=== PATIENT | male | born 1950 | race Caucasian/White ===

== ENCOUNTER 2016-10-26 20:40 | Emergency (ER) | payer MEDICARE, BC ==
[2016-10-26 20:46] VITALS: RESP 22; TEMP 97.5
[2016-10-26] MEDS ORDERED: IPRATROPIUM 0.5 MG/2.5 ML NEBU INHALATION STA (21:17)
[2016-10-26] MEDS ORDERED: ALBUTEROL NEBULIZED 2.5 MG/3 ML INHALATION STA (21:17)
[2016-10-26] MEDS ORDERED: DEXAMETHASONE SOD PHOSPHATE 10 MG/ML 1 ML VIAL IV STA (21:18)
[2016-10-26] MEDS ORDERED: DEXAMETHASONE SOD PHOSPHATE 10 MG/ML 1 ML VIAL IM STA (21:24)
--- NOTE | 2016-10-26 21:33 | XR ---
EXAMINATION TYPE: XR chest 2V DATE OF EXAM: 10/26/2016 COMPARISON: 01/23/2012 HISTORY: Short of breath TECHNIQUE: Frontal and lateral views of the chest are obtained. FINDINGS: Heart and mediastinum are normal. Lungs are clear. Diaphragm is normal. Bony thorax is int act. There are chest leads. IMPRESSION: No active cardiopulmonary disease. Normal heart. No change.
--- NOTE | 2016-10-26 22:43 | ED ---
General Adult HPI - General Chief complaint: Shortness of Breath Stated complaint: Diff breathing Time Seen by Provider: 10/26/16 21:17 Source: patient, family, RN notes reviewed Mode of arrival: ambulatory Limitations: no limitations - History of Present Illness Initial comments: 65-year-old male with history of COPD presents with worsening cough and dyspnea over the past one week. Patient states his cough is productive of white-yellow sputum. He is currently smoking and has a significant tobacco history. Patient states he normally uses albuterol and when he has a flare his doctor will give him a steroid shot, however he was unable to make an appointment with his primary care physician. Denies fever. Denies chest pain. Denies abdominal pain, or nausea vomiting. - Related Data Previous Rx's Medication Instructions Recorded Albuterol Inhaler [Ventolin Hfa 1 - 2 puff INHALATION Q4HR PRN #1 10/26/16 Inhaler] inhaler Albuterol Nebulized [Ventolin 2.5 mg INHALATION Q4H PRN #60 nebu 10/26/16 Nebulized] Azithromycin [Zithromax Z-pack] 0 mg PO DIRECTED #6 tab 10/26/16 predniSONE 50 mg PO DAILY #5 tablet 10/26/16 Allergies Allergy/AdvReac Type Severity Reaction Status Date / Time No Known Allergies Allergy Verified 10/26/16 20:45 Review of Systems ROS Statement: Those systems with pertinent positive or pertinent negative responses have been documented in the HPI. ROS Other: All systems not noted in ROS Statement are negative. Respiratory: Reports: cough, dyspnea Cardiovascular: Denies: chest pain Past Medical History Past Medical History: COPD Additional Past Medical History / Comment(s): tachycardia History of Any Multi-Drug Resistant Organisms: None Reported Past Surgical History: Appendectomy, Hernia Repair Past Psychological History: No Psychological Hx Reported Smoking Status: Current some day smoker Past Alcohol Use History: None Reported Past Drug Use History: None Reported General Exam Limitations: no limitations General appearance: alert, in no apparent distress Head exam: Present: atraumatic, normocephalic Eye exam: Present: normal appearance, PERRL ENT exam: Present: normal exam, normal oropharynx, mucous membranes moist Neck exam: Present: normal inspection, full ROM. Absent: tenderness, meningismus Respiratory exam: Present: wheezes, prolonged expiratory Cardiovascular Exam: Present: regular rate, normal rhythm GI/Abdominal exam: Present: soft. Absent: distended, tenderness Extremities exam: Present: normal inspection. Absent: pedal edema, calf tenderness Back exam: Present: normal inspection, full ROM Neurological exam: Present: alert, oriented X3. Absent: motor sensory deficit Psychiatric exam: Present: normal affect, normal mood Skin exam: Present: warm, dry. Absent: cyanosis Course Vital Signs 10/26/16 10/26/16 10/26/16 20:41 21:32 21:45 Temperature 97.5 F L Pulse Rate 94 103 H 97 Respiratory 22 Rate Blood Pressure 152/88 O2 Sat by Pulse 97 Oximetry 10/26/16 22:15 Temperature Pulse Rate 115 H Respiratory Rate Blood Pressure O2 Sat by Pulse Oximetry - Reevaluation(s) Reevaluation #1: 10/26/16 22:42 On reevaluation, the patient feels much better, wheezing has improved, there is still scattered and expiratory wheezes throughout both lung rodriguez. No respiratory distress. No tachypnea. No hypoxia EKG Findings - EKG Comments: EKG Findings:: EKG shows normal sinus rhythm, right atrial enlargement, ventricular rate 99, CO interval 146, QRS duration 76, QTC [address] segment elevation or depression Medical Decision Making - Medical Decision Making 65-year-old male with history of COPD, currently smoking presents with a 1 week of worsening dyspnea. Patient denies chest pain. Cough is productive of sputum. On examination there is no respiratory distress, there is bilateral wheezing in all lung rodriguez. No accessory muscle use. Patient is not hypoxic on room air. He is given albuterol, Atrovent, and Decadron in the emergency department on reevaluation his lung sounds have improved, there is still scattered wheezing throughout. Patient refuses blood work at this time. He states his appointment with his primary care physician in the next week. He is given 5 day course of prednisone, azithromycin, and refill of his albuterol. EKG is nonischemic. Chest x-ray shows no focal infiltrate or acute process. Diagnosis: COPD exacerbation Disposition Clinical Impression: COPD exacerbation Disposition: HOME SELF-CARE Instructions: Chronic Bronchitis (ED), COPD (Chronic Obstructive Pulmonary Disease) (ED) Prescriptions: Albuterol Inhaler [Ventolin Hfa Inhaler] 1 - 2 puff INHALATION Q4HR PRN #1 inhaler PRN Reason: Shortness Of Breath Albuterol Nebulized [Ventolin Nebulized] 2.5 mg INHALATION Q4H PRN #60 nebu PRN Reason: Shortness Of Breath Azithromycin [Zithromax Z-pack] 0 mg PO DIRECTED #6 tab predniSONE 50 mg PO DAILY #5 tablet Referrals: Rudy Santoyo DO [Primary Care Provider] - 1-2 days
[2016-10-26 22:48] VITALS: BP 163/73; PULSE 112
== END 2016-10-26 22:46 | disposition home or self-care (01) ==
LOC: EC 20:40
DX: J44.1 Chronic obstructive pulmonary disease with (acute) exacerbation (principal); F17.200 Nicotine dependence, unspecified, uncomplicated
CPT/HCPCS: 99284; 96372; 94640; 93005; 71020; J1100

== ENCOUNTER 2018-04-30 12:21 | Inpatient (IN) | payer MEDICARE, OTHER ==
[2018-04-30] MEDS ORDERED: IPRATROPIUM-ALBUTEROL 3 ML NEB INHALATION STA (12:31)
--- NOTE | 2018-04-30 13:41 | XR ---
EXAMINATION TYPE: XR chest 1V portable DATE OF EXAM: 04/30/2018 Comparison: 10/26/2016 Clinical History: 67-year-old male with pain Findings: Heart normal size. Diffuse interstitial densities. No megan consolidation or pleural effusion. Impression: Diffuse interstitial prominence. Correlate for possible mild pulmonary vascular congestion.
[2018-04-30 14:47] LABS: Anisocytosis Moderate; Lymphocytes # (A) 1.5 k/uL (1.0-4.8); Macrocytosis Moderate
--- NOTE | 2018-04-30 14:48 | ED ---
Recheck HPI - General Chief Complaint: Recheck/Abnormal Lab/Rx Stated Complaint: weakness Time Seen by Provider: 04/30/18 12:21 Source: patient, RN/MD, EMS, RN notes reviewed, old records reviewed Mode of arrival: EMS Limitations: no limitations - History of Present Illness Initial Comments: This is a 57-year-old male who was transferred here from [facility] for evaluation of several complaints including chest pain which she initially presented for this morning at that hospital. Pain is started around 4 AM 5/10 severity no radiation of the mid a better or worse he had some mild dyspnea weakness by time he has a year no pain he is found her on evaluation have a hemoglobin 4.8 he also did have an elevated d-dimer of 1.21 and elevated troponin 0.093 he however did have evidence of renal insufficiency with a BUN 86 creatinine 3.8. He was given one unit of blood that was finishing as he arrived by EMS. He states he does have a history of COPD he was having some slight dyspnea upon arrival. Rectal exam was performed by the emergency physician at the other hospital was negative for blood MD Complaint: abnormal lab, other - Related Data Home Medications Medication Instructions Recorded Confirmed Albuterol Nebulized (Conc) 2.5 mg PO RT-Q6H 04/30/18 04/30/18 [Ventolin Nebulized (Conc)] Metoprolol Tartrate [Lopressor] 50 mg PO BID 04/30/18 04/30/18 Allergies Allergy/AdvReac Type Severity Reaction Status Date / Time No Known Allergies Allergy Verified 04/30/18 12:42 Review of Systems ROS Statement: Those systems with pertinent positive or pertinent negative responses have been documented in the HPI. ROS Other: All systems not noted in ROS Statement are negative. Past Medical History Past Medical History: COPD Additional Past Medical History / Comment(s): tachycardia History of Any Multi-Drug Resistant Organisms: None Reported Past Surgical History: Appendectomy, Hernia Repair Additional Past Surgical History / Comment(s): cataract Past Psychological History: No Psychological Hx Reported Smoking Status: Current every day smoker Past Alcohol Use History: None Reported Past Drug Use History: None Reported General Exam - General Exam Comments Initial Comments: This is a well-developed well-nourished awake alert oriented 3 male he does appear pale Limitations: no limitations General appearance: alert, in no apparent distress Head exam: Present: atraumatic, normocephalic, normal inspection Eye exam: Present: normal appearance, PERRL, EOMI. Absent: scleral icterus, conjunctival injection, periorbital swelling ENT exam: Present: mucous membranes dry Neck exam: Present: normal inspection. Absent: tenderness, meningismus, lymphadenopathy Respiratory exam: Present: wheezes, decreased breath sounds. Absent: respiratory distress, rales, rhonchi, stridor Cardiovascular Exam: Present: regular rate, normal rhythm, normal heart sounds. Absent: systolic murmur, diastolic murmur, rubs, gallop, clicks GI/Abdominal exam: Present: soft, normal bowel sounds. Absent: distended, tenderness, guarding, rebound, rigid Rectal exam: Present: deferred Extremities exam: Present: normal inspection, full ROM, normal capillary refill. Absent: tenderness, pedal edema, joint swelling, calf tenderness Back exam: Present: normal inspection Neurological exam: Present: alert, oriented X3, CN II-XII intact Psychiatric exam: Present: normal affect, normal mood Skin exam: Present: warm, dry, intact, pallor. Absent: rash Course Vital Signs 04/30/18 04/30/18 04/30/18 12:34 13:42 13:50 Temperature 98.2 F Pulse Rate 84 88 84 Respiratory 18 22 Rate Blood Pressure 176/102 O2 Sat by Pulse 96 Oximetry 04/30/18 14:58 Temperature Pulse Rate 92 Respiratory 18 Rate Blood Pressure 177/102 O2 Sat by Pulse 99 Oximetry Medical Decision Making - Medical Decision Making Repeat hemoglobin on the patient was 6.7. He is feeling improved no more chest pain is been reported. Patient will be admitted the additional unit of blood will be given he'll be admitted for evaluation by cardiology. Also GI consult was ordered. The early elevations of troponin and d-dimer are likely secondary to renal failure issues.. Nephrology will also be ordered. - Lab Data Result diagrams: 04/30/18 14:29 Lab Results 04/30/18 Range/Units 14:29 WBC 7.6 (3.8-10.6) k/uL RBC 2.12 L (4.30-5.90) m/uL Hgb 6.7 L* (13.0-17.5) gm/dL Hct 21.3 L (39.0-53.0) % MCV 100.7 H (80.0-100.0) fL MCH 31.7 (25.0-35.0) pg MCHC 31.5 (31.0-37.0) g/dL RDW 20.8 H (11.5-15.5) % Plt Count 488 H (150-450) k/uL Neutrophils % 65 % Lymphocytes % 19 % Monocytes % 10 % Eosinophils % 2 % Basophils % 1 % Neutrophils # 4.9 (1.3-7.7) k/uL Lymphocytes # 1.5 (1.0-4.8) k/uL Monocytes # 0.8 (0-1.0) k/uL Eosinophils # 0.2 (0-0.7) k/uL Basophils # 0.1 (0-0.2) k/uL Anisocytosis Moderate Macrocytosis Moderate - Radiology Data Radiology results: report reviewed ([place] increase interstitial markings.), image reviewed Disposition Clinical Impression: Chest pain, Anemia, Renal insufficiency Disposition: ADMITTED IP TO THIS [facility] Condition: Serious Referrals: Rudy Santoyo DO [Primary Care Provider] - 1-2 days
[2018-04-30 14:54] LABS: Basophils # (A) 0.1 k/uL (0-0.2); Basophils % (A) 1 %; Eosinophils # (A) 0.2 k/uL (0-0.7); Eosinophils % (A) 2 %; HCT 21.3 % (39.0-53.0); Lymphocytes % (A) 19 %; MCH 31.7 pg (25.0-35.0); MCHC 31.5 g/dL (31.0-37.0); MCV 100.7 fL (80.0-100.0); Mean Platelet Volume 6.3; Monocytes # (A) 0.8 k/uL (0-1.0); Monocytes % (A) 10 %; Neutrophils # (A) 4.9 k/uL (1.3-7.7); Neutrophils % (A) 65 %; Platelet Count 488 k/uL (150-450); RBC 2.12 m/uL (4.30-5.90); RDW 20.8 % (11.5-15.5); WBC 7.6 k/uL (3.8-10.6)
[2018-04-30 15:02] LABS: HGB 6.7 gm/dL (13.0-17.5)
[2018-04-30] MEDS ORDERED: NALOXONE 0.4 MG/ML 1 ML VIAL IV PRN (15:18)
[2018-04-30 15:49] LABS: Albumin 3.2 g/dL (3.5-5.0); Calcium 8.4 mg/dL (8.4-10.2); Total Bilirubin 0.2 mg/dL (0.2-1.3); Total Protein 5.8 g/dL (6.3-8.2)
[2018-04-30 15:59] LABS: Creatine Kinase MB 1.5 ng/mL (0.0-2.4)
[2018-04-30 16:01] LABS: Troponin I 0.211 ng/mL (0.000-0.034)
[2018-04-30] MEDS ORDERED: IPRATROPIUM-ALBUTEROL 3 ML NEB INHALATION PRN (16:20)
--- NOTE | 2018-04-30 16:33 | P.HPIM ---
History of Present Illness Patient is a very pleasant 57-year-old gentleman was transferred from [facility] after he is found to be anemic. Patient presented to the hospital with precordial chest pain 5/10 severity along with mild dyspnea generalized weakness has been going on for about a month. Patient is found to have hemoglobin of 4.8 patient has significant renal insufficiency with BUN/ creatinine of 2.8 BUN of 86 patient's baseline creatinine around 0.84 years ago and from 2013. Patient is a thin built gentleman at baseline patient is appropriately intake doesn't eat much does appear to have macrocytosis, reactive thrombocytosis. 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 Patient denied any obvious JVD denied any blood in the stools or dark stools rectal exam did not reveal any blood he in the year.. Patient had only 1 stool yesterday patient denied any increased frequency stools lately . Denied any hematemesis denied any abdominal pain. His chest pain improved with lowering to blood transfusion. Review of Systems REVIEW OF SYSTEMS: CONSTITUTIONAL: No fever, no malaise, no fatigue. HEENT: No recent visual problems or hearing problems. Denied any sore throat. CARDIOVASCULAR: No orthopnea, PND, no palpitations, no syncope. PULMONARY: no cough, no hemoptysis. GASTROINTESTINAL: No diarrhea, no nausea, no vomiting, no abdominal pain. NEUROLOGICAL: No headaches, no weakness, no numbness. HEMATOLOGICAL: Denies any bleeding or petechiae. GENITOURINARY: Denies any burning micturition, frequency, or urgency. MUSCULOSKELETAL/RHEUMATOLOGICAL: Denies any joint pain, swelling, or any muscle pain. ENDOCRINE: Denies any polyuria or polydipsia. The rest of the 14-point review of systems is negative. Past Medical History Past Medical History: COPD Additional Past Medical History / Comment(s): tachycardia, in past was on thyroid med none now,"headaches", wants flu vaccine while here. History of Any Multi-Drug Resistant Organisms: None Reported Past Surgical History: Appendectomy, Hernia Repair Additional Past Surgical History / Comment(s): cataracts -latest one on left side done 04-24-18, naveed ing hernia repair Past Anesthesia/Blood Transfusion Reactions: No Reported Reaction Smoking Status: Current every day smoker - Past Family History Mother Family Medical History: Unable to Obtain Father Family Medical History: Myocardial Infarction ([place]) Medications and Allergies Home Medications Medication Instructions Recorded Confirmed Type Albuterol Nebulized (Conc) 2.5 mg PO RT-Q6H 04/30/18 04/30/18 History [Ventolin Nebulized (Conc)] Metoprolol Tartrate [Lopressor] 50 mg PO BID 04/30/18 04/30/18 History Allergies Allergy/AdvReac Type Severity Reaction Status Date / Time No Known Allergies Allergy Verified 04/30/18 12:42 Physical Exam Vitals: Vital Signs Temp Pulse Resp BP Pulse Ox 04/30/18 16:08 85 18 184/99 95 04/30/18 14:58 92 18 177/102 99 04/30/18 13:50 84 04/30/18 13:42 88 22 04/30/18 12:34 98.2 F 84 18 176/102 96 Intake and Output 04/30/18 04/30/18 04/30/18 06:59 14:59 22:59 Other: Weight 46.72 kg PHYSICAL EXAMINATION: GENERAL: The patient is alert and oriented x3, thin built HEENT: Pupils are round and equally reacting to light. EOMI. No scleral icterus. No conjunctival pallor. Normocephalic, atraumatic. No pharyngeal erythema. No thyromegaly. CARDIOVASCULAR: S1 and S2 present. No murmurs, rubs, or gallops. PULMONARY: Minimal expiratory wheezing, fairly good air entry into bilateral lung rodriguez. ABDOMEN: Soft, nontender, nondistended, normoactive bowel sounds. No palpable organomegaly. MUSCULOSKELETAL: No joint swelling or deformity. EXTREMITIES: No cyanosis, clubbing, or pedal edema. NEUROLOGICAL: Gross neurological examination did not reveal any focal deficits. SKIN: No rashes. Results CBC & Chem 7: 04/30/18 14:29 04/30/18 14:29 Labs: Abnormal Lab Results - Last 24 Hours (Table) 04/30/18 04/30/18 04/30/18 Range/Units 14:29 14:29 14:29 RBC 2.12 L (4.30-5.90) m/uL Hgb 6.7 L* (13.0-17.5) gm/dL Hct 21.3 L (39.0-53.0) % MCV 100.7 H (80.0-100.0) fL RDW 20.8 H (11.5-15.5) % Plt Count 488 H (150-450) k/uL Chloride 110 H (98-107) mmol/L Carbon Dioxide 15 L (22-30) mmol/L BUN 83 H (9-20) mg/dL Creatinine 3.42 H (0.66-1.25) mg/dL AST 15 L (17-59) U/L Total Creatine Kinase 47 L (55-170) U/L Troponin I 0.211 H* (0.000-0.034) ng/mL Total Protein 5.8 L (6.3-8.2) g/dL Albumin 3.2 L (3.5-5.0) g/dL Assessment and Plan Plan: -Chest pain, possibility of type II non-ST elevation myocardial infarction from anemia patient will not require any heparin patient is a 1 unit of blood transfusion patient will require 2 more units of blood transfusion patient's hemoglobin is 6.7 at this time. She does not have any evidence of GI bleed. We 'll order an EKG -Severe anemia symptomatic without any evidence of acute bleed or acute blood loss: Probably nutritionally anemia patient has macrocytosis louder B-12 folate levels along with the ferritin level. If the B12 and folate levels are within normal limits patient will need bone marrow biopsy senior assistant manager for myelodysplastic syndromes. -COPD with minimal acceleration will not require any systemic steroids patient will be started on inhaled steroids and inhalational treatments. continues to smoke -Acute renal failure, possibility of chronic kidney disease cannot be ruled out acute renal failure is probably due to prerenal azotemia and severe anemia patient will receive blood transfusion we'll obtain basic metabolic profile tomorrow -Anion gap and noniron gap metabolic acidosis secondary to renal failure and hyperkalemia. -Thrombocytosis: Reactive secondary to anemia -Pulmonary edema on chest x-ray. obtain echocardiogram. Cardiology will evaluate the patient -CODE STATUS: Full code
[2018-04-30] MEDS ORDERED: IPRATROPIUM-ALBUTEROL 3 ML NEB INHALATION SCH (18:00)
[2018-04-30] MEDS ORDERED: FUROSEMIDE 10 MG/ML 2 ML VIAL IV ONE (18:01)
[2018-04-30] MEDS: SODIUM CHLORIDE 0.9% 1,000 ML IV SCH (19:21)
[2018-04-30] MEDS: FAMOTIDINE 20 MG TAB PO SCH (19:28)
[2018-04-30] MEDS: METOPROLOL TARTRATE 50 MG TAB PO SCH (19:28)
[2018-04-30] MEDS: BUDESONIDE 0.5 MG/2 ML NEBU INHALATION SCH (19:42)
[2018-04-30] MEDS: IPRATROPIUM-ALBUTEROL 3 ML NEB INHALATION SCH (19:42)
[2018-04-30] MEDS ORDERED: PANTOPRAZOLE 40 MG/10 ML VIAL IV SCH (21:00)
[2018-04-30] MEDS ORDERED: hydrALAZINE HCL 50 MG TAB PO SCH (22:15)
[2018-04-30 22:57] LABS: Anisocytosis Moderate; Basophils # (A) 0.1 k/uL (0-0.2); Basophils % (A) 1 %; Hypochromasia Slight; Macrocytosis Moderate; Monocytes # (A) 0.6 k/uL (0-1.0); Poikilocytosis Slight
[2018-04-30 23:00] LABS: Eosinophils # (A) 0.3 k/uL (0-0.7); Eosinophils % (A) 3 %; HCT 25.2 % (39.0-53.0); Lymphocytes % (A) 11 %; MCH 32.2 pg (25.0-35.0); MCHC 32.9 g/dL (31.0-37.0); MCV 97.8 fL (80.0-100.0); Mean Platelet Volume 6.1; Monocytes % (A) 7 %; Neutrophils % (A) 76 %; Platelet Count 486 k/uL (150-450); RBC 2.58 m/uL (4.30-5.90); RDW 21.2 % (11.5-15.5); WBC 9.1 k/uL (3.8-10.6)
[2018-04-30 23:01] LABS: HGB 8.3 gm/dL (13.0-17.5)
[2018-05-01] MEDS: GENTAMICIN BOTH EYES SCH ×3 (01:16→21:39)
[2018-05-01] MEDS: KETOROLAC 0.5% OPHTH DROPS 5 ML BTL BOTH EYES SCH ×3 (01:16→21:39)
[2018-05-01] MEDS: PREDNISOLONE BOTH EYES SCH ×3 (01:16→21:39)
[2018-05-01 06:35] LABS: Anisocytosis Moderate; Basophils # (A) 0.1 k/uL (0-0.2); Basophils % (A) 1 %; Eosinophils # (A) 0.2 k/uL (0-0.7); Eosinophils % (A) 2 %; HCT 25.9 % (39.0-53.0); HGB 8.4 gm/dL (13.0-17.5); Lymphocytes # (A) 1.2 k/uL (1.0-4.8); Lymphocytes % (A) 12 %; MCH 31.1 pg (25.0-35.0); MCHC 32.2 g/dL (31.0-37.0); MCV 96.3 fL (80.0-100.0); Macrocytosis Moderate; Mean Platelet Volume 6.9; Monocytes # (A) 0.8 k/uL (0-1.0); Monocytes % (A) 7 %; Neutrophils # (A) 8.3 k/uL (1.3-7.7); Neutrophils % (A) 77 %; Platelet Count 495 k/uL (150-450); Poikilocytosis Slight; RBC 2.69 m/uL (4.30-5.90); RDW 21.5 % (11.5-15.5); WBC 10.8 k/uL (3.8-10.6)
[2018-05-01 06:44] LABS: Calcium 8.9 mg/dL (8.4-10.2); Potassium 4.4 mmol/L (3.5-5.1)
--- NOTE | 2018-05-01 08:07 | P.CRDCN ---
History of Present Illness Consult date: 05/01/18 Chief complaint: Chest discomfort/shortness of breath History of present illness: This is a pleasant 67-year-old gentleman with a past medical history significant for chronic obstructive pulmonary disease as well as history of hypertension who was transferred from [facility] to [facility] for further evaluation of severe anemia. The patient presented to the hospital complaining of chest discomfort as well as shortness of breath. Overall he is a poor historian and also he is a slightly confused. He states for the last several days, he has been experiencing chest discomfort, in the mid of the chest, as a pressure on the chest, without any radiation to the arm or neck or shoulders. Also he has been experiencing extreme dyspnea even with minimal exertion. Beside that he was feeling tired and weak and also he was fatigued. The hemoglobin at [facility] was checked and came in to before. The patient did receive 2 units of packed RBC with improvement in his hemoglobin and also improvement in his symptoms. The patient does not recall having any symptoms of blood in the stool or coughing blood. No abdominal discomfort, no nausea or vomiting, no fever or chills. No history of coronary artery disease or congestive heart failure or any cardiac arrhythmia and he never seen any consignee in the past. The EKG showed sinus rhythm and initially sinus tachycardia. The troponin was checked and came in to be slightly abnormal but old below 1. I did review the chart from [place] as well. The blood pressure continues to be out of control. The patient currently is on metoprolol as well as hydrocephalus and by mouth. He is nothing by mouth for possible endoscopy later on today. Past Medical History Past Medical History: COPD Additional Past Medical History / Comment(s): tachycardia, in past was on thyroid med none now,"headaches", wants flu vaccine while here. History of Any Multi-Drug Resistant Organisms: None Reported Past Surgical History: Appendectomy, Hernia Repair Additional Past Surgical History / Comment(s): cataracts -latest one on left side done 04-24-18, naveed ing hernia repair Past Anesthesia/Blood Transfusion Reactions: No Reported Reaction Smoking Status: Current every day smoker - Past Family History Mother Family Medical History: Unable to Obtain Father Family Medical History: Myocardial Infarction ([place]) Medications and Allergies Home Medications Medication Instructions Recorded Confirmed Type Albuterol Nebulized (Conc) 2.5 mg PO RT-Q6H 04/30/18 04/30/18 History [Ventolin Nebulized (Conc)] Gentamicin/Prednisol AC [Pred-G 1% 1 drop BOTH EYES BID 04/30/18 04/30/18 History Eye Drops] Ketorolac 0.5% Ophth Soln [Acular 1 drop BOTH EYES BID 04/30/18 04/30/18 History 0.5%] Metoprolol Tartrate [Lopressor] 50 mg PO BID 04/30/18 04/30/18 History Omeprazole Magnesium [PriLOSEC OTC] 1 tab PO DAILY PRN 04/30/18 04/30/18 History Allergies Allergy/AdvReac Type Severity Reaction Status Date / Time No Known Allergies Allergy Verified 04/30/18 12:42 Physical Exam Vitals: Vital Signs Temp Pulse Pulse Resp BP BP BP 05/01/18 04:00 97.4 F L 103 H 16 171/85 05/01/18 00:00 97.1 F L 88 16 180/100 04/30/18 20:00 98.7 F 78 15 187/98 198/108 04/30/18 19:52 89 04/30/18 19:42 87 04/30/18 19:32 98.7 F 78 15 198/108 04/30/18 19:16 98.7 F 92 16 200/107 04/30/18 18:27 89 18 187/98 04/30/18 18:06 97.7 F 85 14 164/102 04/30/18 17:53 97.8 F 84 04/30/18 17:36 97.8 F 84 16 184/104 04/30/18 17:26 98.2 F 83 16 188/104 04/30/18 16:08 85 18 184/99 04/30/18 14:58 92 18 177/102 04/30/18 13:50 84 04/30/18 13:42 88 22 04/30/18 12:34 98.2 F 84 18 176/102 Pulse Ox 05/01/18 04:00 98 05/01/18 00:00 93 L 04/30/18 20:00 92 L 04/30/18 19:52 04/30/18 19:42 04/30/18 19:32 92 L 04/30/18 19:16 94 L 04/30/18 18:27 96 04/30/18 18:06 04/30/18 17:53 04/30/18 17:36 04/30/18 17:26 98 04/30/18 16:08 95 04/30/18 14:58 99 04/30/18 13:50 04/30/18 13:42 04/30/18 12:34 96 Intake and Output 04/30/18 05/01/18 05/01/18 22:59 06:59 14:59 Intake Total 490 500 Output Total 600 Balance 490 -100 Intake: IV 10 20 Invasive Line 1 10 20 Amount of Fluid Infused ( 150 ml) Intake, IV Titration 0 Amount Sodium Chloride 0.9% 1, 0 000 ml @ 20 mls/hr IV . Q24H [facility] Rx#:[id number] Oral 480 Blood Product 310 Rc Pheresis As-3 Unit 310 [id number] Other 20 Rc Pheresis As-3 Unit 20 [id number] Output: Urine 600 Other: Voiding Method Toilet Toilet # Voids 5 Weight 52.1 kg 50.4 kg - Constitutional General appearance: no acute distress - Respiratory Respiratory: bilateral: CTA - Cardiovascular Rhythm: regular Heart sounds: normal: S1, S2 Results 05/01/18 06:15 05/01/18 06:15 Cardiac Enzymes 04/30/18 04/30/18 04/30/18 Range/Units 14:29 14:29 22:31 AST 15 L (17-59) U/L CK-MB (CK-2) 1.5 (0.0-2.4) ng/mL Troponin I 0.211 H* 0.190 H* (0.000-0.034) ng/mL CBC 04/30/18 04/30/18 05/01/18 Range/Units 14:29 22:31 06:15 WBC 7.6 9.1 10.8 H (3.8-10.6) k/uL RBC 2.12 L 2.58 L 2.69 L (4.30-5.90) m/uL Hgb 6.7 L* 8.3 L D 8.4 L (13.0-17.5) gm/dL Hct 21.3 L 25.2 L 25.9 L (39.0-53.0) % Plt Count 488 H 486 H 495 H (150-450) k/uL Comprehensive Metabolic Panel 04/30/18 05/01/18 Range/Units 14:29 06:15 Sodium 137 139 (137-145) mmol/L Potassium 5.0 4.4 (3.5-5.1) mmol/L Chloride 110 H 109 H (98-107) mmol/L Carbon Dioxide 15 L 18 L (22-30) mmol/L BUN 83 H 72 H (9-20) mg/dL Creatinine 3.42 H 3.37 H (0.66-1.25) mg/dL Glucose 90 96 (74-99) mg/dL Calcium 8.4 8.9 (8.4-10.2) mg/dL AST 15 L (17-59) U/L ALT 21 (21-72) U/L Alkaline Phosphatase 46 (38-126) U/L Total Protein 5.8 L (6.3-8.2) g/dL Albumin 3.2 L (3.5-5.0) g/dL Current Medications Generic Name Dose Route Start Last Admin Trade Name Freq PRN Reason Stop Dose Admin Albuterol/Ipratropium 3 ml 04/30/18 20:00 04/30/18 19:42 Duoneb 0.5 Mg-3 Mg/3 Ml Soln INHALATION 3 ml RT-QID JAMA Administration Albuterol/Ipratropium 3 ml 04/30/18 18:00 Duoneb 0.5 Mg-3 Mg/3 Ml Soln INHALATION RT-Q2H PRN Shortness Of Breath Or Wheezing Budesonide 0.5 mg 04/30/18 20:00 04/30/18 19:42 Pulmicort INHALATION 0.5 mg RT-BID JAMA Administration Famotidine 20 mg 04/30/18 21:00 04/30/18 19:28 Pepcid PO 20 mg HS JAMA Administration Hydralazine HCl 50 mg 04/30/18 22:15 04/30/18 23:44 Apresoline PO 50 mg TID JAMA Administration Sodium Chloride 1,000 mls @ 20 mls/hr 04/30/18 15:30 04/30/18 19:21 Saline 0.9% IV Not Given .Q24H JAMA Ketorolac Tromethamine 1 drops 04/30/18 23:45 05/01/18 01:16 Acular BOTH EYES Not Given BID JAMA Metoprolol Tartrate 50 mg 04/30/18 21:00 04/30/18 19:28 Lopressor PO 50 mg BID JAMA Administration Naloxone HCl 0.2 mg 04/30/18 15:18 Narcan IV Q2M PRN Opioid Reversal Non-Formulary Medication 1 drop 04/30/18 23:45 05/01/18 01:16 Gentamicin/Prednisol Ac [Pred-G 1% Eye Drops] BOTH EYES Not Given BID JAMA Intake and Output 04/30/18 05/01/18 05/01/18 22:59 06:59 14:59 Intake Total 490 500 Output Total 600 Balance 490 -100 Intake: IV 10 20 Invasive Line 1 10 20 Amount of Fluid Infused ( 150 ml) Intake, IV Titration 0 Amount Sodium Chloride 0.9% 1, 0 000 ml @ 20 mls/hr IV . Q24H [facility] Rx#:[id number] Oral 480 Blood Product 310 Rc Pheresis As-3 Unit 310 [id number] Other 20 Rc Pheresis As-3 Unit 20 [id number] Output: Urine 600 Other: Voiding Method Toilet Toilet # Voids 5 Weight 52.1 kg 50.4 kg 05/01/18 06:15 05/01/18 06:15 Assessment and Plan Assessment: Assessment #1 severe anemia of unknown etiology at this point. #2 chest discomfort secondary to the above #3 mildly abnormal cardiac enzymes secondary to the anemia, hypertension, and tachycardia #4 uncontrolled hypertension Plan #1 the patient received blood and the hemoglobin has improved #2 he is in process to be seen by the GI service #3 continue the current dose of metoprolol and possibly increase the dose down the line #4 increase the dose of hydralazine for better blood pressure control #5 obtain an echocardiogram was Doppler to evaluate the left ventricular systolic function #6 consider conservative medical approach for the acute non-STEMI Thank you for allowing us participate in his care and we'll continue following up with him
[2018-05-01] MEDS: IPRATROPIUM-ALBUTEROL 3 ML NEB INHALATION SCH ×4 (08:25→19:47)
[2018-05-01] MEDS: BUDESONIDE 0.5 MG/2 ML NEBU INHALATION SCH (08:25)
[2018-05-01] MEDS: METOPROLOL TARTRATE 50 MG TAB PO SCH ×2 (08:52→21:39)
[2018-05-01] MEDS: hydrALAZINE HCL 50 MG TAB PO SCH ×3 (08:52→21:39)
--- NOTE | 2018-05-01 09:11 | P.CONS ---
History of Present Illness - Reason for Consult Consult date: 05/01/18 Anemia and GI bleed Requesting physician: Guanaco Cleary - Chief Complaint Chest pain - History of Present Illness 67-year-old male transferred from [facility] with reports of chest pain, vomiting, elevated troponin shortness of breath with hemoglobin of 4.8. Patient is confused this morning history obtained from RN. Past medical history of COPD possible underlying renal insufficiency BUN 86. Creatinine 2.8. Denies overt bleeding such as hematemesis hematochezia melena. Received blood transfusion present hemoglobin is 8.4. Platelets 495. MCV 96. White count 10.8. BUN 72. Creatinine 3.3. Troponin 0.1-0.2. Unable to say if he's had EGD colonoscopy in past. Nursing reports no active bleeding since admission. Patient denies abdominal pain. Review of Systems Confused obtained from MR and RN Constitutional: Denies fever, chills, sweats, weight gain, or loss. HEENT: Negative for migraines, blurred vision or loss, earaches, drainage, tinnitus, oral mucosal lesions, dysphagia, or odynophagia. Cardiac: Admitted with chest pain denies, arrhythmias, or palpitation. Respiratory: Positive for shortness of breath, denies hemoptysis, cough, or sputum production. Gastrointestinal: See HPI for pertinent findings. Genitourinary: Negative for hematuria, urgency, frequency, polyuria, dysuria, or penile discharge. Musculoskeletal: Negative for muscle aches, swelling, arthritis, and arthralgias. Neurologic: Negative for stroke or TIA. Endocrine: Negative for thyroid problems. Skin: Negative for rash or itching. Psychiatric: Negative history for depression and anxiety ROS unobtainable: due to mental status Past Medical History Past Medical History: COPD Additional Past Medical History / Comment(s): tachycardia, in past was on thyroid med none now,"headaches", wants flu vaccine while here. History of Any Multi-Drug Resistant Organisms: None Reported Past Surgical History: Appendectomy, Hernia Repair Additional Past Surgical History / Comment(s): cataracts -latest one on left side done 04-24-18, naveed ing hernia repair Past Anesthesia/Blood Transfusion Reactions: No Reported Reaction Smoking Status: Current every day smoker - Past Family History Mother Family Medical History: Unable to Obtain Father Family Medical History: Myocardial Infarction ([place]) Medications and Allergies Home Medications Medication Instructions Recorded Confirmed Type Albuterol Nebulized (Conc) 2.5 mg PO RT-Q6H 04/30/18 04/30/18 History [Ventolin Nebulized (Conc)] Gentamicin/Prednisol AC [Pred-G 1% 1 drop BOTH EYES BID 04/30/18 04/30/18 History Eye Drops] Ketorolac 0.5% Ophth Soln [Acular 1 drop BOTH EYES BID 04/30/18 04/30/18 History 0.5%] Metoprolol Tartrate [Lopressor] 50 mg PO BID 04/30/18 04/30/18 History Omeprazole Magnesium [PriLOSEC OTC] 1 tab PO DAILY PRN 04/30/18 04/30/18 History Allergies Allergy/AdvReac Type Severity Reaction Status Date / Time No Known Allergies Allergy Verified 04/30/18 12:42 Physical Exam Vitals: Vital Signs Temp Pulse Pulse Resp BP BP BP 05/01/18 04:00 97.4 F L 103 H 16 171/85 05/01/18 00:00 97.1 F L 88 16 180/100 04/30/18 20:00 98.7 F 78 15 187/98 198/108 04/30/18 19:52 89 04/30/18 19:42 87 04/30/18 19:32 98.7 F 78 15 198/108 04/30/18 19:16 98.7 F 92 16 200/107 04/30/18 18:27 89 18 187/98 04/30/18 18:06 97.7 F 85 14 164/102 04/30/18 17:53 97.8 F 84 04/30/18 17:36 97.8 F 84 16 184/104 04/30/18 17:26 98.2 F 83 16 188/104 04/30/18 16:08 85 18 184/99 04/30/18 14:58 92 18 177/102 04/30/18 13:50 84 04/30/18 13:42 88 22 04/30/18 12:34 98.2 F 84 18 176/102 Pulse Ox 05/01/18 04:00 98 05/01/18 00:00 93 L 04/30/18 20:00 92 L 04/30/18 19:52 01/30/19 19:42 04/30/18 19:32 92 L 04/30/18 19:16 94 L 04/30/18 18:27 96 04/30/18 18:06 04/30/18 17:53 04/30/18 17:36 04/30/18 17:26 98 04/30/18 16:08 95 04/30/18 14:58 99 04/30/18 13:50 04/30/18 13:42 04/30/18 12:34 96 Intake and Output 04/30/18 05/01/18 05/01/18 22:59 06:59 14:59 Intake Total 490 500 Output Total 600 Balance 490 -100 Intake: IV 10 20 Invasive Line 1 10 20 Amount of Fluid Infused ( 150 ml) Intake, IV Titration 0 Amount Sodium Chloride 0.9% 1, 0 000 ml @ 20 mls/hr IV . Q24H [facility] Rx#:[id number] Oral 480 Blood Product 310 Rc Pheresis As-3 Unit 310 [id number] Other 20 Rc Pheresis As-3 Unit 20 [id number] Output: Urine 600 Other: Voiding Method Toilet Toilet # Voids 5 Weight 52.1 kg 50.4 kg General appearance: The patient is alert, to self in no acute distress. HET: Head is normocephalic and atraumatic. Pupils are equal and reactive. Oropharynx is clear without lesions. Neck: Supple without lymphadenopathy. Trachea midline. Heart: S1 S2. Regular rate and rhythm. Lungs: No crackles or wheezes are heard. Abdomen: Soft, nontender, nondistended with bowel sounds. No peritoneal signs. No palpable organomegaly or masses. Extremities: Normal skin color and turgor. No cyanosis, rash, ulceration, clubbing, or edema. Radial and pedal pulses are 2/4 bilaterally. Neurological: No focal deficits. Strength and sensation are grossly intact. Results CBC & Chem 7: 05/02/18 06:19 05/02/18 06:19 Labs: Abnormal Lab Results - Last 24 Hours (Table) 04/30/18 04/30/18 04/30/18 Range/Units 14:29 14:29 14:29 WBC (3.8-10.6) k/uL RBC 2.12 L (4.30-5.90) m/uL Hgb 6.7 L* (13.0-17.5) gm/dL Hct 21.3 L (39.0-53.0) % MCV 100.7 H (80.0-100.0) fL RDW 20.8 H (11.5-15.5) % Plt Count 488 H (150-450) k/uL Neutrophils # (1.3-7.7) k/uL Chloride (98-107) mmol/L Carbon Dioxide (22-30) mmol/L BUN (9-20) mg/dL Creatinine (0.66-1.25) mg/dL AST (17-59) U/L Total Creatine Kinase 47 L (55-170) U/L Troponin I 0.211 H* (0.000-0.034) ng/mL Total Protein (6.3-8.2) g/dL Albumin (3.5-5.0) g/dL Crossmatch See Detail 04/30/18 04/30/18 04/30/18 Range/Units 14:29 22:31 22:31 WBC (3.8-10.6) k/uL RBC 2.58 L (4.30-5.90) m/uL Hgb 8.3 L D (13.0-17.5) gm/dL Hct 25.2 L (39.0-53.0) % MCV (80.0-100.0) fL RDW 21.2 H (11.5-15.5) % Plt Count 486 H (150-450) k/uL Neutrophils # (1.3-7.7) k/uL Chloride 110 H (98-107) mmol/L Carbon Dioxide 15 L (22-30) mmol/L BUN 83 H (9-20) mg/dL Creatinine 3.42 H (0.66-1.25) mg/dL AST 15 L (17-59) U/L Total Creatine Kinase (55-170) U/L Troponin I 0.190 H* (0.000-0.034) ng/mL Total Protein 5.8 L (6.3-8.2) g/dL Albumin 3.2 L (3.5-5.0) g/dL Crossmatch 05/01/18 05/01/18 Range/Units 06:15 06:15 WBC 10.8 H (3.8-10.6) k/uL RBC 2.69 L (4.30-5.90) m/uL Hgb 8.4 L (13.0-17.5) gm/dL Hct 25.9 L (39.0-53.0) % MCV (80.0-100.0) fL RDW 21.5 H (11.5-15.5) % Plt Count 495 H (150-450) k/uL Neutrophils # 8.3 H (1.3-7.7) k/uL Chloride 109 H (98-107) mmol/L Carbon Dioxide 18 L (22-30) mmol/L BUN 72 H (9-20) mg/dL Creatinine 3.37 H (0.66-1.25) mg/dL AST (17-59) U/L Total Creatine Kinase (55-170) U/L Troponin I (0.000-0.034) ng/mL Total Protein (6.3-8.2) g/dL Albumin (3.5-5.0) g/dL Crossmatch Assessment and Plan (1) Symptomatic anemia Current Visit: Yes Status: Acute Code(s): D64.9 - ANEMIA, UNSPECIFIED SNOMED Code(s): 266696629 (2) Chest pain Current Visit: Yes Status: Acute Code(s): R07.9 - CHEST PAIN, UNSPECIFIED SNOMED Code(s): 85077015 (3) Elevated troponin Current Visit: Yes Status: Acute Code(s): R74.8 - ABNORMAL LEVELS OF OTHER SERUM ENZYMES SNOMED Code(s): 233032304 (4) Change in mental status Current Visit: Yes Status: Acute Code(s): R41.82 - ALTERED MENTAL STATUS, UNSPECIFIED SNOMED Code(s): 687195908 (5) Severe chronic obstructive pulmonary disease Current Visit: Yes Status: Chronic Code(s): J44.9 - CHRONIC OBSTRUCTIVE PULMONARY DISEASE, UNSPECIFIED SNOMED Code(s): 454004541 Plan: 1. Cardiology nephrology consult. Daily CBC. Light diet as tolerated. Inpatient EGD colonoscopy discussed patient is confused will discuss with attending consult staff and family. We'll follow closely with you. Thank you for this kind referral and the opportunity to participate in the care of your patient. This consultation was discussed with Dr. Naranjo. The impression and plan of care have been directed as dictated.
[2018-05-01] MEDS ORDERED: HALOPERIDOL LACTATE 5 MG/ML 1 ML VIAL IVP PRN ×2 (10:33→11:12)
--- NOTE | 2018-05-01 10:33 | P.NPCON ---
History of Present Illness - Reason for Consult acute renal failure - History of Present Illness Reason for consultation: Acute kidney injury History of present illness: Patient is a 67-year-old male seen in renal consultation for acute kidney injury. Creatinine in December 2013 was 0.83. No records available since then. This admission his creatinine was 3.4-1 is 3.37 today. He admits to good urine output. No hematuria or dysuria. Patient presented to [facility] with generalized weakness. His hemoglobin was noted to be 4.8. He was also having chest discomfort and was subsequently transferred over here. He has received 3 units of blood so far. Hemoglobin is up 8.4. No melena or hematochezia. He does admit to taking ibuprofen on a daily basis. No evidence of hypotension. In fact his blood pressures are elevated. Dose of hydralazine was increased this morning. No history of diabetes. No active chest pain or shortness of breath. Family is present at bedside. Patient's aunt had renal failure and is currently . Vital signs are stable. General: The patient appeared well nourished and normally developed. HEENT: Head exam is unremarkable. Neck is without jugular venous distension. LUNGS: Lungs are clear to auscultation and percussion. Breath sounds decreased. HEART: Rate and Rhythm are regular. First and second heart sounds normal. No murmurs, rubs or gallops. ABDOMEN: Abdominal exam reveals normal bowel sounds. Non-tender and non- distended. No evidence of peritonitis. EXTREMITITES: No clubbing, cyanosis, or edema. Past Medical History Past Medical History: COPD Additional Past Medical History / Comment(s): tachycardia, in past was on thyroid med none now,"headaches", wants flu vaccine while here. History of Any Multi-Drug Resistant Organisms: None Reported Past Surgical History: Appendectomy, Hernia Repair Additional Past Surgical History / Comment(s): cataracts -latest one on left side done 04-24-18, naveed ing hernia repair Past Anesthesia/Blood Transfusion Reactions: No Reported Reaction Smoking Status: Current every day smoker - Past Family History Mother Family Medical History: Unable to Obtain Father Family Medical History: Myocardial Infarction ([place]) Medications and Allergies Home Medications Medication Instructions Recorded Confirmed Type Albuterol Nebulized (Conc) 2.5 mg PO RT-Q6H 04/30/18 04/30/18 History [Ventolin Nebulized (Conc)] Gentamicin/Prednisol AC [Pred-G 1% 1 drop BOTH EYES BID 04/30/18 04/30/18 History Eye Drops] Ketorolac 0.5% Ophth Soln [Acular 1 drop BOTH EYES BID 04/30/18 04/30/18 History 0.5%] Metoprolol Tartrate [Lopressor] 50 mg PO BID 04/30/18 04/30/18 History Omeprazole Magnesium [PriLOSEC OTC] 1 tab PO DAILY PRN 04/30/18 04/30/18 History Allergies Allergy/AdvReac Type Severity Reaction Status Date / Time No Known Allergies Allergy Verified 04/30/18 12:42 Physical Exam Vitals: Vital Signs Temp Pulse Pulse Resp BP BP BP 05/01/18 08:38 96 05/01/18 08:26 104 H 05/01/18 08:00 99 F 102 H 18 193/93 05/01/18 04:00 97.4 F L 103 H 16 171/85 05/01/18 00:00 97.1 F L 88 16 180/100 04/30/18 20:00 98.7 F 78 15 187/98 198/108 04/30/18 19:52 89 04/30/18 19:42 87 04/30/18 19:32 98.7 F 78 15 198/108 04/30/18 19:16 98.7 F 92 16 200/107 04/30/18 18:27 89 18 187/98 04/30/18 18:06 97.7 F 85 14 164/102 04/30/18 17:53 97.8 F 84 04/30/18 17:36 97.8 F 84 16 184/104 04/30/18 17:26 98.2 F 83 16 188/104 04/30/18 16:08 85 18 184/99 04/30/18 14:58 92 18 177/102 04/30/18 13:50 84 04/30/18 13:42 88 22 04/30/18 12:34 98.2 F 84 18 176/102 Pulse Ox 05/01/18 08:38 05/01/18 08:26 05/01/18 08:00 97 05/01/18 04:00 98 05/01/18 00:00 93 L 04/30/18 20:00 92 L 04/30/18 19:52 04/30/18 19:42 04/30/18 19:32 92 L 04/30/18 19:16 94 L 04/30/18 18:27 96 04/30/18 18:06 04/30/18 17:53 04/30/18 17:36 04/30/18 17:26 98 04/30/18 16:08 95 04/30/18 14:58 99 04/30/18 13:50 04/30/18 13:42 04/30/18 12:34 96 Intake and Output 04/30/18 05/01/18 05/01/18 22:59 06:59 14:59 Intake Total 490 500 10 Output Total 600 Balance 490 -100 10 Intake: IV 10 20 10 Invasive Line 1 10 20 10 Amount of Fluid Infused ( 150 ml) Intake, IV Titration 0 Amount Sodium Chloride 0.9% 1, 0 000 ml @ 20 mls/hr IV . Q24H [facility] Rx#:[id number] Oral 480 Blood Product 310 Rc Pheresis As-3 Unit 310 [id number] Other 20 Rc Pheresis As-3 Unit 20 [id number] Output: Urine 600 Other: Voiding Method Toilet Toilet Toilet # Voids 5 Weight 52.1 kg 50.4 kg Results - Lab Results Most recent lab results Calcium 8.9 mg/dL (8.4-10.2) 05/01/18 06:15 05/01/18 06:15 05/01/18 06:15 Assessment and Plan Plan: Assessment: 1. Acute kidney injury secondary to ATN secondary to nonsteroidals and anemia. Creatinine 2.4 on admission is 3.37 today. Unknown baseline renal function. Creatinine December 2013 was 0.83. 2. Rule out chronic kidney disease. Need to establish baseline renal function. 3. Metabolic acidosis secondary to acute kidney injury. 4. Acute blood loss anemia status post 3 units of blood transition. 5. Benign hypertension. Plan: Add oral sodium bicarbonate. 1 dose of IV DDAVP today. Check iron studies. Maintain current antihypertensives. Check urinalysis. Check renal ultrasound. Check postvoid residual to make sure no underlying urinary retention. Avoid nephrotoxins. Follow-up echocardiogram. Repeat electrolytes in the morning. Thank you for the consultation. I will continue to follow the patient with you during his hospital stay.
[2018-05-01] MEDS ORDERED: DESMOPRESSIN ACETATE 16 MCG in SODIUM CHLORIDE 0.9% 50 ML IVPB ONE (11:00)
[2018-05-01] MEDS ORDERED: QUEtiapine 25 MG TAB PO PRN (11:10)
--- NOTE | 2018-05-01 11:49 | US ---
EXAMINATION TYPE: US kidneys/renal and bladder DATE OF EXAM: 05/01/2018 COMPARISON: NONE CLINICAL HISTORY: filiberto. FILIBERTO EXAM MEASUREMENTS: Right Kidney: 10.5 x 4.3 x 4.6 cm Left Kidney: 10.4 x 5.1 x 5.0 cm Right Kidney: Appeared wnl Left Kidney: Moderate hydro Bladder: Multiple, possible diverticula posterior wall/ Pt states his bladder does not feel full, samuel eared overly distended with a volume of= 710 ml Bilateral Jets seen: No IMPRESSION: 1. Moderate left hydronephrosis. 2. Some wall irregularity within the urinary bladder.
[2018-05-01] MEDS: SODIUM BICARBONATE TAB 650 MG TAB PO SCH ×3 (12:17→21:40)
[2018-05-01] MEDS: ACETAMINOPHEN TAB 325 MG TAB PO PRN (12:20)
[2018-05-01 12:26] LABS: Folate, Serum 5.5 ng/mL
[2018-05-01 12:52] LABS: Anisocytosis Moderate; Basophils # (A) 0.1 k/uL (0-0.2); Basophils % (A) 1 %; Eosinophils # (A) 0.1 k/uL (0-0.7); Eosinophils % (A) 1 %; HCT 24.8 % (39.0-53.0); HGB 8.1 gm/dL (13.0-17.5); Lymphocytes % (A) 11 %; MCH 31.2 pg (25.0-35.0); MCHC 32.6 g/dL (31.0-37.0); MCV 95.7 fL (80.0-100.0); Macrocytosis Slight; Mean Platelet Volume 6.2; Monocytes # (A) 0.9 k/uL (0-1.0); Monocytes % (A) 9 %; Neutrophils # (A) 6.9 k/uL (1.3-7.7); Neutrophils % (A) 75 %; Platelet Count 461 k/uL (150-450); Poikilocytosis Slight; RBC 2.59 m/uL (4.30-5.90); RDW 21.3 % (11.5-15.5); WBC 9.2 k/uL (3.8-10.6)
[2018-05-01 13:43] LABS: Amorphous Sediment,Urine Rare /hpf; Appearance,Urine Clear (Clear); Bacteria,Urine Rare /hpf; Bilirubin,Urine Negative (Negative); Blood,Urine Small (Negative); Color,Urine Light Yellow; Glucose,Urine (UA) Trace (Negative); Hyaline Casts,Urine 1 /lpf (0-2); Ketones,Urine Negative (Negative); Leukocyte Esterase,Urine Negative (Negative); Nitrite,Urine Negative (Negative); Protein,Urine 3+ (Negative); RBC,Urine 11 /hpf (0-5); Specific Gravity,Urine 1.009 (1.001-1.035); Squamous Epithelial Cell,Urine <1 /hpf (0-4); Urobilinogen,Urine <2.0 mg/dL (<2.0); WBC,Urine 5 /hpf (0-5)
--- NOTE | 2018-05-01 14:23 | P.PN ---
Subjective Patient is admitted secondary to anemia symptomatic along with chest pain, patient is a blood transfusion patient is feeling much better today patient apparently was confused earlier today morning and last night and was bit agitated. Patient appears to have moderate dementia either vascular dementia dementia of Alzheimer's type. Does have memory difficulties at home as well but patient the was not confused when I evaluated the patient patient was started on as needed Haldol and Seroquel at nighttime for agitation. Cardiology evaluated the patient. Gastroenterology evaluated the patient. No obvious GI bleed at this time. Patient's creatinine is high and stable at around 3 believed to be secondary to acute tubular necrosis or interstitial her right is from my nonsteroidal anti-inflammatories nephrology evaluated the patient. Follow basic metabolic profile tomorrow. Constitutional: Denied any fatigue denied any fever. Cardio vascular: denied any chest pain, palpitations Gastrointestinal denied any nausea vomiting Pulmonary: Denied any shortness of breath cough Neurologic denied any new focal deficits All inpatient medications were reviewed and appropriate changes in these medications as dictated in the interval history and assessment and plan. Objective - Vital Signs Vital signs: Vital Signs Temp 99.4 F 05/01/18 12:00 Pulse 99 05/01/18 12:00 Resp 18 05/01/18 12:00 BP 167/79 05/01/18 12:00 Pulse Ox 98 05/01/18 12:00 Intake & Output 04/30/18 05/01/18 05/01/18 18:59 06:59 18:59 Intake Total 150 840 260 Output Total 600 Balance 150 240 260 Weight 46.72 kg 50.4 kg Intake: IV 30 20 Invasive Line 1 30 20 Amount of Fluid Infused ( 150 ml) Intake, IV Titration 0 Amount Sodium Chloride 0.9% 1, 0 000 ml @ 20 mls/hr IV . Q24H [facility] Rx#:[id number] Oral 480 240 Blood Product 0 310 Rc Pheresis As-3 Unit 0 310 [id number] Other 20 Rc Pheresis As-3 Unit 20 [id number] Output: Urine 600 Other: Voiding Method Toilet Toilet # Voids 5 - Exam PHYSICAL EXAMINATION: GENERAL: The patient is alert and oriented x3, thin built HEENT: Pupils are round and equally reacting to light. EOMI. No scleral icterus. No conjunctival pallor. Normocephalic, atraumatic. No pharyngeal erythema. No thyromegaly. CARDIOVASCULAR: S1 and S2 present. No murmurs, rubs, or gallops. PULMONARY: He does have expiratory wheezing fairly good air entry into bilateral lung rodriguez. ABDOMEN: Soft, nontender, nondistended, normoactive bowel sounds. No palpable organomegaly. MUSCULOSKELETAL: No joint swelling or deformity. EXTREMITIES: No cyanosis, clubbing, or pedal edema. NEUROLOGICAL: Gross neurological examination did not reveal any focal deficits. SKIN: No rashes. - Labs CBC & Chem 7: 05/01/18 12:17 05/01/18 06:15 Labs: Abnormal Lab Results - Last 24 Hours (Table) 04/30/18 04/30/18 04/30/18 Range/Units 14:29 14:29 14:29 WBC (3.8-10.6) k/uL RBC 2.12 L (4.30-5.90) m/uL Hgb 6.7 L* (13.0-17.5) gm/dL Hct 21.3 L (39.0-53.0) % MCV 100.7 H (80.0-100.0) fL RDW 20.8 H (11.5-15.5) % Plt Count 488 H (150-450) k/uL Neutrophils # (1.3-7.7) k/uL Chloride (98-107) mmol/L Carbon Dioxide (22-30) mmol/L BUN (9-20) mg/dL Creatinine (0.66-1.25) mg/dL AST (17-59) U/L Total Creatine Kinase 47 L (55-170) U/L Troponin I 0.211 H* (0.000-0.034) ng/mL Total Protein (6.3-8.2) g/dL Albumin (3.5-5.0) g/dL Urine Protein (Negative) Urine Glucose (UA) (Negative) Urine Blood (Negative) Urine RBC (0-5) /hpf Amorphous Sediment (None) /hpf Urine Bacteria (None) /hpf Crossmatch See Detail 04/30/18 04/30/18 04/30/18 Range/Units 14:29 22:31 22:31 WBC (3.8-10.6) k/uL RBC 2.58 L (4.30-5.90) m/uL Hgb 8.3 L D (13.0-17.5) gm/dL Hct 25.2 L (39.0-53.0) % MCV (80.0-100.0) fL RDW 21.2 H (11.5-15.5) % Plt Count 486 H (150-450) k/uL Neutrophils # (1.3-7.7) k/uL Chloride 110 H (98-107) mmol/L Carbon Dioxide 15 L (22-30) mmol/L BUN 83 H (9-20) mg/dL Creatinine 3.42 H (0.66-1.25) mg/dL AST 15 L (17-59) U/L Total Creatine Kinase (55-170) U/L Troponin I 0.190 H* (0.000-0.034) ng/mL Total Protein 5.8 L (6.3-8.2) g/dL Albumin 3.2 L (3.5-5.0) g/dL Urine Protein (Negative) Urine Glucose (UA) (Negative) Urine Blood (Negative) Urine RBC (0-5) /hpf Amorphous Sediment (None) /hpf Urine Bacteria (None) /hpf Crossmatch 05/01/18 05/01/18 05/01/18 Range/Units 06:15 06:15 12:17 WBC 10.8 H (3.8-10.6) k/uL RBC 2.69 L 2.59 L (4.30-5.90) m/uL Hgb 8.4 L 8.1 L (13.0-17.5) gm/dL Hct 25.9 L 24.8 L (39.0-53.0) % MCV (80.0-100.0) fL RDW 21.5 H 21.3 H (11.5-15.5) % Plt Count 495 H 461 H (150-450) k/uL Neutrophils # 8.3 H (1.3-7.7) k/uL Chloride 109 H (98-107) mmol/L Carbon Dioxide 18 L (22-30) mmol/L BUN 72 H (9-20) mg/dL Creatinine 3.37 H (0.66-1.25) mg/dL AST (17-59) U/L Total Creatine Kinase (55-170) U/L Troponin I (0.000-0.034) ng/mL Total Protein (6.3-8.2) g/dL Albumin (3.5-5.0) g/dL Urine Protein (Negative) Urine Glucose (UA) (Negative) Urine Blood (Negative) Urine RBC (0-5) /hpf Amorphous Sediment (None) /hpf Urine Bacteria (None) /hpf Crossmatch 05/01/18 Range/Units 13:25 WBC (3.8-10.6) k/uL RBC (4.30-5.90) m/uL Hgb (13.0-17.5) gm/dL Hct (39.0-53.0) % MCV (80.0-100.0) fL RDW (11.5-15.5) % Plt Count (150-450) k/uL Neutrophils # (1.3-7.7) k/uL Chloride (98-107) mmol/L Carbon Dioxide (22-30) mmol/L BUN (9-20) mg/dL Creatinine (0.66-1.25) mg/dL AST (17-59) U/L Total Creatine Kinase (55-170) U/L Troponin I (0.000-0.034) ng/mL Total Protein (6.3-8.2) g/dL Albumin (3.5-5.0) g/dL Urine Protein 3+ H (Negative) Urine Glucose (UA) Trace H (Negative) Urine Blood Small H (Negative) Urine RBC 11 H (0-5) /hpf Amorphous Sediment Rare H (None) /hpf Urine Bacteria Rare H (None) /hpf Crossmatch Assessment and Plan Plan: -Chest pain, possibility of type II non-ST elevation myocardial infarction from anemia patient will not require any heparin patient do total of 3 units of blood transfusion presently 8 hemoglobin. There is no evidence of acute GI bleed. -Severe anemia symptomatic without any evidence of acute bleed or acute blood loss: Probably nutritionally anemia patient has macrocytosis louder B-12 folate levels along with the ferritin level. 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 -COPD with minimal exacerbation will not require any systemic steroids patient will be started on inhaled steroids and inhalational treatments. Patient continues to smoke -Acute renal failure, possibility of chronic kidney disease cannot be ruled out acute renal failure is probably due to tubular necrosis secondary to urologist of the Dilantin to 2 medications or prerenal azotemia and severe anemia patient will receive blood transfusion we'll obtain basic metabolic profile tomorrow -Anion gap and noniron gap metabolic acidosis secondary to renal failure and hyperkalemia. -Thrombocytosis: Reactive secondary to anemia -Pulmonary edema on chest x-ray. obtain echocardiogram. Cardiology will evaluate the patient -CODE STATUS: Full code
[2018-05-01] MEDS: SODIUM CHLORIDE 0.9% 1,000 ML IV SCH (15:46)
[2018-05-01 16:58] LABS: Iron Saturation 4.84 (15.00-50.00)
--- NOTE | 2018-05-01 19:34 | CONS ---
CONSULTATION PULMONARY/CRITICAL CARE CONSULTATION: DATE OF SERVICE: 05/01/2018 REASON FOR CONSULTATION: Anemia, shortness of breath, chest pain, weakness. This is a 67-year-old male who claims me as his primary doctor. The patient was transferred down from [facility] in [place]. He arrived here complaining of a number of things, including chest pain. He presented to the hospital early that morning with chest discomfort. It apparently was 5/10. There was no radiation. He also had some mild shortness of breath and weakness. He was also found to have a hemoglobin of 4.8. At that time he received at least one unit of blood. In addition, he had an elevated D-dimer. Also, his troponin was elevated at 0.093. The patient also had evidence of renal insufficiency with a BUN of 86 and creatinine of 3.8, and hence a CT angiogram could not be done. I was asked to see the patient from the COPD standpoint. I do not believe I am his primary, but he claims me as a primary. I am not sure who else he sees. He is not particularly compliant with medications or his office visits, and the patient continues to smoke cigarettes. The patient has received a couple of units since he has been here. His hemoglobin is up a bit. He has been seen by a number of services, including Cardiology, Nephrology and now me, Pulmonary. In addition, his significant other or family members say that he was vomiting up blood. HOME MEDICATIONS: Home medications include albuterol updrafts. He also takes Lopressor. ALLERGIES: DENIED. MEDICAL HISTORY: Medical history includes COPD and tachycardia. SURGICAL HISTORY: Surgical history includes appendectomy and hernia repair. He has also had cataract surgery. SOCIAL HISTORY: He is a current everyday smoker. Denies any alcohol or illicit drug use. FAMILY HISTORY: Noncontributory. Again, the patient is not particularly compliant with medications. He typically refuses any more medication for COPD. He does not like doing pulmonary function tests, so I am not sure how bad his COPD is. He also had an apparent episode of tachycardia and was placed on metoprolol by some doctor. REVIEW OF SYSTEMS: CONSTITUTIONAL: Weakness. NEUROLOGIC: Negative. HEENT: Negative. CARDIOVASCULAR: Chest pain. PULMONARY: Shortness of breath. GI: Vomiting up blood. : Negative. RHEUMATOLOGIC/IMMUNOLOGIC: Negative. ENDOCRINOLOGIC: Negative. DERMATOLOGIC: Negative. PHYSICAL EXAMINATION: Current vital signs are reviewed. Temperature is 99, heart rate 88, respiratory rate 18, blood pressure 193/93 with mean 126 and room-air saturation 97%. There is no acute distress. HEENT examination is grossly unremarkable. Mucous membranes are moist. NECK: Supple. Full range of motion. No adenopathy or thyromegaly. Neck veins are flat. Cardiovascular examination reveals regular rhythm and rate. S1, S2 normal. No S3, S4 or murmur. He has had mild tachycardia. Heart rate about 104. Lungs reveal diminished breath sounds. A few scattered rhonchi. No wheezes or crackles. Breath sounds equal bilaterally but diminished throughout. ABDOMEN: Soft. Bowel sounds are heard. Extremities are intact. No cyanosis, clubbing or edema. Skin without rash. Neurologic examination is brief but nonfocal. LAB DATA/IMAGING: Reviewed. White count 9.2, hemoglobin 8.1, hematocrit 24.8, platelet count 461,000. Sodium 139, potassium 4.4, chloride 109, CO2 18. Anion gap is 12. BUN and creatinine were 72 and 3.37. Troponins were 0.211 and 0.190. N-terminal proBNP was 10,700. His TSH was normal. Urine had 3+ protein, trace glucose, small blood, 11 RBCs, 5 WBCs and rare bacteria. A chest x-ray was done. It showed diffuse interstitial disease consistent with fluid overload. Bladder/abdomen ultrasound showed moderate left hydronephrosis. Medications are reviewed. I will review those and make adjustments where needed. His COPD is not particularly active. ASSESSMENT: 1. Chest pain with elevated troponins; rule out non- [id number]-[id number] myocardial infarction. 2. Significant anemia of unclear etiology. The patient denies hematemesis, hematochezia, melena, hematuria, although family member mentions he was vomiting up some blood. 3. History of severe chronic obstructive pulmonary disease with ongoing tobacco use. 4. Tachycardia. 5. Renal failure/chronic kidney disease. 6. Poor oral intake with weight loss. Rule out occult malignancy. 7. Status post appendectomy and hernia repair. PLAN: The patient has been seen by and will be seen by a number of different specialists, including Cardiology, GI and Nephrology. Additional recommendations and suggestions are forthcoming. His pattern appears to be one of possible [id number]-elevation myocardial infarction with complicating heart failure. In addition, the patient has significant anemia with initial hemoglobin less than 5. He has received some blood. The etiology of his anemia is not known. That will have to be investigated. In addition, the patient has chronic kidney disease. His COPD is severe but not particularly active. Will place him on DuoNeb and Symbicort. Additional recommendations and suggestions are forthcoming. Prognosis is poor. MMODL / IJN: [id number] /
[2018-05-01] MEDS: SYMBICORT 160-4.5 MCG INHALER INHALATION SCH (19:51)
[2018-05-01 20:15] LABS: Anisocytosis Moderate; Basophils # (A) 0.1 k/uL (0-0.2); Basophils % (A) 1 %; Eosinophils # (A) 0.1 k/uL (0-0.7); Eosinophils % (A) 1 %; HCT 22.7 % (39.0-53.0); HGB 7.3 gm/dL (13.0-17.5); Lymphocytes # (A) 0.8 k/uL (1.0-4.8); Lymphocytes % (A) 8 %; MCH 30.7 pg (25.0-35.0); MCV 96.1 fL (80.0-100.0); Macrocytosis Slight; Monocytes # (A) 0.9 k/uL (0-1.0); Monocytes % (A) 9 %; Neutrophils # (A) 8.1 k/uL (1.3-7.7); Neutrophils % (A) 79 %; Platelet Count 408 k/uL (150-450); Poikilocytosis Slight; RBC 2.36 m/uL (4.30-5.90); RDW 21.2 % (11.5-15.5); WBC 10.3 k/uL (3.8-10.6)
[2018-05-01] MEDS ORDERED: HALOPERIDOL LACTATE 5 MG/ML 1 ML VIAL IVP ONE (21:06)
[2018-05-01] MEDS: FAMOTIDINE 20 MG TAB PO SCH (21:39)
[2018-05-02] MEDS: SYMBICORT 160-4.5 MCG INHALER INHALATION SCH (07:25)
[2018-05-02] MEDS: IPRATROPIUM-ALBUTEROL 3 ML NEB INHALATION SCH ×4 (07:25→19:07)
[2018-05-02 07:33] LABS: Anisocytosis Moderate; HGB 7.2 gm/dL (13.0-17.5); MCH 33.1 pg (25.0-35.0); MCHC 34.2 g/dL (31.0-37.0); MCV 96.8 fL (80.0-100.0); Macrocytosis Slight; Mean Platelet Volume 6.4; Platelet Count 391 k/uL (150-450); RBC 2.17 m/uL (4.30-5.90); RDW 20.9 % (11.5-15.5); WBC 7.6 k/uL (3.8-10.6)
[2018-05-02] MEDS ORDERED: hydrALAZINE HCL 20 MG/ML 1 ML VIAL IVP PRN (07:37)
[2018-05-02 07:41] LABS: Calcium 8.6 mg/dL (8.4-10.2); Magnesium 1.7 mg/dL (1.6-2.3); Potassium 3.8 mmol/L (3.5-5.1)
[2018-05-02] MEDS ORDERED: LORazepam 2 MG/ML INJ IV STA (07:44)
--- NOTE | 2018-05-02 08:05 | P.PN ---
Subjective Progress Note Date: 05/02/18 Principal diagnosis: Abnormal cardiac enzymes This is a pleasant 67-year-old gentleman with a past medical history significant for chronic obstructive pulmonary disease as well as history of hypertension who was transferred from [facility] to [facility] for further evaluation of severe anemia. The patient presented to the hospital complaining of chest discomfort as well as shortness of breath. Overall he is a poor historian and also he is a slightly confused. He states for the last several days, he has been experiencing chest discomfort, in the mid of the chest, as a pressure on the chest, without any radiation to the arm or neck or shoulders. Also he has been experiencing extreme dyspnea even with minimal exertion. Beside that he was feeling tired and weak and also he was fatigued. The hemoglobin at [facility] was checked and came in to before. The patient did receive 2 units of packed RBC with improvement in his hemoglobin and also improvement in his symptoms. The patient does not recall having any symptoms of blood in the stool or coughing blood. No abdominal discomfort, no nausea or vomiting, no fever or chills. No history of coronary artery disease or congestive heart failure or any cardiac arrhythmia and he never seen any high man in the past. The EKG showed sinus rhythm and initially sinus tachycardia. The troponin was checked and came in to be slightly abnormal but old below 1. I did review the chart from [place] as well. On follow-up with the patient today, May 022018, the patient has been combative during the night. Currently he has a sitter in the room. The blood pressure continues to be elevated and he continues to refuse taking his by mouth medication. Because of that I would start the patient on IV hydralazine when necessary. He is in process of being seen by the GI service. The hemoglobin this morning is 7.2. Objective - Vital Signs Vital signs: Vital Signs Temp 98.3 F 05/01/18 16:00 Pulse 88 05/01/18 19:56 Resp 18 05/01/18 16:00 BP 154/69 05/01/18 16:00 Pulse Ox 96 05/01/18 16:00 Intake & Output 05/01/18 05/02/18 05/02/18 18:59 06:59 18:59 Intake Total 270 Balance 270 Weight 50.5 kg Intake: IV 30 Invasive Line 1 30 Oral 240 Other: Voiding Method Toilet # Voids 2 1 # Bowel Movements 1 - Constitutional General appearance: Present: no acute distress - Respiratory Respiratory: bilateral: wheezing - Cardiovascular Rhythm: regular Heart sounds: normal: S1, S2 - Labs CBC & Chem 7: 05/02/18 06:19 05/02/18 06:19 Labs: Abnormal Lab Results - Last 24 Hours (Table) 05/01/18 05/01/18 05/01/18 Range/Units 06:15 12:17 13:25 RBC 2.59 L (4.30-5.90) m/uL Hgb 8.1 L (13.0-17.5) gm/dL Hct 24.8 L (39.0-53.0) % RDW 21.3 H (11.5-15.5) % Plt Count 461 H (150-450) k/uL Neutrophils # (1.3-7.7) k/uL Lymphocytes # (1.0-4.8) k/uL Chloride (98-107) mmol/L Carbon Dioxide (22-30) mmol/L BUN (9-20) mg/dL Creatinine (0.66-1.25) mg/dL Iron 14 L (65-175) ug/dL Iron Saturation 4.84 L (15.00-50.00) Urine Protein 3+ H (Negative) Urine Glucose (UA) Trace H (Negative) Urine Blood Small H (Negative) Urine RBC 11 H (0-5) /hpf Amorphous Sediment Rare H (None) /hpf Urine Bacteria Rare H (None) /hpf 05/01/18 05/02/18 05/02/18 Range/Units 19:44 06:19 06:19 RBC 2.36 L 2.17 L (4.30-5.90) m/uL Hgb 7.3 L 7.2 L (13.0-17.5) gm/dL Hct 22.7 L 21.0 L (39.0-53.0) % RDW 21.2 H 20.9 H (11.5-15.5) % Plt Count (150-450) k/uL Neutrophils # 8.1 H (1.3-7.7) k/uL Lymphocytes # 0.8 L (1.0-4.8) k/uL Chloride 109 H (98-107) mmol/L Carbon Dioxide 19 L (22-30) mmol/L BUN 63 H (9-20) mg/dL Creatinine 3.37 H (0.66-1.25) mg/dL Iron (65-175) ug/dL Iron Saturation (15.00-50.00) Urine Protein (Negative) Urine Glucose (UA) (Negative) Urine Blood (Negative) Urine RBC (0-5) /hpf Amorphous Sediment (None) /hpf Urine Bacteria (None) /hpf Assessment and Plan Assessment: Assessment #1 severe anemia of unknown etiology at this point. The hemoglobin this morning is 7.2 #2 chest discomfort secondary to the above. The chest discomfort has improved was the hemoglobin improved #3 mildly abnormal cardiac enzymes secondary to the anemia, hypertension, and tachycardia #4 uncontrolled hypertension Plan #1 dryness and when necessary for elevated blood pressure. Since the patient has been refusing taking his by mouth medication #2 continue the conservative medical approach regarding the mildly abnormal cardiac enzymes #3 follow-up on the echocardiogram #4 monitor the hemoglobin #5 follow-up with the patient. Thank you for allowing us participate in his care and we'll continue following up with him
[2018-05-02] MEDS: SODIUM CHLORIDE 0.9% 1,000 ML IV SCH ×3 (08:45→22:49)
[2018-05-02] MEDS: SODIUM FERRIC GLUCONAT-SUCROSE 125 MG in SODIUM CHLORIDE 0.9% 100 ML IVPB SCH (08:55)
--- NOTE | 2018-05-02 09:01 | P.PN ---
Subjective Patient is seen in follow-up for acute kidney injury. Creatinine in December 2013 was 0.83. No records available since then. This admission his creatinine is stable at 3.37. According to the son he was taking anywhere from 5-10 tabs of Motrin daily. He was also noted to have urinary retention and had a straight catheterization done last night with about 900 mL of urine obtained. No history of diabetes. He has significant proteinuria on UA. He was confused last night. Currently has a sitter at bedside. Vital signs are stable. General: The patient appeared well nourished and normally developed. HEENT: Head exam is unremarkable. Neck is without jugular venous distension. LUNGS: Lungs are clear to auscultation and percussion. Breath sounds decreased. HEART: Rate and Rhythm are regular. First and second heart sounds normal. No murmurs, rubs or gallops. ABDOMEN: Abdominal exam reveals normal bowel sounds. Non-tender and non- distended. No evidence of peritonitis. EXTREMITITES: No clubbing, cyanosis, or edema. Objective - Vital Signs Vital signs: Vital Signs Temp 98.3 F 05/01/18 16:00 Pulse 88 05/01/18 19:56 Resp 18 05/01/18 16:00 BP 154/69 05/01/18 16:00 Pulse Ox 96 05/01/18 16:00 Intake & Output 05/01/18 05/02/18 05/02/18 18:59 06:59 18:59 Intake Total 270 Balance 270 Weight 50.5 kg Intake: IV 30 Invasive Line 1 30 Oral 240 Other: Voiding Method Toilet # Voids 2 1 # Bowel Movements 1 - Labs CBC & Chem 7: 05/02/18 06:19 05/02/18 06:19 Labs: Abnormal Lab Results - Last 24 Hours (Table) 05/01/18 05/01/18 05/01/18 Range/Units 06:15 12:17 13:25 RBC 2.59 L (4.30-5.90) m/uL Hgb 8.1 L (13.0-17.5) gm/dL Hct 24.8 L (39.0-53.0) % RDW 21.3 H (11.5-15.5) % Plt Count 461 H (150-450) k/uL Neutrophils # (1.3-7.7) k/uL Lymphocytes # (1.0-4.8) k/uL Chloride (98-107) mmol/L Carbon Dioxide (22-30) mmol/L BUN (9-20) mg/dL Creatinine (0.66-1.25) mg/dL Iron 14 L (65-175) ug/dL Iron Saturation 4.84 L (15.00-50.00) Urine Protein 3+ H (Negative) Urine Glucose (UA) Trace H (Negative) Urine Blood Small H (Negative) Urine RBC 11 H (0-5) /hpf Amorphous Sediment Rare H (None) /hpf Urine Bacteria Rare H (None) /hpf 05/01/18 05/02/18 05/02/18 Range/Units 19:44 06:19 06:19 RBC 2.36 L 2.17 L (4.30-5.90) m/uL Hgb 7.3 L 7.2 L (13.0-17.5) gm/dL Hct 22.7 L 21.0 L (39.0-53.0) % RDW 21.2 H 20.9 H (11.5-15.5) % Plt Count (150-450) k/uL Neutrophils # 8.1 H (1.3-7.7) k/uL Lymphocytes # 0.8 L (1.0-4.8) k/uL Chloride 109 H (98-107) mmol/L Carbon Dioxide 19 L (22-30) mmol/L BUN 63 H (9-20) mg/dL Creatinine 3.37 H (0.66-1.25) mg/dL Iron (65-175) ug/dL Iron Saturation (15.00-50.00) Urine Protein (Negative) Urine Glucose (UA) (Negative) Urine Blood (Negative) Urine RBC (0-5) /hpf Amorphous Sediment (None) /hpf Urine Bacteria (None) /hpf Assessment and Plan Plan: Assessment: 1. Acute kidney injury secondary to ATN secondary to nonsteroidals and anemia. Creatinine 3.4 on admission is stable at 3.37 today. Unknown baseline renal function. Creatinine December 2013 was 0.83. Significant proteinuria and hematuria noted on UA. 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 Ultrasound revealed normal sized kidneys with left-sided hydronephrosis. 2. Rule out chronic kidney disease. Need to establish baseline renal function. 3. Metabolic acidosis secondary to acute kidney injury. 4. Acute blood loss anemia status post 3 units of blood transfusion. Status post IV DDAVP on May 01. Severe iron deficiency noted. GI following. Potential endoscopy this admission. 5. Benign hypertension. 6. Urinary retention. Plan: Start normal saline at 50 mL an hour. Maintain oral sodium bicarbonate. IV iron 3 doses. Maintain current antihypertensives. Insert Martini catheter for urinary retention. Quantify proteinuria and obtain serologies. Check urine eosinophils. Avoid nephrotoxins. Follow-up echocardiogram. Repeat electrolytes in the morning. Pending above results, will consider kidney biopsy.
--- NOTE | 2018-05-02 09:03 | CT ---
EXAMINATION TYPE: CT brain wo con DATE OF EXAM: 05/02/2018 HISTORY: confusion and altered mental status. CT DLP: 1071.4 mGycm. Automated Exposure Control for Dose Reduction was Utilized. TECHNIQUE: CT scan of the head is performed without contrast. COMPARISON: None. FINDINGS: There is no acute intracranial hemorrhage or midline shift identified. There is diffuse v entricular and sulcal prominence consistent with diffuse age-related cerebral atrophy. There is low- attenuation in the periventricular white matter consistent with chronic small vessel ischemic change. The globes are intact bilaterally. There is patchy opacification mild mucosal thickening of ethmoid sinuses bilaterally. Mild mucosal thickening of bilateral maxillary sinuses is seen. Opacified left mastoid air cells are present with subtle sclerosis identified. Favor product of chronic mastoiditis . Correlate clinically. IMPRESSION: No acute intracranial hemorrhage or midline shift. There is mild diffuse age-related ce rebral atrophy and mild to moderate chronic small vessel ischemic change noted. Correlate for left-s ided mastoiditis.
--- NOTE | 2018-05-02 10:58 | P.PN ---
Subjective Patient is admitted secondary to anemia symptomatic along with chest pain, patient is a blood transfusion patient is feeling much better today patient apparently was confused earlier today morning and last night and was bit agitated. Patient appears to have moderate dementia either vascular dementia dementia of Alzheimer's type. Does have memory difficulties at home as well but patient the was not confused when I evaluated the patient patient was started on as needed Haldol and Seroquel at nighttime for agitation. Cardiology evaluated the patient. Gastroenterology evaluated the patient. No obvious GI bleed at this time. Patient's creatinine is high and stable at around 3 believed to be secondary to acute tubular necrosis or interstitial her right is from my nonsteroidal anti-inflammatories nephrology evaluated the patient. Follow basic metabolic profile tomorrow. 05/02/2018 Patient was more agitated yesterday has a sitter now. Patient received DDAVP yesterday patient creatinine remains fairly stable at 3.37 patient the was started on gentle hydration today by nephrology. Increasing the dose of Haldol to 1 mg every 6 when necessary. Avoid benzo is his barbiturates opiates and anticholinergic medications. I as a nursing staff to avoid these medications and as a nursing staff to open the curtains which will help him with his agitation. Patient will not require IV hydralazine which was discontinued. CAT scan of the brain did not show any significant abnormality except for some possible left-sided mastoiditis. Patient's serum iron levels is extremely low because of which patient is receiving iron supplementation for that although his normal probably because of acute phase reactant and the patient's B12 and folic acids is essentially within normal limits. Constitutional: Denied any fatigue denied any fever. Cardio vascular: denied any chest pain, palpitations Gastrointestinal denied any nausea vomiting Pulmonary: Denied any shortness of breath cough Neurologic denied any new focal deficits All inpatient medications were reviewed and appropriate changes in these medications as dictated in the interval history and assessment and plan. Objective - Vital Signs Vital signs: Vital Signs Temp 98.1 F 05/02/18 08:00 Pulse 114 H 05/02/18 08:00 Resp 18 05/02/18 08:00 BP 144/66 05/02/18 08:00 Pulse Ox 91 L 05/02/18 08:00 Intake & Output 05/01/18 05/02/18 05/02/18 18:59 06:59 18:59 Intake Total 270 Balance 270 Weight 50.5 kg Intake: IV 30 Invasive Line 1 30 Oral 240 Other: Voiding Method Toilet Toilet # Voids 2 1 # Bowel Movements 1 - Exam PHYSICAL EXAMINATION: GENERAL: The patient is alert and oriented x3, thin built HEENT: Pupils are round and equally reacting to light. EOMI. No scleral icterus. No conjunctival pallor. Normocephalic, atraumatic. No pharyngeal erythema. No thyromegaly. CARDIOVASCULAR: S1 and S2 present. No murmurs, rubs, or gallops. PULMONARY: He does have expiratory wheezing fairly good air entry into bilateral lung rodriguez. ABDOMEN: Soft, nontender, nondistended, normoactive bowel sounds. No palpable organomegaly. MUSCULOSKELETAL: No joint swelling or deformity. EXTREMITIES: No cyanosis, clubbing, or pedal edema. NEUROLOGICAL: Gross neurological examination did not reveal any focal deficits. SKIN: No rashes. - Labs CBC & Chem 7: 05/02/18 06:19 05/02/18 06:19 Labs: Abnormal Lab Results - Last 24 Hours (Table) 05/01/18 05/01/18 05/01/18 Range/Units 06:15 12:17 13:25 RBC 2.59 L (4.30-5.90) m/uL Hgb 8.1 L (13.0-17.5) gm/dL Hct 24.8 L (39.0-53.0) % RDW 21.3 H (11.5-15.5) % Plt Count 461 H (150-450) k/uL Neutrophils # (1.3-7.7) k/uL Lymphocytes # (1.0-4.8) k/uL Chloride (98-107) mmol/L Carbon Dioxide (22-30) mmol/L BUN (9-20) mg/dL Creatinine (0.66-1.25) mg/dL Iron 14 L (65-175) ug/dL Iron Saturation 4.84 L (15.00-50.00) Urine Protein 3+ H (Negative) Urine Glucose (UA) Trace H (Negative) Urine Blood Small H (Negative) Urine RBC 11 H (0-5) /hpf Amorphous Sediment Rare H (None) /hpf Urine Bacteria Rare H (None) /hpf 05/01/18 05/02/18 05/02/18 Range/Units 19:44 06:19 06:19 RBC 2.36 L 2.17 L (4.30-5.90) m/uL Hgb 7.3 L 7.2 L (13.0-17.5) gm/dL Hct 22.7 L 21.0 L (39.0-53.0) % RDW 21.2 H 20.9 H (11.5-15.5) % Plt Count (150-450) k/uL Neutrophils # 8.1 H (1.3-7.7) k/uL Lymphocytes # 0.8 L (1.0-4.8) k/uL Chloride 109 H (98-107) mmol/L Carbon Dioxide 19 L (22-30) mmol/L BUN 63 H (9-20) mg/dL Creatinine 3.37 H (0.66-1.25) mg/dL Iron (65-175) ug/dL Iron Saturation (15.00-50.00) Urine Protein (Negative) Urine Glucose (UA) (Negative) Urine Blood (Negative) Urine RBC (0-5) /hpf Amorphous Sediment (None) /hpf Urine Bacteria (None) /hpf Assessment and Plan Plan: -Chest pain, possibility of type II non-ST elevation myocardial infarction from anemia patient will not require any heparin patient do total of 3 units of blood transfusion presently 7 hemoglobin. There is no evidence of acute GI bleed. -Severe anemia symptomatic without any evidence of acute bleed or acute blood loss: Probably nutritionally anemia probably severe iron deficiency. B12 and folic acidosis are essentially within normal limits but the patient has elevated MCV may have a competent of mild dysplasia and a serum protein electrophoresis is being obtained and nephrology ordered hematological testing because of his renal failure -COPD with minimal exacerbation will not require any systemic steroids patient will be started on inhaled steroids and inhalational treatments. Patient continues to smoke -Acute renal failure, possibility of chronic kidney disease cannot be ruled out acute renal failure is probably due to tubular necrosis secondary to nonsteroidal anti-inflammatory medications or prerenal azotemia and severe anemia -Anion gap and noniron gap metabolic acidosis secondary to renal failure and hyperkalemia. -Thrombocytosis: Reactive secondary to anemia -Pulmonary edema on chest x-ray. obtain echocardiogram. Cardiology will evaluate the patient -CODE STATUS: Full code
[2018-05-02] MEDS: hydrALAZINE HCL 50 MG TAB PO SCH ×3 (11:15→20:07)
[2018-05-02] MEDS: METOPROLOL TARTRATE 50 MG TAB PO SCH ×2 (11:16→20:07)
[2018-05-02] MEDS: SODIUM BICARBONATE TAB 650 MG TAB PO SCH ×3 (11:16→20:07)
[2018-05-02] MEDS: KETOROLAC 0.5% OPHTH DROPS 5 ML BTL BOTH EYES SCH ×2 (11:16→20:22)
--- NOTE | 2018-05-02 11:59 | P.CN ---
Psychiatric Consult - . Consult date: 05/02/18 Consult:: 05/02/18 09:20 Confusion Assessment and Plan Assessment: Consult: Confusion Patient is a very pleasant 57-year-old gentleman was transferred from [facility] after he is found to be anemic. Patient presented to the hospital with precordial chest pain 5/10 severity along with mild dyspnea generalized weakness has been going on for about a month. Patient is found to have hemoglobin of 4.8 patient has significant renal insufficiency with BUN/ creatinine of 2.8 BUN of 86 patient's baseline creatinine around 0.84 years ago and from 2013. Patient is a thin built gentleman at baseline patient is appropriately intake doesn't eat much does appear to have macrocytosis, reactive thrombocytosis. 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 Patient denied any obvious JVD denied any blood in the stools or dark stools rectal exam did not reveal any blood he in the year.. Patient had only 1 stool yesterday patient denied any increased frequency stools lately . Denied any hematemesis denied any abdominal pain. His chest pain improved with lowering to blood transfusion. Past Medical History Past Medical History: COPD Additional Past Medical History / Comment(s): tachycardia, in past was on thyroid med none now,"headaches", wants flu vaccine while here. History of Any Multi-Drug Resistant Organisms: None Reported Past Surgical History: Appendectomy, Hernia Repair Additional Past Surgical History / Comment(s): cataracts -latest one on left side done 04-24-18, naveed ing hernia repair Past Anesthesia/Blood Transfusion Reactions: No Reported Reaction Smoking Status: Current every day smoker - Past Family History Mother Family Medical History: Unable to Obtain Father Family Medical History: Myocardial Infarction (ME) Medications and Allergies Home Medications Medication Instructions Recorded Confirmed Type Albuterol Nebulized (Conc) 2.5 mg PO RT-Q6H 04/30/18 04/30/18 History [Ventolin Nebulized (Conc)] Metoprolol Tartrate [Lopressor] 50 mg PO BID 04/30/18 04/30/18 History Allergies Allergy/AdvReac Type Severity Reaction Status Date / Time No Known Allergies Allergy Verified 04/30/18 12:42 Mental Status Examination - General Appearance: [disheveled, bizarre, appears older than stated age Speech/Language: [ slow, slurred, rambled, mumbling, hesitant, soft, Attitude/Behavior: [ guarded, irritable, withdrawn, indifferent] Mood: [ anxious, irritable, angry, fearful, hopelessness Affect: [flat, incongruent, labile, blunted constricted] Orientation: [not time, person, place situation] Thought Content: [ delusions Risk Factors: [denies suicidal (ideations, plan), and/or Homicidal (ideations, plan), Perception: [wnl Thought Processes: [ concrete, circumstantial, tangential Concentration/Attention Span: [ impaired] [Per observation and interview with the patient] Recent Memory: [impaired] [ Remote Memory: [ impaired] [past events, as related history] Intelligence: [below average] [based on history, based on vocabulary, syntax, grammar, and content] Judgement: [ poor] [per patient's behavior/history of present illness] Insight: [ poor] [understanding severity of illness/history of present illness] Psych Impression: delirium at this point he does not have the capacity for decision making Recommendation: stop seroquel and use risperdal 0.25 mg po bid; use ativan sparingly Dragan Strickland D.O., PhD. (1) Delirium due to another medical condition Current Visit: Yes Status: Acute Code(s): F05 - DELIRIUM DUE TO KNOWN PHYSIOLOGICAL CONDITION SNOMED Code(s): 6307810 Time with Patient: Less than 30
--- NOTE | 2018-05-02 12:20 | P.PN ---
Subjective Progress Note Date: 05/02/18 Principal diagnosis: Anemia No active bleeding per nursing. Hemoglobin 7.2. Additional history obtained at bedside today patient supposedly was taking multiple tablets of Motrin prior to admission. Family at bedside. No complaints per patient. Objective - Vital Signs Vital signs: Vital Signs Temp 98.1 F 05/02/18 08:00 Pulse 114 H 05/02/18 08:00 Resp 18 05/02/18 08:00 BP 144/66 05/02/18 08:00 Pulse Ox 91 L 05/02/18 08:00 Intake & Output 05/01/18 05/02/18 05/02/18 18:59 06:59 18:59 Intake Total 270 Balance 270 Weight 50.5 kg Intake: IV 30 Invasive Line 1 30 Oral 240 Other: Voiding Method Toilet Toilet # Voids 2 1 # Bowel Movements 1 - Exam General appearance: The patient is alert, oriented, in no acute distress. HET: Head is normocephalic and atraumatic. Pupils are equal and reactive. Oropharynx is clear without lesions. Neck: Supple without lymphadenopathy. Trachea midline. Heart: S1 S2. Regular rate and rhythm. Lungs: Diminished in bases bilaterally. Abdomen: Soft, nontender, nondistended with bowel sounds. No peritoneal signs. No palpable organomegaly or masses. Extremities: Normal skin color and turgor. No cyanosis, rash, ulceration, clubbing, or edema. Radial and pedal pulses are 2/4 bilaterally. Neurological: No focal deficits. Strength and sensation are grossly intact. - Labs CBC & Chem 7: 05/02/18 06:19 05/02/18 06:19 Labs: Abnormal Lab Results - Last 24 Hours (Table) 05/01/18 05/01/18 05/01/18 Range/Units 06:15 06:15 12:17 RBC 2.59 L (4.30-5.90) m/uL Hgb 8.1 L (13.0-17.5) gm/dL Hct 24.8 L (39.0-53.0) % RDW 21.3 H (11.5-15.5) % Plt Count 461 H (150-450) k/uL Neutrophils # (1.3-7.7) k/uL Lymphocytes # (1.0-4.8) k/uL Chloride (98-107) mmol/L Carbon Dioxide (22-30) mmol/L BUN (9-20) mg/dL Creatinine (0.66-1.25) mg/dL Iron 14 L (65-175) ug/dL Iron Saturation 4.84 L (15.00-50.00) RBC Folate 953 H (280 - 791) ng/mL Urine Protein (Negative) Urine Glucose (UA) (Negative) Urine Blood (Negative) Urine RBC (0-5) /hpf Amorphous Sediment (None) /hpf Urine Bacteria (None) /hpf U Random Total Protein (<12) mg/dL 05/01/18 05/01/18 05/02/18 Range/Units 13:25 19:44 06:19 RBC 2.36 L (4.30-5.90) m/uL Hgb 7.3 L (13.0-17.5) gm/dL Hct 22.7 L (39.0-53.0) % RDW 21.2 H (11.5-15.5) % Plt Count (150-450) k/uL Neutrophils # 8.1 H (1.3-7.7) k/uL Lymphocytes # 0.8 L (1.0-4.8) k/uL Chloride 109 H (98-107) mmol/L Carbon Dioxide 19 L (22-30) mmol/L BUN 63 H (9-20) mg/dL Creatinine 3.37 H (0.66-1.25) mg/dL Iron (65-175) ug/dL Iron Saturation (15.00-50.00) RBC Folate (280 - 791) ng/mL Urine Protein 3+ H (Negative) Urine Glucose (UA) Trace H (Negative) Urine Blood Small H (Negative) Urine RBC 11 H (0-5) /hpf Amorphous Sediment Rare H (None) /hpf Urine Bacteria Rare H (None) /hpf U Random Total Protein (<12) mg/dL 05/02/18 05/02/18 Range/Units 06:19 10:45 RBC 2.17 L (4.30-5.90) m/uL Hgb 7.2 L (13.0-17.5) gm/dL Hct 21.0 L (39.0-53.0) % RDW 20.9 H (11.5-15.5) % Plt Count (150-450) k/uL Neutrophils # (1.3-7.7) k/uL Lymphocytes # (1.0-4.8) k/uL Chloride (98-107) mmol/L Carbon Dioxide (22-30) mmol/L BUN (9-20) mg/dL Creatinine (0.66-1.25) mg/dL Iron (65-175) ug/dL Iron Saturation (15.00-50.00) RBC Folate (280 - 791) ng/mL Urine Protein (Negative) Urine Glucose (UA) (Negative) Urine Blood (Negative) Urine RBC (0-5) /hpf Amorphous Sediment (None) /hpf Urine Bacteria (None) /hpf U Random Total Protein 594 H (<12) mg/dL Assessment and Plan (1) Symptomatic anemia Narrative/Plan: 67-year-old gentleman admitted with symptomatic anemia acute blood loss component with history of recent NSAID usage underlying peptic ulcer disease, bleeding AVM, small bowel colonic sources cannot be excluded. No history of EGD colonoscopy. Status post blood transfusion presently no active GI bleeding. Current Visit: Yes Status: Acute Code(s): D64.9 - ANEMIA, UNSPECIFIED SNOMED Code(s): 873745847 (2) Chest pain Current Visit: Yes Status: Acute Code(s): R07.9 - CHEST PAIN, UNSPECIFIED SNOMED Code(s): 31063035 (3) Elevated troponin Current Visit: Yes Status: Acute Code(s): R74.8 - ABNORMAL LEVELS OF OTHER SERUM ENZYMES SNOMED Code(s): 706807372 (4) Change in mental status Current Visit: Yes Status: Acute Code(s): R41.82 - ALTERED MENTAL STATUS, UNSPECIFIED SNOMED Code(s): 921274982 (5) Severe chronic obstructive pulmonary disease Current Visit: Yes Status: Acute Code(s): J44.9 - CHRONIC OBSTRUCTIVE PULMONARY DISEASE, UNSPECIFIED SNOMED Code(s): 933997610 Plan: 1. From a GI standpoint continue with IV iron and daily CBC, observation for any overt symptoms of GI bleeding. EGD colonoscopy was discussed at bedside with patient and his family however at this time patient is not medically stable for endoscopic procedures. Case was discussed with training consultant at this time he feels patient needs to be medically optimized. We'll continue to follow closely. Assessment and plan a care discussed with Dr. Naranjo
[2018-05-02] MEDS: IPRATROPIUM-ALBUTEROL 3 ML NEB INHALATION PRN (12:47)
[2018-05-02] MEDS: PANTOPRAZOLE 40 MG/10 ML VIAL IVP SCH (14:04)
--- NOTE | 2018-05-02 14:32 | P.PN ---
Subjective Progress Note Date: 05/02/18 Principal diagnosis: The patient is seen today 05/02/2018 in follow-up on the selective care unit. He was originally transferred here from [facility] for chest pain, weakness, shortness of breath. He was found to have a hemoglobin of 4.8 and had received at least 1 unit of blood. Upon arrival here his hemoglobin was 6.7. Received another unit of packed red blood cells. Current hemoglobin 7.2. GI services have been consulted. Patient is having episodes of altered mental status and delirium. Psychiatry was consulted as well. He was found to have delirium and not have the capacity to make his own decisions. His Seroquel was stopped and he was initiated on Risperdal. He is currently more calm and comfortable. He is maintaining O2 saturations in the 90s on room air. He's afebrile. He did recognize Dr. Santoyo. Count 7.6. Hemoglobin 7.2. Creatinine 3.37. Objective - Vital Signs Vital signs: Vital Signs Temp 98.1 F 05/02/18 08:00 Pulse 94 05/02/18 12:58 Resp 18 05/02/18 12:00 BP 163/82 05/02/18 12:00 Pulse Ox 97 05/02/18 12:00 Intake & Output 05/01/18 05/02/18 05/02/18 18:59 06:59 18:59 Intake Total 270 Balance 270 Weight 50.5 kg Intake: IV 30 Invasive Line 1 30 Oral 240 Other: Voiding Method Toilet Toilet # Voids 2 1 # Bowel Movements 1 - Exam GENERAL EXAM: Well, cachectic. Appears older than stated age. Alert, comfortable in no apparent distress. On room air. HEAD: Normocephalic. EYES: Normal reaction of pupils, equal size. NOSE: Clear with pink turbinates. THROAT: No erythema or exudates. NECK: No masses, no JVD. CHEST: No chest wall deformity. LUNGS: Equal air entry with no crackles, wheeze, rhonchi or dullness. CVS: S1 and S2 normal with no audible murmur, regular rhythm. ABDOMEN: No hepatosplenomegaly, normal bowel sounds, no guarding or rigidity. SPINE: No scoliosis or deformity SKIN: No rashes CENTRAL NERVOUS SYSTEM: No focal deficits, tone is normal in all 4 extremities. EXTREMITIES: There is no peripheral edema. No clubbing, no cyanosis. Peripheral pulses are intact. Psychiatric: The patient is having episodes of delirium. - Labs CBC & Chem 7: 05/02/18 06:19 05/02/18 06:19 Labs: Abnormal Lab Results - Last 24 Hours (Table) 05/01/18 05/01/18 05/01/18 Range/Units 06:15 06:15 19:44 RBC 2.36 L (4.30-5.90) m/uL Hgb 7.3 L (13.0-17.5) gm/dL Hct 22.7 L (39.0-53.0) % RDW 21.2 H (11.5-15.5) % Neutrophils # 8.1 H (1.3-7.7) k/uL Lymphocytes # 0.8 L (1.0-4.8) k/uL Chloride (98-107) mmol/L Carbon Dioxide (22-30) mmol/L BUN (9-20) mg/dL Creatinine (0.66-1.25) mg/dL Iron 14 L (65-175) ug/dL Iron Saturation 4.84 L (15.00-50.00) RBC Folate 953 H (280 - 791) ng/mL U Random Total Protein (<12) mg/dL 05/02/18 05/02/18 05/02/18 Range/Units 06:19 06:19 10:45 RBC 2.17 L (4.30-5.90) m/uL Hgb 7.2 L (13.0-17.5) gm/dL Hct 21.0 L (39.0-53.0) % RDW 20.9 H (11.5-15.5) % Neutrophils # (1.3-7.7) k/uL Lymphocytes # (1.0-4.8) k/uL Chloride 109 H (98-107) mmol/L Carbon Dioxide 19 L (22-30) mmol/L BUN 63 H (9-20) mg/dL Creatinine 3.37 H (0.66-1.25) mg/dL Iron (65-175) ug/dL Iron Saturation (15.00-50.00) RBC Folate (280 - 791) ng/mL U Random Total Protein 594 H (<12) mg/dL Assessment and Plan Assessment: Impression: #1 Chest pain with elevated troponins, rule out non-ST segment elevation myocardial infarction. #2 Acute anemia of unclear etiology. Stool focal blood negative. Current hemoglobin 7.2. #3 History of severe chronic obstructive pulmonary disease. #4 Chronic ongoing tobacco dependence. #5 Altered mental status with delirium. #6 Acute on chronic renal failure. #7 Poor oral intake with weight loss. Rule out occult malignancy. Plan: The patient was seen and evaluated by Dr. Santoyo. He is currently stable from the pulmonary standpoint. On room air. Continue with bronchodilators and small dose of IV Solu-Medrol. He is having issues with altered mental status and delirium. He's been seen by psych services. Seroquel discontinued and placed on Risperdal. GI services and cardiology consulted. We will continue to follow and make further recommendations based on his clinical status. I, the cosigning physician, performed a history & physical examination of the patient. Lungs sounds faint end expiratory wheeze, few scattered rhonchi. Maintaining good O2 saturations in the 90s on room air. I discussed the assessment and plan of care with my nurse practitioner, Ashley Sheehan. I attest to the above note as dictated by her.
[2018-05-02] MEDS: ACETAMINOPHEN TAB 325 MG TAB PO PRN (14:54)
[2018-05-02] MEDS: HALOPERIDOL LACTATE 5 MG/ML 1 ML VIAL IVP PRN (14:57)
[2018-05-02] MEDS: methylPREDNISolone SOD SUCCI 40 MG/ML 1 ML VIAL IV SCH ×2 (16:05→22:48)
[2018-05-02] MEDS: PREDNISOLONE BOTH EYES SCH ×2 (16:07→20:24)
[2018-05-02] MEDS: GENTAMICIN BOTH EYES SCH ×2 (16:07→20:24)
[2018-05-02 17:41] LABS: Protein, Total 4.8 g/dL (6.2-8.2)
[2018-05-02 18:45] LABS: Hepatitis A Antibody IgM Non-Reactive (Non-Reactive); Hepatitis B Core IgM Non-Reactive (Non-Reactive)
[2018-05-02 19:07] LABS: Anti-DNA, DS unit <1.0 IU/mL; DNA Double-Stranded NEGATIVE (NEGATIVE)
[2018-05-02] MEDS: FORMOTEROL FUMARATE 20 MCG/2 ML NEBU INHALATION SCH (19:07)
[2018-05-02] MEDS: BUDESONIDE 1 MG/2 ML NEBU INHALATION SCH (19:07)
[2018-05-02] MEDS: risperiDONE 0.25 MG TAB PO SCH (20:07)
[2018-05-03] MEDS: IPRATROPIUM-ALBUTEROL 3 ML NEB INHALATION SCH ×4 (07:24→19:09)
[2018-05-03] MEDS: FORMOTEROL FUMARATE 20 MCG/2 ML NEBU INHALATION SCH ×2 (07:24→19:09)
[2018-05-03] MEDS: BUDESONIDE 1 MG/2 ML NEBU INHALATION SCH ×2 (07:24→19:09)
[2018-05-03 08:32] LABS: Anisocytosis Moderate; HCT 20.4 % (39.0-53.0); MCH 32.2 pg (25.0-35.0); MCHC 33.3 g/dL (31.0-37.0); MCV 96.9 fL (80.0-100.0); Macrocytosis Slight; Mean Platelet Volume 6.5; Platelet Count 385 k/uL (150-450); RDW 20.3 % (11.5-15.5); WBC 6.4 k/uL (3.8-10.6)
[2018-05-03 08:36] LABS: HGB 6.8 gm/dL (13.0-17.5)
[2018-05-03 08:37] LABS: Calcium 8.9 mg/dL (8.4-10.2); Potassium 4.3 mmol/L (3.5-5.1)
[2018-05-03] MEDS: PREDNISOLONE BOTH EYES SCH ×2 (09:25→22:03)
[2018-05-03] MEDS: hydrALAZINE HCL 50 MG TAB PO SCH ×3 (09:25→22:02)
[2018-05-03] MEDS: GENTAMICIN BOTH EYES SCH ×2 (09:25→22:03)
[2018-05-03] MEDS: risperiDONE 0.25 MG TAB PO SCH (09:25)
[2018-05-03] MEDS: METOPROLOL TARTRATE 50 MG TAB PO SCH ×2 (09:25→22:02)
[2018-05-03] MEDS: SODIUM BICARBONATE TAB 650 MG TAB PO SCH ×3 (09:25→22:02)
--- NOTE | 2018-05-03 10:29 | P.PN ---
Subjective Patient is admitted secondary to anemia symptomatic along with chest pain, patient is a blood transfusion patient is feeling much better today patient apparently was confused earlier today morning and last night and was bit agitated. Patient appears to have moderate dementia either vascular dementia dementia of Alzheimer's type. Does have memory difficulties at home as well but patient the was not confused when I evaluated the patient patient was started on as needed Haldol and Seroquel at nighttime for agitation. Cardiology evaluated the patient. Gastroenterology evaluated the patient. No obvious GI bleed at this time. Patient's creatinine is high and stable at around 3 believed to be secondary to acute tubular necrosis or interstitial her right is from my nonsteroidal anti-inflammatories nephrology evaluated the patient. Follow basic metabolic profile tomorrow. 05/02/2018 Patient was more agitated yesterday has a sitter now. Patient received DDAVP yesterday patient creatinine remains fairly stable at 3.37 patient the was started on gentle hydration today by nephrology. Increasing the dose of Haldol to 1 mg every 6 when necessary. Avoid benzo is his barbiturates opiates and anticholinergic medications. I as a nursing staff to avoid these medications and as a nursing staff to open the curtains which will help him with his agitation. Patient will not require IV hydralazine which was discontinued. CAT scan of the brain did not show any significant abnormality except for some possible left-sided mastoiditis. Patient's serum iron levels is extremely low because of which patient is receiving iron supplementation for that although his normal probably because of acute phase reactant and the patient's B12 and folic acids is essentially within normal limits. 05/03/2018 Patient's hemoglobin is below 7 today we'll transfuse him 1 more unit of blood patient's agitation episodes did not improve Resporal will be discontinue patient was started on nighttime Seroquel and as needed Haldol. We'll transfuse him 1 unit of blood. Down the steroids to by mouth 40 daily patient doesn't have any significant wheeze today. All inpatient medications were reviewed and appropriate changes in these medications as dictated in the interval history and assessment and plan. Objective - Vital Signs Vital signs: Vital Signs Temp 98.6 F 05/03/18 03:13 Pulse 89 05/03/18 07:45 Resp 18 05/03/18 03:13 BP 133/69 05/03/18 03:13 Pulse Ox 96 05/03/18 03:13 Intake & Output 05/02/18 05/03/18 05/03/18 18:59 06:59 18:59 Intake Total 350 Output Total 900 600 Balance -900 -250 Weight 49 kg Intake: Intake, IV Titration 150 Amount Sodium Chloride 0.9% 1, 150 000 ml @ 50 mls/hr IV . Q20H [facility] Rx#:[id number] Oral 200 Output: Urine 900 600 Other: Voiding Method Toilet Toilet - Exam PHYSICAL EXAMINATION: GENERAL: The patient is alert confused, thin built HEENT: Pupils are round and equally reacting to light. EOMI. No scleral icterus. No conjunctival pallor. Normocephalic, atraumatic. No pharyngeal erythema. No thyromegaly. CARDIOVASCULAR: S1 and S2 present. No murmurs, rubs, or gallops. PULMONARY no significant wheezing today. Fairly good air entry bilateral lung rodriguez ABDOMEN: Soft, nontender, nondistended, normoactive bowel sounds. No palpable organomegaly. MUSCULOSKELETAL: No joint swelling or deformity. EXTREMITIES: No cyanosis, clubbing, or pedal edema. NEUROLOGICAL: Gross neurological examination did not reveal any focal deficits. SKIN: No rashes. - Labs CBC & Chem 7: 05/03/18 06:29 05/03/18 06:29 Labs: Abnormal Lab Results - Last 24 Hours (Table) 05/01/18 05/02/18 05/02/18 Range/Units 06:15 09:05 10:45 RBC (4.30-5.90) m/uL Hgb (13.0-17.5) gm/dL Hct (39.0-53.0) % RDW (11.5-15.5) % Sodium (137-145) mmol/L Carbon Dioxide (22-30) mmol/L BUN (9-20) mg/dL Creatinine (0.66-1.25) mg/dL Glucose (74-99) mg/dL Phosphorus (2.5-4.5) mg/dL Total Protein (PEP) 4.8 L (6.2-8.2) g/dL RBC Folate 953 H (280 - 791) ng/mL U Random Total Protein 594 H (<12) mg/dL 02/02/19 02/02/19 Range/Units 06:29 06:29 RBC 2.10 L (4.30-5.90) m/uL Hgb 6.8 L* (13.0-17.5) gm/dL Hct 20.4 L (39.0-53.0) % RDW 20.3 H (11.5-15.5) % Sodium 134 L (137-145) mmol/L Carbon Dioxide 17 L (22-30) mmol/L BUN 64 H (9-20) mg/dL Creatinine 3.52 H (0.66-1.25) mg/dL Glucose 106 H (74-99) mg/dL Phosphorus 8.0 H (2.5-4.5) mg/dL Total Protein (PEP) (6.2-8.2) g/dL RBC Folate (280 - 791) ng/mL U Random Total Protein (<12) mg/dL Assessment and Plan Plan: -Chest pain, possibility of type II non-ST elevation myocardial infarction from anemia patient will not require any heparin patient do total of 3 units of blood transfusion presently below 7 hemoglobin. There is no evidence of acute GI bleed. She'll be transfused 1 more unit of blood no more chest pain at this time -Agitation secondary to delirium associated with hospitalization patient does have moderate to severe dementia mostly vascular dementia. Patient will be on Seroquel as mentioned above her daughter discontinued -Severe anemia symptomatic without any evidence of acute bleed or acute blood loss: Probably nutritionally anemia probably severe iron deficiency. B12 and folic acidosis are essentially within normal limits but the patient has elevated MCV may have a competent of mild dysplasia and a serum protein electrophoresis is being obtained and nephrology ordered hematological testing because of his renal failure -COPD with minimal exacerbation patient was started on systemic steroids patient will be started on inhaled steroids and inhalational treatments. Patient was smoking until he came to the hospital -Acute renal failure, possibility of chronic kidney disease cannot be ruled out acute renal failure is probably due to tubular necrosis secondary to nonsteroidal anti-inflammatory medications or prerenal azotemia and severe anemia -Anion gap and noniron gap metabolic acidosis secondary to renal failure and hyperkalemia. -Thrombocytosis: Reactive secondary to anemia improved now -CODE STATUS: Full code
[2018-05-03] MEDS: PANTOPRAZOLE 40 MG/10 ML VIAL IVP SCH (11:09)
[2018-05-03] MEDS: SODIUM FERRIC GLUCONAT-SUCROSE 125 MG in SODIUM CHLORIDE 0.9% 100 ML IVPB SCH (11:10)
--- NOTE | 2018-05-03 11:38 | P.PN ---
Subjective Progress Note Date: 05/03/18 Patient seen and examined for the follow-up of acute kidney injury. Patient has dementia and most of the conversation was with the at bedside. He is lying comfortable in the bed no complaints. He presented with acute kidney injury secondary to NSAID use with 10 g proteinuria. No previous care, and as per the did not see doctors as outpatient. When discussed about kidney biopsy, she still thinking about it. Serology workup so far negative and cusp pending Objective - Vital Signs Vital signs: Vital Signs Temp 98.6 F 05/03/18 03:13 Pulse 89 05/03/18 07:45 Resp 18 05/03/18 03:13 BP 133/69 05/03/18 03:13 Pulse Ox 96 05/03/18 03:13 Intake & Output 05/02/18 05/03/18 05/03/18 18:59 06:59 18:59 Intake Total 350 100 Output Total 900 600 Balance -900 -250 100 Weight 49 kg Intake: Intake, IV Titration 150 Amount Sodium Chloride 0.9% 1, 150 000 ml @ 50 mls/hr IV . Q20H [facility] Rx#:[id number] Oral 200 100 Output: Urine 900 600 Other: Voiding Method Toilet Toilet - Exam No acute distress S1-S2 heard Lungs clear No edema - Labs CBC & Chem 7: 05/03/18 06:29 05/03/18 06:29 Labs: Abnormal Lab Results - Last 24 Hours (Table) 05/01/18 05/02/18 05/02/18 Range/Units 06:15 09:05 10:45 RBC (4.30-5.90) m/uL Hgb (13.0-17.5) gm/dL Hct (39.0-53.0) % RDW (11.5-15.5) % Sodium (137-145) mmol/L Carbon Dioxide (22-30) mmol/L BUN (9-20) mg/dL Creatinine (0.66-1.25) mg/dL Glucose (74-99) mg/dL Phosphorus (2.5-4.5) mg/dL Total Protein (PEP) 4.8 L (6.2-8.2) g/dL RBC Folate 953 H (280 - 791) ng/mL U Random Total Protein 594 H (<12) mg/dL 05/03/18 05/03/18 Range/Units 06:29 06:29 RBC 2.10 L (4.30-5.90) m/uL Hgb 6.8 L* (13.0-17.5) gm/dL Hct 20.4 L (39.0-53.0) % RDW 20.3 H (11.5-15.5) % Sodium 134 L (137-145) mmol/L Carbon Dioxide 17 L (22-30) mmol/L BUN 64 H (9-20) mg/dL Creatinine 3.52 H (0.66-1.25) mg/dL Glucose 106 H (74-99) mg/dL Phosphorus 8.0 H (2.5-4.5) mg/dL Total Protein (PEP) (6.2-8.2) g/dL RBC Folate (280 - 791) ng/mL U Random Total Protein (<12) mg/dL Assessment and Plan Assessment: #1 nonoliguric acute kidney injury multifactorial. Possibilities include -AIN from NSAID use -With proteinuria GN cannot be excluded #2 suspected chronic kidney disease, with no previous care. #3 acute blood loss anemia, suspected GI loss #4 hypertension with CKD #5 urinary retention status post Martini Plan: #1 renal function stable with slight creep today. On prednisone #2 change normal saline 2 bicarb drip #3 avoid nephrotoxic agents and hypotensive episodes #4 transfuse to maintain hemoglobin more than 8 #5 serology so far negative, Anka levels pending. Discussed regarding renal biopsy with the family still thinking about it. We'll readdress tomorrow
[2018-05-03] MEDS: methylPREDNISolone SOD SUCCI 40 MG/ML 1 ML VIAL IV SCH (11:46)
[2018-05-03 12:03] LABS: Complement C3 87.7 mg/dL (80.0-207.0)
[2018-05-03] MEDS: DEXTROSE 5% IN WATER 1,000 ML with SODIUM BICARB (1 MEQ/ML) 150 ML IV SCH (12:30)
--- NOTE | 2018-05-03 13:11 | P.PN ---
Subjective Progress Note Date: 05/03/18 Principal diagnosis: Chest pain, rule out non-ST segment elevation myocardial infarction, acute anemia, altered mental status The patient is seen today 05/03/2018 in follow-up on the regular medical floor. He is currently sitting up in a chair at the bedside. His family is with him. He is having ongoing issues with altered mental status and confusion. He had been seen by psych services who felt this was more of a delirium type picture. He denies any shortness of breath today. Maintaining O2 saturations up to 100% on room air. He's been afebrile. Hemodynamically stable. His hemoglobin continues to drop currently at 6.8. One unit of packed red blood cells has been ordered. He is receiving IV iron. White count 6.4. Creatinine 3.52. Objective - Vital Signs Vital signs: Vital Signs Temp 98.0 F 05/03/18 12:00 Pulse 78 05/03/18 12:00 Resp 16 05/03/18 12:00 BP 148/68 05/03/18 12:00 Pulse Ox 92 L 05/03/18 12:00 Intake & Output 05/02/18 05/03/18 05/03/18 18:59 06:59 18:59 Intake Total 350 100 Output Total 900 600 Balance -900 -250 100 Weight 49 kg Intake: Intake, IV Titration 150 Amount Sodium Chloride 0.9% 1, 150 000 ml @ 50 mls/hr IV . Q20H [facility] Rx#:[id number] Oral 200 100 Output: Urine 900 600 Other: Voiding Method Toilet Toilet Indwelling Catheter - Exam GENERAL EXAM: Frail, cachectic. Appears older than stated age. Alert, comfortable in no apparent distress. On room air. HEAD: Normocephalic. EYES: Normal reaction of pupils, equal size. NOSE: Clear with pink turbinates. THROAT: No erythema or exudates. NECK: No masses, no JVD. CHEST: No chest wall deformity. LUNGS: Equal air entry with no crackles, wheeze, rhonchi or dullness. CVS: S1 and S2 normal with no audible murmur, regular rhythm. ABDOMEN: No hepatosplenomegaly, normal bowel sounds, no guarding or rigidity. SPINE: No scoliosis or deformity SKIN: No rashes CENTRAL NERVOUS SYSTEM: No focal deficits, tone is normal in all 4 extremities. EXTREMITIES: There is no peripheral edema. No clubbing, no cyanosis. Peripheral pulses are intact. Psychiatric: The patient is having episodes of delirium. - Labs CBC & Chem 7: 05/03/18 06:29 05/03/18 06:29 Labs: Abnormal Lab Results - Last 24 Hours (Table) 05/02/18 05/03/18 05/03/18 Range/Units 09:05 06:29 06:29 RBC 2.10 L (4.30-5.90) m/uL Hgb 6.8 L* (13.0-17.5) gm/dL Hct 20.4 L (39.0-53.0) % RDW 20.3 H (11.5-15.5) % Sodium 134 L (137-145) mmol/L Carbon Dioxide 17 L (22-30) mmol/L BUN 64 H (9-20) mg/dL Creatinine 3.52 H (0.66-1.25) mg/dL Glucose 106 H (74-99) mg/dL Phosphorus 8.0 H (2.5-4.5) mg/dL Total Protein (PEP) 4.8 L (6.2-8.2) g/dL Complement C4 7.5 L (10.0-53.0) mg/dL Assessment and Plan Assessment: Impression: #1 Chest pain with elevated troponins, ruled out non-ST segment elevation myocardial infarction. #2 Acute anemia of unclear etiology. Stool for occult blood negative. Current hemoglobin 6.8. Received 1 unit of packed red blood cells today. GI services are on the case. #3 History of severe chronic obstructive pulmonary disease. #4 Chronic ongoing tobacco dependence. #5 Altered mental status with delirium. #6 Acute on chronic renal failure. #7 Poor oral intake with weight loss. Rule out occult malignancy. Plan: The patient was seen and evaluated by Dr. Santoyo. He is currently stable from the pulmonary standpoint. On room air. Continue with bronchodilators and oral prednisone. We will continue to follow and make further recommendations based on his clinical status. I, the cosigning physician, performed a history & physical examination of the patient. Lungs sounds faint end expiratory wheeze, few scattered rhonchi. Maintaining good O2 saturations in the 90s on room air. I discussed the assessment and plan of care with my nurse practitioner, Ashley Sheehan. I attest to the above note as dictated by her.
--- NOTE | 2018-05-03 13:42 | P.PN ---
Subjective Progress Note Date: 05/03/18 This is a 67-year-old gentleman with past medical history significant for COPD, hypertension, who was initially transferred from [facility] for severe anemia. Cardiology was requested initially in consultation because of abnormality in troponin. Likely representing a type II OR. Hemoglobin today again is down to 6.8. Blood pressure 140/60 with a heart rate in the 70s, 92% on room air. Objective - Vital Signs Vital signs: Vital Signs Temp 98.0 F 05/03/18 12:00 Pulse 78 05/03/18 12:00 Resp 16 05/03/18 12:00 BP 148/68 05/03/18 12:00 Pulse Ox 92 L 05/03/18 12:00 Intake & Output 05/02/18 05/03/18 05/03/18 18:59 06:59 18:59 Intake Total 350 100 Output Total 900 600 Balance -900 -250 100 Weight 49 kg Intake: Intake, IV Titration 150 Amount Sodium Chloride 0.9% 1, 150 000 ml @ 50 mls/hr IV . Q20H [facility] Rx#:[id number] Oral 200 100 Output: Urine 900 600 Other: Voiding Method Toilet Toilet Indwelling Catheter - Exam GENERAL EXAM: Frail, cachectic. Appears older than stated age. Alert, comfortable in no apparent distress. On room air. HEAD: Normocephalic. EYES: Normal reaction of pupils, equal size. NOSE: Clear with pink turbinates. THROAT: No erythema or exudates. NECK: No masses, no JVD. CHEST: No chest wall deformity. LUNGS: Equal air entry with no crackles, wheeze, rhonchi or dullness. CVS: S1 and S2 normal with no audible murmur, regular rhythm. ABDOMEN: No hepatosplenomegaly, normal bowel sounds, no guarding or rigidity. SPINE: No scoliosis or deformity SKIN: No rashes CENTRAL NERVOUS SYSTEM: No focal deficits, tone is normal in all 4 extremities. EXTREMITIES: There is no peripheral edema. No clubbing, no cyanosis. Peripheral pulses are intact. Psychiatric: The patient is having episodes of delirium. - Labs CBC & Chem 7: 05/03/18 06:29 05/03/18 06:29 Labs: Abnormal Lab Results - Last 24 Hours (Table) 05/02/18 05/03/18 05/03/18 Range/Units 09:05 06:29 06:29 RBC 2.10 L (4.30-5.90) m/uL Hgb 6.8 L* (13.0-17.5) gm/dL Hct 20.4 L (39.0-53.0) % RDW 20.3 H (11.5-15.5) % Sodium 134 L (137-145) mmol/L Carbon Dioxide 17 L (22-30) mmol/L BUN 64 H (9-20) mg/dL Creatinine 3.52 H (0.66-1.25) mg/dL Glucose 106 H (74-99) mg/dL Phosphorus 8.0 H (2.5-4.5) mg/dL Total Protein (PEP) 4.8 L (6.2-8.2) g/dL Complement C4 7.5 L (10.0-53.0) mg/dL Assessment and Plan Plan: Assessment and plan #1 Chest pain with elevated troponins, suggesting type II OR #2 Acute anemia of unclear etiology. Stool for occult blood negative. Current hemoglobin 6.8. Received 1 unit of packed red blood cells today. GI services are on the case. #3 History of severe chronic obstructive pulmonary disease. #4 Chronic ongoing tobacco dependence. #5 Altered mental status with delirium. #6 Acute on chronic renal failure. #7 Poor oral intake with weight loss. Rule out occult malignancy. Plan From cardiology's perspective, we'll follow this patient along with you now on an as-needed basis only, please don't hesitate to call with any questions. DNP note has been reviewed, I agree with a documented findings and plan of care. Patient was seen and examined.
[2018-05-03] MEDS: ACETAMINOPHEN TAB 325 MG TAB PO PRN (15:05)
[2018-05-03] MEDS: KETOROLAC 0.5% OPHTH DROPS 5 ML BTL BOTH EYES SCH ×2 (15:06→22:03)
[2018-05-03] MEDS: SODIUM CHLORIDE 0.9% 1,000 ML IV SCH (15:59)
[2018-05-03] MEDS: HALOPERIDOL LACTATE 5 MG/ML 1 ML VIAL IVP PRN ×2 (16:50→22:03)
--- NOTE | 2018-05-03 18:03 | P.PN ---
Subjective Progress Note Date: 05/03/18 Principal diagnosis: Anemia Patient lying in bed. No signs or symptoms of GI bleeding reported. No abdominal pain reported. He is tolerating his diet. Objective - Vital Signs Vital signs: Vital Signs Temp 97.5 F L 05/03/18 15:43 Pulse 88 05/03/18 15:43 Resp 14 05/03/18 15:43 BP 157/75 05/03/18 15:43 Pulse Ox 94 L 05/03/18 15:43 Intake & Output 05/02/18 05/03/18 05/03/18 18:59 06:59 18:59 Intake Total 350 880 Output Total 900 600 Balance -900 -250 880 Weight 49 kg 49 kg Intake: Intake, IV Titration 150 300 Amount Dextrose 5% in Water 1, 200 000 ml @ 50 mls/hr IV . Q23H [facility] with Sodium Bicarb (1 Meq/ml) 150 ml Rx#:[id number] Sodium Chloride 0.9% 1, 150 000 ml @ 50 mls/hr IV . Q20H [facility] Rx#:[id number] Sodium Ferric Gluconat- 100 Sucrose 125 mg In Sodium Chloride 0.9% 100 ml @ 100 mls/hr IVPB DAILY [facility] Rx#:[id number] Oral 200 580 Output: Urine 900 600 Other: Voiding Method Toilet Toilet Indwelling Catheter - Exam On physical examination, patient appears comfortable in no apparent distress. HEAD: Normocephalic, atraumatic. EYES: No scleral icterus. No conjunctival injection. MOUTH: No lesions, tongue midline. NECK: Trachea midline, no gross abnormalities. CHEST: Decreased air entry in all lung rodriguez. ABDOMEN: Soft. Bowel sounds are positive. No organomegaly. No guarding or rigidity. EXTREMITIES: No pedal edema. SKIN: No rashes, no jaundice. NEUROLOGIC: Alert but confused. No focal deficits. - Labs CBC & Chem 7: 05/03/18 06:29 05/03/18 06:29 Labs: Abnormal Lab Results - Last 24 Hours (Table) 05/02/18 05/03/18 05/03/18 Range/Units 09:05 06:29 06:29 RBC 2.10 L (4.30-5.90) m/uL Hgb 6.8 L* (13.0-17.5) gm/dL Hct 20.4 L (39.0-53.0) % RDW 20.3 H (11.5-15.5) % Sodium 134 L (137-145) mmol/L Carbon Dioxide 17 L (22-30) mmol/L BUN 64 H (9-20) mg/dL Creatinine 3.52 H (0.66-1.25) mg/dL Glucose 106 H (74-99) mg/dL Phosphorus 8.0 H (2.5-4.5) mg/dL Complement C4 7.5 L (10.0-53.0) mg/dL Assessment and Plan (1) Symptomatic anemia Narrative/Plan: Symptomatic iron deficiency anemia, with no overt signs of GI bleeding likely with component of anemia of chronic disease in the setting of possible chronic kidney disease, although baseline creatinine is from 2013. The patient has not had endoscopic evaluation in the past with either EGD or colonoscopy, however according to the patient's his wishes were to not find out if something bad was wrong with him. In addition in conversation with the pulmonology team the patient is not optimized and cleared for endoscopy at this point. Current Visit: Yes Status: Acute Code(s): D64.9 - ANEMIA, UNSPECIFIED SNOMED Code(s): 386823223 Plan: Supportive care Okay for diet Continue Protonix daily Continue to monitor hemoglobin and transfuse as needed Watch for signs or symptoms of GI bleeding Avoid NSAID use Continue iron supplementation As mentioned above, based on conversations with the patient's who indicated that he was not interested in finding out if something was wrong with him, as well as pulmonology team who feel the patient is high risk for endoscopy , there are no plans for endoscopic evaluation at this time, we will continue medical management and monitoring of the patient with further consideration if the patient has a change in clinical status or further drop in hemoglobin Thank you for allowing us to participate in the care of the patient, we will continue to follow
[2018-05-03] MEDS ORDERED: HALOPERIDOL LACTATE 5 MG/ML 1 ML VIAL IM ONE (18:36)
[2018-05-03] MEDS: QUEtiapine 25 MG TAB PO SCH (22:02)
[2018-05-04] MEDS: IPRATROPIUM-ALBUTEROL 3 ML NEB INHALATION PRN ×2 (02:45→13:30)
[2018-05-04] MEDS: BUDESONIDE 1 MG/2 ML NEBU INHALATION SCH ×2 (07:47→19:35)
[2018-05-04] MEDS: FORMOTEROL FUMARATE 20 MCG/2 ML NEBU INHALATION SCH ×2 (07:47→19:35)
[2018-05-04] MEDS: IPRATROPIUM-ALBUTEROL 3 ML NEB INHALATION SCH ×4 (07:47→19:35)
[2018-05-04] MEDS ORDERED: predniSONE 20 MG TAB PO SCH (09:00)
[2018-05-04] MEDS: SODIUM FERRIC GLUCONAT-SUCROSE 125 MG in SODIUM CHLORIDE 0.9% 100 ML IVPB SCH (09:10)
[2018-05-04 09:24] LABS: Anisocytosis Slight; HCT 20.9 % (39.0-53.0); MCH 30.2 pg (25.0-35.0); MCHC 32.8 g/dL (31.0-37.0); MCV 92.1 fL (80.0-100.0); Mean Platelet Volume 6.3; Platelet Count 338 k/uL (150-450); RBC 2.27 m/uL (4.30-5.90); RDW 18.9 % (11.5-15.5); WBC 7.1 k/uL (3.8-10.6)
[2018-05-04 09:28] LABS: Calcium 8.3 mg/dL (8.4-10.2); Potassium 3.5 mmol/L (3.5-5.1)
[2018-05-04 09:29] LABS: HGB 6.9 gm/dL (13.0-17.5)
--- NOTE | 2018-05-04 10:00 | P.PN ---
Subjective Patient is admitted secondary to anemia symptomatic along with chest pain, patient is a blood transfusion patient is feeling much better today patient apparently was confused earlier today morning and last night and was bit agitated. Patient appears to have moderate dementia either vascular dementia dementia of Alzheimer's type. Does have memory difficulties at home as well but patient the was not confused when I evaluated the patient patient was started on as needed Haldol and Seroquel at nighttime for agitation. Cardiology evaluated the patient. Gastroenterology evaluated the patient. No obvious GI bleed at this time. Patient's creatinine is high and stable at around 3 believed to be secondary to acute tubular necrosis or interstitial her right is from my nonsteroidal anti-inflammatories nephrology evaluated the patient. Follow basic metabolic profile tomorrow. 05/02/2018 Patient was more agitated yesterday has a sitter now. Patient received DDAVP yesterday patient creatinine remains fairly stable at 3.37 patient the was started on gentle hydration today by nephrology. Increasing the dose of Haldol to 1 mg every 6 when necessary. Avoid benzo is his barbiturates opiates and anticholinergic medications. I as a nursing staff to avoid these medications and as a nursing staff to open the curtains which will help him with his agitation. Patient will not require IV hydralazine which was discontinued. CAT scan of the brain did not show any significant abnormality except for some possible left-sided mastoiditis. Patient's serum iron levels is extremely low because of which patient is receiving iron supplementation for that although his normal probably because of acute phase reactant and the patient's B12 and folic acids is essentially within normal limits. 05/03/2018 Patient's hemoglobin is below 7 today we'll transfuse him 1 more unit of blood patient's agitation episodes did not improve Resporal will be discontinue patient was started on nighttime Seroquel and as needed Haldol. We'll transfuse him 1 unit of blood. Down the steroids to by mouth 40 daily patient doesn't have any significant wheeze today. 05/03/2018 Patient had 4.stools today patient appears to have acute GI bleed upper GI bleed patient is already on Protonix. Patient may need upper GI endoscopy. Patient was more agitated requiring more Haldol and the patient is on Seroquel. We will continue with these medications will monitor him tonight. All inpatient medications were reviewed and appropriate changes in these medications as dictated in the interval history and assessment and plan. Objective - Vital Signs Vital signs: Vital Signs Temp 98.8 F 05/04/18 00:23 Pulse 104 H 05/04/18 03:02 Resp 20 05/04/18 03:02 BP 161/88 05/04/18 00:23 Pulse Ox 96 05/04/18 00:23 Intake & Output 05/03/18 05/04/18 05/04/18 18:59 06:59 18:59 Intake Total 880 310 Output Total 1250 Balance 880 -940 Weight 49 kg 49 kg Intake: Intake, IV Titration 300 Amount Dextrose 5% in Water 1, 200 000 ml @ 50 mls/hr IV . Q23H JAMA with Sodium Bicarb (1 Meq/ml) 150 ml Rx#:[id number] Sodium Ferric Gluconat- 100 Sucrose 125 mg In Sodium Chloride 0.9% 100 ml @ 100 mls/hr IVPB DAILY JAMA Rx#:[id number] Oral 580 Blood Product 310 Rc Cpda-1 Unit 310 [id number] Output: Urine 1250 Other: Voiding Method Indwelling Catheter Indwelling Catheter # Bowel Movements 2 - Exam PHYSICAL EXAMINATION: GENERAL: The patient isdrowsy and sleepingbecause of haloperidoll and Seroquel HEENT: Pupils are round and equally reacting to light. EOMI. No scleral icterus. No conjunctival pallor. Normocephalic, atraumatic. No pharyngeal erythema. No thyromegaly. CARDIOVASCULAR: S1 and S2 present. No murmurs, rubs, or gallops. PULMONARY no significant wheezing today. Fairly good air entry bilateral lung rodriguez ABDOMEN: Soft, nontender, nondistended, normoactive bowel sounds. No palpable organomegaly. MUSCULOSKELETAL: No joint swelling or deformity. EXTREMITIES: No cyanosis, clubbing, or pedal edema. NEUROLOGICAL: Gross neurological examination did not reveal any focal deficits. SKIN: No rashes. - Labs CBC & Chem 7: 05/04/18 08:59 05/04/18 08:59 Labs: Abnormal Lab Results - Last 24 Hours (Table) 05/02/18 05/03/18 05/04/18 Range/Units 09:05 16:41 08:59 RBC 2.27 L (4.30-5.90) m/uL Hgb 6.9 L* (13.0-17.5) gm/dL Hct 20.9 L (39.0-53.0) % RDW 18.9 H (11.5-15.5) % Sodium (137-145) mmol/L BUN (9-20) mg/dL Creatinine (0.66-1.25) mg/dL Calcium (8.4-10.2) mg/dL Complement C4 7.5 L (10.0-53.0) mg/dL Crossmatch See Detail 05/04/18 Range/Units 08:59 RBC (4.30-5.90) m/uL Hgb (13.0-17.5) gm/dL Hct (39.0-53.0) % RDW (11.5-15.5) % Sodium 135 L (137-145) mmol/L BUN 69 H (9-20) mg/dL Creatinine 3.30 H (0.66-1.25) mg/dL Calcium 8.3 L (8.4-10.2) mg/dL Complement C4 (10.0-53.0) mg/dL Crossmatch Assessment and Plan Plan: -upper GI bleed: Peptic ulcer disease or gastritis. Patient will be on Protonix will discuss with gastroenterology regarding upper GI endoscopy.his hemoglobin is only 6.9 mL 1 more unit of transfusion -Chest pain,on admission secondary to anemia, presently not an issue -Agitation secondary to delirium associated with hospitalization patient does have moderate to severe dementia mostly vascular dementia. Patient will be on Seroquel as mentioned above her daughter discontinued -Severe anemia symptomatic 1 patient has a I and deficiency anemia which is chronic apart from acute GI bleed. -COPD with minimal exacerbation patientbe continued on oral steroids along with inhalational treatments -Acute renal failure, possibility of chronic kidney disease cannot be ruled out acute renal failure is probably due to tubular necrosis or ALLERGIC interstitial nephritissecondary to nonsteroidal anti-inflammatory medication -Anion gap and noniron gap metabolic acidosis secondary to renal failure -Thrombocytosis: Reactive secondary to anemia improved now -moderate to severe dementia mostly vascular dementia possibility of Alzheimer' s cannot be ruled out -CODE STATUS: Full codefor this need to be readdressed with the family again
[2018-05-04] MEDS: DEXTROSE 5% IN WATER 1,000 ML with SODIUM BICARB (1 MEQ/ML) 150 ML IV SCH (11:05)
--- NOTE | 2018-05-04 11:14 | P.PN ---
Subjective Progress Note Date: 05/04/18 Patient seen and examined for the follow-up of acute kidney injury. Admitted to the hospital with acute kidney injury. Creatinine improving. Serology workup so far negative including low C4. He presented with acute kidney injury secondary to NSAID use with 10 g proteinuria. No previous care, and as per the he did not see doctors as outpatient. When discussed about kidney biopsy, she still thinking about it. Objective - Vital Signs Vital signs: Vital Signs Temp 98.8 F 05/04/18 00:23 Pulse 104 H 05/04/18 03:02 Resp 20 05/04/18 03:02 BP 161/88 05/04/18 00:23 Pulse Ox 96 05/04/18 00:23 Intake & Output 05/03/18 05/04/18 05/04/18 18:59 06:59 18:59 Intake Total 880 310 Output Total 1250 Balance 880 -940 Weight 49 kg 49 kg Intake: Intake, IV Titration 300 Amount Dextrose 5% in Water 1, 200 000 ml @ 50 mls/hr IV . Q23H JAMA with Sodium Bicarb (1 Meq/ml) 150 ml Rx#:[id number] Sodium Ferric Gluconat- 100 Sucrose 125 mg In Sodium Chloride 0.9% 100 ml @ 100 mls/hr IVPB DAILY JAMA Rx#:[id number] Oral 580 Blood Product 310 Rc Cpda-1 Unit 310 [id number] Output: Urine 1250 Other: Voiding Method Indwelling Catheter Indwelling Catheter # Bowel Movements 2 - Exam No acute distress S1-S2 heard Lungs clear No edema - Labs CBC & Chem 7: 05/04/18 08:59 05/04/18 08:59 Labs: Abnormal Lab Results - Last 24 Hours (Table) 05/02/18 05/03/18 05/04/18 Range/Units 09:05 16:41 08:59 RBC 2.27 L (4.30-5.90) m/uL Hgb 6.9 L* (13.0-17.5) gm/dL Hct 20.9 L (39.0-53.0) % RDW 18.9 H (11.5-15.5) % Sodium (137-145) mmol/L BUN (9-20) mg/dL Creatinine (0.66-1.25) mg/dL Calcium (8.4-10.2) mg/dL Complement C4 7.5 L (10.0-53.0) mg/dL Crossmatch See Detail 05/04/18 Range/Units 08:59 RBC (4.30-5.90) m/uL Hgb (13.0-17.5) gm/dL Hct (39.0-53.0) % RDW (11.5-15.5) % Sodium 135 L (137-145) mmol/L BUN 69 H (9-20) mg/dL Creatinine 3.30 H (0.66-1.25) mg/dL Calcium 8.3 L (8.4-10.2) mg/dL Complement C4 (10.0-53.0) mg/dL Crossmatch Assessment and Plan Assessment: #1 nonoliguric acute kidney injury multifactorial. Possibilities include -AIN from NSAID use -With proteinuria GN cannot be excluded #2 suspected chronic kidney disease, with no previous care. #3 acute blood loss anemia. #4 hypertension with CKD #5 urinary retention status post Martini Plan: #1 renal function stable and improving on prednisone. #2 continue with bicarb drip #3 avoid nephrotoxic agents and hypotensive episodes #4 transfuse to maintain hemoglobin more than 8 #5 readdress renal biopsy if family agrees.
--- NOTE | 2018-05-04 11:50 | P.PN ---
Subjective Progress Note Date: 05/04/18 Principal diagnosis: Chest pain, altered mental status, acute anemia, agitation, delirium This is 67-year-old white male patient With past medical history COPD, chronic nicotine dependence, chronic kidney disease, who came into the hospital on 04/30 with altered mental status, confusion, patient was profoundly anemic on admission, requiring blood transfusions, he has received 2 units of packed red blood cells, his initial hemoglobin was 6.7, currently is 6.9. Patient had elevated troponins, and his proBNP was 10,700. Chest x-ray showed diffuse interstitial prominence but no megan consolidation and pleural effusion. Brain CT showed no acute intracranial hemorrhage or midline shift, there was mild diffuse age-related cerebral atrophy and mild to moderate chronic small vessel ischemic changes. Patient has had no signs of symptoms of GI bleeding, no abdominal pain. he is receiving iron transfusions. He has been quiet sedated, has had some periods of agitation, there is a medical safety director at the bedside, he was evaluated evaluated by psychiatric services, felt that patient's mental alteration was due to delirium and metabolic encephalopathy. For ALLERGIES following, and patient remains on bicarb drip at 50 ML per hour. Patient is quite sedated, has not been able to have much of oral intake. Currently on 4 L per nasal cannula his pulse ox is 96%, he is afebrile, blood pressure is 161/88 , Martini catheter is in place, patient is producing clear dilute yellow urine, nonoliguric. No febrile episodes, no cultures have been sent. Patient is resting quietly in bed, there is a medical safety director at the bedside, lung sounds are diminished, with some bibasilar crackles. No use of accessory muscles of breathing, does not appear to be in distress. Today's labs have been reviewed, white blood cell count is 7.1, hemoglobin is 6.9, sodium is 135, there is the electrodes were within normal limits, BUN is 69 and creatinine is 3.30. Objective - Vital Signs Vital signs: Vital Signs Temp 98.8 F 05/04/18 00:23 Pulse 104 H 05/04/18 03:02 Resp 20 05/04/18 03:02 BP 161/88 05/04/18 00:23 Pulse Ox 96 05/04/18 00:23 Intake & Output 05/03/18 05/04/18 05/04/18 18:59 06:59 18:59 Intake Total 880 310 Output Total 1250 Balance 880 -940 Weight 49 kg 49 kg Intake: Intake, IV Titration 300 Amount Dextrose 5% in Water 1, 200 000 ml @ 50 mls/hr IV . Q23H JAMA with Sodium Bicarb (1 Meq/ml) 150 ml Rx#:[id number] Sodium Ferric Gluconat- 100 Sucrose 125 mg In Sodium Chloride 0.9% 100 ml @ 100 mls/hr IVPB DAILY JAMA Rx#:[id number] Oral 580 Blood Product 310 Rc Cpda-1 Unit 310 [id number] Output: Urine 1250 Other: Voiding Method Indwelling Catheter Indwelling Catheter # Bowel Movements 2 - Exam GENERAL EXAM: Lethargic, 67-year-old frail looking white male, appears much older than stated age HEAD: Normocephalic/atraumatic. EYES: Normal reaction of pupils, equal size. Conjunctiva pink, sclera white. NOSE: Clear with pink turbinates. THROAT: No erythema or exudates. NECK: No masses, no JVD, no thyroid enlargement, no adenopathy. CHEST: No chest wall deformity. Symmetrical expansion. LUNGS: Equal air entry with bibasilar crackles, currently on 4 L per nasal cannula, patient is sedated, does not appear to be in distress. CVS: Regular rate and rhythm, normal S1 and S2, no gallops, no murmurs, no rubs ABDOMEN: Soft, nontender. No hepatosplenomegaly, normal bowel sounds, no guarding or rigidity. EXTREMITIES: No clubbing, no edema, no cyanosis, 2+ pulses and upper and lower extremities. MUSCULOSKELETAL: Muscle strength and tone normal. SPINE: No scoliosis or deformity SKIN: No rashes CENTRAL NERVOUS SYSTEM: Sedated, No focal deficits, tone is normal in all 4 extremities. - Labs CBC & Chem 7: 05/04/18 08:59 05/04/18 08:59 Labs: Abnormal Lab Results - Last 24 Hours (Table) 05/02/18 05/03/18 05/04/18 Range/Units 09:05 16:41 08:59 RBC 2.27 L (4.30-5.90) m/uL Hgb 6.9 L* (13.0-17.5) gm/dL Hct 20.9 L (39.0-53.0) % RDW 18.9 H (11.5-15.5) % Sodium (137-145) mmol/L BUN (9-20) mg/dL Creatinine (0.66-1.25) mg/dL Calcium (8.4-10.2) mg/dL Complement C4 7.5 L (10.0-53.0) mg/dL Crossmatch See Detail 05/04/18 Range/Units 08:59 RBC (4.30-5.90) m/uL Hgb (13.0-17.5) gm/dL Hct (39.0-53.0) % RDW (11.5-15.5) % Sodium 135 L (137-145) mmol/L BUN 69 H (9-20) mg/dL Creatinine 3.30 H (0.66-1.25) mg/dL Calcium 8.3 L (8.4-10.2) mg/dL Complement C4 (10.0-53.0) mg/dL Crossmatch Assessment and Plan Plan: Assessment: #1 Chest pain with elevated troponins, ruled out non-ST segment elevation myocardial infarction. #2 Acute anemia of unclear etiology. Stool for occult blood negative. Current hemoglobin 6.8. Received 2 unit of packed red blood cells today. GI services are on the case. #3 delirium, agitation, metabolic encephalopathy. CT brain was negative for any acute changes #4 History of severe chronic obstructive pulmonary disease. #5 Chronic ongoing tobacco dependence. #6 Altered mental status with delirium. #7 Acute on chronic renal failure. #8 Poor oral intake with weight loss. Rule out occult malignancy. Plan: Continue current medical treatment, patient is quite sedated on today's exam, in no acute distress, vital signs are stable, nephrology, cardiology and GI service are following, there has been no clear evidence of GI bleeding. From pulmonary perspective patient is maintaining stable oxygenation. Vital signs are stable, no use of accessory muscles of breathing. We'll continue to follow I performed a history & physical examination of the patient and discussed their management with my nurse practitioner, Olivia Mcmauns. I reviewed the nurse practitioner's note and agree with the documented findings and plan of care. Lung sounds are positive for basilar crackles. The findings and the impression was discussed with the patient. I attest to the documentation by the nurse practitioner. Time with Patient: Less than 30
[2018-05-04] MEDS: KETOROLAC 0.5% OPHTH DROPS 5 ML BTL BOTH EYES SCH ×2 (12:28→19:37)
[2018-05-04] MEDS: hydrALAZINE HCL 50 MG TAB PO SCH ×3 (12:28→23:09)
[2018-05-04] MEDS: SODIUM BICARBONATE TAB 650 MG TAB PO SCH ×3 (12:28→23:09)
[2018-05-04] MEDS: GENTAMICIN BOTH EYES SCH ×2 (12:28→19:38)
[2018-05-04] MEDS: PREDNISOLONE BOTH EYES SCH ×2 (12:28→19:38)
[2018-05-04] MEDS: hydrALAZINE HCL 20 MG/ML 1 ML VIAL IVP PRN ×2 (15:00→19:33)
[2018-05-04] MEDS: PANTOPRAZOLE 40 MG/10 ML VIAL IVP SCH ×2 (15:11→19:40)
[2018-05-04] MEDS: SODIUM CHLORIDE 0.9% 1,000 ML IV SCH (16:00)
[2018-05-04] MEDS: METOPROLOL TARTRATE 50 MG TAB PO SCH ×2 (16:00→23:09)
--- NOTE | 2018-05-04 17:25 | P.PN ---
Subjective Progress Note Date: 05/04/18 Principal diagnosis: Anemia, melena Patient lying in bed. He is tolerating his diet. Reports of multiple dark melanotic stool this morning and last night. Objective - Vital Signs Vital signs: Vital Signs Temp 98.0 F 05/04/18 15:24 Pulse 99 05/04/18 15:56 Resp 16 05/04/18 15:56 BP 163/78 05/04/18 15:24 Pulse Ox 93 L 05/04/18 12:00 Intake & Output 05/03/18 05/04/18 05/04/18 18:59 06:59 18:59 Intake Total 880 310 810 Output Total 1250 Balance 880 -940 810 Weight 49 kg 49 kg Intake: Intake, IV Titration 300 500 Amount Dextrose 5% in Water 1, 200 400 000 ml @ 50 mls/hr IV . Q23H JAMA with Sodium Bicarb (1 Meq/ml) 150 ml Rx#:[id number] Sodium Ferric Gluconat- 100 100 Sucrose 125 mg In Sodium Chloride 0.9% 100 ml @ 100 mls/hr IVPB DAILY JAMA Rx#:[id number] Oral 580 Blood Product 310 310 Rc As-1 Unit 310 [id number] Rc Cpda-1 Unit 310 [id number] Output: Urine 1250 Other: Voiding Method Indwelling Catheter Indwelling Catheter Indwelling Catheter # Voids 1 # Bowel Movements 2 - Exam On physical examination, patient appears comfortable in no apparent distress. HEAD: Normocephalic, atraumatic. EYES: No scleral icterus. No conjunctival injection. MOUTH: No lesions, tongue midline. NECK: Trachea midline, no gross abnormalities. CHEST: Decreased air entry in all lung rodriguez. ABDOMEN: Soft. Bowel sounds are positive. No organomegaly. No guarding or rigidity. EXTREMITIES: No pedal edema. SKIN: No rashes, no jaundice. NEUROLOGIC: Alert but confused. No focal deficits. - Labs CBC & Chem 7: 05/04/18 08:59 05/04/18 08:59 Labs: Abnormal Lab Results - Last 24 Hours (Table) 05/03/18 05/04/18 05/04/18 Range/Units 16:41 08:59 08:59 RBC 2.27 L (4.30-5.90) m/uL Hgb 6.9 L* (13.0-17.5) gm/dL Hct 20.9 L (39.0-53.0) % RDW 18.9 H (11.5-15.5) % Sodium 135 L (137-145) mmol/L BUN 69 H (9-20) mg/dL Creatinine 3.30 H (0.66-1.25) mg/dL Calcium 8.3 L (8.4-10.2) mg/dL Crossmatch See Detail Assessment and Plan (1) Symptomatic anemia Narrative/Plan: Symptomatic iron deficiency anemia, likely with component of anemia of chronic disease in the setting of possible chronic kidney disease, although baseline creatinine is from 2013. Multiple episodes of dark melanotic stool last night and this morning with no gross blood seen. Current Visit: Yes Status: Acute Code(s): D64.9 - ANEMIA, UNSPECIFIED SNOMED Code(s): 052794686 Plan: Supportive care Okay for diet Continue Protonix daily Continue to monitor hemoglobin and transfuse as needed Watch for signs or symptoms of GI bleeding Avoid NSAID use Continue iron supplementation patient developed melanotic stool last night and this morning with hemoglobin 69 today from 6.8 yesterday, we'll make patient nothing by mouth and plan for upper endoscopy in the morning Thank you for allowing us to participate in the care of the patient, we will continue to follow
[2018-05-04] MEDS: QUEtiapine 25 MG TAB PO SCH (23:09)
[2018-05-05 06:17] LABS: Anisocytosis Slight; HCT 25.7 % (39.0-53.0); HGB 8.3 gm/dL (13.0-17.5); MCH 29.4 pg (25.0-35.0); MCHC 32.4 g/dL (31.0-37.0); MCV 90.8 fL (80.0-100.0); Platelet Count 345 k/uL (150-450); RBC 2.83 m/uL (4.30-5.90); RDW 18.8 % (11.5-15.5); WBC 6.9 k/uL (3.8-10.6)
[2018-05-05 06:20] LABS: Calcium 8.2 mg/dL (8.4-10.2); Potassium 2.9 mmol/L (3.5-5.1)
[2018-05-05] MEDS: FORMOTEROL FUMARATE 20 MCG/2 ML NEBU INHALATION SCH ×2 (07:30→19:37)
[2018-05-05] MEDS: IPRATROPIUM-ALBUTEROL 3 ML NEB INHALATION SCH ×4 (07:30→19:25)
[2018-05-05] MEDS: BUDESONIDE 1 MG/2 ML NEBU INHALATION SCH ×2 (07:30→19:25)
[2018-05-05] MEDS: PANTOPRAZOLE 40 MG/10 ML VIAL IVP SCH ×2 (08:07→20:26)
[2018-05-05] MEDS: hydrALAZINE HCL 20 MG/ML 1 ML VIAL IVP PRN ×2 (08:07→16:29)
[2018-05-05] MEDS ORDERED: PROPOFOL 10 MG/ML 20 ML VIAL IV ONE (10:36)
[2018-05-05] MEDS ORDERED: LIDOCAINE 1% INJ 10MG/ML (20 ML MDV) ONE (10:36)
[2018-05-05] MEDS ORDERED: SODIUM CHLORIDE 0.9% 500 ML 500 ML IV ONE (10:39)
--- NOTE | 2018-05-05 11:07 | P.PCN ---
Date of Procedure: 05/05/18 Description of Procedure: BRIEF HISTORY: 67-year-old male transferred from [facility] with reports of chest pain, vomiting, elevated troponin shortness of breath with hemoglobin of 4.8. Past medical history of COPD possible underlying renal insufficiency BUN 86. Creatinine 2.8. Denied overt bleeding such as hematemesis hematochezia or melena on presentation. He received blood transfusions with hemoglobin increasing to 8.4. However the patient continued to have following in his hemoglobin and subsequently developed melanotic stool. Decision was made for EGD to asking for upper GI bleed. PROCEDURE PERFORMED: Esophagogastroduodenoscopy with argon plasma coagulation ablation of a duodenal AVM. PREOPERATIVE DIAGNOSIS: Melena, anemia of acute blood loss, iron deficiency anemia. ESTIMATED BLOOD LOSS: Minimal. IV sedation per anesthesia. PROCEDURE: After informed consent was obtained, the patient was brought into the endoscopy unit. IV sedation was administered by Anesthesia under continuous monitoring. Initially the Olympus GIF-190 video endoscope was inserted into the mouth. Esophagus intubated without any difficulty. It was gradually advanced into the stomach and duodenum and carefully examined. The bulb and the second part of the duodenum appeared normal except for a nonbleeding AVM in the second portion of the duodenum which was successfully ablated with argon plasma coagulation. The scope at this time was withdrawn to the stomach, adequately insufflated with air, and upon careful examination, mucosa of the antrum, body, cardia and the fundus appeared normal. The scope was then withdrawn into the esophagus. The GE junction was located at 39 cm from the incisors. The esophagus appeared normal. There were no erosions or ulcerations seen and the patient tolerated the procedure well. IMPRESSION: 1. 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 2. No active bleeding, or other sources of upper GI bleeding noted. RECOMMENDATIONS: The findings of this examination were discussed with the patient his and daughters. Okay to have full liquid diet today. Continue to monitor hemoglobin and hematocrit and transfuse as needed. Continue iron supplementation. Continue Protonix daily.
[2018-05-05 11:54] LABS: Albumin 2.49 g/dL (3.80-4.90); Gamma Globulin 0.39 g/dL (0.70-1.50)
[2018-05-05] MEDS: SODIUM FERRIC GLUCONAT-SUCROSE 125 MG in SODIUM CHLORIDE 0.9% 100 ML IVPB SCH (11:56)
[2018-05-05] MEDS: POTASSIUM CHLORIDE 20 MEQ in WATER FOR INJECTION 1 100ML.BAG IVPB SCH ×4 (12:03→23:05)
[2018-05-05 14:56] LABS: C-ANCA <1:20 Titer (<1:20); P-ANCA <1:20 Titer (<1:20)
--- NOTE | 2018-05-05 15:53 | ECHOF ---
Referral Reason:LV fx MEASUREMENTS -------- HEIGHT: 172.7 cm WEIGHT: 50.3 kg BP: IVSd: 1.2 cm (0.6 - 1.1) LVIDd: 3.9 cm (3.9 - 5.3) LVPWd: 1.2 cm (0.6 - 1.1) IVSs: 1.4 cm LVIDs: 2.4 cm LVPWs: 1.5 cm RVIDd: 2.1 cm (< 3.3) LAESV Index (A-L): 24.79 ml/m Ao Diam: 3.5 cm (2.0 - 3.7) AV Cusp: 1.6 cm (1.5 - 2.6) EPSS: 0.4 cm MV E Balbir: 1.02 m/s MV DecT: 172 ms MV A Balbir: 1.19 m/s MV E/A Ratio: 0.86 RAP: 5.00 mmHg RVSP: 36.85 mmHg MV EF SLOPE: 81.10 mm/s (70 - 150) MV EXCURSION: 20.82 mm (> 18.000) FINDINGS -------- Sinus rhythm. This was a technically good study. LV size, wall thickness and systolic function are normal, with an EF greater than 55%. The left rich tricular size is normal. The right ventricle is normal in size. The left atrial size is normal. Normal LA size by volume 22+/-6 ml/m2. The right atrial size is normal. The aortic valve is trileaflet, and appears structurally normal. No aortic stenosis or regurgitation. Mild mitral annular calcification present. Mild mitral regurgitation is present. Mild tricuspid regurgitation present. There is mild pulmonary hypertension. The right ventricular systolic pressure, as measured by Doppler, is 36.85mmHg. There is no pulmonic regurgitation present. The aortic root size is normal. There is no pericardial effusion. CONCLUSIONS -------- 1. LV size, wall thickness and systolic function are normal, with an EF greater than 55%. 2. The left ventricular size is normal. 3. The right ventricle is normal in size. 4. The left atrial size is normal. 5. Normal LA size by volume 22+/-6 ml/m2. 6. The right atrial size is normal. 7. The aortic valve is trileaflet, and appears structurally normal. No aortic stenosis or regurgitati on. 8. Mild mitral annular calcification present. 9. Mild mitral regurgitation is present. 10. Mild tricuspid regurgitation present. 11. There is mild pulmonary hypertension. 12. The right ventricular systolic pressure, as measured by Doppler, is 36.85mmHg. 13. There is no pulmonic regurgitation present. 14. The aortic root size is normal. 15. There is no pericardial effusion. BORE MILL OPERATOR: Sandra Whitaker RDCS
[2018-05-05] MEDS: hydrALAZINE HCL 50 MG TAB PO SCH ×3 (16:16→22:16)
[2018-05-05] MEDS: PREDNISOLONE BOTH EYES SCH ×2 (16:16→20:26)
[2018-05-05] MEDS: GENTAMICIN BOTH EYES SCH ×2 (16:16→20:26)
[2018-05-05] MEDS: predniSONE 10 MG TAB PO SCH (16:17)
[2018-05-05] MEDS: KETOROLAC 0.5% OPHTH DROPS 5 ML BTL BOTH EYES SCH ×2 (16:17→20:26)
[2018-05-05] MEDS: METOPROLOL TARTRATE 50 MG TAB PO SCH ×2 (16:17→20:26)
[2018-05-05] MEDS: DEXTROSE 5% IN WATER 1,000 ML with SODIUM BICARB (1 MEQ/ML) 150 ML IV SCH (16:17)
[2018-05-05] MEDS: SODIUM BICARBONATE TAB 650 MG TAB PO SCH ×3 (16:17→22:16)
--- NOTE | 2018-05-05 17:03 | P.PN ---
Subjective Progress Note Date: 05/05/18 This 67-year-old male patient has COPD and addition to chronic renal failure. The patient came into the hospital because of concern of GI bleed. The patient had acute anemia and stool for occult blood was negative. Hemoglobin was down to 6.2. He received packed RBC transfusion a GI consultation was requested. The patient initially presented to [facility] with chest pain and vomiting and his hemoglobin was down to 4.8. Note that he has chronic renal failure with a BUN of 86 and creatinine of 2.8 in time of admission. The patient had received packed RBC transfusions. 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 No active bleeding was seen. The patient was asked to continue IV Protonix. I saw and following the endoscopy. He was arousable however he was still sleepy. I was able to wake up this patient. I was able to elicit some simple responses from him. He was moving all 4 extremities. Family was at the bedside. He was having some bleeding earlier for which she was given Seroquel. Objective - Vital Signs Vital signs: Vital Signs Temp 97.6 F 05/05/18 16:00 Pulse 120 H 05/05/18 16:00 Resp 18 05/05/18 16:00 BP 197/94 05/05/18 16:00 Pulse Ox 94 L 05/05/18 16:00 Intake & Output 05/04/18 05/05/18 05/05/18 18:59 06:59 18:59 Intake Total 810 300 100 Output Total 800 550 620 Balance 10 -250 -520 Weight 52.5 kg Intake: IV 100 Intake, IV Titration 500 300 Amount Dextrose 5% in Water 1, 400 300 000 ml @ 50 mls/hr IV . Q23H JAMA with Sodium Bicarb (1 Meq/ml) 150 ml Rx#:[id number] Sodium Ferric Gluconat- 100 Sucrose 125 mg In Sodium Chloride 0.9% 100 ml @ 100 mls/hr IVPB DAILY JAMA Rx#:[id number] Blood Product 310 Rc As-1 Unit 310 [id number] Output: Urine 800 550 620 Other: Voiding Method Indwelling Catheter Indwelling Catheter Indwelling Catheter # Voids 1 # Bowel Movements 0 - Exam GENERAL EXAM: Lethargic, 67-year-old frail looking white male, appears much older than stated age HEAD: Normocephalic/atraumatic. EYES: Normal reaction of pupils, equal size. Conjunctiva pink, sclera white. NOSE: Clear with pink turbinates. THROAT: No erythema or exudates. NECK: No masses, no JVD, no thyroid enlargement, no adenopathy. CHEST: No chest wall deformity. Symmetrical expansion. LUNGS: Equal air entry with bibasilar crackles, currently on 4 L per nasal cannula, patient is sedated, does not appear to be in distress. CVS: Regular rate and rhythm, normal S1 and S2, no gallops, no murmurs, no rubs ABDOMEN: Soft, nontender. No hepatosplenomegaly, normal bowel sounds, no guarding or rigidity. EXTREMITIES: No clubbing, no edema, no cyanosis, 2+ pulses and upper and lower extremities. MUSCULOSKELETAL: Muscle strength and tone normal. SPINE: No scoliosis or deformity SKIN: No rashes CENTRAL NERVOUS SYSTEM: Sedated, No focal deficits, tone is normal in all 4 extremities. - Labs CBC & Chem 7: 05/05/18 05:13 05/05/18 05:13 Labs: Abnormal Lab Results - Last 24 Hours (Table) 05/02/18 05/05/18 05/05/18 Range/Units 09:05 05:13 05:13 RBC 2.83 L (4.30-5.90) m/uL Hgb 8.3 L (13.0-17.5) gm/dL Hct 25.7 L (39.0-53.0) % RDW 18.8 H (11.5-15.5) % Potassium 2.9 L (3.5-5.1) mmol/L BUN 59 H (9-20) mg/dL Creatinine 3.06 H (0.66-1.25) mg/dL Calcium 8.2 L (8.4-10.2) mg/dL Albumin (PEP) 2.49 L (3.80-4.90) g/dL [id number]-[id number] 0.49 H (0.10-0.40) g/dL Gamma Globulins 0.39 L (0.70-1.50) g/dL Assessment and Plan Plan: Assessment 1 suspected upper GI bleed secondary to an AV malformation duodenum, post argon plasma treatment, currently inactive in stable 2 blood loss anemia post transfusion with packed RBC 3 chest pain with a component of acute non-ST segment elevation myocardial infarction, cardiology on the case 4 drowsiness and sleepiness, likely anesthetic effect. Neurologic exam is nonfocal 5 COPD 6 chronic tobacco smoking 7 chronic renal failure and the renal function is stable for now. Plan hold the Seroquel for now. Monitor the mental status. Continue the DuoNeb neb last treatment [id number]. Continue the Perforomist and Pulmicort neb last 2 minutes twice a day. Monitor the hemoglobin. Continue IV Protonix. EGD results were noted. Cardiology is on the case. She has an as-needed basis.
[2018-05-05] MEDS: QUEtiapine 25 MG TAB PO SCH (20:26)
--- NOTE | 2018-05-05 20:42 | PN ---
PROGRESS NOTE The patient is seen for followup for acute kidney injury. Renal function has been improving. Patient is being taken down for an EGD. Family is present at bedside. He is currently maintained on prednisone. He did have history of use of NSAIDs, but has about 10 g of proteinuria. Kidney biopsy has been discussed previously and at this time family is not too keen on proceeding with a kidney biopsy. EXAMINATION: Today, patient is comfortable. Blood pressure this morning was 151/90. Heart rate about 90 per minute. Patient is afebrile. Examination of the heart S1, S2. Examination of the lungs bilateral breath sounds are heard. Abdomen is soft, nontender. Examination lower extremities shows no evidence of edema. CASTING OPERATOR exam is grossly intact. Her 24 hour urine output was 1.3 L. The lab show sodium 139, potassium 2.9, chloride 102, BUN 59, serum creatinine 3.06. Hemoglobin was 8.3 g/dL. ASSESSMENT AND PLAN: 1. 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 This can be associated with proteinuria as well as it can cause minimal change disease. Renal function is improving. We will also monitor the proteinuria as the family is reluctant to proceed with kidney biopsy at this time. 2. Hypokalemia. We will replace. 3. Anemia. Hemoglobin was 6.9 g/dL yesterday. Patient is going down for an EGD. 4. Continue with the steroids for now. Monitor proteinuria and renal function as outpatient. If there is no improvement in the proteinuria, patient will definitely need a kidney biopsy. This can be readdressed later as outpatient. 5. Hypertension, currently uncontrolled. Patient is maintained on hydralazine and Lopressor. 6. Metabolic acidosis. Maintained on sodium bicarb. PLAN: Add calcium channel blockers if blood pressure remains uncontrolled. Continue with the prednisone. Repeat labs in a.m. Monitor proteinuria down the road. MMODL / IJN: [id number] /
--- NOTE | 2018-05-05 20:47 | P.PN ---
Subjective Progress Note Date: 05/05/18 Patient is admitted secondary to anemia symptomatic along with chest pain, patient is a blood transfusion patient is feeling much better today patient apparently was confused earlier today morning and last night and was bit agitated. Patient appears to have moderate dementia either vascular dementia dementia of Alzheimer's type. Does have memory difficulties at home as well but patient the was not confused when I evaluated the patient patient was started on as needed Haldol and Seroquel at nighttime for agitation. Cardiology evaluated the patient. Gastroenterology evaluated the patient. No obvious GI bleed at this time. Patient's creatinine is high and stable at around 3 believed to be secondary to acute tubular necrosis or interstitial her right is from my nonsteroidal anti-inflammatories nephrology evaluated the patient. Follow basic metabolic profile tomorrow. 05/02/2018 Patient was more agitated yesterday has a sitter now. Patient received DDAVP yesterday patient creatinine remains fairly stable at 3.37 patient the was started on gentle hydration today by nephrology. Increasing the dose of Haldol to 1 mg every 6 when necessary. Avoid benzo is his barbiturates opiates and anticholinergic medications. I as a nursing staff to avoid these medications and as a nursing staff to open the curtains which will help him with his agitation. Patient will not require IV hydralazine which was discontinued. CAT scan of the brain did not show any significant abnormality except for some possible left-sided mastoiditis. Patient's serum iron levels is extremely low because of which patient is receiving iron supplementation for that although his normal probably because of acute phase reactant and the patient's B12 and folic acids is essentially within normal limits. 05/03/2018 Patient's hemoglobin is below 7 today we'll transfuse him 1 more unit of blood patient's agitation episodes did not improve Resporal will be discontinue patient was started on nighttime Seroquel and as needed Haldol. We'll transfuse him 1 unit of blood. Down the steroids to by mouth 40 daily patient doesn't have any significant wheeze today. 05/03/2018 Patient had 4.stools today patient appears to have acute GI bleed upper GI bleed patient is already on Protonix. Patient may need upper GI endoscopy. Patient was more agitated requiring more Haldol and the patient is on Seroquel. We will continue with these medications will monitor him tonight. 05/05/2018 underwent EGD , tolerated procedure well. 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 No active bleeding noted. Hemoglobin 8.3 , creatinine 3.06. No agitation, sleepy as he has just returned from endoscopy. Staff reports no agitation during the night; currently on Seroquel. Sitter at bedside. Objective - Vital Signs Vital signs: Vital Signs Temp 97.6 F 05/05/18 16:00 Pulse 101 H 05/05/18 19:42 Resp 18 05/05/18 16:00 BP 197/94 05/05/18 16:00 Pulse Ox 94 L 05/05/18 16:00 Intake & Output 05/05/18 05/05/18 05/06/18 06:59 18:59 06:59 Intake Total 300 1540 Output Total 550 720 Balance -250 820 Weight 52.5 kg Intake: IV 100 Intake, IV Titration 300 Amount Dextrose 5% in Water 1, 300 000 ml @ 50 mls/hr IV . Q23H JAMA with Sodium Bicarb (1 Meq/ml) 150 ml Rx#:[id number] Oral 1440 Output: Urine 550 720 Other: Voiding Method Indwelling Catheter Indwelling Catheter # Bowel Movements 0 - Exam GENERAL: The patient is drowsy and sleeping, arousable, just returning from procedure, HEENT: Pupils are round and equally reacting to light. EOMI. No scleral icterus. No conjunctival pallor. Normocephalic, atraumatic. CARDIOVASCULAR: S1 and S2 present. Regular, No murmurs, rubs, or gallops. PULMONARY bilateral bases diminished with crackles, no wheezing. ABDOMEN: Soft, nontender, nondistended, normoactive bowel sounds. No palpable organomegaly. MUSCULOSKELETAL: No joint swelling or deformity. EXTREMITIES: No cyanosis, clubbing, or pedal edema. NEUROLOGICAL: Gross neurological examination did not reveal any focal deficits. SKIN: No rashes. - Labs CBC & Chem 7: 05/05/18 05:13 05/05/18 18:21 Labs: Abnormal Lab Results - Last 24 Hours (Table) 05/02/18 05/05/18 05/05/18 Range/Units 09:05 05:13 05:13 RBC 2.83 L (4.30-5.90) m/uL Hgb 8.3 L (13.0-17.5) gm/dL Hct 25.7 L (39.0-53.0) % RDW 18.8 H (11.5-15.5) % Potassium 2.9 L (3.5-5.1) mmol/L BUN 59 H (9-20) mg/dL Creatinine 3.06 H (0.66-1.25) mg/dL Calcium 8.2 L (8.4-10.2) mg/dL Albumin (PEP) 2.49 L (3.80-4.90) g/dL Gwgds-9-[id number] 0.49 H (0.10-0.40) g/dL Gamma Globulins 0.39 L (0.70-1.50) g/dL 05/05/18 Range/Units 18:21 RBC (4.30-5.90) m/uL Hgb (13.0-17.5) gm/dL Hct (39.0-53.0) % RDW (11.5-15.5) % Potassium 3.2 L (3.5-5.1) mmol/L BUN (9-20) mg/dL Creatinine (0.66-1.25) mg/dL Calcium (8.4-10.2) mg/dL Albumin (PEP) (3.80-4.90) g/dL Zdkbb-7-Ylccuadtd (0.10-0.40) g/dL Gamma Globulins (0.70-1.50) g/dL Assessment and Plan Assessment: -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 -Chest pain,on admission secondary to anemia, possible type II CO. -Agitation secondary to delirium associated with hospitalization, moderate to severe dementia mostly vascular dementia. Possibility of Alzheimer's disease cannot be ruled out. -Severe anemia symptomatic, iron deficiency anemia which is chronic apart from acute GI bleed. -COPD with minimal exacerbation -Acute renal failure, secondary to tubular necrosis , or ALLERGIC interstitial nephritis secondary to nonsteroidal anti-inflammatory medication -Possible chronic kidney disease Plan: Continue on current medication regime ,monitoring and symptomatic treatment. Currently agitation appears to be controlled, continue monitoring. No further dark stools or evidence of bleeding. Family wishes to take patient home at discharge with home care and physical therapy.Discharge planning in progress for tomorrow. The impression and plan of care has been dictated as directed. : I performed a history and examination of this patient, discussed the same with the dictator. I agree with the dictator's note ,documented as a scribe. Any additional findings or plans will be noted.
[2018-05-06] MEDS: POTASSIUM CHLORIDE 20 MEQ in WATER FOR INJECTION 1 100ML.BAG IVPB SCH (01:02)
[2018-05-06 07:03] LABS: Potassium 3.6 mmol/L (3.5-5.1)
[2018-05-06] MEDS: METOPROLOL TARTRATE 50 MG TAB PO SCH ×2 (07:56→20:29)
[2018-05-06] MEDS: hydrALAZINE HCL 50 MG TAB PO SCH ×3 (07:56→20:29)
[2018-05-06] MEDS: predniSONE 10 MG TAB PO SCH (07:57)
[2018-05-06] MEDS: SODIUM BICARBONATE TAB 650 MG TAB PO SCH ×2 (07:57→16:25)
[2018-05-06] MEDS: PANTOPRAZOLE 40 MG/10 ML VIAL IVP SCH ×2 (07:57→20:28)
[2018-05-06] MEDS: KETOROLAC 0.5% OPHTH DROPS 5 ML BTL BOTH EYES SCH ×2 (07:58→20:27)
[2018-05-06] MEDS: PREDNISOLONE BOTH EYES SCH ×2 (07:59→20:28)
[2018-05-06] MEDS: GENTAMICIN BOTH EYES SCH ×2 (07:59→20:28)
[2018-05-06] MEDS: BUDESONIDE 1 MG/2 ML NEBU INHALATION SCH ×2 (08:14→19:47)
[2018-05-06] MEDS: FORMOTEROL FUMARATE 20 MCG/2 ML NEBU INHALATION SCH ×2 (08:14→19:47)
[2018-05-06] MEDS: IPRATROPIUM-ALBUTEROL 3 ML NEB INHALATION SCH ×4 (08:14→19:47)
[2018-05-06 11:24] VITALS: BMI 21.9
[2018-05-06] MEDS: hydrALAZINE HCL 20 MG/ML 1 ML VIAL IVP PRN (11:58)
--- NOTE | 2018-05-06 15:22 | XR ---
EXAMINATION TYPE: XR chest 1V portable DATE OF EXAM: 05/06/2018 COMPARISON: 04/30/2018 INDICATION: Short of breath, renal failure TECHNIQUE: Single frontal view of the chest is obtained. FINDINGS: The heart size is normal. The pulmonary vasculature is normal. Bibasilar infiltrates are present. This is an interval development. Correlate for atelectasis or biba silar pneumonia. Follow-up is recommended IMPRESSION: 1. Bibasilar infiltrates. Atelectasis and pneumonia should be considered. Follow-up is recommended
[2018-05-06 15:32] LABS: Anisocytosis Slight; Basophils % (A) 0 %; Eosinophils % (A) 0 %; HCT 30.1 % (39.0-53.0); Lymphocytes # (A) 0.5 k/uL (1.0-4.8); Lymphocytes % (A) 7 %; MCH 30.2 pg (25.0-35.0); MCHC 32.6 g/dL (31.0-37.0); MCV 92.5 fL (80.0-100.0); Macrocytosis Slight; Mean Platelet Volume 6.6; Monocytes # (A) 0.2 k/uL (0-1.0); Monocytes % (A) 2 %; Neutrophils # (A) 7.2 k/uL (1.3-7.7); Neutrophils % (A) 89 %; Platelet Count 439 k/uL (150-450); RBC 3.26 m/uL (4.30-5.90); RDW 19.1 % (11.5-15.5); WBC 8.1 k/uL (3.8-10.6)
[2018-05-06 15:36] LABS: HGB 9.8 gm/dL (13.0-17.5)
[2018-05-06] MEDS: DEXTROSE 5% IN WATER 1,000 ML with SODIUM BICARB (1 MEQ/ML) 150 ML IV SCH (16:23)
[2018-05-06] MEDS: risperiDONE 0.25 MG TAB PO SCH (20:28)
[2018-05-06] MEDS: SODIUM CHLORIDE 0.9% 1,000 ML IV SCH (20:28)
[2018-05-06] MEDS: QUEtiapine 25 MG TAB PO SCH (20:29)
--- NOTE | 2018-05-06 20:42 | PN ---
PROGRESS NOTE Patient is seen for followup for acute kidney injury and nephrotic range proteinuria. The patient is maintained on prednisone. Renal function is improving. This morning he is sitting up in a bedside chair. He is comfortable. Denies any significant complaints. The patient has had good urine output. He has had an indwelling Martini catheter which is now removed. A 24 hour urine output documented at 1.4 L. PHYSICAL EXAMINATION: This morning, blood pressure was 184/97, heart rate of 88 per minute. Patient is afebrile. Examination of the heart S1, S2. Examination of lungs bilateral breath sounds are heard. Abdomen is soft, nontender. Examination of lower extremities shows no evidence of edema. RF TECHNICIAN exam is grossly intact. Patient is moving all 4 extremities. LAB: Show sodium of 138, potassium 3.6, chloride 99. CO2 is 31, BUN 47, serum creatinine 2.62, hemoglobin 9.8 g/dL. ASSESSMENT: 1. Acute kidney injury with a as secondary to NSAIDs with 10 g of proteinuria. This could also be related to the NSAIDs and it can cause minimal change GN. However, a kidney biopsy would have to definitely diagnose it. At this time, patient's family is reluctant to proceed with a kidney biopsy and given the fact that the renal function is improving, we can monitor the proteinuria as outpatient and consider biopsy if the proteinuria is not improving. 2. Gastrointestinal bleed status post EGD done yesterday which showed nonbleeding AVM in the 2nd portion of the duodenum, status post argon plasma coagulation. No active bleeding noted at this time. 3. Metabolic acidosis. Maintained on bicarb drip and oral sodium bicarb. 4. Hypertension, currently uncontrolled. PLAN: DC IV bicarb and oral bicarb as well. Add Norvasc for hypertension. Repeat labs in a.m. and maintain patient on IV fluids as his oral intake is not the best. MMODL / IJN: [id number] /
[2018-05-07] MEDS: hydrALAZINE HCL 20 MG/ML 1 ML VIAL IVP PRN (04:56)
[2018-05-07] MEDS: ACETAMINOPHEN TAB 325 MG TAB PO PRN (05:34)
[2018-05-07] MEDS: HALOPERIDOL LACTATE 5 MG/ML 1 ML VIAL IVP PRN (06:49)
--- NOTE | 2018-05-07 07:16 | XR ---
EXAMINATION TYPE: XR chest 1V portable DATE OF EXAM: 05/07/2018 HISTORY: Shortness of breath. COMPARISON: 05/06/2018 TECHNIQUE: Single view of the chest is submitted. FINDINGS: Demonstrated are scattered senescent parenchymal change. Improved aeration at the lung bases. Persistent perihilar infiltrates noted. Continued follow-up advi sed. The heart is stable. Hilar and mediastinal structures are within normal limits. Degenerative changes are seen of the dorsal spine. IMPRESSION: 1. Improved aeration at the lung bases. Persistent perihilar infiltrates noted. Continued follow-up advised.
[2018-05-07] MEDS: BUDESONIDE 1 MG/2 ML NEBU INHALATION SCH ×2 (07:52→20:07)
[2018-05-07] MEDS: FORMOTEROL FUMARATE 20 MCG/2 ML NEBU INHALATION SCH ×2 (07:53→20:07)
[2018-05-07] MEDS: IPRATROPIUM-ALBUTEROL 3 ML NEB INHALATION SCH ×4 (07:53→20:07)
[2018-05-07] MEDS ORDERED: Potassium Replacement Protocol 1 EACH MISC MISCELLANE PRN (08:55)
--- NOTE | 2018-05-07 09:01 | P.PN ---
Subjective Progress Note Date: 05/06/18 Patient is admitted secondary to anemia symptomatic along with chest pain, patient is a blood transfusion patient is feeling much better today patient apparently was confused earlier today morning and last night and was bit agitated. Patient appears to have moderate dementia either vascular dementia dementia of Alzheimer's type. Does have memory difficulties at home as well but patient the was not confused when I evaluated the patient patient was started on as needed Haldol and Seroquel at nighttime for agitation. Cardiology evaluated the patient. Gastroenterology evaluated the patient. No obvious GI bleed at this time. Patient's creatinine is high and stable at around 3 believed to be secondary to acute tubular necrosis or interstitial her right is from my nonsteroidal anti-inflammatories nephrology evaluated the patient. Follow basic metabolic profile tomorrow. 05/02/2018 Patient was more agitated yesterday has a sitter now. Patient received DDAVP yesterday patient creatinine remains fairly stable at 3.37 patient the was started on gentle hydration today by nephrology. Increasing the dose of Haldol to 1 mg every 6 when necessary. Avoid benzo is his barbiturates opiates and anticholinergic medications. I as a nursing staff to avoid these medications and as a nursing staff to open the curtains which will help him with his agitation. Patient will not require IV hydralazine which was discontinued. CAT scan of the brain did not show any significant abnormality except for some possible left-sided mastoiditis. Patient's serum iron levels is extremely low because of which patient is receiving iron supplementation for that although his normal probably because of acute phase reactant and the patient's B12 and folic acids is essentially within normal limits. 05/03/2018 Patient's hemoglobin is below 7 today we'll transfuse him 1 more unit of blood patient's agitation episodes did not improve Resporal will be discontinue patient was started on nighttime Seroquel and as needed Haldol. We'll transfuse him 1 unit of blood. Down the steroids to by mouth 40 daily patient doesn't have any significant wheeze today. 05/03/2018 Patient had 4.stools today patient appears to have acute GI bleed upper GI bleed patient is already on Protonix. Patient may need upper GI endoscopy. Patient was more agitated requiring more Haldol and the patient is on Seroquel. We will continue with these medications will monitor him tonight. 05/05/2018 underwent EGD , tolerated procedure well. 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 No active bleeding noted. Hemoglobin 8.3 , creatinine 3.06. No agitation, sleepy as he has just returned from endoscopy. Staff reports no agitation during the night; currently on Seroquel. Sitter at bedside. 05/06/2018 more alert, confused. Family reporting patient continues to have black liquidy stools. Hemoglobin 9.8. Renal function improving, creatinine 2.62, potassium 3.6. Tachycardic earlier this a.m., heart rates in the 110s, patient did not receive his beta miriam yesterday, Heart rate currently 80s to 90s. Did not receive Seroquel during the night, no agitation, diet intake improving. Loose congested cough. Maintaining O2 sats in the low 90s on room air. Family has decided to proceed with subacute rehab at discharge. Objective - Vital Signs Vital signs: Vital Signs Temp 98.1 F 05/06/18 12:00 Pulse 88 05/06/18 15:59 Resp 18 05/06/18 12:00 BP 199/98 05/06/18 12:00 Pulse Ox 93 L 05/06/18 12:00 Intake & Output 05/05/18 05/06/18 05/06/18 18:59 06:59 18:59 Intake Total 4584 225 5663 Output Total 720 750 600 Balance 820 -100 820 Weight 65.5 kg 65.5 kg Intake: IV 100 450 Dextrose 5% in Water 1, 450 000 ml @ 50 mls/hr IV . Q23H JAMA with Sodium Bicarb (1 Meq/ml) 150 ml Rx#:[id number] Intake, IV Titration 200 Amount Potassium Chloride 20 meq 200 In Water For Injection 1 100ml.bag @ 50 mls/hr IVPB Q2H JAMA Rx#: [id number] Oral 1440 1420 Output: Urine 720 750 600 Uretheral (Martini) 600 Other: Voiding Method Indwelling Catheter Indwelling Catheter Incontinent # Bowel Movements 0 1 - Exam GENERAL: The patient is sitting up in a chair, hurt and oriented 2, no acute distress, pleasantly confused HEENT: Pupils are round and equally reacting to light. EOMI. No scleral icterus. No conjunctival pallor. Normocephalic, atraumatic. CARDIOVASCULAR: S1 and S2 present. Regular, No murmurs, rubs, or gallops. PULMONARY bilateral bases diminished with scattered rhonchi, crackles, no expiratory wheezing. ABDOMEN: Soft, nontender, nondistended, normoactive bowel sounds. No palpable organomegaly. MUSCULOSKELETAL: No joint swelling or deformity. EXTREMITIES: No cyanosis, clubbing, or pedal edema. NEUROLOGICAL: Gross neurological examination did not reveal any focal deficits. SKIN: No rashes. - Labs CBC & Chem 7: 05/06/18 15:17 05/06/18 05:49 Labs: Abnormal Lab Results - Last 24 Hours (Table) 05/05/18 05/06/18 05/06/18 Range/Units 18:21 05:49 15:17 RBC 3.26 L (4.30-5.90) m/uL Hgb 9.8 L D (13.0-17.5) gm/dL Hct 30.1 L (39.0-53.0) % RDW 19.1 H (11.5-15.5) % Lymphocytes # 0.5 L (1.0-4.8) k/uL Potassium 3.2 L (3.5-5.1) mmol/L Carbon Dioxide 31 H (22-30) mmol/L BUN 47 H (9-20) mg/dL Creatinine 2.62 H (0.66-1.25) mg/dL Calcium 8.0 L (8.4-10.2) mg/dL Assessment and Plan Assessment: -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 -Chest pain,on admission secondary to anemia, possible type II AL. -Agitation secondary to delirium associated with hospitalization, moderate to severe dementia mostly vascular dementia. Possible Alzheimer's disease -Severe anemia symptomatic, iron deficiency anemia which is chronic apart from acute GI bleed. -COPD with minimal exacerbation -Acute renal failure, secondary to tubular necrosis , or ALLERGIC interstitial nephritis secondary to nonsteroidal anti-inflammatory medication -Possible chronic kidney disease Plan: Continue on current medication regime ,monitoring and symptomatic treatment. Continue on beta miriam. Resume Risperdal as previously recommended by psychiatry. Psychiatry to reevaluate patient for discharge recommendations. Close monitoring of renal function, hemoglobin and, electrolytes with repeat labs ordered for a.m. EEG and chest x-ray ordered for a.m. family has decided to proceed with subacute rehab. Discharge planning in progress for tomorrow to [facility]. The impression and plan of care has been dictated as directed. : I performed a history and examination of this patient, discussed the same with the dictator. I agree with the dictator's note ,documented as a scribe. Any additional findings or plans will be noted.
--- NOTE | 2018-05-07 09:38 | P.DS ---
Providers Date of admission: 04/30/18 15:27 Attending physician: Luis Miguel Castaneda MD Consults: 04/30/18 15:23 Consult Physician Routine Consulting Provider: Ramesh Van Consult Reason/Comments: Chest pain Do you want consulting provider notified?: Yes Consult Physician Routine Consulting Provider: Leti Church Consult Reason/Comments: Renal failure Do you want consulting provider notified?: Yes 04/30/18 17:58 Consult Physician Routine Consulting Provider: Leland Naranjo Consult Reason/Comments: GI bleed, 4.6 at [facility] Do you want consulting provider notified?: Yes 05/01/18 11:10 Consult Physician Routine Consulting Provider: Bill Brannon Consult Reason/Comments: COPD Do you want consulting provider notified?: Yes 05/06/18 17:54 Consult Physician Routine Consulting Provider: Terrell Squires Consult Reason/Comments: reevaluate for discharge, increased confusion Do you want consulting provider notified?: Yes Primary care physician: Rudy Santoyo [facility] Course: Final Diagnoses: -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 -Chest pain,on admission secondary to anemia, possible type II [place]. -Agitation secondary to delirium associated with hospitalization, moderate to severe dementia mostly vascular dementia. Possible Alzheimer's disease -Severe anemia symptomatic, iron deficiency anemia which is chronic apart from acute GI bleed. -COPD with minimal exacerbation -Acute renal failure, secondary to tubular necrosis , or ALLERGIC interstitial nephritis secondary to nonsteroidal anti-inflammatory medication -Possible chronic kidney disease Hospital course:Patient is admitted secondary to anemia symptomatic along with chest pain, patient is a blood transfusion patient is feeling much better today patient apparently was confused earlier today morning and last night and was bit agitated. Patient appears to have moderate dementia either vascular dementia dementia of Alzheimer's type. Does have memory difficulties at home as well but patient the was not confused when I evaluated the patient patient was started on as needed Haldol and Seroquel at nighttime for agitation. Cardiology evaluated the patient. Gastroenterology evaluated the patient. No obvious GI bleed at this time. Patient's creatinine is high and stable at around 3 believed to be secondary to acute tubular necrosis or interstitial her right is from my nonsteroidal anti-inflammatories nephrology evaluated the patient. Follow basic metabolic profile tomorrow. 05/02/2018 Patient was more agitated yesterday has a sitter now. Patient received DDAVP yesterday patient creatinine remains fairly stable at 3.37 patient the was started on gentle hydration today by nephrology. Increasing the dose of Haldol to 1 mg every 6 when necessary. Avoid benzo is his barbiturates opiates and anticholinergic medications. I as a nursing staff to avoid these medications and as a nursing staff to open the curtains which will help him with his agitation. Patient will not require IV hydralazine which was discontinued. CAT scan of the brain did not show any significant abnormality except for some possible left-sided mastoiditis. Patient's serum iron levels is extremely low because of which patient is receiving iron supplementation for that although his normal probably because of acute phase reactant and the patient's B12 and folic acids is essentially within normal limits. 05/03/2018 Patient's hemoglobin is below 7 today we'll transfuse him 1 more unit of blood patient's agitation episodes did not improve Resporal will be discontinue patient was started on nighttime Seroquel and as needed Haldol. We'll transfuse him 1 unit of blood. Down the steroids to by mouth 40 daily patient doesn't have any significant wheeze today. 05/03/2018 Patient had 4.stools today patient appears to have acute GI bleed upper GI bleed patient is already on Protonix. Patient may need upper GI endoscopy. Patient was more agitated requiring more Haldol and the patient is on Seroquel. We will continue with these medications will monitor him tonight. 05/05/2018 underwent EGD , tolerated procedure well. 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 No active bleeding noted. Hemoglobin 8.3 , creatinine 3.06. No agitation, sleepy as he has just returned from endoscopy. Staff reports no agitation during the night; currently on Seroquel. Sitter at bedside. 05/06/2018 more alert, confused. Family reporting patient continues to have black liquidy stools. Hemoglobin 9.8. Renal function improving, creatinine 2.62, potassium 3.6. Tachycardic earlier this a.m., heart rates in the 110s, patient did not receive his beta miriam yesterday, Heart rate currently 80s to 90s. Did not receive Seroquel during the night, no agitation, diet intake improving. Loose congested cough. Maintaining O2 sats in the low 90s on room air. Family has decided to proceed with subacute rehab at discharge. 05/07/2018 significant clinical improvement. Receiving empiric antibiotics, nebulized bronchodilators. Significant clinical improvement. EEG pending. Labs pending. Patient will be discharged to [facility] today pending clearance from nephrology, GI and final DC recommendations from psychiatry, in a stable condition with guarded prognosis. - Exam GENERAL: The patient is sitting up in a chair, alert and oriented 1, no acute distress,confused CARDIOVASCULAR: S1 and S2 present. Regular, No murmurs, rubs, or gallops. PULMONARY bilateral bases diminished with fine bibasilar crackles, no expiratory wheezing. ABDOMEN: Soft, nontender, nondistended, normoactive bowel sounds. No palpable organomegaly. NEUROLOGICAL: Gross neurological examination did not reveal any focal deficits. The impression and plan of care has been dictated as directed. : I performed a history and examination of this patient, discussed the same with the dictator. I agree with the dictator's note ,documented as a scribe. Any additional findings or plans will be noted. Time taken: 35 minutes Patient Condition at Discharge: Stable Plan - Discharge Summary Discharge Rx Participant: No New Discharge Prescriptions: New Acetaminophen Tab [Tylenol] 650 mg PO Q6HR PRN tab PRN Reason: Fever And/ Or Pain amLODIPine [Norvasc] 5 mg PO DAILY tab Budesonide [Pulmicort] 1 mg INHALATION RT-BID nebu hydrALAZINE HCL [Apresoline] 100 mg PO TID tab Ipratropium-Albuterol Nebulize [Duoneb 0.5 mg-3 mg/3 ml Soln] 3 ml INHALATION RT-QID ampul.neb Ipratropium-Albuterol Nebulize [Duoneb 0.5 mg-3 mg/3 ml Soln] 3 ml INHALATION Q4H PRN ampul.neb PRN Reason: Shortness Of Breath Or Wheezing risperiDONE [RisperDAL] 0.25 mg PO BID tab Amoxicillin/Potassium Clav [Augmentin 875-125 Tablet] 1 tab PO Q12HR #10 tab predniSONE 10 mg PO DIRECTED #18 tab Continue Metoprolol Tartrate [Lopressor] 50 mg PO BID Gentamicin/Prednisol AC [Pred-G 1% Eye Drops] 1 drop BOTH EYES BID Ketorolac 0.5% Ophth Soln [Acular 0.5%] 1 drop BOTH EYES BID Omeprazole Magnesium [PriLOSEC OTC] 1 tab PO DAILY PRN PRN Reason: Gi Upset Discontinued Albuterol Nebulized (Conc) [Ventolin Nebulized (Conc)] 2.5 mg PO RT-Q6H Discharge Medication List Gentamicin/Prednisol AC [Pred-G 1% Eye Drops] 1 drop BOTH EYES BID 04/30/18 [ History] Ketorolac 0.5% Ophth Soln [Acular 0.5%] 1 drop BOTH EYES BID 04/30/18 [History] Metoprolol Tartrate [Lopressor] 50 mg PO BID 04/30/18 [History] Omeprazole Magnesium [PriLOSEC OTC] 1 tab PO DAILY PRN 04/30/18 [History] Acetaminophen Tab [Tylenol] 650 mg PO Q6HR PRN tab 05/07/18 [Rx] Amoxicillin/Potassium Clav [Augmentin 875-125 Tablet] 1 tab PO Q12HR #10 tab 09/17 [Rx] Budesonide [Pulmicort] 1 mg INHALATION RT-BID nebu 05/07/18 [Rx] Ipratropium-Albuterol Nebulize [Duoneb 0.5 mg-3 mg/3 ml Soln] 3 ml INHALATION Q4H PRN ampul.neb 05/07/18 [Rx] Ipratropium-Albuterol Nebulize [Duoneb 0.5 mg-3 mg/3 ml Soln] 3 ml INHALATION RT -QID ampul.neb 05/07/18 [Rx] amLODIPine [Norvasc] 5 mg PO DAILY tab 05/07/18 [Rx] hydrALAZINE HCL [Apresoline] 100 mg PO TID tab 05/07/18 [Rx] predniSONE 10 mg PO DIRECTED #18 tab 05/07/18 [Rx] risperiDONE [RisperDAL] 0.25 mg PO BID tab 05/07/18 [Rx] Follow up Appointment(s)/Referral(s): [facility] [Provider Group] - 1 Week Erwin Escobedo DO [STAFF PHYSICIAN] - 1 Week Rudy Santoyo DO [Primary Care Provider] - 1 Week (After DC from subacute rehab ) Leland Naranjo MD [STAFF PHYSICIAN] - 2 Weeks Patient Instructions/Handouts: Chest Pain (DC), Iron Rich Diet (DC), Anemia (DC ) Activity/Diet/Wound Care/Special Instructions: [facility] cbc,bmp in 3 days
[2018-05-07] MEDS: predniSONE 10 MG TAB PO SCH (10:08)
[2018-05-07] MEDS: hydrALAZINE HCL 50 MG TAB PO SCH ×3 (10:08→23:27)
[2018-05-07] MEDS: METOPROLOL TARTRATE 50 MG TAB PO SCH ×2 (10:08→21:28)
[2018-05-07] MEDS: amLODIPine 5 MG TAB PO SCH (10:08)
[2018-05-07] MEDS: GENTAMICIN BOTH EYES SCH ×2 (10:09→21:39)
[2018-05-07] MEDS: PANTOPRAZOLE 40 MG/10 ML VIAL IVP SCH ×2 (10:09→21:27)
[2018-05-07] MEDS: KETOROLAC 0.5% OPHTH DROPS 5 ML BTL BOTH EYES SCH ×2 (10:09→21:28)
[2018-05-07] MEDS: PREDNISOLONE BOTH EYES SCH ×2 (10:09→21:39)
[2018-05-07] MEDS: PIPERACILLIN-TAZOBACTAM 3.375 GM in SODIUM CHLORIDE 0.9% 100 ML IVPB SCH ×3 (10:11→23:28)
[2018-05-07 11:35] LABS: Anisocytosis Slight; Basophils % (A) 0 %; Eosinophils # (A) 0.1 k/uL (0-0.7); Eosinophils % (A) 1 %; HCT 27.3 % (39.0-53.0); HGB 8.7 gm/dL (13.0-17.5); Lymphocytes # (A) 1.2 k/uL (1.0-4.8); Lymphocytes % (A) 11 %; MCH 30.1 pg (25.0-35.0); Macrocytosis Slight; Mean Platelet Volume 7.9; Monocytes # (A) 0.7 k/uL (0-1.0); Monocytes % (A) 7 %; Neutrophils # (A) 8.1 k/uL (1.3-7.7); Neutrophils % (A) 78 %; Platelet Count 433 k/uL (150-450); RBC 2.91 m/uL (4.30-5.90); RDW 18.6 % (11.5-15.5); WBC 10.4 k/uL (3.8-10.6)
[2018-05-07 11:48] LABS: Calcium 8.3 mg/dL (8.4-10.2); Magnesium 1.5 mg/dL (1.6-2.3); Potassium 3.5 mmol/L (3.5-5.1)
--- NOTE | 2018-05-07 12:03 | CT ---
EXAMINATION TYPE: CT brain wo con DATE OF EXAM: 05/07/2018 COMPARISON: May 02, 2018 HISTORY: patient fell hit head CT DLP: 1099.[address] of the brain was performed. The ventricles, basal cisterns and sulci overlying the cerebral convexities demonstrate mild enlargem ent. There is no evidence for intracranial hemorrhage or sulcal effacement. There is decreased attenuation about the periventricular white matter and deep white matter of both c erebral hemispheres, compatible with chronic small vessel ischemia. Differential diagnosis does inclu de demyelination. No mass effects are seen.No midline shift. Osseous calvarium is intact. Chronic ethmoidal sinusitis. If symptoms persist consider MRI. IMPRESSION: 1. Age related atrophic and chronic small vessel ischemic change without acute intracranial process s een at this time.
--- NOTE | 2018-05-07 15:35 | P.PN ---
Subjective Progress Note Date: 05/07/18 Principal diagnosis: Psych Impression: delirium has resolved and he does not have the capacity for decision making and is stable on psych meds Recommendation: risperdal 1 mg po bid; use ativan sparingly; highly recommend geriatric psychiatry unit Past Medical History Past Medical History: COPD Additional Past Medical History / Comment(s): tachycardia, in past was on thyroid med none now,"headaches", wants flu vaccine while here. History of Any Multi-Drug Resistant Organisms: None Reported Past Surgical History: Appendectomy, Hernia Repair Additional Past Surgical History / Comment(s): cataracts -latest one on left side done 04-24-18, naveed ing hernia repair Past Anesthesia/Blood Transfusion Reactions: No Reported Reaction Smoking Status: Current every day smoker - Past Family History Mother Family Medical History: Unable to Obtain Father Family Medical History: Myocardial Infarction (PR) Medications and Allergies Home Medications Medication Instructions Recorded Confirmed Type Albuterol Nebulized (Conc) 2.5 mg PO RT-Q6H 04/30/18 04/30/18 History [Ventolin Nebulized (Conc)] Metoprolol Tartrate [Lopressor] 50 mg PO BID 04/30/18 04/30/18 History Allergies Allergy/AdvReac Type Severity Reaction Status Date / Time No Known Allergies Allergy Verified 04/30/18 12:42 Mental Status Examination - General Appearance: [disheveled, appears older than stated age Speech/Language: [ slow, hesitant, soft, Attitude/Behavior: [ guarded, irritable, withdrawn, indifferent] Mood: [ anxious, fearful, hopelessness Affect: [flat, incongruent, labile, blunted constricted] Orientation: [not time, person, place situation] Thought Content: [ delusions Risk Factors: [denies suicidal (ideations, plan), and/or Homicidal (ideations, plan), Perception: [wnl Thought Processes: [ concrete, circumstantial, tangential Concentration/Attention Span: [ impaired] [Per observation and interview with the patient] Recent Memory: [impaired] [ Remote Memory: [ impaired] [past events, as related history] Intelligence: [below average] [based on history, based on vocabulary, syntax, grammar, and content] Judgement: [ poor] [per patient's behavior/history of present illness] Insight: [ poor] [understanding severity of illness/history of present illness] Objective - Vital Signs Vital signs: Vital Signs Temp 98.6 F 05/07/18 12:00 Pulse 98 05/07/18 12:00 Resp 18 05/07/18 12:00 BP 165/85 05/07/18 12:00 Pulse Ox 93 L 05/07/18 12:00 Intake & Output 05/06/18 05/07/18 05/07/18 18:59 06:59 18:59 Intake Total 1660 Output Total 600 1650 Balance 1060 -1650 Weight 65.5 kg 65.5 kg Intake: Oral 1660 Output: Urine 600 1650 Uretheral (Martini) 600 Other: Voiding Method Incontinent Incontinent Incontinent # Voids 0 0 0 # Bowel Movements 0 0 - Labs CBC & Chem 7: 05/07/18 11:23 05/07/18 11:23 Labs: Abnormal Lab Results - Last 24 Hours (Table) 05/06/18 05/07/18 05/07/18 Range/Units 15:17 11:23 11:23 RBC 3.26 L 2.91 L (4.30-5.90) m/uL Hgb 9.8 L D 8.7 L (13.0-17.5) gm/dL Hct 30.1 L 27.3 L (39.0-53.0) % RDW 19.1 H 18.6 H (11.5-15.5) % Neutrophils # 8.1 H (1.3-7.7) k/uL Lymphocytes # 0.5 L (1.0-4.8) k/uL Sodium 136 L (137-145) mmol/L Chloride 97 L (98-107) mmol/L Carbon Dioxide 33 H (22-30) mmol/L BUN 49 H (9-20) mg/dL Creatinine 2.55 H (0.66-1.25) mg/dL Glucose 72 L (74-99) mg/dL Calcium 8.3 L (8.4-10.2) mg/dL Magnesium 1.5 L (1.6-2.3) mg/dL Assessment and Plan (1) Delirium due to another medical condition Current Visit: Yes Status: Acute Code(s): F05 - DELIRIUM DUE TO KNOWN PHYSIOLOGICAL CONDITION SNOMED Code(s): 8043927
--- NOTE | 2018-05-07 16:02 | P.PN ---
Subjective Progress Note Date: 05/07/18 Principal diagnosis: Anemia No active bleeding per nursing. Hemoglobin 8.7 down from 9.8 yesterday. Status post EGD with findings of a bleeding duodenal AVM status post APC. Objective - Vital Signs Vital signs: Vital Signs Temp 98.6 F 05/07/18 12:00 Pulse 98 05/07/18 12:00 Resp 18 05/07/18 12:00 BP 165/85 05/07/18 12:00 Pulse Ox 93 L 05/07/18 12:00 Intake & Output 05/06/18 05/07/18 05/07/18 18:59 06:59 18:59 Intake Total 1660 Output Total 600 1650 Balance 1060 -1650 Weight 65.5 kg 65.5 kg Intake: Oral 1660 Output: Urine 600 1650 Uretheral (Martini) 600 Other: Voiding Method Incontinent Incontinent Incontinent # Voids 0 0 0 # Bowel Movements 0 0 - Exam General appearance: The patient is alert, oriented, in no acute distress. HET: Head is normocephalic and atraumatic. Pupils are equal and reactive. Oropharynx is clear without lesions. Neck: Supple without lymphadenopathy. Trachea midline. Heart: S1 S2. Regular rate and rhythm. Lungs: Diminished in bases bilaterally. Abdomen: Soft, nontender, nondistended with bowel sounds. No peritoneal signs. No palpable organomegaly or masses. Extremities: Normal skin color and turgor. No cyanosis, rash, ulceration, clubbing, or edema. Radial and pedal pulses are 2/4 bilaterally. Neurological: No focal deficits. Strength and sensation are grossly intact. - Labs CBC & Chem 7: 05/07/18 11:23 05/07/18 11:23 Labs: Abnormal Lab Results - Last 24 Hours (Table) 05/07/18 05/07/18 Range/Units 11:23 11:23 RBC 2.91 L (4.30-5.90) m/uL Hgb 8.7 L (13.0-17.5) gm/dL Hct 27.3 L (39.0-53.0) % RDW 18.6 H (11.5-15.5) % Neutrophils # 8.1 H (1.3-7.7) k/uL Sodium 136 L (137-145) mmol/L Chloride 97 L (98-107) mmol/L Carbon Dioxide 33 H (22-30) mmol/L BUN 49 H (9-20) mg/dL Creatinine 2.55 H (0.66-1.25) mg/dL Glucose 72 L (74-99) mg/dL Calcium 8.3 L (8.4-10.2) mg/dL Magnesium 1.5 L (1.6-2.3) mg/dL Assessment and Plan (1) Symptomatic anemia Narrative/Plan: Bleeding duodenal AVM status post EGD APC Current Visit: Yes Status: Acute Code(s): D64.9 - ANEMIA, UNSPECIFIED SNOMED Code(s): 506986579 (2) Chest pain Current Visit: Yes Status: Acute Code(s): R07.9 - CHEST PAIN, UNSPECIFIED SNOMED Code(s): 01538769 (3) Elevated troponin Current Visit: Yes Status: Acute Code(s): R74.8 - ABNORMAL LEVELS OF OTHER SERUM ENZYMES SNOMED Code(s): 195898177 (4) Change in mental status Current Visit: Yes Status: Acute Code(s): R41.82 - ALTERED MENTAL STATUS, UNSPECIFIED SNOMED Code(s): 808705261 (5) Severe chronic obstructive pulmonary disease Current Visit: Yes Status: Chronic Code(s): J44.9 - CHRONIC OBSTRUCTIVE PULMONARY DISEASE, UNSPECIFIED SNOMED Code(s): 969177166 Plan: 1. CBC monitoring. Protonix 40 mg daily. Discharge per medicine. Diet as tolerated. Assessment and plan a care discussed with Dr. Naranjo
--- NOTE | 2018-05-07 16:05 | PN ---
PROGRESS NOTE The patient is seen for followup for acute kidney injury. He is currently lying in bed. Patient just received sedation this morning. He has been agitated and confused overnight. The patient has not been eating much. PHYSICAL EXAMINATION: This morning, vital signs are stable. Examination of the heart S1, S2. Examination of the lungs, decreased breath sounds at bases. Abdomen is soft, nontender. Exam of lower extremities shows no evidence of edema. No labs available today. ASSESSMENT: 1. Acute kidney injury secondary to NSAIDs, currently maintained on prednisone with improving renal function. The patient also has about 10 g of proteinuria which will be monitored as outpatient. Family has refused kidney biopsy at this time. 2. Urine retention. A Martini catheter was removed. However, patient had a straight cathed for about 450 mL of urine. He will have a postvoid residual done again today. I will also start him on Flomax. 3. Gastrointestinal bleed, currently stable. No active bleeding noted at this time, status post EGD and argon laser anticoagulation. The patient was found to have AVM. 4. Confusion/agitation. PLAN: Continue to encourage increased oral intake. Resume IV fluids when patient allows to keep the IV in and repeat labs. MMODL / IJN: [id number] /
[2018-05-07] MEDS: SODIUM CHLORIDE 0.9% 1,000 ML IV SCH (16:09)
[2018-05-07] MEDS: risperiDONE 1 MG TAB PO SCH (23:28)
[2018-05-08] MEDS: risperiDONE 0.25 MG TAB PO SCH (04:43)
[2018-05-08] MEDS: amLODIPine 5 MG TAB PO SCH (05:13)
[2018-05-08] MEDS: PIPERACILLIN-TAZOBACTAM 3.375 GM in SODIUM CHLORIDE 0.9% 100 ML IVPB SCH ×2 (08:39→19:05)
[2018-05-08] MEDS: IPRATROPIUM-ALBUTEROL 3 ML NEB INHALATION SCH ×4 (09:01→20:47)
[2018-05-08] MEDS: BUDESONIDE 1 MG/2 ML NEBU INHALATION SCH ×2 (09:01→20:47)
[2018-05-08] MEDS: FORMOTEROL FUMARATE 20 MCG/2 ML NEBU INHALATION SCH ×2 (09:01→20:47)
[2018-05-08] MEDS: METOPROLOL TARTRATE 50 MG TAB PO SCH ×2 (10:22→21:18)
[2018-05-08] MEDS: hydrALAZINE HCL 50 MG TAB PO SCH ×3 (10:22→21:18)
[2018-05-08] MEDS: predniSONE 10 MG TAB PO SCH (10:24)
[2018-05-08] MEDS: TAMSULOSIN 0.4 MG CAP.ER.24H PO SCH (10:24)
[2018-05-08] MEDS: GENTAMICIN BOTH EYES SCH ×2 (10:25→21:21)
[2018-05-08] MEDS: PREDNISOLONE BOTH EYES SCH ×2 (10:25→21:21)
[2018-05-08] MEDS: KETOROLAC 0.5% OPHTH DROPS 5 ML BTL BOTH EYES SCH ×2 (10:26→21:16)
[2018-05-08] MEDS: HALOPERIDOL LACTATE 5 MG/ML 1 ML VIAL IVP PRN ×3 (10:46→21:18)
[2018-05-08] MEDS: PANTOPRAZOLE 40 MG/10 ML VIAL IVP SCH ×2 (10:47→21:18)
--- NOTE | 2018-05-08 12:23 | P.PN ---
Subjective Patient is seen in follow-up for acute kidney injury. Renal function is improving with creatinine down to 2.55 today. Patient is quite confused. He has been voiding. Vital signs are stable. General: The patient appeared well nourished and normally developed. HEENT: Head exam is unremarkable. Neck is without jugular venous distension. LUNGS: Lungs are clear to auscultation and percussion. Breath sounds decreased. HEART: Rate and Rhythm are regular. First and second heart sounds normal. No murmurs, rubs or gallops. ABDOMEN: Abdominal exam reveals normal bowel sounds. Non-tender and non- distended. No evidence of peritonitis. EXTREMITITES: No clubbing, cyanosis, or edema. Objective - Vital Signs Vital signs: Vital Signs Temp 97.2 F L 05/08/18 11:36 Pulse 94 05/08/18 11:42 Resp 17 05/08/18 11:36 BP 185/109 05/08/18 11:36 Pulse Ox 96 05/08/18 11:36 Intake & Output 05/07/18 05/08/18 05/08/18 18:59 06:59 18:59 Output Total 0 Balance 0 Output: Urine 0 Other: Voiding Method Incontinent Incontinent Incontinent # Voids 0 2 - Labs CBC & Chem 7: 05/07/18 11:23 05/07/18 11:23 Assessment and Plan Plan: Assessment: 1. Acute kidney injury secondary to ATN secondary to nonsteroidals and anemia. Creatinine 3.4 on admission is down to 2.55 today. Unknown baseline renal function. Creatinine December 2013 was 0.83. Significant proteinuria and hematuria noted on UA. 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 Noted to have low C4. Currently maintained on oral prednisone. Apparently the patient refused kidney biopsy. 2. Rule out chronic kidney disease. Need to establish baseline renal function. 3. Metabolic acidosis secondary to acute kidney injury. Resolved. 4. Acute blood loss anemia status post 3 units of blood transfusion. Status post IV DDAVP on May 01. Severe iron deficiency noted. GI following. Potential endoscopy this admission. 5. Benign hypertension. 6. Urinary retention. Martini catheter removed. He's been voiding on his own. 7. Hypomagnesemia from poor oral intake. Plan: Maintain normal saline at 50 mL an hour. Maintain prednisone. Replace magnesium. 2 g IV today. Repeat electrolytes in the morning.
[2018-05-08] MEDS: risperiDONE 1 MG TAB PO SCH ×2 (13:18→21:18)
--- NOTE | 2018-05-08 13:24 | P.PN ---
Subjective Progress Note Date: 05/08/18 Principal diagnosis: Anemia No active bleeding per nursing. Hemoglobin 8.7 yesterday CBC today pending. Status post EGD with findings of a bleeding duodenal AVM status post APC. Objective - Vital Signs Vital signs: Vital Signs Temp 97.2 F L 05/08/18 11:36 Pulse 94 05/08/18 11:42 Resp 17 05/08/18 11:36 BP 185/109 05/08/18 11:36 Pulse Ox 96 05/08/18 11:36 Intake & Output 05/07/18 05/08/18 05/08/18 18:59 06:59 18:59 Output Total 0 0 Balance 0 0 Output: Urine 0 0 Other: Voiding Method Incontinent Incontinent Incontinent # Voids 0 2 2 - Exam General appearance: The patient is alert, confused in no acute distress. HET: Head is normocephalic and atraumatic. Pupils are equal and reactive. Oropharynx is clear without lesions. Neck: Supple without lymphadenopathy. Trachea midline. Heart: S1 S2. Regular rate and rhythm. Lungs: Diminished in bases bilaterally. Abdomen: Soft, nontender, nondistended with bowel sounds. No peritoneal signs. No palpable organomegaly or masses. Extremities: Normal skin color and turgor. No cyanosis, rash, ulceration, clubbing, or edema. Radial and pedal pulses are 2/4 bilaterally. Neurological: No focal deficits. Strength and sensation are grossly intact. - Labs CBC & Chem 7: 05/07/18 11:23 05/07/18 11:23 Assessment and Plan (1) Symptomatic anemia Narrative/Plan: Bleeding duodenal AVM status post EGD APC Current Visit: Yes Status: Acute Code(s): D64.9 - ANEMIA, UNSPECIFIED SNOMED Code(s): 699140011 (2) Chest pain Current Visit: Yes Status: Acute Code(s): R07.9 - CHEST PAIN, UNSPECIFIED SNOMED Code(s): 26064490 (3) Elevated troponin Current Visit: Yes Status: Acute Code(s): R74.8 - ABNORMAL LEVELS OF OTHER SERUM ENZYMES SNOMED Code(s): 410441692 (4) Change in mental status Current Visit: Yes Status: Acute Code(s): R41.82 - ALTERED MENTAL STATUS, UNSPECIFIED SNOMED Code(s): 760293240 (5) Severe chronic obstructive pulmonary disease Current Visit: Yes Status: Chronic Code(s): J44.9 - CHRONIC OBSTRUCTIVE PULMONARY DISEASE, UNSPECIFIED SNOMED Code(s): 742592085 Plan: 1. CBC monitoring; CBC pending today. Protonix 40 mg daily. Diet as tolerated. Discharge per medicine is on a CBC remains stable no evidence of active GI bleed. Assessment and plan a care discussed with Dr. Naranjo
[2018-05-08] MEDS: MAGNESIUM SULFATE-D5W PMX 1 GM in DEXTROSE/WATER 1 100ML.BAG IVPB SCH ×2 (15:08→16:31)
[2018-05-08 15:11] LABS: Anisocytosis Slight; Basophils % (A) 0 %; Eosinophils # (A) 0.1 k/uL (0-0.7); Eosinophils % (A) 1 %; HCT 28.7 % (39.0-53.0); HGB 8.8 gm/dL (13.0-17.5); Hypochromasia Slight; Lymphocytes # (A) 0.4 k/uL (1.0-4.8); Lymphocytes % (A) 5 %; MCH 28.8 pg (25.0-35.0); MCHC 30.7 g/dL (31.0-37.0); MCV 93.9 fL (80.0-100.0); Monocytes # (A) 0.2 k/uL (0-1.0); Monocytes % (A) 3 %; Neutrophils # (A) 7.8 k/uL (1.3-7.7); Neutrophils % (A) 91 %; Platelet Count 503 k/uL (150-450); RBC 3.05 m/uL (4.30-5.90); RDW 18.2 % (11.5-15.5); WBC 8.6 k/uL (3.8-10.6)
--- NOTE | 2018-05-08 16:59 | P.PN ---
Subjective Progress Note Date: 05/07/18 Patient is admitted secondary to anemia symptomatic along with chest pain, patient is a blood transfusion patient is feeling much better today patient apparently was confused earlier today morning and last night and was bit agitated. Patient appears to have moderate dementia either vascular dementia dementia of Alzheimer's type. Does have memory difficulties at home as well but patient the was not confused when I evaluated the patient patient was started on as needed Haldol and Seroquel at nighttime for agitation. Cardiology evaluated the patient. Gastroenterology evaluated the patient. No obvious GI bleed at this time. Patient's creatinine is high and stable at around 3 believed to be secondary to acute tubular necrosis or interstitial her right is from my nonsteroidal anti-inflammatories nephrology evaluated the patient. Follow basic metabolic profile tomorrow. 05/02/2018 Patient was more agitated yesterday has a sitter now. Patient received DDAVP yesterday patient creatinine remains fairly stable at 3.37 patient the was started on gentle hydration today by nephrology. Increasing the dose of Haldol to 1 mg every 6 when necessary. Avoid benzo is his barbiturates opiates and anticholinergic medications. I as a nursing staff to avoid these medications and as a nursing staff to open the curtains which will help him with his agitation. Patient will not require IV hydralazine which was discontinued. CAT scan of the brain did not show any significant abnormality except for some possible left-sided mastoiditis. Patient's serum iron levels is extremely low because of which patient is receiving iron supplementation for that although his normal probably because of acute phase reactant and the patient's B12 and folic acids is essentially within normal limits. 05/03/2018 Patient's hemoglobin is below 7 today we'll transfuse him 1 more unit of blood patient's agitation episodes did not improve Resporal will be discontinue patient was started on nighttime Seroquel and as needed Haldol. We'll transfuse him 1 unit of blood. Down the steroids to by mouth 40 daily patient doesn't have any significant wheeze today. 05/03/2018 Patient had 4.stools today patient appears to have acute GI bleed upper GI bleed patient is already on Protonix. Patient may need upper GI endoscopy. Patient was more agitated requiring more Haldol and the patient is on Seroquel. We will continue with these medications will monitor him tonight. 05/05/2018 underwent EGD , tolerated procedure well. 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 No active bleeding noted. Hemoglobin 8.3 , creatinine 3.06. No agitation, sleepy as he has just returned from endoscopy. Staff reports no agitation during the night; currently on Seroquel. Sitter at bedside. 05/06/2018 more alert, confused. Family reporting patient continues to have black liquidy stools. Hemoglobin 9.8. Renal function improving, creatinine 2.62, potassium 3.6. Tachycardic earlier this a.m., heart rates in the 110s, patient did not receive his beta miriam yesterday, Heart rate currently 80s to 90s. Did not receive Seroquel during the night, no agitation, diet intake improving. Loose congested cough. Maintaining O2 sats in the low 90s on room air. Family has decided to proceed with subacute rehab at discharge. 05/07/2018 significant clinical improvement. Receiving empiric antibiotics, nebulized bronchodilators. Significant clinical improvement. EEG pending. Creatinine continues to improve, down to 2.55. Initially had planned for DC to [facility], but developed increased agitation. Reevaluated by psychiatry, recommendations noted including DC to [facility]. Brain CT reporting age-related atrophic and chronic small vessel ischemic changes without acute intracranial process .Social work met with family and discussed. Discharge planning in progress for tomorrow. Objective - Vital Signs Vital signs: Vital Signs Temp 98.6 F 05/07/18 12:00 Pulse 108 H 05/07/18 16:20 Resp 18 05/07/18 12:00 BP 165/85 05/07/18 12:00 Pulse Ox 93 L 05/07/18 12:00 Intake & Output 05/06/18 05/07/18 05/07/18 18:59 06:59 18:59 Intake Total 1660 Output Total 600 1650 Balance 1060 -1650 Weight 65.5 kg 65.5 kg Intake: Oral 1660 Output: Urine 600 1650 Uretheral (Martini) 600 Other: Voiding Method Incontinent Incontinent Incontinent # Voids 0 0 0 # Bowel Movements 0 0 - Exam GENERAL: The patient is sitting up in bed, acute and oriented 1, no acute distress, confused HEENT: Pupils are round and equally reacting to light. EOMI. No scleral icterus. No conjunctival pallor. Normocephalic, atraumatic. CARDIOVASCULAR: S1 and S2 present. Regular, No murmurs, rubs, or gallops. PULMONARY bilateral bases diminished with scattered rhonchi, crackles, no expiratory wheezing. ABDOMEN: Soft, nontender, nondistended, normoactive bowel sounds. No palpable organomegaly. MUSCULOSKELETAL: No joint swelling or deformity. EXTREMITIES: No cyanosis, clubbing, or pedal edema. NEUROLOGICAL: Gross neurological examination did not reveal any focal deficits. SKIN: No rashes. 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 -Chest pain,on admission secondary to anemia, possible type II MN. -Agitation secondary to delirium associated with hospitalization, moderate to severe dementia mostly vascular dementia. Possible Alzheimer's disease -Severe anemia symptomatic, iron deficiency anemia which is chronic apart from acute GI bleed. -COPD with minimal exacerbation -Acute renal failure, secondary to tubular necrosis , or ALLERGIC interstitial nephritis secondary to nonsteroidal anti-inflammatory medication -Possible chronic kidney disease Plan: Continue on current medication regime ,monitoring and symptomatic treatment. Risperdal dose increased as by psychiatry. Close monitoring of renal function, hemoglobin and, electrolytes with repeat labs ordered for a.m. discharge planning in progress to geriatric psych unit tomorrow. The impression and plan of care has been dictated as directed. : I performed a history and examination of this patient, discussed the same with the dictator. I agree with the dictator's note ,documented as a scribe. Any additional findings or plans will be noted.
[2018-05-08] MEDS ORDERED: Magnesium Replacement Protocol 1 EACH MISC MISCELLANE PRN (17:00)
--- NOTE | 2018-05-08 17:08 | P.PN ---
Subjective Progress Note Date: 05/08/18 Patient is admitted secondary to anemia symptomatic along with chest pain, patient is a blood transfusion patient is feeling much better today patient apparently was confused earlier today morning and last night and was bit agitated. Patient appears to have moderate dementia either vascular dementia dementia of Alzheimer's type. Does have memory difficulties at home as well but patient the was not confused when I evaluated the patient patient was started on as needed Haldol and Seroquel at nighttime for agitation. Cardiology evaluated the patient. Gastroenterology evaluated the patient. No obvious GI bleed at this time. Patient's creatinine is high and stable at around 3 believed to be secondary to acute tubular necrosis or interstitial her right is from my nonsteroidal anti-inflammatories nephrology evaluated the patient. Follow basic metabolic profile tomorrow. 05/02/2018 Patient was more agitated yesterday has a sitter now. Patient received DDAVP yesterday patient creatinine remains fairly stable at 3.37 patient the was started on gentle hydration today by nephrology. Increasing the dose of Haldol to 1 mg every 6 when necessary. Avoid benzo is his barbiturates opiates and anticholinergic medications. I as a nursing staff to avoid these medications and as a nursing staff to open the curtains which will help him with his agitation. Patient will not require IV hydralazine which was discontinued. CAT scan of the brain did not show any significant abnormality except for some possible left-sided mastoiditis. Patient's serum iron levels is extremely low because of which patient is receiving iron supplementation for that although his normal probably because of acute phase reactant and the patient's B12 and folic acids is essentially within normal limits. 05/03/2018 Patient's hemoglobin is below 7 today we'll transfuse him 1 more unit of blood patient's agitation episodes did not improve Resporal will be discontinue patient was started on nighttime Seroquel and as needed Haldol. We'll transfuse him 1 unit of blood. Down the steroids to by mouth 40 daily patient doesn't have any significant wheeze today. 05/03/2018 Patient had 4.stools today patient appears to have acute GI bleed upper GI bleed patient is already on Protonix. Patient may need upper GI endoscopy. Patient was more agitated requiring more Haldol and the patient is on Seroquel. We will continue with these medications will monitor him tonight. 05/05/2018 underwent EGD , tolerated procedure well. 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 No active bleeding noted. Hemoglobin 8.3 , creatinine 3.06. No agitation, sleepy as he has just returned from endoscopy. Staff reports no agitation during the night; currently on Seroquel. Sitter at bedside. 05/06/2018 more alert, confused. Family reporting patient continues to have black liquidy stools. Hemoglobin 9.8. Renal function improving, creatinine 2.62, potassium 3.6. Tachycardic earlier this a.m., heart rates in the 110s, patient did not receive his beta miriam yesterday, Heart rate currently 80s to 90s. Did not receive Seroquel during the night, no agitation, diet intake improving. Loose congested cough. Maintaining O2 sats in the low 90s on room air. Family has decided to proceed with subacute rehab at discharge. 05/07/2018 significant clinical improvement. Receiving empiric antibiotics, nebulized bronchodilators. Significant clinical improvement. EEG pending. Creatinine continues to improve, down to 2.55. Initially had planned for DC to [facility], but developed increased agitation. Reevaluated by psychiatry, recommendations noted including DC to [facility]. Brain CT reporting age-related atrophic and chronic small vessel ischemic changes without acute intracranial process .Social work met with family and discussed. Discharge planning in progress for tomorrow. 05/08/2018 maintained on gentle IV fluid hydration, potassium and magnesium replacement protocols. Oral intake poor. Labs pending. Objective - Vital Signs Vital signs: Vital Signs Temp 97.0 F L 05/08/18 13:45 Pulse 88 05/08/18 16:09 Resp 16 05/08/18 13:45 BP 142/78 05/08/18 13:45 Pulse Ox 98 05/08/18 13:45 Intake & Output 05/07/18 05/08/18 05/08/18 18:59 06:59 18:59 Output Total 0 0 Balance 0 0 Output: Urine 0 0 Other: Voiding Method Incontinent Incontinent Incontinent # Voids 0 2 2 - Exam GENERAL: The patient is sitting up in bed, acute and oriented 1, no acute distress, pleasantly confused HEENT: Pupils are round and equally reacting to light. EOMI. No scleral icterus. No conjunctival pallor. Normocephalic, atraumatic. CARDIOVASCULAR: S1 and S2 present. Regular, No murmurs, rubs, or gallops. PULMONARY bilateral bases diminished with scattered rhonchi, crackles, no expiratory wheezing. ABDOMEN: Soft, nontender, nondistended, normoactive bowel sounds. No palpable organomegaly. MUSCULOSKELETAL: No joint swelling or deformity. EXTREMITIES: No cyanosis, clubbing, or pedal edema. NEUROLOGICAL: Gross neurological examination did not reveal any focal deficits. SKIN: No rashes. 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 -Chest pain,on admission secondary to anemia, possible type II DC. -Agitation secondary to delirium associated with hospitalization, moderate to severe dementia mostly vascular dementia. Possible Alzheimer's disease -Severe anemia symptomatic, iron deficiency anemia which is chronic apart from acute GI bleed. -COPD with minimal exacerbation -Acute renal failure, secondary to tubular necrosis , or ALLERGIC interstitial nephritis secondary to nonsteroidal anti-inflammatory medication -Possible chronic kidney disease Plan: Continue on current medication regime , PPI ,monitoring and symptomatic treatment. Close monitoring of CBC, electrolytes ,repeat labs ordered for a.m. Repeat labs ordered for a.m. discharge planning in progress to geriatric psych unit tomorrow. The impression and plan of care has been dictated as directed. : I performed a history and examination of this patient, discussed the same with the dictator. I agree with the dictator's note ,documented as a scribe. Any additional findings or plans will be noted.
[2018-05-08 18:31] LABS: Calcium 8.1 mg/dL (8.4-10.2); Potassium 3.2 mmol/L (3.5-5.1)
[2018-05-08] MEDS: SODIUM CHLORIDE 0.9% 1,000 ML IV SCH (19:05)
[2018-05-08] MEDS ORDERED: POTASSIUM CHLORIDE ER 20 MEQ TAB.ER PO STA (21:12)
[2018-05-09] MEDS: PIPERACILLIN-TAZOBACTAM 3.375 GM in SODIUM CHLORIDE 0.9% 100 ML IVPB SCH ×3 (00:42→21:02)
[2018-05-09] MEDS: HALOPERIDOL LACTATE 5 MG/ML 1 ML VIAL IVP PRN (03:08)
--- NOTE | 2018-05-09 06:34 | EEG ---
ELECTROENCEPHALOGRAM REPORT DATE OF PROCEDURE: 05/08/2018 ELECTROENCEPHALOGRAM (EEG) REPORT: TECHNIQUE: A routine 18-channel EEG was performed with video using the 10-20 international placement system. HISTORY: Generalized weakness. Patient has become more confused and agitated. Other medical history includes COPD. CURRENT MEDICATIONS: Acular, hydralazine, Haldol, Perforomist, Pulmicort, amlodipine, albuterol, Tylenol, Risperdal, piperacillin, Protonix, potassium chloride, metoprolol. STUDY DURATION: 21 minutes. Please note that an excess of beta frequency activity was noted during this recording. This is not epileptiform in nature and may in part be due to medication effect. In addition, quality of this recording was limited due to movement artifact, per indoor plant technician annotation the patient had significant movement. BACKGROUND: The background activity consisted of unsustained 7-8 Hz rhythmic waveforms symmetrically distributed over both posterior quadrants. ACTIVATION: Hyperventilation not performed. PHOTIC STIMULATION: Not performed. SLEEP: Drowsy. ABNORMALITIES: Intermittent diffuse 4-7 Hz polymorphic theta range slowing was seen with superimposed faster frequencies. IMPRESSION: Limited study, abnormal EEG. The intermittent diffuse polymorphic theta range slowing mentioned above is not epileptiform in nature. In combination with the slow background, these findings indicate mild diffuse cerebral dysfunction which may in part be due to medication effect. No seizures were recorded. No epileptiform activity was present. MMODL / IJN: [id number] / ROCHELLE
[2018-05-09] MEDS: IPRATROPIUM-ALBUTEROL 3 ML NEB INHALATION SCH ×4 (07:05→19:54)
[2018-05-09] MEDS: FORMOTEROL FUMARATE 20 MCG/2 ML NEBU INHALATION SCH ×2 (07:05→19:54)
[2018-05-09] MEDS: BUDESONIDE 1 MG/2 ML NEBU INHALATION SCH ×2 (07:05→19:54)
[2018-05-09 08:05] LABS: Anisocytosis Slight; Basophils % (A) 0 %; Eosinophils # (A) 0.1 k/uL (0-0.7); Eosinophils % (A) 1 %; HCT 24.2 % (39.0-53.0); HGB 7.5 gm/dL (13.0-17.5); Hypochromasia Slight; Lymphocytes # (A) 1.2 k/uL (1.0-4.8); Lymphocytes % (A) 15 %; MCH 29.3 pg (25.0-35.0); MCHC 30.9 g/dL (31.0-37.0); Macrocytosis Slight; Monocytes # (A) 0.5 k/uL (0-1.0); Monocytes % (A) 6 %; Neutrophils # (A) 6.1 k/uL (1.3-7.7); Neutrophils % (A) 75 %; Platelet Count 466 k/uL (150-450); RBC 2.55 m/uL (4.30-5.90); RDW 18.2 % (11.5-15.5); WBC 8.2 k/uL (3.8-10.6)
[2018-05-09 08:11] LABS: Calcium 8.2 mg/dL (8.4-10.2); Magnesium 2.2 mg/dL (1.6-2.3); Potassium 3.5 mmol/L (3.5-5.1)
[2018-05-09] MEDS: PANTOPRAZOLE 40 MG/10 ML VIAL IVP SCH ×2 (08:42→21:02)
[2018-05-09] MEDS: risperiDONE 1 MG TAB PO SCH ×2 (08:42→21:31)
[2018-05-09] MEDS: predniSONE 10 MG TAB PO SCH (08:43)
[2018-05-09] MEDS: amLODIPine 5 MG TAB PO SCH (08:44)
[2018-05-09] MEDS: TAMSULOSIN 0.4 MG CAP.ER.24H PO SCH (08:44)
[2018-05-09] MEDS: PREDNISOLONE BOTH EYES SCH ×2 (08:45→21:31)
[2018-05-09] MEDS: hydrALAZINE HCL 50 MG TAB PO SCH ×3 (08:45→21:31)
[2018-05-09] MEDS: GENTAMICIN BOTH EYES SCH ×2 (08:45→21:31)
[2018-05-09] MEDS: METOPROLOL TARTRATE 50 MG TAB PO SCH ×2 (08:46→21:31)
[2018-05-09] MEDS: KETOROLAC 0.5% OPHTH DROPS 5 ML BTL BOTH EYES SCH ×2 (08:46→21:20)
--- NOTE | 2018-05-09 12:25 | XR ---
EXAMINATION TYPE: XR chest 1V DATE OF EXAM: 05/09/2018 COMPARISON: 05/07/2018 HISTORY: COPD. Tachycardia. Shortness of breath. TECHNIQUE: Single frontal view of the chest is obtained. FINDINGS: There are new patchy bibasilar opacities, left greater than right in comparison to the pascual or of 05/07/2018. Pulmonary hyperinflation and biapical lucency represents underlying COPD. Cardia medi astinal silhouette is mildly enlarged. Osseous structures are grossly intact. IMPRESSION: New bibasilar opacities in comparison the prior suspicious for developing pneumonia. Alt ernatively atelectasis is possible.
[2018-05-09] MEDS: SODIUM CHLORIDE 0.9% 1,000 ML IV SCH (13:28)
[2018-05-09] MEDS: NICOTINE 21MG/24HR PATCH TRANSDERM SCH (13:42)
--- NOTE | 2018-05-09 14:01 | PN ---
PROGRESS NOTE Patient is seen for followup for acute kidney injury secondary to NSAID toxicity. Patient is currently maintained on prednisone. He has been agitated and has been evaluated by Psychiatry. Currently, IV fluids are maintained. Patient is sleeping. He is arousable. Blood pressure was 138/83, heart rate 97 per minute. He is afebrile. Examination of the heart, S1, S2. Examination of the lungs, bilateral breath sounds are heard. Abdomen is soft, nontender. Examination of the lower extremities shows no evidence of edema. SQUEEGEER AND FORMER exam shows the patient has been moving all 4 extremities. He is agitated and confused. LABS: Show sodium 139, potassium 3.5, BUN 55, serum creatinine 2.5, hemoglobin 7.5 g/dL. ASSESSMENT: 1. Acute kidney injury secondary to NSAID toxicity. Currently maintained on prednisone with some improvement in renal function. There is a component of hypovolemia as well for which patient is maintained on IV fluids. 2. Acute blood loss anemia status post packed RBC transfusion, status post endoscopy, which did not reveal any active bleeding. 3. Urinary retention. 4. Hypokalemia, status post replacement. PLAN: Continue IV fluids. Continue with the prednisone. Monitor as outpatient. Repeat protein creatinine ratio as outpatient. Continue to encourage increased oral intake. MMODL / IJN: [id number] /
--- NOTE | 2018-05-09 15:57 | P.PN ---
Subjective Progress Note Date: 05/09/18 Principal diagnosis: Anemia, melena, small bowel AVM Patient lying in bed. He is tolerating his diet. No reports of hematochezia or melena. Objective - Vital Signs Vital signs: Vital Signs Temp 97.5 F L 05/09/18 11:54 Pulse 94 05/09/18 15:46 Resp 16 05/09/18 15:46 BP 159/87 05/09/18 11:54 Pulse Ox 94 L 05/09/18 11:54 Intake & Output 05/08/18 05/09/18 05/09/18 18:59 06:59 18:59 Intake Total 200 1240 Output Total 0 617 420 Balance 200 623 -420 Weight 65.5 kg Intake: Intake, IV Titration 200 1000 Amount Magnesium Sulfate-D5w Pmx 200 1 gm In Dextrose/Water 1 100ml.bag @ 100 mls/hr IVPB Q1H JAMA Rx#: [id number] Piperacillin-Tazobactam 3 200 .375 gm In Sodium Chloride 0.9% 100 ml @ 25 mls/hr IVPB Q8HR JAMA Rx# :[id number] Sodium Chloride 0.9% 1, 800 000 ml @ 50 mls/hr IV . Q20H JAMA Rx#:[id number] Oral 240 Output: Urine 0 420 420 Post Void Residual 197 Other: Voiding Method Incontinent Diaper Diaper Incontinent Incontinent # Voids 2 1 2 - Exam On physical examination, patient appears comfortable in no apparent distress. HEAD: Normocephalic, atraumatic. EYES: No scleral icterus. No conjunctival injection. MOUTH: No lesions, tongue midline. NECK: Trachea midline, no gross abnormalities. CHEST: Decreased air entry in all lung rodriguez. ABDOMEN: Soft. Bowel sounds are positive. No organomegaly. No guarding or rigidity. EXTREMITIES: No pedal edema. SKIN: No rashes, no jaundice. NEUROLOGIC: Alert but confused. No focal deficits. - Labs CBC & Chem 7: 05/09/18 06:39 05/09/18 06:39 Labs: Abnormal Lab Results - Last 24 Hours (Table) 05/08/18 05/09/18 05/09/18 Range/Units 18:14 06:39 06:39 RBC 2.55 L (4.30-5.90) m/uL Hgb 7.5 L (13.0-17.5) gm/dL Hct 24.2 L (39.0-53.0) % MCHC 30.9 L (31.0-37.0) g/dL RDW 18.2 H (11.5-15.5) % Plt Count 466 H (150-450) k/uL Sodium 136 L (137-145) mmol/L Potassium 3.2 L (3.5-5.1) mmol/L BUN 56 H 55 H (9-20) mg/dL Creatinine 2.62 H 2.55 H (0.66-1.25) mg/dL Glucose 182 H (74-99) mg/dL Calcium 8.1 L 8.2 L (8.4-10.2) mg/dL Assessment and Plan (1) Symptomatic anemia Narrative/Plan: Symptomatic iron deficiency anemia, likely with component of anemia of chronic disease in the setting of possible chronic kidney disease, although baseline creatinine is from 2013. Upper endoscopy with nonbleeding duodenal AVM treated with argon plasma coagulation. No further signs or symptoms of GI bleeding reported. Current Visit: Yes Status: Acute Code(s): D64.9 - ANEMIA, UNSPECIFIED SNOMED Code(s): 215401703 Plan: Supportive care Okay for diet Continue Protonix daily Continue to monitor hemoglobin and transfuse as needed Watch for signs or symptoms of GI bleeding Avoid NSAID use Continue iron supplementation Thank you for allowing us to participate in the care of the patient, we will continue to follow
[2018-05-09] MEDS ORDERED: PIPERACILLIN-TAZOBACTAM 3.375 GM in SODIUM CHLORIDE 0.9% 100 ML IVPB SCH (16:00)
--- NOTE | 2018-05-09 20:23 | P.PN ---
Subjective Progress Note Date: 05/09/18 Patient is admitted secondary to anemia symptomatic along with chest pain, patient is a blood transfusion patient is feeling much better today patient apparently was confused earlier today morning and last night and was bit agitated. Patient appears to have moderate dementia either vascular dementia dementia of Alzheimer's type. Does have memory difficulties at home as well but patient the was not confused when I evaluated the patient patient was started on as needed Haldol and Seroquel at nighttime for agitation. Cardiology evaluated the patient. Gastroenterology evaluated the patient. No obvious GI bleed at this time. Patient's creatinine is high and stable at around 3 believed to be secondary to acute tubular necrosis or interstitial her right is from my nonsteroidal anti-inflammatories nephrology evaluated the patient. Follow basic metabolic profile tomorrow. 05/02/2018 Patient was more agitated yesterday has a sitter now. Patient received DDAVP yesterday patient creatinine remains fairly stable at 3.37 patient the was started on gentle hydration today by nephrology. Increasing the dose of Haldol to 1 mg every 6 when necessary. Avoid benzo is his barbiturates opiates and anticholinergic medications. I as a nursing staff to avoid these medications and as a nursing staff to open the curtains which will help him with his agitation. Patient will not require IV hydralazine which was discontinued. CAT scan of the brain did not show any significant abnormality except for some possible left-sided mastoiditis. Patient's serum iron levels is extremely low because of which patient is receiving iron supplementation for that although his normal probably because of acute phase reactant and the patient's B12 and folic acids is essentially within normal limits. 05/03/2018 Patient's hemoglobin is below 7 today we'll transfuse him 1 more unit of blood patient's agitation episodes did not improve Resporal will be discontinue patient was started on nighttime Seroquel and as needed Haldol. We'll transfuse him 1 unit of blood. Down the steroids to by mouth 40 daily patient doesn't have any significant wheeze today. 05/03/2018 Patient had 4.stools today patient appears to have acute GI bleed upper GI bleed patient is already on Protonix. Patient may need upper GI endoscopy. Patient was more agitated requiring more Haldol and the patient is on Seroquel. We will continue with these medications will monitor him tonight. 05/05/2018 underwent EGD , tolerated procedure well. 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 No active bleeding noted. Hemoglobin 8.3 , creatinine 3.06. No agitation, sleepy as he has just returned from endoscopy. Staff reports no agitation during the night; currently on Seroquel. Sitter at bedside. 05/06/2018 more alert, confused. Family reporting patient continues to have black liquidy stools. Hemoglobin 9.8. Renal function improving, creatinine 2.62, potassium 3.6. Tachycardic earlier this a.m., heart rates in the 110s, patient did not receive his beta miriam yesterday, Heart rate currently 80s to 90s. Did not receive Seroquel during the night, no agitation, diet intake improving. Loose congested cough. Maintaining O2 sats in the low 90s on room air. Family has decided to proceed with subacute rehab at discharge. 05/07/2018 significant clinical improvement. Receiving empiric antibiotics, nebulized bronchodilators. Significant clinical improvement. EEG pending. Creatinine continues to improve, down to 2.55. Initially had planned for DC to [facility], but developed increased agitation. Reevaluated by psychiatry, recommendations noted including DC to [facility]. Brain CT reporting age-related atrophic and chronic small vessel ischemic changes without acute intracranial process .Social work met with family and discussed. Discharge planning in progress for tomorrow. 05/08/2018 maintained on gentle IV fluid hydration, potassium and magnesium replacement protocols. Oral intake poor. Labs pending. 05/09/2018 hemoglobin dropped to 7.5, tachycardic. Currently no signs or symptoms of bleeding. Evaluated by GI with diet advanced. Chest x-ray ordered reporting new bibasal opacity is suspicious for developing pneumonia, possible atelectasis. Currently on Zosyn. Influenza A and B ruled out. Maintained on gentle IV fluid hydration with renal function slowly improving. Afebrile, normal WBC. potassium 3.5. Objective - Vital Signs Vital signs: Vital Signs Temp 97.5 F L 05/09/18 11:54 Pulse 100 05/09/18 20:10 Resp 16 05/09/18 15:46 BP 159/87 05/09/18 11:54 Pulse Ox 94 L 05/09/18 19:55 Intake & Output 05/09/18 05/09/18 05/10/18 06:59 18:59 06:59 Intake Total 1240 Output Total 617 420 Balance 623 -420 Weight 65.5 kg Intake: Intake, IV Titration 1000 Amount Piperacillin-Tazobactam 3 200 .375 gm In Sodium Chloride 0.9% 100 ml @ 25 mls/hr IVPB Q8HR [facility] Rx# :[id number] Sodium Chloride 0.9% 1, 800 000 ml @ 50 mls/hr IV . Q20H JAMA Rx#:[id number] Oral 240 Output: Urine 420 420 Post Void Residual 197 Other: Voiding Method Diaper Diaper Incontinent Incontinent # Voids 1 2 - Exam GENERAL: sitting up in bed, acute and oriented 1, no acute distress, confused HEENT: Pupils are round and equally reacting to light. EOMI. No scleral icterus. No conjunctival pallor. Normocephalic, atraumatic. CARDIOVASCULAR: S1 and S2 present. Regular, No murmurs, rubs, or gallops. PULMONARY bilateral bases diminished with scattered rhonchi, crackles, no expiratory wheezing. ABDOMEN: Soft, nontender, nondistended, normoactive bowel sounds. No palpable organomegaly. MUSCULOSKELETAL: No joint swelling or deformity. EXTREMITIES: No cyanosis, clubbing, or pedal edema. NEUROLOGICAL: Gross neurological examination did not reveal any focal deficits. SKIN: No rashes. 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 -Chest pain,on admission secondary to anemia, possible type II [place]. -Agitation secondary to delirium associated with hospitalization, moderate to severe dementia mostly vascular dementia. Possible Alzheimer's disease -Severe anemia symptomatic, iron deficiency anemia which is chronic apart from acute GI bleed. -COPD with minimal exacerbation -Acute renal failure, secondary to tubular necrosis , or ALLERGIC interstitial nephritis secondary to nonsteroidal anti-inflammatory medication -Possible chronic kidney disease Plan: Continue on current medication regime , beta miriam, PPI ,monitoring and symptomatic treatment. Close monitoring of renal function, CBC, electrolytes , repeat labs ordered for a.m. electrolyte replacement as per nephrology. Prognosis remains guarded given multiple complex medical issues. The impression and plan of care has been dictated as directed. : I performed a history and examination of this patient, discussed the same with the dictator. I agree with the dictator's note ,documented as a scribe. Any additional findings or plans will be noted.
[2018-05-10] MEDS: PIPERACILLIN-TAZOBACTAM 3.375 GM in SODIUM CHLORIDE 0.9% 100 ML IVPB SCH ×3 (00:08→15:24)
[2018-05-10] MEDS: hydrALAZINE HCL 20 MG/ML 1 ML VIAL IVP PRN ×2 (04:38→12:52)
[2018-05-10] MEDS: IPRATROPIUM-ALBUTEROL 3 ML NEB INHALATION SCH ×4 (05:53→19:36)
[2018-05-10] MEDS: BUDESONIDE 1 MG/2 ML NEBU INHALATION SCH ×2 (05:54→19:36)
[2018-05-10] MEDS: FORMOTEROL FUMARATE 20 MCG/2 ML NEBU INHALATION SCH ×2 (05:54→19:36)
[2018-05-10] MEDS: PANTOPRAZOLE 40 MG/10 ML VIAL IVP SCH ×2 (07:04→22:30)
[2018-05-10] MEDS: KETOROLAC 0.5% OPHTH DROPS 5 ML BTL BOTH EYES SCH ×2 (07:04→22:32)
[2018-05-10] MEDS: GENTAMICIN BOTH EYES SCH ×2 (07:05→22:32)
[2018-05-10] MEDS: PREDNISOLONE BOTH EYES SCH ×2 (07:05→22:32)
[2018-05-10] MEDS: SODIUM CHLORIDE 0.9% 1,000 ML IV SCH (07:05)
[2018-05-10] MEDS: predniSONE 10 MG TAB PO SCH (07:06)
[2018-05-10] MEDS: hydrALAZINE HCL 50 MG TAB PO SCH ×3 (07:06→23:42)
[2018-05-10] MEDS: METOPROLOL TARTRATE 50 MG TAB PO SCH (07:06)
[2018-05-10] MEDS: TAMSULOSIN 0.4 MG CAP.ER.24H PO SCH (07:06)
[2018-05-10 07:19] LABS: Anisocytosis Slight; Basophils % (A) 0 %; Eosinophils % (A) 0 %; HCT 23.6 % (39.0-53.0); HGB 7.5 gm/dL (13.0-17.5); Hypochromasia Slight; Lymphocytes # (A) 1.1 k/uL (1.0-4.8); Lymphocytes % (A) 11 %; MCH 30.1 pg (25.0-35.0); MCHC 31.7 g/dL (31.0-37.0); Macrocytosis Slight; Monocytes # (A) 0.6 k/uL (0-1.0); Monocytes % (A) 6 %; Neutrophils # (A) 8.1 k/uL (1.3-7.7); Neutrophils % (A) 80 %; Platelet Count 479 k/uL (150-450); RBC 2.49 m/uL (4.30-5.90); RDW 18.4 % (11.5-15.5); WBC 10.1 k/uL (3.8-10.6)
[2018-05-10] MEDS: risperiDONE 1 MG TAB PO SCH ×2 (07:23→23:42)
[2018-05-10] MEDS: NICOTINE 21MG/24HR PATCH TRANSDERM SCH (07:23)
[2018-05-10 07:29] LABS: Calcium 8.6 mg/dL (8.4-10.2); Potassium 3.3 mmol/L (3.5-5.1)
[2018-05-10] MEDS ORDERED: amLODIPine 10 MG TAB PO SCH (09:00)
[2018-05-10] MEDS ORDERED: Potassium Replacement Protocol 1 EACH MISC MISCELLANE PRN (09:10)
--- NOTE | 2018-05-10 09:51 | P.PN ---
Subjective Patient is seen in follow-up for acute kidney injury. Renal function a little worse with creatinine at 2.6 today. Patient noted to have persistent urinary retention and had a Martini catheter placed last night. He is nonoliguric. He is maintained on normal saline at 50 mL an hour. Denies any active complaints. Vital signs are stable. General: The patient appeared well nourished and normally developed. HEENT: Head exam is unremarkable. Neck is without jugular venous distension. LUNGS: Lungs are clear to auscultation and percussion. Breath sounds decreased. HEART: Rate and Rhythm are regular. First and second heart sounds normal. No murmurs, rubs or gallops. ABDOMEN: Abdominal exam reveals normal bowel sounds. Non-tender and non- distended. No evidence of peritonitis. EXTREMITITES: No clubbing, cyanosis, or edema. Objective - Vital Signs Vital signs: Vital Signs Temp 97.9 F 05/10/18 07:17 Pulse 108 H 05/10/18 08:00 Resp 24 05/10/18 07:17 BP 168/81 05/10/18 07:17 Pulse Ox 96 05/10/18 07:17 Intake & Output 05/09/18 05/10/18 05/10/18 18:59 06:59 18:59 Output Total 420 870 Balance -420 -870 Weight 65.5 kg Output: Urine 420 870 Other: Voiding Method Diaper Diaper Indwelling Catheter Incontinent Incontinent # Voids 2 1 - Labs CBC & Chem 7: 05/10/18 06:19 05/10/18 06:19 Labs: Abnormal Lab Results - Last 24 Hours (Table) 05/10/18 05/10/18 Range/Units 06:19 06:19 RBC 2.49 L (4.30-5.90) m/uL Hgb 7.5 L (13.0-17.5) gm/dL Hct 23.6 L (39.0-53.0) % RDW 18.4 H (11.5-15.5) % Plt Count 479 H (150-450) k/uL Neutrophils # 8.1 H (1.3-7.7) k/uL Potassium 3.3 L (3.5-5.1) mmol/L Chloride 110 H (98-107) mmol/L BUN 51 H (9-20) mg/dL Creatinine 2.68 H (0.66-1.25) mg/dL Glucose 111 H (74-99) mg/dL Assessment and Plan Plan: Assessment: 1. Acute kidney injury secondary to ATN secondary to nonsteroidals and anemia. Creatinine 3.4 on admission. Renal function little worse compared to yesterday. Unknown baseline renal function. Creatinine December 2013 was 0.83. Significant proteinuria and hematuria noted on UA. 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 Noted to have low C4. Currently maintained on oral prednisone. Apparently the patient refused kidney biopsy. 2. Rule out chronic kidney disease. Need to establish baseline renal function. 3. Metabolic acidosis secondary to acute kidney injury. Resolved. 4. Acute blood loss anemia status post 3 units of blood transfusion. Status post IV DDAVP on May 01. Severe iron deficiency noted. GI following. 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 5. Benign hypertension. Dose of amlodipine increased yesterday. 6. Urinary retention. Martini catheter reinserted May 09 due to persistent urinary retention. 7. Hypomagnesemia from poor oral intake. Better posterior placement. 8. Hypokalemia from poor oral intake. Plan: Maintain normal saline at 50 mL an hour. Maintain prednisone. Replace potassium. 40 mEq today. Add Aranesp. Repeat electrolytes in the morning.
[2018-05-10] MEDS: POTASSIUM CHLORIDE 10 MEQ in WATER FOR INJECTION 1 100ML.BAG IVPB SCH ×4 (10:05→12:52)
[2018-05-10] MEDS: DARBEPOETIN ALFA 40 MCG/0.4 ML SYRINGE SQ SCH (11:34)
--- NOTE | 2018-05-10 12:08 | PN ---
PROGRESS NOTE DATE OF DICTATION: 05/10/2018 Patient is a 67-year-old white male admitted to the hospital with severe anemia, for which he was seen by Dr. Naranjo and underwent an upper endoscopy. He was noted to have a non-bleeding duodenal arteriovenous malformation that was treated with argon plasma coagulation. The patient since then has been doing well. No further episodes of bleeding. He is somewhat confused. Most of the history was obtained from the patient's nursing staff. He denies any complaints. PHYSICAL EXAMINATION: He appears comfortable. No apparent distress. VITAL SIGNS: Stable. Blood pressure is 168/81, pulse rate 108, temperature 97.9. HEENT EXAMINATION: Unremarkable. Conjunctivae pink. Sclerae anicteric. Oral cavity no lesions. NECK: No JVD or lymph node enlargement. CHEST: Clear to auscultation. HEART: Regular rate and rhythm. ABDOMEN: Soft. Bowel sounds are positive. No organomegaly. EXTREMITIES: No pedal edema. SKIN: No rashes. NEURO: He is confused, not oriented to name or place. LABS: Labs from today show WBC 10.1, hemoglobin 7.5, platelets of 479. BUN is 51, creatinine 2.68. IMPRESSION: 1. Severe symptomatic anemia with a hemoglobin of 4.6, status post 2 units of blood transfusion. EGD done by Dr. Naranjo 2 days ago did show non-bleeding arteriovenous malformation that was treated with argon plasma coagulation. No further bleeding. Hemoglobin is stable at 7.5 g/dL. 2. Dysphagia, for which patient is scheduled for a swallow evaluation today. 3. Acute kidney injury. 4. Chronic obstructive pulmonary disease. RECOMMENDATIONS: Continue with Protonix 40 mg daily, CBC every morning. Agree with swallow evaluation. We will follow the patient closely during his hospital stay. Thank you for this consultation. MMODL / IJN: [id number] /
--- NOTE | 2018-05-10 13:58 | P.PN ---
Subjective Progress Note Date: 05/09/18 Patient is admitted secondary to anemia symptomatic along with chest pain, patient is a blood transfusion patient is feeling much better today patient apparently was confused earlier today morning and last night and was bit agitated. Patient appears to have moderate dementia either vascular dementia dementia of Alzheimer's type. Does have memory difficulties at home as well but patient the was not confused when I evaluated the patient patient was started on as needed Haldol and Seroquel at nighttime for agitation. Cardiology evaluated the patient. Gastroenterology evaluated the patient. No obvious GI bleed at this time. Patient's creatinine is high and stable at around 3 believed to be secondary to acute tubular necrosis or interstitial her right is from my nonsteroidal anti-inflammatories nephrology evaluated the patient. Follow basic metabolic profile tomorrow. 05/02/2018 Patient was more agitated yesterday has a sitter now. Patient received DDAVP yesterday patient creatinine remains fairly stable at 3.37 patient the was started on gentle hydration today by nephrology. Increasing the dose of Haldol to 1 mg every 6 when necessary. Avoid benzo is his barbiturates opiates and anticholinergic medications. I as a nursing staff to avoid these medications and as a nursing staff to open the curtains which will help him with his agitation. Patient will not require IV hydralazine which was discontinued. CAT scan of the brain did not show any significant abnormality except for some possible left-sided mastoiditis. Patient's serum iron levels is extremely low because of which patient is receiving iron supplementation for that although his normal probably because of acute phase reactant and the patient's B12 and folic acids is essentially within normal limits. 05/03/2018 Patient's hemoglobin is below 7 today we'll transfuse him 1 more unit of blood patient's agitation episodes did not improve Resporal will be discontinue patient was started on nighttime Seroquel and as needed Haldol. We'll transfuse him 1 unit of blood. Down the steroids to by mouth 40 daily patient doesn't have any significant wheeze today. 05/03/2018 Patient had 4.stools today patient appears to have acute GI bleed upper GI bleed patient is already on Protonix. Patient may need upper GI endoscopy. Patient was more agitated requiring more Haldol and the patient is on Seroquel. We will continue with these medications will monitor him tonight. 05/05/2018 underwent EGD , tolerated procedure well. 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 No active bleeding noted. Hemoglobin 8.3 , creatinine 3.06. No agitation, sleepy as he has just returned from endoscopy. Staff reports no agitation during the night; currently on Seroquel. Sitter at bedside. 05/06/2018 more alert, confused. Family reporting patient continues to have black liquidy stools. Hemoglobin 9.8. Renal function improving, creatinine 2.62, potassium 3.6. Tachycardic earlier this a.m., heart rates in the 110s, patient did not receive his beta miriam yesterday, Heart rate currently 80s to 90s. Did not receive Seroquel during the night, no agitation, diet intake improving. Loose congested cough. Maintaining O2 sats in the low 90s on room air. Family has decided to proceed with subacute rehab at discharge. 05/07/2018 significant clinical improvement. Receiving empiric antibiotics, nebulized bronchodilators. Significant clinical improvement. EEG pending. Creatinine continues to improve, down to 2.55. Initially had planned for DC to [facility], but developed increased agitation. Reevaluated by psychiatry, recommendations noted including DC to [facility]. Brain CT reporting age-related atrophic and chronic small vessel ischemic changes without acute intracranial process .Social work met with family and discussed. Discharge planning in progress for tomorrow. 05/08/2018 maintained on gentle IV fluid hydration, potassium and magnesium replacement protocols. Oral intake poor. Labs pending. 05/09/2018 hemoglobin dropped to 7.5, tachycardic. Currently no signs or symptoms of bleeding. Evaluated by GI with diet advanced. Chest x-ray ordered reporting new bibasal opacity is suspicious for developing pneumonia, possible atelectasis. Currently on Zosyn. Influenza A and B ruled out. Maintained on gentle IV fluid hydration with renal function slowly improving. Afebrile, normal WBC. potassium 3.5. 05/10/2018 Patient is not doing well patient is tachypneic, Tachycardic, lipid the chest x- ray will obtain an ABG will obtain lactic acid levels. Patient is unable to swallow because of which patient is not getting any of his antidepressive medications patient was started on clonidine patch. Patient is hallucinating, will ask the psychiatric reevaluate the patient. Review of systems: Unable to obtain although patient says he is fine Objective - Vital Signs Vital signs: Vital Signs Temp 97.9 F 05/10/18 12:06 Pulse 131 H 05/10/18 12:06 Resp 17 05/10/18 12:06 BP 178/102 05/10/18 12:06 Pulse Ox 93 L 05/10/18 12:06 Intake & Output 05/09/18 05/10/18 05/10/18 18:59 06:59 18:59 Intake Total 1100 Output Total 420 870 350 Balance -420 -870 750 Weight 65.5 kg Intake: Intake, IV Titration 1100 Amount Piperacillin-Tazobactam 3 100 .375 gm In Sodium Chloride 0.9% 100 ml @ 25 mls/hr IVPB Q8HR [facility] Rx# :[id number] Potassium Chloride 10 meq 400 In Water For Injection 1 100ml.bag @ 100 mls/hr IVPB Q1HR [facility] Rx#: [id number] Sodium Chloride 0.9% 1, 600 000 ml @ 50 mls/hr IV . Q20H [facility] Rx#:[id number] Oral 0 Output: Urine 420 870 Stool 350 Other: Voiding Method Diaper Diaper Indwelling Catheter Incontinent Incontinent # Voids 2 1 1 - Exam GENERAL: sitting up in bed, acute and oriented 1, no acute distress, confused, hallucinating is in respiratory distress HEENT: Pupils are round and equally reacting to light. EOMI. No scleral icterus. No conjunctival pallor. Normocephalic, atraumatic. CARDIOVASCULAR: S1 and S2 present. Regular, No murmurs, rubs, or gallops. PULMONARY bilateral bases diminished with scattered rhonchi, crackles, no expiratory wheezing. ABDOMEN: Soft, nontender, nondistended, normoactive bowel sounds. No palpable organomegaly. MUSCULOSKELETAL: No joint swelling or deformity. EXTREMITIES: No cyanosis, clubbing, or pedal edema. NEUROLOGICAL: Gross neurological examination did not reveal any focal deficits. SKIN: No rashes. 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 -Tachycardia and tachypnea: Will obtain lactic acid levels repeat chest x-ray part of tachycardia is probably because a not taking his medications patient failed the swallow evaluation. -Dysphagia due to his confusion -Chest pain,on admission secondary to anemia, possible type II [place]. -Agitation secondary to delirium associated with hospitalization, moderate to severe dementia mostly vascular dementia. Possible Alzheimer's disease -Severe anemia symptomatic, iron deficiency anemia which is chronic apart from acute GI bleed. -COPD with minimal exacerbation -Acute renal failure, secondary to tubular necrosis , or ALLERGIC interstitial nephritis secondary to nonsteroidal anti-inflammatory medication -Possible chronic kidney disease
[2018-05-10] MEDS: cloNIDine 0.2 MG/24HR PATCH TRANSDERM SCH (14:37)
[2018-05-10 14:39] LABS: ABG Base Excess 5.5 mmol/L; ABG HCO3 28 mmol/L (21-25); ABG Oxygen Saturation 93.5 % (94-97); ABG PCO2 34 mmHg (35-45); ABG PH 7.53 (7.35-7.45); ABG PO2 60 mmHg (83-108); ABG TCO2 29 mmol/L (19-24)
--- NOTE | 2018-05-10 14:52 | XR ---
EXAMINATION TYPE: XR chest 1V DATE OF EXAM: 05/10/2018 COMPARISON: 05/09/2018 HISTORY: Shortness of breath TECHNIQUE: Single frontal view of the chest is obtained. FINDINGS: There is diffuse interstitial pulmonary edema, moderate bibasilar layering opacities and o bscuration of the hemidiaphragms as well as costophrenic angles suggesting pleural effusions and atel ectasis. Cardia mediastinal silhouette is mildly enlarged. Osseous structures are grossly intact. Fin dings have worsened from the prior of 05/09/2018 IMPRESSION: Slightly worsening bibasilar opacities and interstitial pulmonary edema that may represe nt sequela of congestive heart failure or interstitial pulmonary edema and pneumonia.
[2018-05-10] MEDS: CARVEDILOL 12.5 MG TAB PO SCH (16:52)
[2018-05-10 19:40] LABS: Glucose,Whole Blood 138 mg/dL (75-99)
[2018-05-11] MEDS: PIPERACILLIN-TAZOBACTAM 3.375 GM in SODIUM CHLORIDE 0.9% 100 ML IVPB SCH ×3 (00:36→18:45)
[2018-05-11] MEDS: SODIUM CHLORIDE 0.9% 1,000 ML IV SCH (00:40)
[2018-05-11] MEDS: IPRATROPIUM-ALBUTEROL 3 ML NEB INHALATION SCH ×4 (05:54→20:32)
[2018-05-11] MEDS: BUDESONIDE 1 MG/2 ML NEBU INHALATION SCH ×2 (05:54→20:32)
[2018-05-11] MEDS: FORMOTEROL FUMARATE 20 MCG/2 ML NEBU INHALATION SCH ×2 (05:54→20:32)
[2018-05-11 07:45] LABS: Magnesium 2.2 mg/dL (1.6-2.3); Potassium 3.7 mmol/L (3.5-5.1)
[2018-05-11 08:00] LABS: Anisocytosis Slight; Hypochromasia Moderate; MCH 29.4 pg (25.0-35.0); MCHC 30.3 g/dL (31.0-37.0); MCV 96.7 fL (80.0-100.0); Macrocytosis Slight; Mean Platelet Volume 7.5; Platelet Count 398 k/uL (150-450); RBC 1.95 m/uL (4.30-5.90); RDW 18.5 % (11.5-15.5); WBC 8.2 k/uL (3.8-10.6)
[2018-05-11 08:18] LABS: HCT 18.9 % (39.0-53.0); HGB 5.7 gm/dL (13.0-17.5)
[2018-05-11] MEDS: CARVEDILOL 12.5 MG TAB PO SCH ×2 (08:40→17:02)
[2018-05-11] MEDS: NICOTINE 21MG/24HR PATCH TRANSDERM SCH (08:46)
[2018-05-11] MEDS: predniSONE 10 MG TAB PO SCH (08:47)
[2018-05-11] MEDS: risperiDONE 1 MG TAB PO SCH ×2 (08:47→21:09)
[2018-05-11] MEDS: hydrALAZINE HCL 50 MG TAB PO SCH ×3 (08:47→21:08)
[2018-05-11] MEDS: TAMSULOSIN 0.4 MG CAP.ER.24H PO SCH (08:47)
[2018-05-11] MEDS: KETOROLAC 0.5% OPHTH DROPS 5 ML BTL BOTH EYES SCH ×2 (08:49→21:33)
[2018-05-11] MEDS: PANTOPRAZOLE 40 MG/10 ML VIAL IVP SCH ×2 (08:49→21:12)
[2018-05-11] MEDS: PREDNISOLONE BOTH EYES SCH ×2 (08:50→21:24)
[2018-05-11] MEDS: GENTAMICIN BOTH EYES SCH ×2 (08:50→21:24)
[2018-05-11] MEDS ORDERED: DESMOPRESSIN ACETATE 20 MCG in SODIUM CHLORIDE 0.9% 50 ML IVPB ONE (10:01)
[2018-05-11] MEDS ORDERED: DEXTROSE 5% IN WATER 1,000 ML IV ONE (10:01)
--- NOTE | 2018-05-11 10:03 | P.PN ---
Subjective Patient is seen in follow-up for acute kidney injury. Renal function stable with creatinine at 2.65 today. Patient noted to have persistent urinary retention and had a Martini catheter placed May 10. He is nonoliguric. He is maintained on normal saline at 50 mL an hour. Currently sleeping. Doesn't respond much to verbal commands. No active bleeding according to the nurse. Hemoglobin 5.7 today. Vital signs are stable. General: The patient appeared well nourished and normally developed. HEENT: Head exam is unremarkable. Neck is without jugular venous distension. LUNGS: Lungs are clear to auscultation and percussion. Breath sounds decreased. HEART: Rate and Rhythm are regular. First and second heart sounds normal. No murmurs, rubs or gallops. ABDOMEN: Abdominal exam reveals normal bowel sounds. Non-tender and non- distended. No evidence of peritonitis. EXTREMITITES: No clubbing, cyanosis, or edema. Objective - Vital Signs Vital signs: Vital Signs Temp 98.1 F 05/11/18 05:00 Pulse 118 H 05/11/18 08:00 Resp 17 05/11/18 05:00 BP 173/87 05/10/18 20:56 Pulse Ox 98 05/11/18 05:55 Intake & Output 05/10/18 05/11/18 05/11/18 18:59 06:59 18:59 Intake Total 1100 700 Output Total 350 300 Balance 750 400 Intake: Intake, IV Titration 1100 700 Amount Piperacillin-Tazobactam 3 100 .375 gm In Sodium Chloride 0.9% 100 ml @ 25 mls/hr IVPB Q8HR JAMA Rx# :[id number] Piperacillin-Tazobactam 3 100 .375 gm In Sodium Chloride 0.9% 100 ml @ 25 mls/hr IVPB Q8HR JAMA Rx# :[id number] Potassium Chloride 10 meq 400 In Water For Injection 1 100ml.bag @ 100 mls/hr IVPB Q1HR JAMA Rx#: [id number] Sodium Chloride 0.9% 1, 600 600 000 ml @ 50 mls/hr IV . Q20H JAMA Rx#:[id number] Oral 0 0 Output: Urine 300 Uretheral (Martini) 300 Stool 350 Other: Voiding Method Indwelling Catheter Indwelling Catheter Indwelling Catheter # Voids 1 - Labs CBC & Chem 7: 05/11/18 06:33 05/11/18 06:33 Labs: Abnormal Lab Results - Last 24 Hours (Table) 05/10/18 05/10/18 05/11/18 Range/Units 14:24 19:38 06:33 RBC 1.95 L (4.30-5.90) m/uL Hgb 5.7 L* D (13.0-17.5) gm/dL Hct 18.9 L* (39.0-53.0) % MCHC 30.3 L (31.0-37.0) g/dL RDW 18.5 H (11.5-15.5) % ABG pH 7.53 H (7.35-7.45) ABG pCO2 34 L (35-45) mmHg ABG pO2 60 L (83-108) mmHg ABG HCO3 28 H (21-25) mmol/L ABG Total CO2 29 H (19-24) mmol/L ABG O2 Saturation 93.5 L (94-97) % Sodium (137-145) mmol/L Chloride (98-107) mmol/L BUN (9-20) mg/dL Creatinine (0.66-1.25) mg/dL POC Glucose (mg/dL) 138 H (75-99) mg/dL Calcium (8.4-10.2) mg/dL 05/11/18 Range/Units 06:33 RBC (4.30-5.90) m/uL Hgb (13.0-17.5) gm/dL Hct (39.0-53.0) % MCHC (31.0-37.0) g/dL RDW (11.5-15.5) % ABG pH (7.35-7.45) ABG pCO2 (35-45) mmHg ABG pO2 (83-108) mmHg ABG HCO3 (21-25) mmol/L ABG Total CO2 (19-24) mmol/L ABG O2 Saturation (94-97) % Sodium 148 H (137-145) mmol/L Chloride 116 H (98-107) mmol/L BUN 56 H (9-20) mg/dL Creatinine 2.65 H (0.66-1.25) mg/dL POC Glucose (mg/dL) (75-99) mg/dL Calcium 8.0 L (8.4-10.2) mg/dL Assessment and Plan Plan: Assessment: 1. Acute kidney injury secondary to ATN secondary to nonsteroidals and anemia. Creatinine 3.4 on admission. Renal function stable. Unknown baseline renal function. Creatinine December 2013 was 0.83. Significant proteinuria and hematuria noted on UA. 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 Noted to have low C4. Currently maintained on oral prednisone. Apparently the patient refused kidney biopsy. 2. Rule out chronic kidney disease. Need to establish baseline renal function. 3. Metabolic acidosis secondary to acute kidney injury. Resolved. 4. Acute blood loss anemia status post 3 units of blood transfusion. Status post IV DDAVP on May 01. Severe iron deficiency noted. GI following. 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 Hemoglobin is 5.7 today and he is scheduled to receive 2 units of blood. 5. Benign hypertension. Dose of amlodipine increased yesterday. 6. Urinary retention. Martini catheter reinserted May 09 due to persistent urinary retention. 7. Hypomagnesemia from poor oral intake. Better post placement. 8. Hypokalemia from poor oral intake. Better. 9. Hypernatremia secondary to lack of oral water intake. Plan: I will change IV fluids to D5W at 75 mL an hour. Maintain prednisone. Replace potassium. 20 mEq today. Maintain Aranesp. IV DDAVP today. Repeat electrolytes in the morning. 40 mg Lasix between blood transfusions today.
[2018-05-11] MEDS ORDERED: FUROSEMIDE 10 MG/ML 4 ML VIAL IV STA (10:06)
[2018-05-11] MEDS ORDERED: POTASSIUM CHLORIDE ER 20 MEQ TAB.ER PO STA (10:06)
[2018-05-11] MEDS ORDERED: Potassium Replacement Protocol 1 EACH MISC MISCELLANE PRN (10:25)
[2018-05-11] MEDS: POTASSIUM CHLORIDE 10 MEQ in WATER FOR INJECTION 1 100ML.BAG IVPB SCH ×2 (11:02→11:49)
--- NOTE | 2018-05-11 11:21 | PN ---
PROGRESS NOTE Patient is a 67-year-old pleasant white male admitted to hospital with severe symptomatic anemia for which he was evaluated by Dr. 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 The patient yesterday was quite confused. He was very agitated and hence, has received Haldol and this morning he is quite sleepy. In fact, he could not be around aroused for interview. As per the nursing staff, he has been sleeping all through the night. No abdominal pain. He was not complaining of any nausea, vomiting. No rectal bleeding or melena. However, his hemoglobin has dropped to 5.7 g/dL this morning. Yesterday it was 7.5 g/dL. PHYSICAL EXAMINATION: He is quite sleepy. Vital signs are stable. Blood pressure is 122/86, pulse rate 118, and afebrile. HEENT examination unremarkable. Conjunctivae pink. Sclerae anicteric. Oral cavity, no lesions. NECK: No JVD or lymph node enlargement. Chest was clear to auscultation. HEART: Regular rate and rhythm. Abdomen was soft, it was nontender, nondistended. Bowel sounds are positive. EXTREMITIES: No pedal edema. SKIN: No rashes. NEUROLOGIC: He is quite sleepy. LABS: Hemoglobin was 5.7, WBC 8.2, platelets of 392. BUN 56, creatinine 2.65. IMPRESSION: 1. Severe symptomatic anemia, status post 3 units of blood transfusion so far. Hemoglobin yesterday was 7.5. Today, it dropped down to 5.7 g/dL. Clinically no evidence of active bleeding. He did have an EGD by Dr. Naranjo 4 days ago, which showed a nonbleeding arteriovenous malformation that was treated with argon plasma coagulation and his hemoglobin was stable for a couple of days, but today dropped by 2 g. As per the nursing staff, there is no evidence of active bleeding noted. It is unclear if the patient had a colonoscopy in the past. 2. Agitation, altered mental status. Presently on Haldol. 3. Acute kidney injury. Nephrology following the patient closely. RECOMMENDATIONS: 1. Agree with 2 units of PRBC transfusion. 2. Observe for signs of active bleeding. 3. Obtain stool for Hemoccult. 4. Consider colonoscopy during this hospitalization if he continues to drop his hemoglobin. For now we will follow him closely during his hospital stay. Thank you for this consultation. LULY / GERARDON: [id number] /
--- NOTE | 2018-05-11 13:12 | P.PN ---
Subjective Progress Note Date: 05/09/18 Patient is admitted secondary to anemia symptomatic along with chest pain, patient is a blood transfusion patient is feeling much better today patient apparently was confused earlier today morning and last night and was bit agitated. Patient appears to have moderate dementia either vascular dementia dementia of Alzheimer's type. Does have memory difficulties at home as well but patient the was not confused when I evaluated the patient patient was started on as needed Haldol and Seroquel at nighttime for agitation. Cardiology evaluated the patient. Gastroenterology evaluated the patient. No obvious GI bleed at this time. Patient's creatinine is high and stable at around 3 believed to be secondary to acute tubular necrosis or interstitial her right is from my nonsteroidal anti-inflammatories nephrology evaluated the patient. Follow basic metabolic profile tomorrow. 05/02/2018 Patient was more agitated yesterday has a sitter now. Patient received DDAVP yesterday patient creatinine remains fairly stable at 3.37 patient the was started on gentle hydration today by nephrology. Increasing the dose of Haldol to 1 mg every 6 when necessary. Avoid benzo is his barbiturates opiates and anticholinergic medications. I as a nursing staff to avoid these medications and as a nursing staff to open the curtains which will help him with his agitation. Patient will not require IV hydralazine which was discontinued. CAT scan of the brain did not show any significant abnormality except for some possible left-sided mastoiditis. Patient's serum iron levels is extremely low because of which patient is receiving iron supplementation for that although his normal probably because of acute phase reactant and the patient's B12 and folic acids is essentially within normal limits. 05/03/2018 Patient's hemoglobin is below 7 today we'll transfuse him 1 more unit of blood patient's agitation episodes did not improve Resporal will be discontinue patient was started on nighttime Seroquel and as needed Haldol. We'll transfuse him 1 unit of blood. Down the steroids to by mouth 40 daily patient doesn't have any significant wheeze today. 05/03/2018 Patient had 4.stools today patient appears to have acute GI bleed upper GI bleed patient is already on Protonix. Patient may need upper GI endoscopy. Patient was more agitated requiring more Haldol and the patient is on Seroquel. We will continue with these medications will monitor him tonight. 05/05/2018 underwent EGD , tolerated procedure well. 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 No active bleeding noted. Hemoglobin 8.3 , creatinine 3.06. No agitation, sleepy as he has just returned from endoscopy. Staff reports no agitation during the night; currently on Seroquel. Sitter at bedside. 05/06/2018 more alert, confused. Family reporting patient continues to have black liquidy stools. Hemoglobin 9.8. Renal function improving, creatinine 2.62, potassium 3.6. Tachycardic earlier this a.m., heart rates in the 110s, patient did not receive his beta miriam yesterday, Heart rate currently 80s to 90s. Did not receive Seroquel during the night, no agitation, diet intake improving. Loose congested cough. Maintaining O2 sats in the low 90s on room air. Family has decided to proceed with subacute rehab at discharge. 05/07/2018 significant clinical improvement. Receiving empiric antibiotics, nebulized bronchodilators. Significant clinical improvement. EEG pending. Creatinine continues to improve, down to 2.55. Initially had planned for DC to [facility], but developed increased agitation. Reevaluated by psychiatry, recommendations noted including DC to [facility]. Brain CT reporting age-related atrophic and chronic small vessel ischemic changes without acute intracranial process .Social work met with family and discussed. Discharge planning in progress for tomorrow. 05/08/2018 maintained on gentle IV fluid hydration, potassium and magnesium replacement protocols. Oral intake poor. Labs pending. 05/09/2018 hemoglobin dropped to 7.5, tachycardic. Currently no signs or symptoms of bleeding. Evaluated by GI with diet advanced. Chest x-ray ordered reporting new bibasal opacity is suspicious for developing pneumonia, possible atelectasis. Currently on Zosyn. Influenza A and B ruled out. Maintained on gentle IV fluid hydration with renal function slowly improving. Afebrile, normal WBC. potassium 3.5. 05/10/2018 Patient is not doing well patient is tachypneic, Tachycardic, lipid the chest x- ray will obtain an ABG will obtain lactic acid levels. Patient is unable to swallow because of which patient is not getting any of his antidepressive medications patient was started on clonidine patch. Patient is hallucinating, will ask the psychiatric reevaluate the patient. 05/11/2018 Patient hemoglobin dropped to 5.8 with assistance of blood transfusion no evidence of JVD at this time will obtain a CAT scan of the abdomen to rule out retroperitoneal hematoma. Patient is less confused today hallucinations are significantly better. Patient has rhonchorous breath sounds Review of systems: Unable to obtain although patient says he is fine Objective - Vital Signs Vital signs: Vital Signs Temp 98.1 F 05/11/18 05:00 Pulse 123 H 05/11/18 11:41 Resp 17 05/11/18 05:00 BP 173/87 05/10/18 20:56 Pulse Ox 98 05/11/18 05:55 Intake & Output 05/10/18 05/11/18 05/11/18 18:59 06:59 18:59 Intake Total 1100 700 Output Total 350 300 Balance 750 400 Intake: Intake, IV Titration 1100 700 Amount Piperacillin-Tazobactam 3 100 .375 gm In Sodium Chloride 0.9% 100 ml @ 25 mls/hr IVPB Q8HR JAMA Rx# :[id number] Piperacillin-Tazobactam 3 100 .375 gm In Sodium Chloride 0.9% 100 ml @ 25 mls/hr IVPB Q8HR JAMA Rx# :[id number] Potassium Chloride 10 meq 400 In Water For Injection 1 100ml.bag @ 100 mls/hr IVPB Q1HR JAMA Rx#: [id number] Sodium Chloride 0.9% 1, 600 600 000 ml @ 50 mls/hr IV . Q20H JAMA Rx#:[id number] Oral 0 0 Output: Urine 300 Uretheral (Martini) 300 Stool 350 Other: Voiding Method Indwelling Catheter Indwelling Catheter Indwelling Catheter # Voids 1 - Exam GENERAL: sitting up in bed, acute and oriented 1-2, no acute distress, less confused, not hallucinating HEENT: Pupils are round and equally reacting to light. EOMI. No scleral icterus. No conjunctival pallor. Normocephalic, atraumatic. CARDIOVASCULAR: S1 and S2 present. Regular, No murmurs, rubs, or gallops. PULMONARY bilateral bases diminished with scattered rhonchi, crackles, no expiratory wheezing. ABDOMEN: Soft, nontender, nondistended, normoactive bowel sounds. No palpable organomegaly. MUSCULOSKELETAL: No joint swelling or deformity. EXTREMITIES: No cyanosis, clubbing, or pedal edema. NEUROLOGICAL: Gross neurological examination did not reveal any focal deficits. SKIN: No rashes. - Labs CBC & Chem 7: 05/11/18 06:33 05/11/18 06:33 Labs: Abnormal Lab Results - Last 24 Hours (Table) 05/10/18 05/10/18 05/11/18 Range/Units 14:24 19:38 06:33 RBC 1.95 L (4.30-5.90) m/uL Hgb 5.7 L* D (13.0-17.5) gm/dL Hct 18.9 L* (39.0-53.0) % MCHC 30.3 L (31.0-37.0) g/dL RDW 18.5 H (11.5-15.5) % ABG pH 7.53 H (7.35-7.45) ABG pCO2 34 L (35-45) mmHg ABG pO2 60 L (83-108) mmHg ABG HCO3 28 H (21-25) mmol/L ABG Total CO2 29 H (19-24) mmol/L ABG O2 Saturation 93.5 L (94-97) % Sodium (137-145) mmol/L Chloride (98-107) mmol/L BUN (9-20) mg/dL Creatinine (0.66-1.25) mg/dL POC Glucose (mg/dL) 138 H (75-99) mg/dL Calcium (8.4-10.2) mg/dL Crossmatch 05/11/18 05/11/18 Range/Units 06:33 09:25 RBC (4.30-5.90) m/uL Hgb (13.0-17.5) gm/dL Hct (39.0-53.0) % MCHC (31.0-37.0) g/dL RDW (11.5-15.5) % ABG pH (7.35-7.45) ABG pCO2 (35-45) mmHg ABG pO2 (83-108) mmHg ABG HCO3 (21-25) mmol/L ABG Total CO2 (19-24) mmol/L ABG O2 Saturation (94-97) % Sodium 148 H (137-145) mmol/L Chloride 116 H (98-107) mmol/L BUN 56 H (9-20) mg/dL Creatinine 2.65 H (0.66-1.25) mg/dL POC Glucose (mg/dL) (75-99) mg/dL Calcium 8.0 L (8.4-10.2) mg/dL Crossmatch See Detail Assessment and Plan Plan: Assessment and Plan Assessment: -Acute blood loss anemia without any evidence of GI bleed: We'll rule out retroperitoneal hematoma as mentioned above -upper GI bleed secondary to AV malformation duodenum status post argon plasma anticoagulation. -Bilateral pneumonia for which patient is Zosyn aspiration pneumonia cannot be ruled out patient to will have speech therapy evaluation tomorrow -Uncontrolled blood pressure as patient cannot take any by mouth and hypertensive medications -Tachycardia : Partly from anemia, infection and not being on beta miriam -Dysphagia due to his confusion -Chest pain,on admission secondary to anemia, possible type II [place]. -Agitation secondary to delirium associated with hospitalization, moderate to severe dementia mostly vascular dementia. Possible Alzheimer's disease -Severe anemia symptomatic, iron deficiency anemia which is chronic apart from acute GI bleed. -COPD with minimal exacerbation -Acute renal failure, secondary to tubular necrosis , or ALLERGIC interstitial nephritis secondary to nonsteroidal anti-inflammatory medication -Possible chronic kidney disease
--- NOTE | 2018-05-11 21:09 | CT ---
EXAMINATION TYPE: CT abdomen pelvis wo con DATE OF EXAM: 05/11/2018 COMPARISON: Ultrasound 05/01/2018 INDICATION: Abdominal pain, R/O retroperitoneal bleed DLP: 278.8 mGycm, Automated exposure control for dose reduction was used. CONTRAST: 0 mL of Isovue 300. Study performed without Oral Contrast TECHNIQUE: Axial images were obtained from above the diaphragm to the pubic rami in the axial plane a t 5 mm thick sections. Reconstructed images are reviewed on the computer in the coronal plane. FINDINGS: Limited CT sections are obtained the lung bases. Small bilateral pleural effusions are present. Ther e is mild compressive atelectasis adjacent. Note is made of coronary artery calcification.. CT ABDOMEN: Liver: Normal Spleen: Normal Pancreas: Normal Adrenal glands: The adrenal glands are normal. Gallbladder: Normal Kidneys: No masses are evident. No hydronephrosis is present. No cysts are present. No renal stone s are identified. Aorta: Vascular calcification is within the aorta. There is fusiform prominence of the mid abdominal aorta with an AP diameter of 2.6 cm this terminates bifurcation. Inferior vena cava: Normal. CT PELVIS: Psoas muscles appear normal. No suspicious retroperitoneal collections are evident to sugg est hemorrhage. Loops of bowel within the abdomen and pelvis are normal. Studies without oral contrast limiting b owel evaluation Appendix: Not identified. No suspicious inflammatory changes or dilated tubular structures are eviden t. Urinary bladder: Urinary bladder has thickened bladder wall. Martini catheter is present. Small amount of air, likely, is present. Genitourinary structures: Prostate appears poorly defined. Correlate with surgical history. Osseous structures: No suspicious lytic or sclerotic lesions. IMPRESSIONS: 1. No suspicious changes to suggest retroperitoneal bleed. 2. No abnormality to account for abdominal pain. 3. Urinary bladder despite being decompressed with a Martini catheter appears to have thickened urinary bladder simmons. 4. Small bilateral pleural effusions with adjacent atelectasis.
[2018-05-11] MEDS: hydrALAZINE HCL 20 MG/ML 1 ML VIAL IVP PRN (21:26)
[2018-05-12] MEDS: PIPERACILLIN-TAZOBACTAM 3.375 GM in SODIUM CHLORIDE 0.9% 100 ML IVPB SCH ×3 (00:56→17:25)
[2018-05-12] MEDS: hydrALAZINE HCL 20 MG/ML 1 ML VIAL IVP PRN (04:36)
[2018-05-12] MEDS: CARVEDILOL 12.5 MG TAB PO SCH ×3 (07:47→17:25)
[2018-05-12] MEDS: PANTOPRAZOLE 40 MG/10 ML VIAL IVP SCH ×2 (07:48→21:29)
[2018-05-12] MEDS: NICOTINE 21MG/24HR PATCH TRANSDERM SCH (07:48)
[2018-05-12] MEDS: predniSONE 10 MG TAB PO SCH ×2 (07:48→12:07)
[2018-05-12] MEDS: risperiDONE 1 MG TAB PO SCH ×3 (07:48→21:29)
[2018-05-12 08:05] LABS: Anisocytosis Slight; Hypochromasia Slight; MCH 30.5 pg (25.0-35.0); MCHC 33.1 g/dL (31.0-37.0); Mean Platelet Volume 7.3; Platelet Count 414 k/uL (150-450); Poikilocytosis Moderate; RBC 3.04 m/uL (4.30-5.90); RDW 18.6 % (11.5-15.5); WBC 10.8 k/uL (3.8-10.6)
[2018-05-12] MEDS: TAMSULOSIN 0.4 MG CAP.ER.24H PO SCH ×2 (08:06→12:08)
[2018-05-12] MEDS: hydrALAZINE HCL 50 MG TAB PO SCH ×4 (08:06→21:29)
[2018-05-12] MEDS: KETOROLAC 0.5% OPHTH DROPS 5 ML BTL BOTH EYES SCH ×2 (08:07→21:30)
[2018-05-12] MEDS: PREDNISOLONE BOTH EYES SCH ×2 (08:08→21:29)
[2018-05-12] MEDS: GENTAMICIN BOTH EYES SCH ×2 (08:08→21:29)
[2018-05-12 08:09] LABS: Albumin 2.7 g/dL (3.5-5.0); Calcium 8.6 mg/dL (8.4-10.2); Magnesium 2.1 mg/dL (1.6-2.3); Potassium 3.1 mmol/L (3.5-5.1); Total Bilirubin 1.2 mg/dL (0.2-1.3); Total Protein 5.1 g/dL (6.3-8.2)
[2018-05-12 08:10] LABS: HGB 9.3 gm/dL (13.0-17.5)
[2018-05-12] MEDS: BUDESONIDE 1 MG/2 ML NEBU INHALATION SCH ×2 (08:14→20:28)
[2018-05-12] MEDS: FORMOTEROL FUMARATE 20 MCG/2 ML NEBU INHALATION SCH ×2 (08:14→20:28)
[2018-05-12] MEDS: IPRATROPIUM-ALBUTEROL 3 ML NEB INHALATION SCH ×4 (08:14→20:27)
[2018-05-12] MEDS: POTASSIUM CHLORIDE ER 20 MEQ TAB.ER PO SCH ×2 (12:05→13:05)
--- NOTE | 2018-05-12 15:31 | PN ---
PROGRESS NOTE Patient is seen for followup for acute kidney injury secondary to NSAIDs, currently maintained on prednisone with improving renal function. The patient had developed fluid overload over the weekend. His IV fluids are now discontinued. He remains n.p.o. however secondary to difficulty with swallowing. Patient is going for a swallowing evaluation again today. PHYSICAL EXAMINATION: Blood pressure this morning was 135/79, heart rate 90 per minute. He is afebrile. Examination of the heart S1, S2. Examination of the lungs bilateral breath sounds are heard. No crackles or wheezing is heard. Abdomen is soft, nontender. Examination of lower extremity shows no evidence of edema. SHOOTING GALLERY OPERATOR exam shows patient moving all 4 extremities. He is much more awake and alert today as compared to Saturday. Labs show sodium of 147, potassium 3.1, BUN 63, serum creatinine 2.52, hemoglobin 9.3 g/dL. ASSESSMENT: 1. Acute kidney injury secondary to NSAIDs, maintained on prednisone currently with improving renal function. The patient has nephrotic range proteinuria of about 10 g. This will need to be followed as outpatient. At this time family has refused a kidney biopsy. 2. Acute anemia. No active bleeding noted, status post packed RBCs transfusion. CT of the abdomen was done yesterday which showed no evidence of bleeding. 3. Hypernatremia. The patient is encouraged to increase his free water intake. Hopefully he will pass the swallowing eval. PLAN: Continue with the prednisone. If the patient is not able to take p.o., we will switch him to small dose of IV steroids. Repeat labs in a.m. MMTANISHAL / GERARDON: [id number] /
--- NOTE | 2018-05-12 15:36 | FL ---
Modified barium swallow. HISTORY: Dysphagia. Modified barium swallow was performed with the department of speech pathology. The patient was prese nted with various consistencies of barium. There is evidence for deep penetration with thin liquid barium. Trace aspiration suspected with honey thick barium. Full report is to follow from the department of speech pathology. Impression: There is evidence for deep penetration with thin liquid barium. Trace aspiration suspect ed with honey thick barium.
--- NOTE | 2018-05-12 22:03 | P.PN ---
Subjective Progress Note Date: 05/12/18 Principal diagnosis: Anemia, melena, small bowel AVM Patient lying in bed. No reports of hematochezia or melena. Objective - Vital Signs Vital signs: Vital Signs Temp 98.2 F 05/12/18 12:35 Pulse 92 05/12/18 20:56 Resp 16 05/12/18 16:00 BP 135/79 05/12/18 12:35 Pulse Ox 96 05/12/18 12:35 Intake & Output 05/12/18 05/12/18 05/13/18 06:59 18:59 06:59 Intake Total 760 Output Total 2500 Balance -1740 Weight 65.5 kg Intake: Intake, IV Titration 450 Amount Dextrose 5% in Water 1, 350 000 ml @ 75 mls/hr IV . [id number] Rx#:[id number] Piperacillin-Tazobactam 3 100 .375 gm In Sodium Chloride 0.9% 100 ml @ 25 mls/hr IVPB Q8HR JAMA Rx# :[id number] Blood Product 310 Rc As-1 Unit 310 [id number] Output: Urine 2500 Uretheral (Martini) 800 Other: Voiding Method Indwelling Catheter Indwelling Catheter # Bowel Movements 2 - Exam On physical examination, patient appears comfortable in no apparent distress. HEAD: Normocephalic, atraumatic. EYES: No scleral icterus. No conjunctival injection. MOUTH: No lesions, tongue midline. NECK: Trachea midline, no gross abnormalities. CHEST: Decreased air entry in all lung rodriguez. ABDOMEN: Soft. Bowel sounds are positive. No organomegaly. No guarding or rigidity. EXTREMITIES: No pedal edema. SKIN: No rashes, no jaundice. NEUROLOGIC: Alert but confused. No focal deficits. - Labs CBC & Chem 7: 05/12/18 06:57 05/12/18 16:07 Labs: Abnormal Lab Results - Last 24 Hours (Table) 05/12/18 05/12/18 Range/Units 06:57 06:57 WBC 10.8 H (3.8-10.6) k/uL RBC 3.04 L (4.30-5.90) m/uL Hgb 9.3 L D (13.0-17.5) gm/dL Hct 28.0 L (39.0-53.0) % RDW 18.6 H (11.5-15.5) % Sodium 147 H (137-145) mmol/L Potassium 3.1 L (3.5-5.1) mmol/L Chloride 115 H (98-107) mmol/L BUN 63 H (9-20) mg/dL Creatinine 2.52 H (0.66-1.25) mg/dL Glucose 108 H (74-99) mg/dL AST 92 H (17-59) U/L ALT 91 H (21-72) U/L Total Protein 5.1 L (6.3-8.2) g/dL Albumin 2.7 L (3.5-5.0) g/dL Assessment and Plan (1) Symptomatic anemia Narrative/Plan: Symptomatic iron deficiency anemia, likely with component of anemia of chronic disease in the setting of possible chronic kidney disease, although baseline creatinine is from 2013. Upper endoscopy with nonbleeding duodenal AVM treated with argon plasma coagulation. No further signs or symptoms of GI bleeding reported. Current Visit: Yes Status: Acute Code(s): D64.9 - ANEMIA, UNSPECIFIED SNOMED Code(s): 606292835 Plan: Supportive care Okay for diet as tolerated, recommendations by ASSISTANT MERCHANDISE MANAGER pending Continue Protonix daily Continue to monitor hemoglobin and transfuse as needed Watch for signs or symptoms of GI bleeding Avoid NSAID use Continue iron supplementation Thank you for allowing us to participate in the care of the patient, we will continue to follow
[2018-05-12] MEDS: DEXTROSE 5% IN WATER 1,000 ML IV SCH (22:41)
[2018-05-13] MEDS: PIPERACILLIN-TAZOBACTAM 3.375 GM in SODIUM CHLORIDE 0.9% 100 ML IVPB SCH ×3 (00:14→16:31)
[2018-05-13 08:36] LABS: Calcium 8.6 mg/dL (8.4-10.2); Potassium 3.2 mmol/L (3.5-5.1)
[2018-05-13] MEDS: BUDESONIDE 1 MG/2 ML NEBU INHALATION SCH ×2 (08:36→18:59)
[2018-05-13] MEDS: FORMOTEROL FUMARATE 20 MCG/2 ML NEBU INHALATION SCH ×2 (08:36→19:03)
[2018-05-13] MEDS: IPRATROPIUM-ALBUTEROL 3 ML NEB INHALATION SCH ×4 (08:36→18:59)
[2018-05-13 09:07] LABS: Anisocytosis Slight; HGB 9.3 gm/dL (13.0-17.5); Hypochromasia Slight; MCH 30.1 pg (25.0-35.0); MCHC 32.1 g/dL (31.0-37.0); MCV 93.7 fL (80.0-100.0); Macrocytosis Slight; Mean Platelet Volume 8.1; Platelet Count 442 k/uL (150-450); Poikilocytosis Slight; RBC 3.09 m/uL (4.30-5.90); RDW 18.7 % (11.5-15.5)
[2018-05-13] MEDS: KETOROLAC 0.5% OPHTH DROPS 5 ML BTL BOTH EYES SCH ×2 (09:37→21:10)
[2018-05-13] MEDS: hydrALAZINE HCL 50 MG TAB PO SCH ×3 (09:37→21:09)
[2018-05-13] MEDS: predniSONE 20 MG TAB PO SCH (09:37)
[2018-05-13] MEDS: CARVEDILOL 12.5 MG TAB PO SCH ×2 (09:37→16:31)
[2018-05-13] MEDS: TAMSULOSIN 0.4 MG CAP.ER.24H PO SCH (09:37)
[2018-05-13] MEDS: NICOTINE 21MG/24HR PATCH TRANSDERM SCH (09:39)
[2018-05-13] MEDS: PANTOPRAZOLE 40 MG/10 ML VIAL IVP SCH ×2 (09:39→21:09)
[2018-05-13] MEDS: risperiDONE 1 MG TAB PO SCH ×2 (09:40→21:09)
[2018-05-13] MEDS: GENTAMICIN BOTH EYES SCH ×2 (09:43→21:10)
[2018-05-13] MEDS: PREDNISOLONE BOTH EYES SCH ×2 (09:43→21:10)
[2018-05-13 09:55] LABS: Lymphocytes # (M) 1.41 k/uL (1.0-4.8); Monocytes # (M) 0.97 k/uL (0-1.0); Neutrophils # (M) 6.51 k/uL (1.3-7.7); Neutrophils % (M) 74 %; Nucleated Red Blood Cells 3 /100 WBC (0-0); Total Cells Counted 200; WBC 8.8 k/uL (3.8-10.6)
[2018-05-13] MEDS: DEXTROSE 5% IN WATER 1,000 ML IV SCH (13:56)
--- NOTE | 2018-05-13 14:45 | P.DS ---
Providers Date of admission: 04/30/18 15:27 Attending physician: Luis Miguel Castaneda MD Consults: 04/30/18 15:23 Consult Physician Routine Consulting Provider: Ramesh Van Consult Reason/Comments: Chest pain Do you want consulting provider notified?: Yes Consult Physician Routine Consulting Provider: Leti Church Consult Reason/Comments: Renal failure Do you want consulting provider notified?: Yes 04/30/18 17:58 Consult Physician Routine Consulting Provider: Leland Naranjo Consult Reason/Comments: GI bleed, 4.6 at [facility] Do you want consulting provider notified?: Yes 05/01/18 11:10 Consult Physician Routine Consulting Provider: Bill Brannon Consult Reason/Comments: COPD Do you want consulting provider notified?: Yes 05/06/18 17:54 Consult Physician Routine Consulting Provider: Dragan Strickland Consult Reason/Comments: reevaluate for discharge, increased confusion Do you want consulting provider notified?: Yes Primary care physician: [facility] Course: Patient is admitted secondary to anemia symptomatic along with chest pain, patient is a blood transfusion patient is feeling much better today patient apparently was confused earlier today morning and last night and was bit agitated. Patient appears to have moderate dementia either vascular dementia dementia of Alzheimer's type. Does have memory difficulties at home as well but patient the was not confused when I evaluated the patient patient was started on as needed Haldol and Seroquel at nighttime for agitation. Cardiology evaluated the patient. Gastroenterology evaluated the patient. No obvious GI bleed at this time. Patient's creatinine is high and stable at around 3 believed to be secondary to acute tubular necrosis or interstitial her right is from my nonsteroidal anti-inflammatories nephrology evaluated the patient. Follow basic metabolic profile tomorrow. 05/02/2018 Patient was more agitated yesterday has a sitter now. Patient received DDAVP yesterday patient creatinine remains fairly stable at 3.37 patient the was started on gentle hydration today by nephrology. Increasing the dose of Haldol to 1 mg every 6 when necessary. Avoid benzo is his barbiturates opiates and anticholinergic medications. I as a nursing staff to avoid these medications and as a nursing staff to open the curtains which will help him with his agitation. Patient will not require IV hydralazine which was discontinued. CAT scan of the brain did not show any significant abnormality except for some possible left-sided mastoiditis. Patient's serum iron levels is extremely low because of which patient is receiving iron supplementation for that although his normal probably because of acute phase reactant and the patient's B12 and folic acids is essentially within normal limits. 05/03/2018 Patient's hemoglobin is below 7 today we'll transfuse him 1 more unit of blood patient's agitation episodes did not improve Resporal will be discontinue patient was started on nighttime Seroquel and as needed Haldol. We'll transfuse him 1 unit of blood. Down the steroids to by mouth 40 daily patient doesn't have any significant wheeze today. 05/03/2018 Patient had 4.stools today patient appears to have acute GI bleed upper GI bleed patient is already on Protonix. Patient may need upper GI endoscopy. Patient was more agitated requiring more Haldol and the patient is on Seroquel. We will continue with these medications will monitor him tonight. 05/05/2018 underwent EGD , tolerated procedure well. 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 No active bleeding noted. Hemoglobin 8.3 , creatinine 3.06. No agitation, sleepy as he has just returned from endoscopy. Staff reports no agitation during the night; currently on Seroquel. Sitter at bedside. 05/06/2018 more alert, confused. Family reporting patient continues to have black liquidy stools. Hemoglobin 9.8. Renal function improving, creatinine 2.62, potassium 3.6. Tachycardic earlier this a.m., heart rates in the 110s, patient did not receive his beta miriam yesterday, Heart rate currently 80s to 90s. Did not receive Seroquel during the night, no agitation, diet intake improving. Loose congested cough. Maintaining O2 sats in the low 90s on room air. Family has decided to proceed with subacute rehab at discharge. 05/07/2018 significant clinical improvement. Receiving empiric antibiotics, nebulized bronchodilators. Significant clinical improvement. EEG pending. Creatinine continues to improve, down to 2.55. Initially had planned for DC to [facility], but developed increased agitation. Reevaluated by psychiatry, recommendations noted including DC to [place]. Brain CT reporting age-related atrophic and chronic small vessel ischemic changes without acute intracranial process .Social work met with family and discussed. Discharge planning in progress for tomorrow. 05/08/2018 maintained on gentle IV fluid hydration, potassium and magnesium replacement protocols. Oral intake poor. Labs pending. 05/09/2018 hemoglobin dropped to 7.5, tachycardic. Currently no signs or symptoms of bleeding. Evaluated by GI with diet advanced. Chest x-ray ordered reporting new bibasal opacity is suspicious for developing pneumonia, possible atelectasis. Currently on Zosyn. Influenza A and B ruled out. Maintained on gentle IV fluid hydration with renal function slowly improving. Afebrile, normal WBC. potassium 3.5. 05/10/2018 Patient is not doing well patient is tachypneic, Tachycardic, lipid the chest x- ray will obtain an ABG will obtain lactic acid levels. Patient is unable to swallow because of which patient is not getting any of his antidepressive medications patient was started on clonidine patch. Patient is hallucinating, will ask the psychiatric reevaluate the patient. 05/11/2018 Patient hemoglobin dropped to 5.8 with assistance of blood transfusion no evidence of JVD at this time will obtain a CAT scan of the abdomen to rule out retroperitoneal hematoma. Patient is less confused today hallucinations are significantly better. Patient has rhonchorous breath sounds Significant clinical improvement. Patient will be discharged to [facility] pending clearance from nephrology, GI. in a stable condition with guarded condition. GENERAL: sitting up in bed, acute and oriented 1-2, no acute distress, less confused HEENT: Pupils are round and equally reacting to light. EOMI. No scleral icterus. No conjunctival pallor. Normocephalic, atraumatic. CARDIOVASCULAR: S1 and S2 present. Regular, No murmurs, rubs, or gallops. PULMONARY bilateral bases diminished with scattered rhonchi, crackles, no expiratory wheezing. ABDOMEN: Soft, nontender, nondistended, normoactive bowel sounds. No palpable organomegaly. MUSCULOSKELETAL: No joint swelling or deformity. EXTREMITIES: No cyanosis, clubbing, or pedal edema. NEUROLOGICAL: Gross neurological examination did not reveal any focal deficits. SKIN: No rashes. The impression and plan of care has been dictated as directed. : I performed a history and examination of this patient, discussed the same with the dictator. I agree with the dictator's note ,documented as a scribe. Any additional findings or plans will be noted. TIme taken: 35min. Patient Condition at Discharge: Stable Plan - Discharge Summary Discharge Rx Participant: No New Discharge Prescriptions: New Acetaminophen Tab [Tylenol] 650 mg PO Q6HR PRN tab PRN Reason: Fever And/ Or Pain amLODIPine [Norvasc] 5 mg PO DAILY tab Budesonide [Pulmicort] 1 mg INHALATION RT-BID nebu hydrALAZINE HCL [Apresoline] 100 mg PO TID tab Ipratropium-Albuterol Nebulize [Duoneb 0.5 mg-3 mg/3 ml Soln] 3 ml INHALATION RT-QID ampul.neb Ipratropium-Albuterol Nebulize [Duoneb 0.5 mg-3 mg/3 ml Soln] 3 ml INHALATION Q4H PRN ampul.neb PRN Reason: Shortness Of Breath Or Wheezing Amoxicillin/Potassium Clav [Augmentin 875-125 Tablet] 1 tab PO Q12HR #10 tab predniSONE 10 mg PO DIRECTED #18 tab Carvedilol [Coreg*] 12.5 mg PO BID-W/MEALS tab cloNIDine 0.2 MG/24HR PATCH [Catapres-TTS] 1 patch TRANSDERM Q7D patch Nicotine 21Mg/24Hr Patch [Habitrol] 1 patch TRANSDERM DAILY patch risperiDONE [RisperDAL] 1 mg PO BID tab Tamsulosin [Flomax] 0.4 mg PO PC-BRKFST cap.er.24h Continue Gentamicin/Prednisol AC [Pred-G 1% Eye Drops] 1 drop BOTH EYES BID Ketorolac 0.5% Ophth Soln [Acular 0.5%] 1 drop BOTH EYES BID Omeprazole Magnesium [PriLOSEC OTC] 1 tab PO DAILY PRN PRN Reason: Gi Upset Discontinued Metoprolol Tartrate [Lopressor] 50 mg PO BID Albuterol Nebulized (Conc) [Ventolin Nebulized (Conc)] 2.5 mg PO RT-Q6H Discharge Medication List Gentamicin/Prednisol AC [Pred-G 1% Eye Drops] 1 drop BOTH EYES BID 04/30/18 [ History] Ketorolac 0.5% Ophth Soln [Acular 0.5%] 1 drop BOTH EYES BID 04/30/18 [History] Omeprazole Magnesium [PriLOSEC OTC] 1 tab PO DAILY PRN 04/30/18 [History] Acetaminophen Tab [Tylenol] 650 mg PO Q6HR PRN tab 05/07/18 [Rx] Amoxicillin/Potassium Clav [Augmentin 875-125 Tablet] 1 tab PO Q12HR #10 tab 09/17 [Rx] Budesonide [Pulmicort] 1 mg INHALATION RT-BID nebu 05/07/18 [Rx] Ipratropium-Albuterol Nebulize [Duoneb 0.5 mg-3 mg/3 ml Soln] 3 ml INHALATION Q4H PRN ampul.neb 05/07/18 [Rx] Ipratropium-Albuterol Nebulize [Duoneb 0.5 mg-3 mg/3 ml Soln] 3 ml INHALATION RT -QID ampul.neb 05/07/18 [Rx] amLODIPine [Norvasc] 5 mg PO DAILY tab 05/07/18 [Rx] hydrALAZINE HCL [Apresoline] 100 mg PO TID tab 05/07/18 [Rx] predniSONE 10 mg PO DIRECTED #18 tab 05/07/18 [Rx] Carvedilol [Coreg*] 12.5 mg PO BID-W/MEALS tab 05/13/18 [Rx] Nicotine 21Mg/24Hr Patch [Habitrol] 1 patch TRANSDERM DAILY patch 05/13/18 [Rx] Tamsulosin [Flomax] 0.4 mg PO PC-BRKFST cap.er.24h 05/13/18 [Rx] cloNIDine 0.2 MG/24HR PATCH [Catapres-TTS] 1 patch TRANSDERM Q7D patch [Rx] risperiDONE [RisperDAL] 1 mg PO BID tab 05/13/18 [Rx] Follow up Appointment(s)/Referral(s): [facility] [Provider Group] - 1 Week Rudy Santoyo DO [Primary Care Provider] - 1 Week (After DC from subacute rehab ) Erwin Escobedo DO [STAFF PHYSICIAN] - 1 Week Leland Naranjo MD [STAFF PHYSICIAN] - 2 Weeks Patient Instructions/Handouts: Chest Pain (DC), Iron Rich Diet (DC), Dementia ( GEN), Acute Delirium (DC), Anemia (DC) Activity/Diet/Wound Care/Special Instructions: [facility] cbc,bmp in 3 days Strict aspiration precautions Dyspagsia Level 1 pureed, refer to speech therapy note Activity: as tolerated
[2018-05-13 16:31] LABS: Anisocytosis Slight; HCT 27.1 % (39.0-53.0); HGB 8.7 gm/dL (13.0-17.5); Hypochromasia Slight; MCHC 32.2 g/dL (31.0-37.0); MCV 93.3 fL (80.0-100.0); Macrocytosis Slight; Mean Platelet Volume 8.5; Platelet Count 413 k/uL (150-450); Poikilocytosis Slight; RDW 18.9 % (11.5-15.5); WBC 9.4 k/uL (3.8-10.6)
[2018-05-13] MEDS: POTASSIUM CHLORIDE ER 20 MEQ TAB.ER PO SCH ×2 (16:31→17:46)
--- NOTE | 2018-05-13 17:25 | P.PN ---
Subjective Progress Note Date: 05/12/18 Patient is admitted secondary to anemia symptomatic along with chest pain, patient is a blood transfusion patient is feeling much better today patient apparently was confused earlier today morning and last night and was bit agitated. Patient appears to have moderate dementia either vascular dementia dementia of Alzheimer's type. Does have memory difficulties at home as well but patient the was not confused when I evaluated the patient patient was started on as needed Haldol and Seroquel at nighttime for agitation. Cardiology evaluated the patient. Gastroenterology evaluated the patient. No obvious GI bleed at this time. Patient's creatinine is high and stable at around 3 believed to be secondary to acute tubular necrosis or interstitial her right is from my nonsteroidal anti-inflammatories nephrology evaluated the patient. Follow basic metabolic profile tomorrow. 05/02/2018 Patient was more agitated yesterday has a sitter now. Patient received DDAVP yesterday patient creatinine remains fairly stable at 3.37 patient the was started on gentle hydration today by nephrology. Increasing the dose of Haldol to 1 mg every 6 when necessary. Avoid benzo is his barbiturates opiates and anticholinergic medications. I as a nursing staff to avoid these medications and as a nursing staff to open the curtains which will help him with his agitation. Patient will not require IV hydralazine which was discontinued. CAT scan of the brain did not show any significant abnormality except for some possible left-sided mastoiditis. Patient's serum iron levels is extremely low because of which patient is receiving iron supplementation for that although his normal probably because of acute phase reactant and the patient's B12 and folic acids is essentially within normal limits. 05/03/2018 Patient's hemoglobin is below 7 today we'll transfuse him 1 more unit of blood patient's agitation episodes did not improve Resporal will be discontinue patient was started on nighttime Seroquel and as needed Haldol. We'll transfuse him 1 unit of blood. Down the steroids to by mouth 40 daily patient doesn't have any significant wheeze today. 05/03/2018 Patient had 4.stools today patient appears to have acute GI bleed upper GI bleed patient is already on Protonix. Patient may need upper GI endoscopy. Patient was more agitated requiring more Haldol and the patient is on Seroquel. We will continue with these medications will monitor him tonight. 05/05/2018 underwent EGD , tolerated procedure well. 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 No active bleeding noted. Hemoglobin 8.3 , creatinine 3.06. No agitation, sleepy as he has just returned from endoscopy. Staff reports no agitation during the night; currently on Seroquel. Sitter at bedside. 05/06/2018 more alert, confused. Family reporting patient continues to have black liquidy stools. Hemoglobin 9.8. Renal function improving, creatinine 2.62, potassium 3.6. Tachycardic earlier this a.m., heart rates in the 110s, patient did not receive his beta miriam yesterday, Heart rate currently 80s to 90s. Did not receive Seroquel during the night, no agitation, diet intake improving. Loose congested cough. Maintaining O2 sats in the low 90s on room air. Family has decided to proceed with subacute rehab at discharge. 05/07/2018 significant clinical improvement. Receiving empiric antibiotics, nebulized bronchodilators. Significant clinical improvement. EEG pending. Creatinine continues to improve, down to 2.55. Initially had planned for DC to [facility], but developed increased agitation. Reevaluated by psychiatry, recommendations noted including DC to [facility]. Brain CT reporting age-related atrophic and chronic small vessel ischemic changes without acute intracranial process .Social work met with family and discussed. Discharge planning in progress for tomorrow. 05/08/2018 maintained on gentle IV fluid hydration, potassium and magnesium replacement protocols. Oral intake poor. Labs pending. 05/09/2018 hemoglobin dropped to 7.5, tachycardic. Currently no signs or symptoms of bleeding. Evaluated by GI with diet advanced. Chest x-ray ordered reporting new bibasal opacity is suspicious for developing pneumonia, possible atelectasis. Currently on Zosyn. Influenza A and B ruled out. Maintained on gentle IV fluid hydration with renal function slowly improving. Afebrile, normal WBC. potassium 3.5. 05/10/2018 Patient is not doing well patient is tachypneic, Tachycardic, lipid the chest x- ray will obtain an ABG will obtain lactic acid levels. Patient is unable to swallow because of which patient is not getting any of his antidepressive medications patient was started on clonidine patch. Patient is hallucinating, will ask the psychiatric reevaluate the patient. 05/11/2018 Patient hemoglobin dropped to 5.8 with assistance of blood transfusion no evidence of JVD at this time will obtain a CAT scan of the abdomen to rule out retroperitoneal hematoma. Patient is less confused today hallucinations are significantly better. Patient has rhonchorous breath sounds 05/12/2018 CT of abdomen and pelvis reported no suspicious chanes to suggest retroperitoneal bleed, no abnormality to account for abdominal pain, thickened urinary bladder simmons.Potassium 3.1, supplemented as per nephrology.hemoglobin 9.3.Modified barium swallow reported evidence of deep penetration with thin liquid barium, trace aspiration suspected with honey thickened barium. Objective - Vital Signs Vital signs: Vital Signs Temp 98.2 F 05/12/18 12:35 Pulse 90 05/12/18 15:44 Resp 16 05/12/18 16:00 BP 135/79 05/12/18 12:35 Pulse Ox 96 05/12/18 12:35 Intake & Output 05/12/18 05/12/18 05/13/18 06:59 18:59 06:59 Intake Total 760 Output Total 2500 Balance -1740 Weight 65.5 kg Intake: Intake, IV Titration 450 Amount Dextrose 5% in Water 1, 350 000 ml @ 75 mls/hr IV . [id number] ONE Rx#:[id number] Piperacillin-Tazobactam 3 100 .375 gm In Sodium Chloride 0.9% 100 ml @ 25 mls/hr IVPB Q8HR [facility] Rx# :[id number] Blood Product 310 Rc As-1 Unit 310 [id number] Output: Urine 2500 Uretheral (Martini) 800 Other: Voiding Method Indwelling Catheter Indwelling Catheter # Bowel Movements 2 - Exam GENERAL: sitting up in bed, acute and oriented 2, no acute distress, confused HEENT: Pupils are round and equally reacting to light. EOMI. No scleral icterus. No conjunctival pallor. Normocephalic, atraumatic. CARDIOVASCULAR: S1 and S2 present. Regular, No murmurs, rubs, or gallops. PULMONARY bilateral bases diminished with scattered rhonchi, crackles, no expiratory wheezing. ABDOMEN: Soft, nontender, nondistended, normoactive bowel sounds. No palpable organomegaly. MUSCULOSKELETAL: No joint swelling or deformity. EXTREMITIES: No cyanosis, clubbing, or pedal edema. NEUROLOGICAL: Gross neurological examination did not reveal any focal deficits. SKIN: No rashes. - Labs CBC & Chem 7: 05/13/18 16:18 05/13/18 06:40 Labs: Abnormal Lab Results - Last 24 Hours (Table) 05/12/18 05/12/18 Range/Units 06:57 06:57 WBC 10.8 H (3.8-10.6) k/uL RBC 3.04 L (4.30-5.90) m/uL Hgb 9.3 L D (13.0-17.5) gm/dL Hct 28.0 L (39.0-53.0) % RDW 18.6 H (11.5-15.5) % Sodium 147 H (137-145) mmol/L Potassium 3.1 L (3.5-5.1) mmol/L Chloride 115 H (98-107) mmol/L BUN 63 H (9-20) mg/dL Creatinine 2.52 H (0.66-1.25) mg/dL Glucose 108 H (74-99) mg/dL AST 92 H (17-59) U/L ALT 91 H (21-72) U/L Total Protein 5.1 L (6.3-8.2) g/dL Albumin 2.7 L (3.5-5.0) g/dL Assessment and Plan Assessment: -acute upper GI blood loss anemia 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 -bilateral pneumonia, possible aspiration pneumonia -Dysphagia,Moderate oropharyngeal, please refer to speech therapy's notes. -Chest pain,on admission secondary to anemia, possible type II IN. -Agitation secondary to delirium associated with hospitalization, moderate to severe dementia mostly vascular dementia. Possible Alzheimer's disease -Severe anemia symptomatic, iron deficiency anemia which is chronic apart from acute GI bleed. -COPD with minimal exacerbation -Acute renal failure, secondary to tubular necrosis , or ALLERGIC interstitial nephritis secondary to nonsteroidal anti-inflammatory medication -Possible chronic kidney disease. Plan: Continue on current medication regime , beta miriam, PPI ,monitoring and symptomatic treatment. strict aspiration precautions. Close monitoring of renal function, CBC, electrolytes ,repeat labs ordered for a.m. electrolyte replacement as per nephrology. discharge planning in progress for [facility] tomorrow pending clearance from GI, nephrology. The impression and plan of care has been dictated as directed. : I performed a history and examination of this patient, discussed the same with the dictator. I agree with the dictator's note ,documented as a scribe. Any additional findings or plans will be noted.
--- NOTE | 2018-05-13 18:54 | PN ---
PROGRESS NOTE Patient is seen for followup for acute kidney injury from NSAID-induced toxicity. Currently patient is lying in bed. He is comfortable. He requires a sitter, mainly for safety purposes, as he was trying to get out of bed. He is trying to increase his oral intake. On examination this morning, blood pressure was 126/71, heart rate 64 per minute. He is afebrile. EXAMINATION OF THE HEART: S1, S2. EXAMINATION OF LUNGS: Bilateral breath sounds are heard. ABDOMEN: Soft, non-tender. Examination of lower extremities shows no significant edema. DIGESTER OPERATOR exam is grossly intact. Labs show sodium of 150, potassium 3.2, chloride 117, BUN 67, serum creatinine 2.64. Hemoglobin was 8.7 g/dL. ASSESSMENT: 1. Acute kidney injury from non-steroidal anti-inflammatory toxicity, maintained on prednisone, which I will continue. Patient also has about 10 grams of proteinuria, and this will need to be followed as outpatient as well. 2. Hypernatremia associated with free water deficit. Maintained on D5W. 3. Hypokalemia, being replaced. 4. Acute anemia with no active evidence of gastrointestinal bleed. PLAN: Continue with D5W. Replace potassium. If patient is discharged, he needs to follow up as outpatient in one week's time to monitor the proteinuria and renal function. MMODL / IJN: [id number] /
[2018-05-14] MEDS: PIPERACILLIN-TAZOBACTAM 3.375 GM in SODIUM CHLORIDE 0.9% 100 ML IVPB SCH ×2 (01:12→08:27)
[2018-05-14] MEDS: DEXTROSE 5% IN WATER 1,000 ML IV SCH ×3 (05:06→20:07)
[2018-05-14 07:25] LABS: Anisocytosis Slight; Basophils % (A) 0 %; Eosinophils # (A) 0.1 k/uL (0-0.7); Eosinophils % (A) 1 %; HCT 24.9 % (39.0-53.0); HGB 7.9 gm/dL (13.0-17.5); Hypochromasia Slight; Lymphocytes # (A) 1.9 k/uL (1.0-4.8); Lymphocytes % (A) 19 %; MCH 30.2 pg (25.0-35.0); MCHC 31.8 g/dL (31.0-37.0); MCV 94.9 fL (80.0-100.0); Macrocytosis Slight; Mean Platelet Volume 9.3; Monocytes # (A) 0.6 k/uL (0-1.0); Monocytes % (A) 6 %; Neutrophils # (A) 7.2 k/uL (1.3-7.7); Neutrophils % (A) 71 %; Platelet Count 412 k/uL (150-450); Poikilocytosis Slight; RBC 2.62 m/uL (4.30-5.90); RDW 19.2 % (11.5-15.5); WBC 10.2 k/uL (3.8-10.6)
[2018-05-14 07:35] LABS: Calcium 8.3 mg/dL (8.4-10.2); Potassium 3.2 mmol/L (3.5-5.1)
[2018-05-14] MEDS: BUDESONIDE 1 MG/2 ML NEBU INHALATION SCH ×2 (07:49→20:02)
[2018-05-14] MEDS: FORMOTEROL FUMARATE 20 MCG/2 ML NEBU INHALATION SCH ×2 (07:49→20:02)
[2018-05-14] MEDS: IPRATROPIUM-ALBUTEROL 3 ML NEB INHALATION SCH ×4 (07:50→20:02)
[2018-05-14] MEDS ORDERED: SODIUM CHLORIDE 0.45% 1,000 ML IV SCH (09:30)
[2018-05-14] MEDS: NICOTINE 21MG/24HR PATCH TRANSDERM SCH (11:06)
[2018-05-14] MEDS: TAMSULOSIN 0.4 MG CAP.ER.24H PO SCH (11:06)
[2018-05-14] MEDS: CARVEDILOL 12.5 MG TAB PO SCH (11:06)
[2018-05-14] MEDS: hydrALAZINE HCL 50 MG TAB PO SCH ×3 (11:06→22:10)
[2018-05-14] MEDS: risperiDONE 1 MG TAB PO SCH ×2 (11:07→20:50)
[2018-05-14] MEDS: predniSONE 20 MG TAB PO SCH (11:07)
[2018-05-14] MEDS: KETOROLAC 0.5% OPHTH DROPS 5 ML BTL BOTH EYES SCH ×2 (11:08→20:50)
[2018-05-14] MEDS: GENTAMICIN BOTH EYES SCH ×2 (11:08→20:50)
[2018-05-14] MEDS: PREDNISOLONE BOTH EYES SCH ×2 (11:08→20:50)
[2018-05-14] MEDS: PANTOPRAZOLE 40 MG/10 ML VIAL IVP SCH ×2 (11:51→22:10)
--- NOTE | 2018-05-14 15:04 | XR ---
EXAMINATION TYPE: XR chest 1V portable DATE OF EXAM: 05/14/2018 COMPARISON: 05/10/2018 HISTORY: Shortness of breath FINDINGS: Noted is pulmonary venous congestion with scattered infiltrates. There is also cardiomegaly and small effusions. IMPRESSION: Findings compatible with improving congestive failure. Infiltrates of other etiology are not exclude d. Clinical correlation and progress studies are recommended.
[2018-05-14] MEDS ORDERED: FUROSEMIDE 10 MG/ML 4 ML VIAL IV ONE (17:00)
[2018-05-14] MEDS: METOPROLOL TARTRATE 25 MG TAB PO SCH (17:49)
--- NOTE | 2018-05-14 19:10 | PN ---
PROGRESS NOTE Patient is seen for followup for acute kidney injury. He is currently maintained on IV fluids. Patient has not been eating or drinking much. He remains with a sitter at bedside. On examination this afternoon, blood pressure was 149/78, heart rate of 92 per minute. Patient is afebrile. EXAMINATION OF THE HEART: S1, S2. EXAMINATION OF LUNGS: Bilateral breath sounds are heard. ABDOMEN: Soft, non-tender. Examination of lower extremities shows no significant edema. Labs show sodium of 151, potassium 3.2, BUN 73, serum creatinine 2.8. ASSESSMENT: 1. Acute kidney injury secondary to non-steroidal anti-inflammatories. Renal function had been improving; however, creatinine did go up again over the last couple of days. I am not sure if patient has been receiving the IV fluids. I will increase the fluids to 100 mL/hour. He has not been eating much. Currently patient does not appear to be volume-overloaded. 2. Hypokalemia. We will replace. 3. Anemia, multifactorial. No active bleeding noted. Status post EGD this admission which did show bleeding duodenal AVM, status post argon plasma coagulation. Patient is also maintained on erythrocyte-stimulating agents. 4. Hypernatremia. I will maintain the patient on D5W. PLAN: Change IV fluids to D5W. Increase rate to 100 mL/hour. Replace potassium. Continue with IV fluids. Repeat labs in a.m. MMODL / IJN: [id number] /
[2018-05-14] MEDS: diphenhydrAMINE 25 MG CAP PO PRN (20:50)
[2018-05-15] MEDS: METOPROLOL TARTRATE 25 MG TAB PO SCH ×2 (06:00→17:38)
[2018-05-15] MEDS: DEXTROSE 5% IN WATER 1,000 ML IV SCH (06:01)
[2018-05-15] MEDS: TAMSULOSIN 0.4 MG CAP.ER.24H PO SCH (08:19)
[2018-05-15] MEDS: PREDNISOLONE BOTH EYES SCH (08:20)
[2018-05-15] MEDS: GENTAMICIN BOTH EYES SCH (08:20)
[2018-05-15] MEDS: hydrALAZINE HCL 50 MG TAB PO SCH ×3 (08:21→21:53)
[2018-05-15] MEDS: KETOROLAC 0.5% OPHTH DROPS 5 ML BTL BOTH EYES SCH (08:21)
[2018-05-15] MEDS: PANTOPRAZOLE 40 MG/10 ML VIAL IVP SCH ×2 (08:22→20:37)
[2018-05-15] MEDS: predniSONE 20 MG TAB PO SCH (08:22)
[2018-05-15] MEDS: NICOTINE 21MG/24HR PATCH TRANSDERM SCH (08:22)
[2018-05-15] MEDS: risperiDONE 1 MG TAB PO SCH ×2 (08:22→20:38)
[2018-05-15] MEDS: BUDESONIDE 1 MG/2 ML NEBU INHALATION SCH ×2 (09:52→20:13)
[2018-05-15] MEDS: IPRATROPIUM-ALBUTEROL 3 ML NEB INHALATION SCH ×4 (09:52→20:14)
[2018-05-15 10:58] LABS: Calcium 7.9 mg/dL (8.4-10.2)
[2018-05-15 11:05] LABS: Potassium 2.7 mmol/L (3.5-5.1)
[2018-05-15] MEDS ORDERED: DEXTROSE 5% IN WATER 1,000 ML with POTASSIUM CHLORIDE 20 MEQ IV SCH (11:15)
[2018-05-15 11:17] LABS: Anisocytosis Slight; Basophils % (A) 0 %; Eosinophils # (A) 0.2 k/uL (0-0.7); Eosinophils % (A) 1 %; HCT 26.6 % (39.0-53.0); HGB 8.7 gm/dL (13.0-17.5); Hypochromasia Slight; Lymphocytes # (A) 1.4 k/uL (1.0-4.8); Lymphocytes % (A) 12 %; MCH 30.8 pg (25.0-35.0); MCHC 32.5 g/dL (31.0-37.0); MCV 94.6 fL (80.0-100.0); Macrocytosis Slight; Monocytes # (A) 0.5 k/uL (0-1.0); Monocytes % (A) 4 %; Neutrophils % (A) 81 %; Platelet Count 401 k/uL (150-450); Poikilocytosis Moderate; RBC 2.81 m/uL (4.30-5.90); RDW 18.3 % (11.5-15.5); WBC 12.3 k/uL (3.8-10.6)
--- NOTE | 2018-05-15 11:24 | P.PN ---
Subjective Progress Note Date: 05/14/18 Patient is admitted secondary to anemia symptomatic along with chest pain, patient is a blood transfusion patient is feeling much better today patient apparently was confused earlier today morning and last night and was bit agitated. Patient appears to have moderate dementia either vascular dementia dementia of Alzheimer's type. Does have memory difficulties at home as well but patient the was not confused when I evaluated the patient patient was started on as needed Haldol and Seroquel at nighttime for agitation. Cardiology evaluated the patient. Gastroenterology evaluated the patient. No obvious GI bleed at this time. Patient's creatinine is high and stable at around 3 believed to be secondary to acute tubular necrosis or interstitial her right is from my nonsteroidal anti-inflammatories nephrology evaluated the patient. Follow basic metabolic profile tomorrow. 05/02/2018 Patient was more agitated yesterday has a sitter now. Patient received DDAVP yesterday patient creatinine remains fairly stable at 3.37 patient the was started on gentle hydration today by nephrology. Increasing the dose of Haldol to 1 mg every 6 when necessary. Avoid benzo is his barbiturates opiates and anticholinergic medications. I as a nursing staff to avoid these medications and as a nursing staff to open the curtains which will help him with his agitation. Patient will not require IV hydralazine which was discontinued. CAT scan of the brain did not show any significant abnormality except for some possible left-sided mastoiditis. Patient's serum iron levels is extremely low because of which patient is receiving iron supplementation for that although his normal probably because of acute phase reactant and the patient's B12 and folic acids is essentially within normal limits. 05/03/2018 Patient's hemoglobin is below 7 today we'll transfuse him 1 more unit of blood patient's agitation episodes did not improve Resporal will be discontinue patient was started on nighttime Seroquel and as needed Haldol. We'll transfuse him 1 unit of blood. Down the steroids to by mouth 40 daily patient doesn't have any significant wheeze today. 05/03/2018 Patient had 4.stools today patient appears to have acute GI bleed upper GI bleed patient is already on Protonix. Patient may need upper GI endoscopy. Patient was more agitated requiring more Haldol and the patient is on Seroquel. We will continue with these medications will monitor him tonight. 05/05/2018 underwent EGD , tolerated procedure well. 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 No active bleeding noted. Hemoglobin 8.3 , creatinine 3.06. No agitation, sleepy as he has just returned from endoscopy. Staff reports no agitation during the night; currently on Seroquel. Sitter at bedside. 05/06/2018 more alert, confused. Family reporting patient continues to have black liquidy stools. Hemoglobin 9.8. Renal function improving, creatinine 2.62, potassium 3.6. Tachycardic earlier this a.m., heart rates in the 110s, patient did not receive his beta miriam yesterday, Heart rate currently 80s to 90s. Did not receive Seroquel during the night, no agitation, diet intake improving. Loose congested cough. Maintaining O2 sats in the low 90s on room air. Family has decided to proceed with subacute rehab at discharge. 05/07/2018 significant clinical improvement. Receiving empiric antibiotics, nebulized bronchodilators. Significant clinical improvement. EEG pending. Creatinine continues to improve, down to 2.55. Initially had planned for DC to [facility], but developed increased agitation. Reevaluated by psychiatry, recommendations noted including DC to [facility]. Brain CT reporting age-related atrophic and chronic small vessel ischemic changes without acute intracranial process .Social work met with family and discussed. Discharge planning in progress for tomorrow. 05/08/2018 maintained on gentle IV fluid hydration, potassium and magnesium replacement protocols. Oral intake poor. Labs pending. 05/09/2018 hemoglobin dropped to 7.5, tachycardic. Currently no signs or symptoms of bleeding. Evaluated by GI with diet advanced. Chest x-ray ordered reporting new bibasal opacity is suspicious for developing pneumonia, possible atelectasis. Currently on Zosyn. Influenza A and B ruled out. Maintained on gentle IV fluid hydration with renal function slowly improving. Afebrile, normal WBC. potassium 3.5. 05/10/2018 Patient is not doing well patient is tachypneic, Tachycardic, lipid the chest x- ray will obtain an ABG will obtain lactic acid levels. Patient is unable to swallow because of which patient is not getting any of his antidepressive medications patient was started on clonidine patch. Patient is hallucinating, will ask the psychiatric reevaluate the patient. 05/11/2018 Patient hemoglobin dropped to 5.8 with assistance of blood transfusion no evidence of JVD at this time will obtain a CAT scan of the abdomen to rule out retroperitoneal hematoma. Patient is less confused today hallucinations are significantly better. Patient has rhonchorous breath sounds 05/12/2018 CT of abdomen and pelvis reported no suspicious chanes to suggest retroperitoneal bleed, no abnormality to account for abdominal pain, thickened urinary bladder simmons.Potassium 3.1, supplemented as per nephrology.hemoglobin 9.3.Modified barium swallow reported evidence of deep penetration with thin liquid barium, trace aspiration suspected with honey thickened barium. 05/14/2018 hypernatremic, IV fluids adjusted. Hemoglobin 6.7, receiving one unit of packed RBCs. Mild tachycardia, heart rate in the 110s. Diet intake poor, consuming 25%. Creatinine up to 2.88. Potassium 3.2, receiving supplementation. Chest x-ray reporting improvment/scattered infiltrates. Maintaining O2 sats in the high 90s on 2 L nasal cannula. Objective - Vital Signs Vital signs: Vital Signs Temp 97.9 F 05/14/18 11:28 Pulse 92 05/14/18 16:04 Resp 18 05/14/18 13:10 BP 149/78 05/14/18 11:28 Pulse Ox 95 05/14/18 11:28 Intake & Output 05/13/18 05/14/18 05/14/18 18:59 06:59 18:59 Intake Total 100 1980 775 Output Total 700 Balance 100 1280 775 Intake: Intake, IV Titration 100 700 775 Amount Dextrose 5% in Water 1, 300 000 ml @ 100 mls/hr IV . Q10H [facility] Rx#:[id number] Dextrose 5% in Water 1, 600 375 000 ml @ 75 mls/hr IV . [id number] [facility] Rx#:[id number] Piperacillin-Tazobactam 3 100 100 100 .375 gm In Sodium Chloride 0.9% 100 ml @ 25 mls/hr IVPB Q8HR JAMA Rx# :[id number] Oral 1280 Output: Urine 700 Uretheral (Martini) 700 Other: Voiding Method Indwelling Catheter Indwelling Catheter Indwelling Catheter # Bowel Movements 1 1 1 - Exam GENERAL: sitting up in bed, acute and oriented 2, no acute distress, confused HEENT: Pupils are round and equal. No conjunctival pallor. Normocephalic, atraumatic. CARDIOVASCULAR: S1 and S2 present. Regular, No murmurs, rubs, or gallops. PULMONARY bilateral bases diminished with occasional scattered rhonchi, crackles , no expiratory wheezing. ABDOMEN: Soft, nontender, nondistended, normoactive bowel sounds. No palpable organomegaly. MUSCULOSKELETAL: No joint swelling or deformity. EXTREMITIES: No cyanosis, clubbing, or pedal edema. NEUROLOGICAL: Gross neurological examination did not reveal any focal deficits. SKIN: No rashes. 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 -bilateral pneumonia, possible aspiration pneumonia -Dysphagia,Moderate oropharyngeal, please refer to speech therapy's notes. -Chest pain,on admission secondary to anemia, possible type II MA. -Agitation secondary to delirium associated with hospitalization, moderate to severe dementia mostly vascular dementia. Possible Alzheimer's disease -Severe anemia symptomatic, iron deficiency anemia which is chronic apart from acute GI bleed. -COPD with minimal exacerbation -Acute renal failure, secondary to tubular necrosis , or ALLERGIC interstitial nephritis secondary to nonsteroidal anti-inflammatory medication -Possible chronic kidney disease. -Hypokalemia Plan: Continue on current medication regime , beta miriam, PPI ,monitoring and symptomatic treatment. IV fluids adjusted. Potassium being replaced. Strict aspiration precautions. Close monitoring of renal function, electrolytes , hemoglobin with repeat labs ordered for a.m. Discussed further at GI, family declined colonoscopy.Prognosis guarded given multiple complex medical issues. The impression and plan of care has been dictated as directed. : I performed a history and examination of this patient, discussed the same with the dictator. I agree with the dictator's note ,documented as a scribe. Any additional findings or plans will be noted.
[2018-05-15] MEDS: POTASSIUM CHLORIDE ER 20 MEQ TAB.ER PO SCH ×5 (12:10→21:54)
--- NOTE | 2018-05-15 13:45 | P.PN ---
Subjective Progress Note Date: 05/15/18 Principal diagnosis: Psych Impression: delirium has resolved and he does not have the capacity for decision making and is stable on psych meds Past Medical History Past Medical History: COPD Additional Past Medical History / Comment(s): tachycardia, in past was on thyroid med none now,"headaches", wants flu vaccine while here. History of Any Multi-Drug Resistant Organisms: None Reported Past Surgical History: Appendectomy, Hernia Repair Additional Past Surgical History / Comment(s): cataracts -latest one on left side done 04-24-18, naveed ing hernia repair Past Anesthesia/Blood Transfusion Reactions: No Reported Reaction Smoking Status: Current every day smoker - Past Family History Mother Family Medical History: Unable to Obtain Father Family Medical History: Myocardial Infarction ([place]) Medications and Allergies Home Medications Medication Instructions Recorded Confirmed Type Albuterol Nebulized (Conc) 2.5 mg PO RT-Q6H 04/30/18 04/30/18 History [Ventolin Nebulized (Conc)] Metoprolol Tartrate [Lopressor] 50 mg PO BID 04/30/18 04/30/18 History Allergies Allergy/AdvReac Type Severity Reaction Status Date / Time No Known Allergies Allergy Verified 04/30/18 12:42 Mental Status Examination - General Appearance: [ appears older than stated age Speech/Language: [ slow, hesitant, soft, Attitude/Behavior: [ guarded] Mood: [ anxious Affect: [flat, incongruent Orientation: [not time, person, place situation] Thought Content: [ no delusions Risk Factors: [denies suicidal (ideations, plan), and/or Homicidal (ideations, plan), Perception: [wnl Thought Processes: [ concrete, circumstantial, tangential Concentration/Attention Span: [ impaired] [Per observation and interview with the patient] Recent Memory: [impaired] [ Remote Memory: [ impaired] [past events, as related history] Intelligence: [below average] [based on history, based on vocabulary, syntax, grammar, and content] Judgement: [ poor] [per patient's behavior/history of present illness] Insight: [ poor] [understanding severity of illness/history of present illness] Impression: Neurocognitive disorder-moderate; able to be discharged Objective - Vital Signs Vital signs: Vital Signs Temp 98.3 F 05/15/18 11:47 Pulse 109 H 05/15/18 11:47 Resp 17 05/15/18 11:47 BP 155/84 05/15/18 11:47 Pulse Ox 96 05/15/18 11:47 Intake & Output 05/14/18 05/15/18 05/15/18 18:59 06:59 18:59 Intake Total 775 2200 Output Total 1500 Balance 775 700 Weight 65.5 kg Intake: Intake, IV Titration 775 900 Amount Dextrose 5% in Water 1, 300 900 000 ml @ 100 mls/hr IV . Q10H JAMA Rx#:[id number] Dextrose 5% in Water 1, 375 000 ml @ 75 mls/hr IV . [id number] JAMA Rx#:[id number] Piperacillin-Tazobactam 3 100 .375 gm In Sodium Chloride 0.9% 100 ml @ 25 mls/hr IVPB Q8HR JAMA Rx# :[id number] Oral 680 Blood Product 0 620 Rc As-1 Unit 0 310 [id number] Output: Urine 1500 Uretheral (Martini) 1500 Other: Voiding Method Indwelling Catheter Indwelling Catheter # Bowel Movements 1 - Labs CBC & Chem 7: 05/15/18 10:27 05/15/18 12:52 Labs: Abnormal Lab Results - Last 24 Hours (Table) 05/14/18 05/15/18 05/15/18 Range/Units 14:32 10:27 10:27 WBC 12.3 H (3.8-10.6) k/uL RBC 2.81 L (4.30-5.90) m/uL Hgb 8.7 L (13.0-17.5) gm/dL Hct 26.6 L (39.0-53.0) % RDW 18.3 H (11.5-15.5) % Neutrophils # 10.0 H (1.3-7.7) k/uL Sodium 147 H (137-145) mmol/L Potassium 2.7 L* (3.5-5.1) mmol/L Chloride 115 H (98-107) mmol/L BUN 59 H (9-20) mg/dL Creatinine 2.68 H (0.66-1.25) mg/dL Glucose 130 H (74-99) mg/dL Calcium 7.9 L (8.4-10.2) mg/dL Crossmatch See Detail 05/15/18 Range/Units 12:52 WBC (3.8-10.6) k/uL RBC (4.30-5.90) m/uL Hgb (13.0-17.5) gm/dL Hct (39.0-53.0) % RDW (11.5-15.5) % Neutrophils # (1.3-7.7) k/uL Sodium (137-145) mmol/L Potassium 3.1 L (3.5-5.1) mmol/L Chloride (98-107) mmol/L BUN (9-20) mg/dL Creatinine (0.66-1.25) mg/dL Glucose (74-99) mg/dL Calcium (8.4-10.2) mg/dL Crossmatch Assessment and Plan (1) Delirium due to another medical condition Current Visit: Yes Status: Acute Code(s): F05 - DELIRIUM DUE TO KNOWN PHYSIOLOGICAL CONDITION SNOMED Code(s): 8481967
[2018-05-15] MEDS ORDERED: D5W WITH KCL 20 MEQ/L 1,000 ML IV SCH (14:25)
[2018-05-15] MEDS: DEXTROSE 5% IN WATER 1,000 ML with POTASSIUM CHLORIDE 40 MEQ IV SCH (16:30)
--- NOTE | 2018-05-15 17:08 | PN ---
PROGRESS NOTE Patient is seen for followup for acute kidney injury. He is maintained on prednisone for acute kidney injury secondary to nonsteroidal anti-inflammatory agents. Renal function had worsened for some time after initial improvement which was mainly due to some degree of volume depletion. Patient is currently maintained on IV fluids and his serum creatinine is down to 2.6 from 2.8 yesterday. He has also been hypernatremic, for which he is maintained on D5W. On examination today, patient is resting comfortably. Blood pressure was 155/84, heart rate 109 per minute. He is afebrile. EXAMINATION OF THE HEART: S1, S2. EXAMINATION OF LUNGS: Bilateral breath sounds are heard. ABDOMEN: Soft, non-tender. Examination of lower extremities shows no evidence of edema. [employer] exam is grossly intact. Labs show sodium 147, potassium 2.7, BUN 59, serum creatinine 2.68. ASSESSMENT: 1. Acute kidney injury secondary to non-steroidal anti-inflammatory agents, maintained on p.o. prednisone. 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 However, patient's family has refused biopsy at this time and we will plan on possible kidney biopsy down the road as outpatient. The proteinuria will need to be re-evaluated as well. 2. Hypernatremia secondary to free water deficit, now improving. Maintained on D5W. 3. Hypokalemia secondary to decreased oral intake, status post replacement, magnesium replete. 4. Anemia from gastrointestinal bleed, status post endoscopy which showed bleeding AVM, status post argon plasma coagulation. PLAN: Continue D5W. Replace potassium. Repeat labs in a.m. MMODL / IJN: [id number] /
--- NOTE | 2018-05-15 17:26 | P.PN ---
Subjective Progress Note Date: 05/15/18 Patient is admitted secondary to anemia symptomatic along with chest pain, patient is a blood transfusion patient is feeling much better today patient apparently was confused earlier today morning and last night and was bit agitated. Patient appears to have moderate dementia either vascular dementia dementia of Alzheimer's type. Does have memory difficulties at home as well but patient the was not confused when I evaluated the patient patient was started on as needed Haldol and Seroquel at nighttime for agitation. Cardiology evaluated the patient. Gastroenterology evaluated the patient. No obvious GI bleed at this time. Patient's creatinine is high and stable at around 3 believed to be secondary to acute tubular necrosis or interstitial her right is from my nonsteroidal anti-inflammatories nephrology evaluated the patient. Follow basic metabolic profile tomorrow. 05/02/2018 Patient was more agitated yesterday has a sitter now. Patient received DDAVP yesterday patient creatinine remains fairly stable at 3.37 patient the was started on gentle hydration today by nephrology. Increasing the dose of Haldol to 1 mg every 6 when necessary. Avoid benzo is his barbiturates opiates and anticholinergic medications. I as a nursing staff to avoid these medications and as a nursing staff to open the curtains which will help him with his agitation. Patient will not require IV hydralazine which was discontinued. CAT scan of the brain did not show any significant abnormality except for some possible left-sided mastoiditis. Patient's serum iron levels is extremely low because of which patient is receiving iron supplementation for that although his normal probably because of acute phase reactant and the patient's B12 and folic acids is essentially within normal limits. 05/03/2018 Patient's hemoglobin is below 7 today we'll transfuse him 1 more unit of blood patient's agitation episodes did not improve Resporal will be discontinue patient was started on nighttime Seroquel and as needed Haldol. We'll transfuse him 1 unit of blood. Down the steroids to by mouth 40 daily patient doesn't have any significant wheeze today. 05/03/2018 Patient had 4.stools today patient appears to have acute GI bleed upper GI bleed patient is already on Protonix. Patient may need upper GI endoscopy. Patient was more agitated requiring more Haldol and the patient is on Seroquel. We will continue with these medications will monitor him tonight. 05/05/2018 underwent EGD , tolerated procedure well. 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 No active bleeding noted. Hemoglobin 8.3 , creatinine 3.06. No agitation, sleepy as he has just returned from endoscopy. Staff reports no agitation during the night; currently on Seroquel. Sitter at bedside. 05/06/2018 more alert, confused. Family reporting patient continues to have black liquidy stools. Hemoglobin 9.8. Renal function improving, creatinine 2.62, potassium 3.6. Tachycardic earlier this a.m., heart rates in the 110s, patient did not receive his beta miriam yesterday, Heart rate currently 80s to 90s. Did not receive Seroquel during the night, no agitation, diet intake improving. Loose congested cough. Maintaining O2 sats in the low 90s on room air. Family has decided to proceed with subacute rehab at discharge. 05/07/2018 significant clinical improvement. Receiving empiric antibiotics, nebulized bronchodilators. Significant clinical improvement. EEG pending. Creatinine continues to improve, down to 2.55. Initially had planned for DC to [facility], but developed increased agitation. Reevaluated by psychiatry, recommendations noted including DC to [facility]. Brain CT reporting age-related atrophic and chronic small vessel ischemic changes without acute intracranial process .Social work met with family and discussed. Discharge planning in progress for tomorrow. 05/08/2018 maintained on gentle IV fluid hydration, potassium and magnesium replacement protocols. Oral intake poor. Labs pending. 05/09/2018 hemoglobin dropped to 7.5, tachycardic. Currently no signs or symptoms of bleeding. Evaluated by GI with diet advanced. Chest x-ray ordered reporting new bibasal opacity is suspicious for developing pneumonia, possible atelectasis. Currently on Zosyn. Influenza A and B ruled out. Maintained on gentle IV fluid hydration with renal function slowly improving. Afebrile, normal WBC. potassium 3.5. 05/10/2018 Patient is not doing well patient is tachypneic, Tachycardic, lipid the chest x- ray will obtain an ABG will obtain lactic acid levels. Patient is unable to swallow because of which patient is not getting any of his antidepressive medications patient was started on clonidine patch. Patient is hallucinating, will ask the psychiatric reevaluate the patient. 05/11/2018 Patient hemoglobin dropped to 5.8 with assistance of blood transfusion no evidence of JVD at this time will obtain a CAT scan of the abdomen to rule out retroperitoneal hematoma. Patient is less confused today hallucinations are significantly better. Patient has rhonchorous breath sounds 05/12/2018 CT of abdomen and pelvis reported no suspicious chanes to suggest retroperitoneal bleed, no abnormality to account for abdominal pain, thickened urinary bladder simmons.Potassium 3.1, supplemented as per nephrology.hemoglobin 9.3.Modified barium swallow reported evidence of deep penetration with thin liquid barium, trace aspiration suspected with honey thickened barium. 05/14/2018 hypernatremic, IV fluids adjusted. Hemoglobin 6.7, receiving one unit of packed RBCs. Mild tachycardia, heart rate in the 110s. Diet intake poor, consuming 25%. Creatinine up to 2.88. Potassium 3.2, receiving supplementation. Chest x-ray reporting improvment/scattered infiltrates. Maintaining O2 sats in the high 90s on 2 L nasal cannula. 05/15/18 Sodium improving on D5W, 147. Creatinine down to 2.68. Afebrile, WBC 12.3. Potassium 2.7, supplemented, up to 3.1, receiving further supplementation. Magnesium within normal limits. Receive 1 unit of packed RBCs last night, hemoglobin dropped to 8.7, tachycardia subsided. Blood pressure improving with systolic down to 150s. Maintaining O2 sats of mid 90s on 2 L nasal cannula O2. Staff reporting dark tarry stools. GI notified. No further interventions as patient and family have declined-per GI. Objective - Vital Signs Vital signs: Vital Signs Temp 98.3 F 05/15/18 11:47 Pulse 109 H 05/15/18 11:47 Resp 17 05/15/18 11:47 BP 155/84 05/15/18 11:47 Pulse Ox 96 05/15/18 11:47 Intake & Output 05/14/18 05/15/18 05/15/18 18:59 06:59 18:59 Intake Total 775 2200 Output Total 1500 Balance 775 700 Weight 65.5 kg Intake: Intake, IV Titration 775 900 Amount Dextrose 5% in Water 1, 300 900 000 ml @ 100 mls/hr IV . Q10H [facility] Rx#:[id number] Dextrose 5% in Water 1, 375 000 ml @ 75 mls/hr IV . [id number] [facility] Rx#:[id number] Piperacillin-Tazobactam 3 100 .375 gm In Sodium Chloride 0.9% 100 ml @ 25 mls/hr IVPB Q8HR [facility] Rx# :[id number] Oral 680 Blood Product 0 620 Rc As-1 Unit 0 310 [id number] Output: Urine 1500 Uretheral (Martini) 1500 Other: Voiding Method Indwelling Catheter Indwelling Catheter # Bowel Movements 1 - Exam GENERAL: sitting up in bed, acute and oriented 2, no acute distress, confused HEENT: Pupils are round and equal. No conjunctival pallor. Normocephalic, atraumatic. CARDIOVASCULAR: S1 and S2 present. Regular, No murmurs, rubs, or gallops. PULMONARY bilateral bases diminished with occasional scattered rhonchi, crackles , no expiratory wheezing. ABDOMEN: Soft, nontender, nondistended, normoactive bowel sounds. No palpable organomegaly. EXTREMITIES: No cyanosis, clubbing, or pedal edema. NEUROLOGICAL: Gross neurological examination did not reveal any focal deficits. SKIN: No rashes. - Labs CBC & Chem 7: 05/15/18 10:27 05/15/18 12:52 Labs: Abnormal Lab Results - Last 24 Hours (Table) 05/14/18 05/15/18 05/15/18 Range/Units 14:32 10:27 10:27 WBC 12.3 H (3.8-10.6) k/uL RBC 2.81 L (4.30-5.90) m/uL Hgb 8.7 L (13.0-17.5) gm/dL Hct 26.6 L (39.0-53.0) % RDW 18.3 H (11.5-15.5) % Neutrophils # 10.0 H (1.3-7.7) k/uL Sodium 147 H (137-145) mmol/L Potassium 2.7 L* (3.5-5.1) mmol/L Chloride 115 H (98-107) mmol/L BUN 59 H (9-20) mg/dL Creatinine 2.68 H (0.66-1.25) mg/dL Glucose 130 H (74-99) mg/dL Calcium 7.9 L (8.4-10.2) mg/dL Crossmatch See Detail 05/15/18 Range/Units 12:52 WBC (3.8-10.6) k/uL RBC (4.30-5.90) m/uL Hgb (13.0-17.5) gm/dL Hct (39.0-53.0) % RDW (11.5-15.5) % Neutrophils # (1.3-7.7) k/uL Sodium (137-145) mmol/L Potassium 3.1 L (3.5-5.1) mmol/L Chloride (98-107) mmol/L BUN (9-20) mg/dL Creatinine (0.66-1.25) mg/dL Glucose (74-99) mg/dL Calcium (8.4-10.2) mg/dL Crossmatch Assessment and Plan Assessment: -acute upper GI blood loss anemia secondary to 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 -Chest pain,on admission secondary to anemia, possible type II DC. -Agitation secondary to delirium associated with hospitalization, moderate to severe dementia mostly vascular dementia. Possible Alzheimer's disease -Severe anemia symptomatic, iron deficiency anemia which is chronic apart from acute GI bleed. -COPD with minimal exacerbation -Acute renal failure, secondary to tubular necrosis , or ALLERGIC interstitial nephritis secondary to nonsteroidal anti-inflammatory medication -Possible chronic kidney disease. -Hypokalemia Plan: Continue on current medication regime , beta miriam, PPI ,monitoring and symptomatic treatment. Potassium being replaced. Repeat potassium level pending. Close monitoring of renal function, electrolytes, hemoglobin with repeat labs ordered for a.m. Strict aspiration precautions.Prognosis guarded given multiple complex medical issues. The impression and plan of care has been dictated as directed. : I performed a history and examination of this patient, discussed the same with the dictator. I agree with the dictator's note ,documented as a scribe. Any additional findings or plans will be noted.
[2018-05-15] MEDS: FORMOTEROL FUMARATE 20 MCG/2 ML NEBU INHALATION SCH (20:13)
[2018-05-15] MEDS: diphenhydrAMINE 25 MG CAP PO PRN (20:38)
[2018-05-15] MEDS: hydrALAZINE HCL 20 MG/ML 1 ML VIAL IVP PRN (22:04)
[2018-05-15] MEDS: ACETAMINOPHEN TAB 325 MG TAB PO PRN (22:51)
[2018-05-16] MEDS: DEXTROSE 5% IN WATER 1,000 ML with POTASSIUM CHLORIDE 40 MEQ IV SCH ×2 (00:06→13:36)
[2018-05-16] MEDS: METOPROLOL TARTRATE 25 MG TAB PO SCH ×2 (06:23→18:11)
[2018-05-16] MEDS: FORMOTEROL FUMARATE 20 MCG/2 ML NEBU INHALATION SCH ×2 (07:07→19:27)
[2018-05-16] MEDS: IPRATROPIUM-ALBUTEROL 3 ML NEB INHALATION SCH ×4 (07:07→19:27)
[2018-05-16] MEDS: BUDESONIDE 1 MG/2 ML NEBU INHALATION SCH ×2 (07:07→19:27)
[2018-05-16 07:26] LABS: Anisocytosis Slight; Basophils % (A) 0 %; Eosinophils # (A) 0.2 k/uL (0-0.7); Eosinophils % (A) 2 %; HCT 26.1 % (39.0-53.0); HGB 8.6 gm/dL (13.0-17.5); Hypochromasia Slight; Lymphocytes # (A) 1.9 k/uL (1.0-4.8); Lymphocytes % (A) 17 %; MCH 31.3 pg (25.0-35.0); MCHC 32.8 g/dL (31.0-37.0); MCV 95.5 fL (80.0-100.0); Macrocytosis Slight; Mean Platelet Volume 7.1; Monocytes # (A) 0.6 k/uL (0-1.0); Monocytes % (A) 5 %; Neutrophils # (A) 8.4 k/uL (1.3-7.7); Neutrophils % (A) 74 %; Platelet Count 417 k/uL (150-450); Poikilocytosis Slight; RBC 2.74 m/uL (4.30-5.90); RDW 18.8 % (11.5-15.5); WBC 11.3 k/uL (3.8-10.6)
[2018-05-16 07:31] LABS: Calcium 7.9 mg/dL (8.4-10.2); Potassium 3.6 mmol/L (3.5-5.1)
[2018-05-16] MEDS: risperiDONE 1 MG TAB PO SCH ×2 (09:27→21:00)
[2018-05-16] MEDS: hydrALAZINE HCL 50 MG TAB PO SCH ×3 (09:27→21:01)
[2018-05-16] MEDS: predniSONE 20 MG TAB PO SCH (09:28)
[2018-05-16] MEDS: PANTOPRAZOLE 40 MG/10 ML VIAL IVP SCH ×2 (09:28→21:00)
[2018-05-16] MEDS: TAMSULOSIN 0.4 MG CAP.ER.24H PO SCH (09:28)
[2018-05-16] MEDS: NICOTINE 21MG/24HR PATCH TRANSDERM SCH (09:28)
[2018-05-16] MEDS ORDERED: POTASSIUM CHLORIDE ER 20 MEQ TAB.ER PO STA (09:32)
--- NOTE | 2018-05-16 10:35 | P.PN ---
Subjective Patient is seen in follow-up for acute kidney injury. Renal function a little better with creatinine at 2.46 today. Patient noted to have persistent urinary retention and has a Martini catheter in place. He is nonoliguric. He is maintained on D5 W at 100 mL an hour. Sodium level down to 141 today. Vital signs are stable. General: The patient appeared well nourished and normally developed. HEENT: Head exam is unremarkable. Neck is without jugular venous distension. LUNGS: Lungs are clear to auscultation and percussion. Breath sounds decreased. HEART: Rate and Rhythm are regular. First and second heart sounds normal. No murmurs, rubs or gallops. ABDOMEN: Abdominal exam reveals normal bowel sounds. Non-tender and non- distended. No evidence of peritonitis. EXTREMITITES: Trace edema. Objective - Vital Signs Vital signs: Vital Signs Temp 98.2 F 05/16/18 05:00 Pulse 96 05/16/18 07:33 Resp 20 05/16/18 05:00 BP 112/73 05/16/18 06:20 Pulse Ox 98 05/16/18 05:00 Intake & Output 05/15/18 05/16/18 05/16/18 18:59 06:59 18:59 Intake Total 2440 580 Output Total 6700 2000 Balance -4260 -1420 Weight 65.5 kg Intake: Intake, IV Titration 1000 400 Amount Dextrose 5% in Water 1, 100 400 000 ml @ 100 mls/hr IV . [id number] [facility] with Potassium Chloride 40 meq Rx#:[id number] Dextrose 5% in Water 1, 900 000 ml @ 100 mls/hr IV . Q10H6M [facility] with Potassium Chloride 20 meq Rx#: [id number] Oral 1440 180 Output: Urine 4500 2000 Uretheral (Martini) 1500 2000 Stool 2200 Other: Voiding Method Indwelling Catheter Indwelling Catheter # Voids 1 2 # Bowel Movements 1 - Labs CBC & Chem 7: 05/16/18 06:34 05/16/18 06:34 Labs: Abnormal Lab Results - Last 24 Hours (Table) 05/15/18 05/15/18 05/15/18 Range/Units 10:27 10:27 12:52 WBC 12.3 H (3.8-10.6) k/uL RBC 2.81 L (4.30-5.90) m/uL Hgb 8.7 L (13.0-17.5) gm/dL Hct 26.6 L (39.0-53.0) % RDW 18.3 H (11.5-15.5) % Neutrophils # 10.0 H (1.3-7.7) k/uL Sodium 147 H (137-145) mmol/L Potassium 2.7 L* 3.1 L (3.5-5.1) mmol/L Chloride 115 H (98-107) mmol/L BUN 59 H (9-20) mg/dL Creatinine 2.68 H (0.66-1.25) mg/dL Glucose 130 H (74-99) mg/dL Calcium 7.9 L (8.4-10.2) mg/dL 05/16/18 05/16/18 Range/Units 06:34 06:34 WBC 11.3 H (3.8-10.6) k/uL RBC 2.74 L (4.30-5.90) m/uL Hgb 8.6 L (13.0-17.5) gm/dL Hct 26.1 L (39.0-53.0) % RDW 18.8 H (11.5-15.5) % Neutrophils # 8.4 H (1.3-7.7) k/uL Sodium (137-145) mmol/L Potassium (3.5-5.1) mmol/L Chloride 112 H (98-107) mmol/L BUN 52 H (9-20) mg/dL Creatinine 2.46 H (0.66-1.25) mg/dL Glucose (74-99) mg/dL Calcium 7.9 L (8.4-10.2) mg/dL Assessment and Plan Plan: Assessment: 1. Acute kidney injury secondary to ATN secondary to nonsteroidals and anemia. Creatinine 3.4 on admission. Renal function a little better today with creatinine at 2.46. Unknown baseline renal function. Creatinine December 2013 was 0.83. Significant proteinuria and hematuria noted on UA. 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 Noted to have low C4. Currently maintained on oral prednisone. Apparently the patient refused kidney biopsy. 2. Rule out chronic kidney disease. Need to establish baseline renal function. 3. Metabolic acidosis secondary to acute kidney injury. Resolved. 4. Acute blood loss anemia status post 3 units of blood transfusion. Status post IV DDAVP on May 01. Severe iron deficiency noted. GI following. 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 Hemoglobin stable. 5. Benign hypertension. 6. Urinary retention. Currently has a Martini catheter. 7. Hypomagnesemia from poor oral intake. Better post placement. 8. Hypokalemia from poor oral intake. Better post replacement. 9. Hypernatremia secondary to lack of oral water intake. Improving. Plan: Decrease rate of D5W at 50 mL an hour with KCl. Maintain prednisone. Replace potassium. 20 mEq today. Maintain Aranesp. Repeat electrolytes in the morning.
--- NOTE | 2018-05-16 11:12 | FL ---
EXAMINATION TYPE: FL barium swallow w video DATE OF EXAM: 05/16/2018 COMPARISON: NONE HISTORY: Previous abnormal modified barium swallow deep penetration and silent aspiration. TECHNIQUE: Fluoroscopy. FINDINGS: Fluoroscopic guidance was provided for the procedure performed in conjunction with the [facility] pathology department. Please see complete report forthcoming from the Speech Pathology departmen t. Various consistencies from thin liquid to solids were administered. Fluoroscopy time 1 minute 35 seconds Number of images: 0. No aspiration or penetration was evident. No significant pooling was observed in the vallecula. There was some spill into the hypopharynx witho ut penetration or aspiration. Otherwise, There was normal propulsion of the bolus. IMPRESSION: 1. No suspicious aspiration or penetration with thin liquids to solids.
--- NOTE | 2018-05-16 12:05 | P.PN ---
Progress Note - Text Progress Note Date: 05/16/18 Addendum to discharge summary; Patient is being discharged today O2 [facility] in a stable condition with guarded prognosis. Cleared by all consults. Modified barium swallow repeated this morning, patient did well, please refer to speech therapy's notes for specifics, including chopped diet recommendations.VSS. Please refer to my prior discharge summary for final diagnoses and hospital course. Discharge medications revised-please refer to new discharge med list. Exam GENERAL: sitting up in bed, acute and oriented 2, no acute distress, CARDIOVASCULAR: S1 and S2 present. Regular, No murmurs, rubs, or gallops. PULMONARY bilateral bases diminished with occasional scattered rhonchi, crackles , no expiratory wheezing. ABDOMEN: Soft, nontender, nondistended, normoactive bowel sounds. No palpable organomegaly. NEUROLOGICAL: Gross neurological examination did not reveal any focal deficits. The impression and plan of care has been dictated as directed. : I performed a history and examination of this patient, discussed the same with the dictator. I agree with the dictator's note ,documented as a scribe. Any additional findings or plans will be noted. Time taken: 35 minutes
[2018-05-17] MEDS: METOPROLOL TARTRATE 25 MG TAB PO SCH ×2 (05:33→17:16)
[2018-05-17 07:35] LABS: Calcium 8.2 mg/dL (8.4-10.2); Magnesium 1.7 mg/dL (1.6-2.3); Potassium 3.8 mmol/L (3.5-5.1)
[2018-05-17] MEDS: BUDESONIDE 1 MG/2 ML NEBU INHALATION SCH ×2 (08:10→19:45)
[2018-05-17] MEDS: FORMOTEROL FUMARATE 20 MCG/2 ML NEBU INHALATION SCH ×2 (08:10→19:45)
[2018-05-17] MEDS: IPRATROPIUM-ALBUTEROL 3 ML NEB INHALATION SCH ×4 (08:10→19:44)
[2018-05-17] MEDS: TAMSULOSIN 0.4 MG CAP.ER.24H PO SCH (08:47)
[2018-05-17] MEDS: NICOTINE 21MG/24HR PATCH TRANSDERM SCH (08:47)
[2018-05-17] MEDS: hydrALAZINE HCL 50 MG TAB PO SCH ×3 (08:47→21:38)
[2018-05-17] MEDS: predniSONE 20 MG TAB PO SCH (08:47)
[2018-05-17] MEDS: PANTOPRAZOLE 40 MG/10 ML VIAL IVP SCH ×2 (08:47→21:38)
[2018-05-17] MEDS: DARBEPOETIN ALFA 40 MCG/0.4 ML SYRINGE SQ SCH (09:19)
[2018-05-17] MEDS: risperiDONE 1 MG TAB PO SCH ×2 (09:19→21:39)
[2018-05-17] MEDS: DEXTROSE 5% IN WATER 1,000 ML with POTASSIUM CHLORIDE 40 MEQ IV SCH (09:19)
[2018-05-17] MEDS: cloNIDine 0.2 MG/24HR PATCH TRANSDERM SCH (17:16)
--- NOTE | 2018-05-17 19:04 | PN ---
PROGRESS NOTE DATE OF SERVICE: 05/17/2018 This 67-year-old gentleman who was admitted with GI blood loss anemia, bilateral pneumonia is being closely monitored. No chest pain. No palpitations. No fever. EXAM: Alert and oriented x2. Pulse is 111, blood pressure 130/70, respiration 20, temperature 98.2, pulse ox 98% on room. HEENT: Conjunctivae normal. NECK: No jugular venous distention. CARDIOVASCULAR: S1, S2. RESPIRATORY: Breath sounds diminished in the bases. A few scattered rhonchi. ABDOMEN: Soft, nontender. NERVOUS SYSTEM: No focal deficits. LABS: WBC 9, hemoglobin 8.6, creatinine 2.1. ASSESSMENT: 1. Acute upper gastrointestinal bleed with blood-loss anemia secondary to AV malformation. 2. Bilateral . 3. Dysphagia. 4. Chest pain. 5. Agitation with chronic obstructive pulmonary disease. 6. Acute renal failure. 7. Possible chronic kidney disease. 8. Hypokalemia. 9. Severe anemia, symptomatic. RECOMMENDATIONS AND DISCUSSION: This 67-year-old gentleman who presented with multiple complex medical issues, will monitor the patient closely. Continue the current medications, symptomatic treatment. Continue with bronchodilators. Continue rest of medications. Guarded prognosis. Further recommendations to follow. MMODL / IJN: [id number] /
--- NOTE | 2018-05-17 19:10 | PN ---
PROGRESS NOTE DATE OF SERVICE: 05/16/2018 This 67-year-old gentleman was admitted with significant anemia noted to have AV malformation. The patient also had bilateral pneumonia. Patient has been closely monitored. ECF rehab is also slated. No chest pain. No palpitations. No fever. EXAM: Alert and oriented x2. Pulse is 111, blood pressure 140/60, respirations 20, temperature normal. HEENT: Conjunctivae normal. NECK: No jugular venous distention. CARDIOVASCULAR: S1, S2. RESPIRATORY: Breath sounds diminished in the bases. Bilateral scattered rhonchi and crackles. ABDOMEN: Soft, nontender. LEGS: No edema. NERVOUS SYSTEM: NO focal deficits. LAB STUDIES: WBC 11.7, hemoglobin is 8.6, sodium 140, potassium 3.8. ASSESSMENT: 1. Acute upper GI bleed and blood-loss anemia secondary to AV malformation. 2. Bilateral pneumonia. 3. Dysphagia. 4. Chest pain. 5. Agitation. RECOMMENDATIONS AND DISCUSSION: I recommend to continue multiple medications, continue current management with symptomatic treatment. Continue with antibiotics, continue the bronchodilators. Closely follow with ECF rehab. Further recommendations to follow. MMODL / IJN: [id number] /
--- NOTE | 2018-05-17 19:10 | PN ---
PROGRESS NOTE The patient is seen for followup for acute kidney injury. He is currently resting in bed. He is comfortable. Mentation has improved significantly. The patient has been voiding. There are plans for possible discharge soon. PHYSICAL EXAMINATION: Blood pressure is 138/76, heart rate 80 per minute. He is afebrile. Examination of the heart: S1, S2. Examination of the lungs: Bilateral breath sounds are heard. Abdomen is soft, nontender. Exam of lower extremities shows no evidence of edema. SNOW SHOVELER exam is grossly intact. LABS: Show sodium 140, potassium 3.8, BUN 51, serum creatinine 2.21, hemoglobin was 8.6 g/dL. ASSESSMENT: 1. Acute kidney injury secondary to NSAID toxicity, currently improving, maintained on steroids. 2. GI bleed status post bleeding AVM, status post plasma argon coagulation. 3. Hypernatremia, improving with D5W. 4. Urinary retention, currently with indwelling Martini catheter. PLAN: The patient may continue with the D5W. Continue to encourage increased oral intake. He should be discharged with a Martini catheter as we have had 2 previous attempts of Martini catheter discontinuation. We can try to discontinue it again as outpatient. MMODL / IJN: [id number] /
[2018-05-18] MEDS: BUDESONIDE 1 MG/2 ML NEBU INHALATION SCH ×2 (05:07→20:02)
[2018-05-18] MEDS: IPRATROPIUM-ALBUTEROL 3 ML NEB INHALATION SCH ×4 (05:07→20:02)
[2018-05-18] MEDS: FORMOTEROL FUMARATE 20 MCG/2 ML NEBU INHALATION SCH ×2 (05:07→20:02)
[2018-05-18] MEDS: DEXTROSE 5% IN WATER 1,000 ML with POTASSIUM CHLORIDE 40 MEQ IV SCH (05:37)
[2018-05-18] MEDS: METOPROLOL TARTRATE 25 MG TAB PO SCH ×2 (05:38→17:21)
[2018-05-18] MEDS: NICOTINE 21MG/24HR PATCH TRANSDERM SCH (09:02)
[2018-05-18] MEDS: hydrALAZINE HCL 50 MG TAB PO SCH ×3 (09:03→20:30)
[2018-05-18] MEDS: TAMSULOSIN 0.4 MG CAP.ER.24H PO SCH (09:03)
[2018-05-18] MEDS: PANTOPRAZOLE 40 MG/10 ML VIAL IVP SCH ×2 (09:03→20:31)
[2018-05-18] MEDS: predniSONE 20 MG TAB PO SCH (09:03)
[2018-05-18] MEDS: risperiDONE 1 MG TAB PO SCH ×2 (09:03→20:30)
--- NOTE | 2018-05-18 12:47 | PN ---
PROGRESS NOTE The patient is seen for followup for acute kidney injury. This morning he is sitting up in bed. He is comfortable. He looks overall significantly improved. Mentation is also improved. The patient is eating his breakfast. PHYSICAL EXAMINATION: Blood pressure was 157/73, heart rate of 111 per minute. Patient is afebrile. Examination of the heart S1, S2. Examination of the lungs bilateral breath sounds are heard. Abdomen is soft, nontender. Examination of lower extremities shows no significant edema. TILE SPRAYER exam is grossly intact. Patient is moving all 4 extremities. LABS: Show hemoglobin 8.6, sodium 140, potassium 3.8, BUN 51, serum creatinine 2.21. ASSESSMENT: 1. Acute kidney injury secondary to NSAIDs, maintained on prednisone, which I will continue for now. The patient will need follow up as outpatient in 1-2 weeks time. We will quantify the proteinuria again. 2. Hypokalemia, status post replacement. 3. Mental status changes, confusion, currently significantly improved. 4. Hypernatremia, now improved. 5. Hypertension, currently better controlled. 6. Anemia with a history of gastrointestinal bleeding on admission, currently no active bleeding noted. 7. Urine retention, currently with indwelling Martini catheter. PLAN: Continue with the prednisone. Continue with the tamsulosin. Discharge patient with Martini catheter and try voiding trials and remove catheter as outpatient. Patient does have home care upon discharge. MMODL / IJN: [id number] /
[2018-05-18 14:08] LABS: Anisocytosis Slight; Basophils # (A) 0.1 k/uL (0-0.2); Basophils % (A) 0 %; Eosinophils # (A) 0.1 k/uL (0-0.7); Eosinophils % (A) 1 %; HGB 8.8 gm/dL (13.0-17.5); Hypochromasia Marked; Lymphocytes # (A) 0.7 k/uL (1.0-4.8); Lymphocytes % (A) 6 %; MCH 31.6 pg (25.0-35.0); MCHC 31.3 g/dL (31.0-37.0); Macrocytosis Moderate; Mean Platelet Volume 6.6; Monocytes # (A) 0.3 k/uL (0-1.0); Monocytes % (A) 3 %; Neutrophils % (A) 88 %; Platelet Count 461 k/uL (150-450); RBC 2.77 m/uL (4.30-5.90); RDW 18.7 % (11.5-15.5); WBC 11.4 k/uL (3.8-10.6)
[2018-05-18 14:13] LABS: MCV 101.2 fL (80.0-100.0)
--- NOTE | 2018-05-18 17:05 | PN ---
PROGRESS NOTE DATE OF SERVICE: 05/18/2018. HISTORY: This 67-year-old gentleman who was admitted with acute upper GI bleed and also bilateral pneumonia and dysphagia and multiple other medical problems also. The patient is closely monitored at this time. The patient also had acute interstitial nephritis, on steroids. The patient also had chronic kidney stage III also. No chest pain. No palpitations. No fever. EXAM: Alert and oriented x2. Pulse is 120, blood pressure 130/60, respirations 17, temperature 98 degrees, pulse ox 94% on room air. HEENT: Conjunctivae normal. NECK: Supple. No JVD. CARDIOVASCULAR: S1 and S2 muffled. LUNGS: Breath sounds diminished at the bases. Few scattered rhonchi and crackles. ABDOMEN: Soft, nontender. NERVOUS SYSTEM: No focal deficits. LABS: WBC 11.2, hemoglobin is 8.8, sodium 140, potassium 3.2. Creatinine is 2.1, stable. ASSESSMENT: 1. Acute upper gastrointestinal bleeding with acute blood loss anemia secondary to AV malformation. 2. Bilateral pneumonia. 3. Dysphagia. 4. Chest pain. 5. Chronic kidney stage III. 6. Chronic interstitial kidney disease. 7. Chronic interstitial disease secondary to NSAID toxicity, maintained on steroids. 8. Agitation. 9. Change in mental status, metabolic encephalopathy with acute on chronic. 10.Increased MCV. RECOMMENDATIONS AND DISCUSSION: This 67-year-old gentleman presented with multiple medical problems. We will monitor the patient closely. Continue the current management and symptomatic treatment. Continue the bronchodilators. Continue the rest of the medications. Martini catheter has been inserted. Continue the steroids. Guarded prognosis because of multiple complex medical issues. Further recommendations to follow. MMODL / IJN: [id number] /
[2018-05-19] MEDS: DEXTROSE 5% IN WATER 1,000 ML with POTASSIUM CHLORIDE 40 MEQ IV SCH (00:59)
[2018-05-19] MEDS: METOPROLOL TARTRATE 25 MG TAB PO SCH (05:29)
[2018-05-19] MEDS: FORMOTEROL FUMARATE 20 MCG/2 ML NEBU INHALATION SCH (07:37)
[2018-05-19] MEDS: BUDESONIDE 1 MG/2 ML NEBU INHALATION SCH (07:37)
[2018-05-19] MEDS: IPRATROPIUM-ALBUTEROL 3 ML NEB INHALATION SCH ×3 (07:37→16:17)
[2018-05-19] MEDS: TAMSULOSIN 0.4 MG CAP.ER.24H PO SCH (09:57)
[2018-05-19] MEDS: NICOTINE 21MG/24HR PATCH TRANSDERM SCH (09:57)
[2018-05-19] MEDS: predniSONE 20 MG TAB PO SCH (09:57)
[2018-05-19] MEDS: hydrALAZINE HCL 50 MG TAB PO SCH (09:57)
[2018-05-19] MEDS: PANTOPRAZOLE 40 MG/10 ML VIAL IVP SCH (09:58)
[2018-05-19] MEDS: risperiDONE 1 MG TAB PO SCH (10:05)
[2018-05-19] MEDS ORDERED: THIAMINE 100 MG TAB PO SCH (12:00)
[2018-05-19] MEDS ORDERED: FOLIC ACID 1 MG TAB PO SCH (12:00)
[2018-05-19] MEDS ORDERED: MULTIVITAMINS, THERA 1 EACH TAB PO SCH (12:00)
[2018-05-19 15:14] LABS: Calcium 8.4 mg/dL (8.4-10.2); Potassium 4.5 mmol/L (3.5-5.1)
[2018-05-19 15:50] VITALS: BP 129/70; PULSE 106; RESP 15; TEMP 98.1
--- NOTE | 2018-05-19 17:05 | PN ---
PROGRESS NOTE Patient is seen for followup for acute kidney injury. He is currently comfortable, sitting up in bed. Patient denies any significant complaints. Blood pressure this morning was 130/70, heart rate 96 per minute. He is afebrile. EXAMINATION OF THE HEART: S1 and S2. EXAMINATION OF LUNGS: Bilateral breath sounds are heard. ABDOMEN: Soft, non-tender. Examination of lower extremities shows no significant edema. Labs show hemoglobin 8.8, sodium 140, potassium 3.8, BUN 51, serum creatinine 2.2. We do not have any labs from today. ASSESSMENT: 1. Acute kidney injury secondary to non-steroidal anti-inflammatories, maintained on prednisone for component of allergic interstitial nephritis as well as possible acute GN related to the NSAIDs. 2. Urinary retention, currently with indwelling Martini catheter. 3. Acute gastrointestinal bleed from AVM, status post argon laser coagulation. 4. Pneumonia, maintained on antibiotics and improved. 5. Altered mentation, now improved. PLAN: Check labs today. Patient will need followup as outpatient for consideration of kidney biopsy if proteinuria is not better. MMODL / IJN: [id number] /
--- NOTE | 2018-05-20 06:37 | DS ---
DISCHARGE SUMMARY DATE OF SERVICE: 05/19/2018 FINAL DIAGNOSES: 1. Acute upper gastrointestinal bleeding with acute blood loss anemia secondary to AV malformation. 2. Bilateral pneumonia. 3. Dysphagia. 4. Chest pain. 5. Chronic kidney disease stage 3. 6. Chronic interstitial kidney disease secondary to NSAIDs, maintained on steroids. 7. Change in mental status metabolic encephalopathy with acute on chronic metabolic encephalopathy. 8. Increased MCV. DISCHARGE DISPOSITION: The patient will be discharged in stable condition with guarded prognosis. Total time taken 35 minutes. HISTORY OF PRESENT ILLNESS: This 67-year-old gentleman with the past medical history of multiple medical problems being followed by Dr. Santoyo in the outpatient setting admitted with GI bleed and multiple other complex medical issues, pneumonia. Patient is closely monitored. The patient had change in mental status which improved significantly. Multiple consultants following the patient closely. The patient also had some agitation and Dr. Strickland saw the patient and the patient was closely monitored. On exam, vital signs are stable. CARDIOVASCULAR: S1, S2 muffled. ABDOMEN: Soft. NERVOUS SYSTEM: No focal deficits. LABS: Hemoglobin is 8.8. Sodium 133. Creatinine is improving, it is 2.01. DISCHARGE ADVICE: 1. Diet is cardiac. 2. Activity limited until followup. 3. Follow up with Dr. Santoyo in 2 to 3 days. 4. CBC, BMP. 5. Follow up with Cardiology as recommended. 6. Follow up with Gastroenterology and Nephrology as recommended. 7. Home care will be arranged. Medications are: 1. Gentamicin prednisone b.i.d. 2. Acular 1 drop b.i.d. 3. Tylenol 650 q.6 p.r.n. 4. Symbicort 160/4.5 two puffs b.i.d. 5. Clonidine 0.2 one patch q.7 days. 6. Benadryl 25 mg q.6 p.r.n. 7. Folic acid 1 mg p.o. daily. 8. Apresoline 100 mg p.o. t.i.d. 9. DuoNeb q.i.d. and p.r.n. 10.Metoprolol 25 mg p.o. b.i.d. 11.Multivitamins 1 p.o. daily. 12.Habitrol 21 daily. 13.Nystatin 5 mL swish and swallow. 14.Protonix 40 mg b.i.d. 15.K-Tab ER 10 mEq p.o. daily. 16.Prednisone 20 mg p.o. daily to be followed up with Nephrology regarding the taper. 17.Risperdal 1 mg p.o. b.i.d. 18.Flomax 0.4 daily. 19.Vitamin B-1, 100 mg p.o. daily. Once again, the patient will be discharged in a stable condition with guarded prognosis. MMODL / IJN: [id number] /
== END 2018-05-19 17:28 | disposition home health service (06) | DRG 377 ==
LOC: EC 12:21 → 3SCARD 15:27 → 3NMEDONC 05-07 19:09 → 4SSUR 05-18 18:45
PROVIDERS: ADMIT Internal Medicine; ATTEND Internal Medicine
PROC: 0W3P8ZZ Control Bleeding in Gastrointestinal Tract, Via Natural or Artificial Opening Endoscopic (ICD-10-PCS; principal; 2018-05-05 08:35)
DX: K31.811 Angiodysplasia of stomach and duodenum with bleeding (principal); G93.41 Metabolic encephalopathy; I21.A1 Myocardial infarction type 2; N17.0 Acute kidney failure with tubular necrosis; J69.0 Pneumonitis due to inhalation of food and vomit; N00.9 Acute nephritic syndrome with unspecified morphologic changes; D62 Acute posthemorrhagic anemia; E87.0 Hyperosmolality and hypernatremia; E87.2 Acidosis; F05 Delirium due to known physiological condition; N13.30 Unspecified hydronephrosis; E83.42 Hypomagnesemia; E87.70 Fluid overload, unspecified; R13.12 Dysphagia, oropharyngeal phase; F01.50 Vascular dementia, unspecified severity, without behavioral disturbance, psychotic disturbance, mood disturbance, and anxiety; F02.80 Dementia in other diseases classified elsewhere, unspecified severity, without behavioral disturbance, psychotic disturbance, mood disturbance, and anxiety; G30.9 Alzheimer's disease, unspecified; J44.9 Chronic obstructive pulmonary disease, unspecified; N18.3 Chronic kidney disease, stage 3 (moderate); D63.1 Anemia in chronic kidney disease; E86.1 Hypovolemia; E87.6 Hypokalemia; F17.210 Nicotine dependence, cigarettes, uncomplicated; I12.9 Hypertensive chronic kidney disease with stage 1 through stage 4 chronic kidney disease, or unspecified chronic kidney disease; R79.1 Abnormal coagulation profile; T39.395A Adverse effect of other nonsteroidal anti-inflammatory drugs [NSAID], initial encounter; R63.4 Abnormal weight loss; R80.9 Proteinuria, unspecified; R33.9 Retention of urine, unspecified; Z79.899 Other long term (current) drug therapy; Z90.49 Acquired absence of other specified parts of digestive tract; Z98.42 Cataract extraction status, left eye; Z98.41 Cataract extraction status, right eye; Z96.1 Presence of intraocular lens; Z82.49 Family history of ischemic heart disease and other diseases of the circulatory system
CPT/HCPCS: 36415; 36600; 43270; 70450; 71045; 74176; 74230; 76770; 80048; 80053; 80074; 81001; 82550; 82553; 82570; 82607; 82728; 82746; 82747; 82805; 83540; 83550; 83605; 83735; 83880; 84100; 84132; 84156; 84165; 84443; 84484; 85025; 85027; 86038; 86160; 86162; 86225; 86255; 86334; 86335; 86850; 86900; 86901; 86920; 87205; 87502; 93005; 93306; 94640; 94760; 95816; 99285

== ENCOUNTER 2018-05-25 15:05 | Inpatient (IN) | payer MEDICARE, OTHER ==
[2018-05-25] MEDS ORDERED: SODIUM CHLORIDE 0.9% 1,000 ML IV STA (15:08)
--- NOTE | 2018-05-25 15:09 | ED ---
Weakness HPI - General Stated complaint: Weakness Time Seen by Provider: 05/25/18 15:08 Source: RN notes reviewed, old records reviewed - History of Present Illness Initial comments: This is a 67-year-old male to the ER for evaluation. Patient presents today for evaluation regards to weakness and not feeling well. Patient has history of similar low hemoglobin. Patient's poor historian, patient presents today for continued weakness no chest pain or shortness of breath no abdominal pain. Denies any blood in his stool or vomit MD Complaint: generalized weakness -: days(s) Location: generalized Severity: mild Severity scale (1-10): 2 Quality: other (Pain) Consistency: constant Improves with: none Worsens with: none Context: recent illness, history of similar Associated Symptoms: denies other symptoms - Related Data Home Medications Medication Instructions Recorded Confirmed Budesonide-Formot 160-4.5 Mcg 2 puff INHALATION RT-BID 05/25/18 05/25/18 [Symbicort 160-4.5 Mcg Inhaler] Folic Acid 1 mg PO DAILY 05/25/18 05/25/18 Ipratropium-Albuterol Nebulize 3 ml INHALATION RT-QID PRN 05/25/18 05/25/18 [Duoneb 0.5 mg-3 mg/3 ml Soln] Metoprolol Tartrate 25 mg PO BID 05/25/18 05/25/18 Multivitamins, Thera [Multivitamin 1 tab PO DAILY 05/25/18 05/25/18 (formulary)] cloNIDine 0.2 MG/24HR PATCH 1 patch TRANSDERM Q7D 05/25/18 05/25/18 [Catapres-TTS] Previous Rx's Medication Instructions Recorded Acetaminophen Tab [Tylenol] 650 mg PO Q6HR PRN tab 05/07/18 Pantoprazole Sodium [Protonix] 40 mg PO BID #60 tablet.dr 05/19/18 Potassium Chloride [K-Tab ER] 10 meq PO DAILY #30 tablet.er 05/19/18 Tamsulosin [Flomax] 0.4 mg PO DAILY #30 cap 05/19/18 Thiamine [Vitamin B-1] 100 mg PO DAILY@1200 #30 tab 05/19/18 diphenhydrAMINE [Benadryl] 25 mg PO Q6HR PRN cap 05/19/18 hydrALAZINE HCL [Apresoline] 100 mg PO TID #180 tab 05/19/18 predniSONE 20 mg PO DAILY #15 tab 05/19/18 risperiDONE 1 mg PO BID #60 tablet 05/19/18 Allergies Allergy/AdvReac Type Severity Reaction Status Date / Time No Known Allergies Allergy Verified 04/30/18 12:42 Review of Systems ROS Statement: Those systems with pertinent positive or pertinent negative responses have been documented in the HPI. ROS Other: All systems not noted in ROS Statement are negative. Past Medical History Past Medical History: COPD Additional Past Medical History / Comment(s): tachycardia, in past was on thyroid med none now,"headaches", wants flu vaccine while here. History of Any Multi-Drug Resistant Organisms: None Reported Past Surgical History: Appendectomy, Hernia Repair Additional Past Surgical History / Comment(s): cataracts -latest one on left side done 04-24-18, naveed ing hernia repair Past Anesthesia/Blood Transfusion Reactions: No Reported Reaction Smoking Status: Current every day smoker - Past Family History Mother Family Medical History: Unable to Obtain Father Family Medical History: Myocardial Infarction (MS) General Exam General appearance: alert, in no apparent distress Head exam: Present: atraumatic, normocephalic, normal inspection Eye exam: Present: normal appearance, PERRL, EOMI. Absent: scleral icterus, conjunctival injection, periorbital swelling ENT exam: Present: normal exam, mucous membranes moist Neck exam: Present: normal inspection. Absent: tenderness, meningismus, lymphadenopathy Respiratory exam: Present: normal lung sounds bilaterally. Absent: respiratory distress, wheezes, rales, rhonchi, stridor Cardiovascular Exam: Present: normal rhythm, tachycardia, normal heart sounds. Absent: systolic murmur, diastolic murmur, rubs, gallop, clicks GI/Abdominal exam: Present: soft, normal bowel sounds. Absent: distended, tenderness, guarding, rebound, rigid Extremities exam: Present: normal inspection, full ROM, normal capillary refill. Absent: tenderness, pedal edema, joint swelling, calf tenderness Back exam: Present: normal inspection Neurological exam: Present: alert, oriented X3, CN II-XII intact Psychiatric exam: Present: normal affect, normal mood Skin exam: Present: warm, dry, intact, normal color. Absent: rash Course Vital Signs 05/25/18 15:13 Temperature 98.6 F Pulse Rate 112 H Respiratory 18 Rate Blood Pressure 142/94 O2 Sat by Pulse 99 Oximetry - Reevaluation(s) Reevaluation #1: 05/25/18 16:13 Medical record is reviewed EKG Findings - EKG Comments: EKG Findings:: EKG shows sinus tachycardia rate of 109, MO 124, QRS 76, QTc 444 Medical Decision Making - Medical Decision Making 67 male the ER for evaluation with hemoglobin of 4.9, patient be transfused and admitted for continued transfusion monitoring of hemodynamic status - Lab Data Result diagrams: 05/25/18 15:52 05/25/18 15:52 Lab Results 05/25/18 05/25/18 05/25/18 Range/Units 15:52 15:52 15:52 WBC 7.1 (3.8-10.6) k/uL RBC 1.55 L (4.30-5.90) m/uL Hgb 4.9 L* D (13.0-17.5) gm/dL Hct 15.4 L* (39.0-53.0) % MCV 99.3 (80.0-100.0) fL MCH 31.8 (25.0-35.0) pg MCHC 32.1 (31.0-37.0) g/dL RDW 18.0 H (11.5-15.5) % Plt Count 540 H (150-450) k/uL Neutrophils % 72 % Lymphocytes % 17 % Monocytes % 7 % Eosinophils % 2 % Basophils % 0 % Neutrophils # 5.1 (1.3-7.7) k/uL Lymphocytes # 1.2 (1.0-4.8) k/uL Monocytes # 0.5 (0-1.0) k/uL Eosinophils # 0.1 (0-0.7) k/uL Basophils # 0.0 (0-0.2) k/uL Hypochromasia Slight Anisocytosis Slight Macrocytosis Slight Sodium 135 L (137-145) mmol/L Potassium 4.4 (3.5-5.1) mmol/L Chloride 105 (98-107) mmol/L Carbon Dioxide 25 (22-30) mmol/L Anion Gap 5 mmol/L BUN 51 H (9-20) mg/dL Creatinine 2.17 H (0.66-1.25) mg/dL Est GFR (CKD-EPI)AfAm 36 (>60 ml/min/1.73 sqM) Est GFR (CKD-EPI)NonAf 31 (>60 ml/min/1.73 sqM) Glucose 99 (74-99) mg/dL Plasma Lactic Acid Justin 0.6 L (0.7-2.0) mmol/L Calcium 8.4 (8.4-10.2) mg/dL Phosphorus 3.6 (2.5-4.5) mg/dL Magnesium 1.6 (1.6-2.3) mg/dL Total Bilirubin 0.3 (0.2-1.3) mg/dL AST 20 (17-59) U/L ALT 37 (21-72) U/L Alkaline Phosphatase 115 (38-126) U/L Total Protein 4.9 L (6.3-8.2) g/dL Albumin 2.6 L (3.5-5.0) g/dL Critical Care Time Critical Care Time: Yes Total Critical Care Time: 31 Disposition Clinical Impression: Delirium due to another medical condition, Change in mental status, Dehydration , Weakness, Anemia, Renal insufficiency Disposition: ADMITTED IP TO THIS HOSP Condition: Fair Is patient prescribed a controlled substance at d/c from ED?: No Referrals: Rudy Santoyo DO [Primary Care Provider] - 1-2 days
[2018-05-25 16:12] LABS: Anisocytosis Slight; Basophils % (A) 0 %; Eosinophils # (A) 0.1 k/uL (0-0.7); Eosinophils % (A) 2 %; Hypochromasia Slight; Lymphocytes # (A) 1.2 k/uL (1.0-4.8); Lymphocytes % (A) 17 %; MCH 31.8 pg (25.0-35.0); MCHC 32.1 g/dL (31.0-37.0); MCV 99.3 fL (80.0-100.0); Macrocytosis Slight; Mean Platelet Volume 6.2; Monocytes # (A) 0.5 k/uL (0-1.0); Monocytes % (A) 7 %; Neutrophils # (A) 5.1 k/uL (1.3-7.7); Neutrophils % (A) 72 %; Platelet Count 540 k/uL (150-450); RBC 1.55 m/uL (4.30-5.90); WBC 7.1 k/uL (3.8-10.6)
[2018-05-25 16:17] LABS: Albumin 2.6 g/dL (3.5-5.0); Calcium 8.4 mg/dL (8.4-10.2); Magnesium 1.6 mg/dL (1.6-2.3); Phosphorus 3.6 mg/dL (2.5-4.5); Potassium 4.4 mmol/L (3.5-5.1); Total Bilirubin 0.3 mg/dL (0.2-1.3); Total Protein 4.9 g/dL (6.3-8.2)
[2018-05-25 16:19] LABS: HGB 4.9 gm/dL (13.0-17.5)
[2018-05-25 16:21] LABS: HCT 15.4 % (39.0-53.0)
[2018-05-25 16:22] LABS: INR 0.9 (<1.2); Prothrombin Time 9.4 sec (9.0-12.0)
[2018-05-25 16:35] LABS: Partial Thromboplastin Time 21.5 sec (22.0-30.0)
--- NOTE | 2018-05-25 17:28 | XR ---
EXAMINATION TYPE: XR chest 2V DATE OF EXAM: 05/25/2018 COMPARISON: 05/14/2018 INDICATION: COPD weakness TECHNIQUE: Frontal and lateral views of the chest are obtained. FINDINGS: The heart size is normal. The pulmonary vasculature is upper limits of normal. There is a 1.0 cm density at the right lung base not previously identified. This may be summation den sity. Underlying nodule remains within the differential. Mild bibasilar infiltrates are present. This is improved from comparison. Small right pleural effusio n remains. Effusions otherwise have resolved.. IMPRESSION: 1. Improving bibasilar infiltrates. A small focal area remains at the right base. This should be foll owed. Underlying nodules not excluded. 2. Improving pleural effusions with minimal residual at the right base
[2018-05-25] MEDS ORDERED: IPRATROPIUM-ALBUTEROL 3 ML NEB INHALATION PRN (17:46)
[2018-05-25] MEDS ORDERED: ACETAMINOPHEN TAB 325 MG TAB PO PRN (17:46)
[2018-05-25] MEDS ORDERED: diphenhydrAMINE 25 MG CAP PO PRN (17:46)
[2018-05-25] MEDS ORDERED: PANTOPRAZOLE 40 MG TABLET PO SCH (18:15)
[2018-05-25 18:18] LABS: Glucose,Whole Blood 114 mg/dL (75-99)
[2018-05-25] MEDS ORDERED: cloNIDine 0.2 MG/24HR PATCH TRANSDERM SCH (19:00)
[2018-05-25] MEDS: NICOTINE 21MG/24HR PATCH TRANSDERM SCH (19:17)
[2018-05-25] MEDS: METOPROLOL TARTRATE 25 MG TAB PO SCH (19:18)
[2018-05-25 19:58] LABS: Appearance,Urine Turbid (Clear); Bacteria,Urine Moderate /hpf; Bilirubin,Urine Negative (Negative); Blood,Urine Small (Negative); Color,Urine Light Yellow; Glucose,Urine (UA) Negative (Negative); Ketones,Urine Negative (Negative); Leukocyte Esterase,Urine Large (Negative); Nitrite,Urine Negative (Negative); PH, Urine 6.5 (5.0-8.0); Protein,Urine 2+ (Negative); RBC,Urine 14 /hpf (0-5); Specific Gravity,Urine 1.014 (1.001-1.035); Urobilinogen,Urine <2.0 mg/dL (<2.0); WBC,Urine >182 /hpf (0-5)
[2018-05-25] MEDS: SYMBICORT 160-4.5 MCG INHALER INHALATION SCH (20:13)
[2018-05-25] MEDS ORDERED: FUROSEMIDE 10 MG/ML 2 ML VIAL IV ONE ×2 (20:30→23:30)
[2018-05-25] MEDS: risperiDONE 1 MG TAB PO SCH (20:53)
[2018-05-25] MEDS: hydrALAZINE HCL 50 MG TAB PO SCH (20:59)
[2018-05-25] MEDS ORDERED: NALOXONE 0.4 MG/ML 1 ML VIAL IV PRN (22:05)
[2018-05-25] MEDS: PANTOPRAZOLE 40 MG/10 ML VIAL IVP SCH (23:56)
[2018-05-26 04:48] LABS: Anisocytosis Slight; Basophils % (A) 0 %; Eosinophils # (A) 0.2 k/uL (0-0.7); Eosinophils % (A) 2 %; HCT 30.4 % (39.0-53.0); Lymphocytes # (A) 0.6 k/uL (1.0-4.8); Lymphocytes % (A) 8 %; MCH 29.9 pg (25.0-35.0); MCHC 32.2 g/dL (31.0-37.0); Mean Platelet Volume 6.3; Monocytes # (A) 0.4 k/uL (0-1.0); Monocytes % (A) 5 %; Neutrophils # (A) 6.5 k/uL (1.3-7.7); Neutrophils % (A) 83 %; Platelet Count 432 k/uL (150-450); RBC 3.27 m/uL (4.30-5.90); WBC 7.8 k/uL (3.8-10.6)
[2018-05-26 04:53] LABS: HGB 9.8 gm/dL (13.0-17.5)
[2018-05-26 04:59] LABS: Magnesium 1.5 mg/dL (1.6-2.3); Phosphorus 4.3 mg/dL (2.5-4.5); Potassium 3.8 mmol/L (3.5-5.1)
[2018-05-26] MEDS ORDERED: Magnesium Replacement Protocol 1 EACH MISC MISCELLANE PRN (05:53)
[2018-05-26] MEDS ORDERED: Potassium Replacement Protocol 1 EACH MISC MISCELLANE PRN (05:53)
[2018-05-26] MEDS ORDERED: POTASSIUM CHLORIDE ER 20 MEQ TAB.ER PO SCH (06:00)
[2018-05-26] MEDS: hydrALAZINE HCL 50 MG TAB PO SCH ×3 (06:31→21:19)
[2018-05-26] MEDS: MAGNESIUM SULFATE-D5W PMX 1 GM in DEXTROSE/WATER 1 100ML.BAG IVPB SCH ×2 (06:32→10:35)
--- NOTE | 2018-05-26 07:22 | HP ---
HISTORY AND PHYSICAL DATE OF SERVICE: 05/25/2018 CHIEF COMPLAINT: Anemia. HISTORY OF PRESENT ILLNESS: This 67-year-old gentleman with a past medical history of COPD, history of tachycardia, appendectomy, hernia repair being followed by Dr. Santoyo in the outpatient setting also presented to [facility] with complaints of anemia. The patient has got weakness and feeling not well. The patient had a history of low hemoglobin. The patient was admitted recently to [facility] with GI bleeding and AV malformations suspected. Patient also had bilateral pneumonia during that time. Dr. Santoyo aw the patient. Currently the patient complains of tiredness and weakness. Hemoglobin is found to be 4.9 and 3 units transfusion were at this time. Patient admitted for further evaluation. Creatinine is also elevated to 2.17. The baseline creatinine was around 2.4. There is no history of any fever, rigors or chills. No history of headache, loss of consciousness, or seizures at this time. PAST MEDICAL HISTORY: History of COPD, history of tachycardia, history of pneumonia and history of GI bleed. MEDICATIONS: Medications prior to admission include: 1. Symbicort 160/4.5 two puffs b.i.d. 2. Tylenol 650 q.6 p.r.n. 3. Benadryl 25 mg q.6 p.r.n. 4. Clonidine patch 1 patch q.7 days. 5. B-1, 100 mg p.o. daily. 6. Multivitamins one p.o. daily. 7. Prednisone 20 mg daily. 8. Risperdal 1 mg p.o. b.i.d. 9. Apresoline 100 mg p.o. t.i.d. 10.Flomax 0.4 daily. 11.K-Tab ER 10 mEq p.o. daily. 12.Protonix 40 mg p.o. b.i.d. 13.Metoprolol 25 mg p.o. b.i.d. 14.DuoNeb q.i.d. p.r.n. 15.Folic acid 1 mg p.o. daily. ALLERGIES: Allergies are none. FAMILY HISTORY: History of myocardial infarction in the family. SOCIAL HISTORY: Previous history of smoking. No history of alcohol intake. REVIEW OF SYSTEMS: ENT: Diminished hearing and diminished vision. CARDIOVASCULAR SYSTEM: As mentioned earlier. RESPIRATORY SYSTEM: As mentioned earlier. GI: As mentioned earlier. : No dysuria. NERVOUS SYSTEM: No numbness or weakness. ALLERGY/IMMUNOLOGY: No history of asthma. MUSCULOSKELETAL: As mentioned above: HEMATOLOGY/ONCOLOGY: As mentioned earlier. ENDOCRINE: No history of diabetes or hypothyroidism. CONSTITUTIONAL: As mentioned earlier. DERMATOLOGY: Negative. RHEUMATOLOGY: Negative. PSYCHIATRY: As mentioned earlier. PHYSICAL EXAMINATION: The patient is alert and oriented x3. Pulse is 103. Blood pressure 156/89, respirations 16, temperature 98.5, pulse ox 97% on room air. HEENT: Conjunctivae pale. Oral mucosa pale. Neck is no jugular venous distention. No carotid bruit. No lymph node enlargement. CARDIOVASCULAR: S1, S2 muffled. No S3, no S4. RESPIRATORY: Breath sounds diminished at the bases. A few scattered rhonchi and crackles. ABDOMEN: Soft, scaphoid, nontender. No mass palpable. LEGS: No edema. No swelling. NERVOUS SYSTEM: Higher function as mentioned earlier. Moves all 4 limbs. No focal motor deficits. LYMPHATICS: No lymphadenopathy of the neck, axillae or groin. SKIN: No ulcer, rash or bleeding. JOINTS: No active deforming arthropathy. LABS: WBC 7.1, hemoglobin 4.9. Sodium 135. Creatinine 2.17. Troponin 0.039. ASSESSMENT: 1. Anemia, possible anemia acute on chronic blood-loss anemia possibly from gastrointestinal blood loss. 2. History of recent upper gastrointestinal blood loss with secondary to AV malformation. 3. History of pneumonia. 4. History of dysphagia. 5. Indeterminate troponins. 6. Chronic kidney disease stage 3. 7. Chronic interstitial kidney disease secondary to NSAIDS maintained on p.o. steroids. 8. Change in mental status, metabolic encephalopathy, acute on chronic. 9. Hyponatremia. 10.Urinary tract infection present on admission. 11.Chronic obstructive pulmonary disease. 12.Hernia repair. 13.Appendectomy. 14.Remote history of nicotine dependence. 15.Severe protein calorie malnutrition with body mass index of 17.4. RECOMMENDATIONS AND DISCUSSION: This 67-year-old gentleman who presented with multiple complex medical issues, we will monitor the patient closely. Continue the current medications, continue symptomatic treatment. I recommended 3 units transfusion. Resume the home medications. Otherwise, proton pump inhibitors. Also get a consultation with Dr. Santoyo and as well as Gastroenterology. Cardiology will be consulted for high troponins. Prognosis guarded. Otherwise prognosis guarded because of multiple complex medical issues. Further recommendations to follow A copy of dictation forwarded to Dr. Santoyo who is the primary physician. MMODL / IJN: [id number] / MTDWill
[2018-05-26] MEDS: SYMBICORT 160-4.5 MCG INHALER INHALATION SCH ×2 (08:02→19:39)
--- NOTE | 2018-05-26 08:18 | XR ---
EXAMINATION TYPE: XR chest 1V DATE OF EXAM: 05/26/2018 COMPARISON: 05/25/2018 INDICATION: Assess lungs, no other history is provided. TECHNIQUE: Single frontal view of the chest is obtained. FINDINGS: The heart size is normal. The pulmonary vasculature is normal. There appears to be improved aeration with diminished densities at the lung bases. Previous nodular d ensity is not identified. There is some residual within the left lower lobe. IMPRESSION: 1. Resolving infiltrates with some mild residual at the left base.
[2018-05-26] MEDS ORDERED: predniSONE 20 MG TAB PO SCH (09:00)
--- NOTE | 2018-05-26 10:28 | ECHOF ---
Referral Reason:elevated troponin MEASUREMENTS -------- HEIGHT: 165.1 cm WEIGHT: 51.7 kg BP: FINDINGS -------- Sinus rhythm. Echo done 05/01/18: Limited Study for LV Function. Overall left ventricular systolic function is normal with, an EF between 55 - 60 %. CONCLUSIONS -------- 1. Echo done 05/01/18: Limited Study for LV Function. 2. Overall left ventricular systolic function is normal with, an EF between 55 - 60 %. [employer]: Sandra Whitaker RDCS
[2018-05-26] MEDS: risperiDONE 1 MG TAB PO SCH ×2 (10:36→21:21)
[2018-05-26] MEDS: METOPROLOL TARTRATE 25 MG TAB PO SCH ×2 (10:36→21:22)
[2018-05-26] MEDS: PANTOPRAZOLE 40 MG/10 ML VIAL IVP SCH ×2 (10:36→21:20)
[2018-05-26] MEDS: FOLIC ACID 1 MG TAB PO SCH (10:36)
[2018-05-26] MEDS: NICOTINE 21MG/24HR PATCH TRANSDERM SCH (10:37)
[2018-05-26] MEDS: POTASSIUM CHLORIDE ER 10 MEQ TAB.ER.PRT PO SCH (10:37)
[2018-05-26] MEDS: TAMSULOSIN 0.4 MG CAP.ER.24H PO SCH (10:38)
[2018-05-26 12:44] LABS: Anisocytosis Slight; HCT 32.4 % (39.0-53.0); HGB 10.3 gm/dL (13.0-17.5); Hypochromasia Slight; MCH 30.1 pg (25.0-35.0); MCHC 31.9 g/dL (31.0-37.0); MCV 94.3 fL (80.0-100.0); Macrocytosis Slight; Mean Platelet Volume 6.2; Platelet Count 429 k/uL (150-450); Poikilocytosis Slight; RBC 3.44 m/uL (4.30-5.90); RDW 17.9 % (11.5-15.5); WBC 7.7 k/uL (3.8-10.6)
[2018-05-26] MEDS: THIAMINE 100 MG TAB PO SCH (12:59)
[2018-05-26] MEDS: MULTIVITAMINS, THERA 1 EACH TAB PO SCH (13:17)
--- NOTE | 2018-05-26 15:36 | CT ---
EXAMINATION TYPE: CT chest wo con DATE OF EXAM: 05/26/2018 COMPARISON: Chest x-ray from earlier today and yesterday. HISTORY: Abnormal x-ray, rule out right basilar nodule Automated Exposure Control for Dose Reduction was Utilized. TECHNIQUE: CT scan of the thorax is performed without IV contrast. FINDINGS: LUNGS: There are small left greater than right pleural effusions or pleural fluid collections not as well seen on frontal chest x-rays. Fluid collection in left extends to left lung apex when patient i s lying supine. They appear more prominent from two-view chest x-ray yesterday. There is associated c ompressive atelectasis, left greater than right in both bases. There is patchy bibasilar linear scarr ing and/or atelectasis redemonstrated. No suspicious parenchymal nodules or masses are identified naveed aterally. MEDIASTINUM: Lack of IV contrast is noted to limit evaluation for mediastinal and especially hilar ad enopathy. There are no definitive greater than 1 cm hilar or mediastinal lymph nodes. No cardiomega ly is seen. Small pericardial effusion measures up to 15 mm inferiorly. There is suspected three-vess el coronary artery stents and/or calcification, correlate clinically. OTHER: No additional significant abnormality is seen. IMPRESSION: Correlate for fluid overload state as there are small left greater than the right pleural fluid collections or effusions with associated compressive atelectasis. No suspicious masses or shiela opathy identified.
--- NOTE | 2018-05-26 15:57 | P.CNPUL ---
History of Present Illness Consult date: 05/26/18 Chief complaint: Severe anemia, GI bleeding History of present illness: 79-year-old male patient who came in to the burst department not feeling good and generalized weakness. Similar to an earlier admission, the patient was found to have a low hemoglobin and for that reason he was admitted to the intensive care unit. The patient's hemoglobin was as low as 4.9. The patient was given a total of 3 units of packed RBC. His morning hemoglobin is up to 10.3. Note that he does not have any melanotic stool per history. No bright red blood per rectum. No hematemesis. The patient was in the hospital back in early May with a hemoglobin of 4.8. 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 The patient was treated with IV Protonix. The patient was discharged home in a stable condition. No abdominal pain. The patient has chronic renal failure in the creatinine is stable for now 2.1. During his previous admission, the patient a CAT scan of the abdomen that showed no evidence of any retroperitoneal bleed. No abdominal distention. GI was again consulted. Coagulation profile is within normal limits. The patient has not been taking any form of antiplatelet agents or anticoagulants on outpatient basis. Review of Systems Constitutional: Reports fatigue, Reports weakness Eyes: denies as per HPI, denies blurred vision, denies bulging eye, denies decreased vision, denies diplopia, denies discharge, denies dry eye, denies irritation, denies itching, denies pain, denies photophobia, denies loss of peripheral vision, denies loss of vision, denies tunnel vision/blind spots Ears: deny: decreased hearing, ear discharge, earache, tinnitus Ears, nose, mouth and throat: Denies headache, Denies sore throat Cardiovascular: Reports dyspnea on exertion Respiratory: Reports dyspnea Gastrointestinal: Denies abdominal pain, Denies diarrhea, Denies nausea, Denies vomiting Genitourinary: Reports as per HPI Musculoskeletal: Denies myalgias Musculoskeletal: absent: ankle pain, ankle stiffness, ankle swelling, as per HPI , elbow pain, elbow stiffness, elbow swelling, foot pain, foot stiffness, foot swelling, hand pain, hand stiffness, hand swelling, hip pain, hip stiffness, hip swelling, knee pain, knee stiffness, knee swelling, shoulder pain, shoulder stiffness, shoulder swelling, wrist pain, wrist stiffness, wrist swelling Integumentary: Denies pruritus, Denies rash Neurological: Reports weakness Psychiatric: Reports as per HPI Endocrine: Reports fatigue Hematologic/Lymphatic: Reports as per HPI Allergic/Immunologic: Reports as per HPI Past Medical History Past Medical History: COPD Additional Past Medical History / Comment(s): Recent admission for an upper GI bleed and the patient was found to have an AV malformation of the duodenum, blood loss anemia, COPD, chronic renal failure, headaches History of Any Multi-Drug Resistant Organisms: None Reported Past Surgical History: Appendectomy, Hernia Repair Additional Past Surgical History / Comment(s): cataracts -latest one on left side done 04-24-18, inguinal hernia repair Past Anesthesia/Blood Transfusion Reactions: No Reported Reaction Past Psychological History: No Psychological Hx Reported Smoking Status: Former smoker Past Alcohol Use History: None Reported Additional Past Alcohol Use History / Comment(s): started smoking age 17 smokes 1ppd Past Drug Use History: None Reported - Past Family History Mother Family Medical History: Myocardial Infarction ([place]) Father Family Medical History: Myocardial Infarction ([place]) Brother(s) Family Medical History: Myocardial Infarction ([place]) Medications and Allergies Home Medications Medication Instructions Recorded Confirmed Type Acetaminophen Tab [Tylenol] 650 mg PO Q6HR PRN tab 05/07/18 05/25/18 Rx Pantoprazole Sodium [Protonix] 40 mg PO BID #60 tablet. 05/19/18 05/25/18 Rx Potassium Chloride [K-Tab ER] 10 meq PO DAILY #30 tablet.er 05/19/18 05/25/18 Rx Tamsulosin [Flomax] 0.4 mg PO DAILY #30 cap 05/19/18 05/25/18 Rx Thiamine [Vitamin B-1] 100 mg PO DAILY@1200 #30 tab 05/19/18 05/25/18 Rx diphenhydrAMINE [Benadryl] 25 mg PO Q6HR PRN cap 05/19/18 05/25/18 Rx hydrALAZINE HCL [Apresoline] 100 mg PO TID #180 tab 05/19/18 05/25/18 Rx predniSONE 20 mg PO DAILY #15 tab 05/19/18 05/25/18 Rx risperiDONE 1 mg PO BID #60 tablet 05/19/18 05/25/18 Rx Budesonide-Formot 160-4.5 Mcg 2 puff INHALATION RT-BID 05/25/18 05/25/18 History [Symbicort 160-4.5 Mcg Inhaler] Folic Acid 1 mg PO DAILY 05/25/18 05/25/18 History Ipratropium-Albuterol Nebulize 3 ml INHALATION RT-QID PRN 05/25/18 05/25/18 History [Duoneb 0.5 mg-3 mg/3 ml Soln] Metoprolol Tartrate 25 mg PO BID 05/25/18 05/25/18 History Multivitamins, Thera [Multivitamin 1 tab PO DAILY 05/25/18 05/25/18 History (formulary)] cloNIDine 0.2 MG/24HR PATCH 1 patch TRANSDERM Q7D 05/25/18 05/25/18 History [Catapres-TTS] Allergies Allergy/AdvReac Type Severity Reaction Status Date / Time No Known Allergies Allergy Verified 04/30/18 12:42 Physical Exam Vitals: Vital Signs Temp Pulse Resp BP Pulse Ox 05/26/18 15:00 167/96 05/26/18 14:30 99 20 161/91 96 05/26/18 14:00 93 22 158/86 97 05/26/18 13:30 93 21 139/83 98 05/26/18 13:00 89 20 157/87 96 05/26/18 12:30 89 12 141/88 96 05/26/18 12:00 98.5 F 86 20 160/85 98 05/26/18 11:30 96 21 156/84 97 05/26/18 11:00 109 H 22 154/87 97 05/26/18 10:30 106 H 22 153/84 97 05/26/18 10:00 101 H 10 L 152/88 96 05/26/18 09:30 107 H 19 157/86 96 05/26/18 09:00 104 H 20 147/83 95 05/26/18 08:30 102 H 23 148/82 05/26/18 08:03 95 05/26/18 08:00 98.5 F 106 H 23 158/90 95 05/26/18 07:30 107 H 22 164/93 05/26/18 07:00 110 H 24 153/93 96 05/26/18 06:30 104 H 27 H 170/98 97 05/26/18 06:00 120 H 11 L 152/78 97 05/26/18 05:30 107 H 9 L 150/81 97 05/26/18 05:00 101 H 9 L 143/77 96 05/26/18 04:30 105 H 16 150/79 97 05/26/18 04:00 98.6 F 102 H 10 L 152/79 97 05/26/18 03:30 101 H 23 148/80 97 05/26/18 03:06 98.2 F 104 H 16 148/80 05/26/18 03:00 103 H 30 H 150/81 94 L 05/26/18 02:30 99 17 136/81 97 05/26/18 02:00 98 20 124/67 97 05/26/18 01:30 90 18 128/69 94 L 05/26/18 01:00 87 20 149/80 05/26/18 00:51 98.6 F 92 21 124/67 05/26/18 00:30 90 13 147/91 97 05/26/18 00:21 98.3 F 94 19 149/80 05/26/18 00:11 98.4 F 93 21 147/91 05/26/18 00:07 97.9 F 98 14 151/79 97 05/26/18 00:00 97.9 F 95 17 156/92 96 05/25/18 23:30 98 15 146/80 98 05/25/18 23:19 96 19 146/80 98 05/25/18 23:00 98 21 148/93 97 05/25/18 22:30 103 H 16 156/89 98 05/25/18 22:00 105 H 14 127/68 97 05/25/18 21:50 98.5 F 93 10 L 142/84 05/25/18 21:40 98.5 F 97 18 127/68 97 05/25/18 21:30 92 16 150/84 98 05/25/18 21:20 98.9 F 93 19 150/84 97 05/25/18 21:10 98.3 F 92 21 147/90 05/25/18 21:00 98.4 F 91 23 152/91 99 05/25/18 20:49 98.3 F 92 18 152/91 99 05/25/18 20:30 101 H 19 160/87 99 05/25/18 20:00 95 21 163/99 97 05/25/18 19:30 109 H 18 163/99 98 05/25/18 19:00 112 H 22 161/90 97 05/25/18 18:44 98.4 F 106 H 22 161/90 05/25/18 18:30 106 H 23 158/89 05/25/18 18:24 98.4 F 111 H 18 157/85 05/25/18 18:14 98.3 F 112 H 18 158/89 98 05/25/18 18:00 112 H 27 H 158/89 98 05/25/18 17:30 98.4 F 109 H 17 161/92 98 05/25/18 17:00 105 H 18 152/84 97 05/25/18 16:30 110 H 16 150/88 97 05/25/18 16:00 107 H 18 158/89 99 Intake and Output 05/26/18 05/26/18 05/26/18 06:59 14:59 22:59 Intake Total 1350 260 20 Output Total 1600 750 100 Balance -250 -490 -80 Intake: IV 170 260 20 0.9 kvo 20 160 20 Magnesium Sulfate-D5w Pmx 100 100 1 gm In Dextrose/Water 1 100ml.bag @ 100 mls/hr IVPB Q1H [facility] Rx#: [id number] cefTRIAXone 1 gm In 50 Sodium Chloride 0.9% 50 ml @ 100 mls/hr IVPB Q24H [facility] Rx#:[id number] Blood Product 930 As-1 Unit 310 [id number] As-1 Unit 310 [id number] Other 250 As-1 Unit 250 [id number] Output: Urine 1600 750 100 Other: Voiding Method Indwelling Catheter Indwelling Catheter Weight 52.1 kg GENERAL EXAM: Lethargic, 67-year-old frail looking white male, appears much older than stated age HEAD: Normocephalic/atraumatic. EYES: Normal reaction of pupils, equal size. Conjunctiva pink, sclera white. NOSE: Clear with pink turbinates. THROAT: No erythema or exudates. NECK: No masses, no JVD, no thyroid enlargement, no adenopathy. CHEST: No chest wall deformity. Symmetrical expansion. LUNGS: Equal air entry with bibasilar crackles, currently on room air oxygen, patient is sedated, does not appear to be in distress. CVS: Regular rate and rhythm, normal S1 and S2, no gallops, no murmurs, no rubs ABDOMEN: Soft, nontender. No hepatosplenomegaly, normal bowel sounds, no guarding or rigidity. EXTREMITIES: No clubbing, no edema, no cyanosis, 2+ pulses and upper and lower extremities. MUSCULOSKELETAL: Muscle strength and tone normal. SPINE: No scoliosis or deformity Examination of the skin revealed no evidence of significant rashes, suspicious appearing nevi or other concerning lesions. CENTRAL NERVOUS SYSTEM: Sedated, No focal deficits, tone is normal in all 4 extremities. Results - Laboratory Findings CBC and BMP: 05/26/18 12:14 05/26/18 12:14 PT/INR, D-dimer PT 9.4 sec (9.0-12.0) 05/25/18 15:52 INR 0.9 (<1.2) 05/25/18 15:52 Abnormal lab findings: Abnormal Labs 05/25/18 05/25/18 05/25/18 15:52 15:52 15:52 RBC 1.55 L Hgb 4.9 L* D Hct 15.4 L* RDW 18.0 H Plt Count 540 H Lymphocytes # APTT Sodium 135 L BUN 51 H Creatinine 2.17 H POC Glucose (mg/dL) Plasma Lactic Acid Justin 0.6 L Calcium Magnesium Troponin I Total Protein 4.9 L Albumin 2.6 L Urine Protein Urine Blood Ur Leukocyte Esterase Urine RBC Urine WBC Urine WBC Clumps Urine Bacteria Crossmatch 05/25/18 05/25/18 05/25/18 15:52 15:52 15:52 RBC Hgb Hct RDW Plt Count Lymphocytes # APTT 21.5 L Sodium BUN Creatinine POC Glucose (mg/dL) Plasma Lactic Acid Justin Calcium Magnesium Troponin I 0.039 H* Total Protein Albumin Urine Protein Urine Blood Ur Leukocyte Esterase Urine RBC Urine WBC Urine WBC Clumps Urine Bacteria Crossmatch See Detail 05/25/18 05/25/18 05/26/18 18:04 19:03 04:09 RBC 3.27 L Hgb 9.8 L D Hct 30.4 L RDW 18.0 H Plt Count Lymphocytes # 0.6 L APTT Sodium BUN Creatinine POC Glucose (mg/dL) 114 H Plasma Lactic Acid Justin Calcium Magnesium Troponin I Total Protein Albumin Urine Protein 2+ H Urine Blood Small H Ur Leukocyte Esterase Large H Urine RBC 14 H Urine WBC >182 H Urine WBC Clumps Many H Urine Bacteria Moderate H Crossmatch 05/26/18 05/26/18 04:09 12:14 RBC 3.44 L Hgb 10.3 L Hct 32.4 L RDW 17.9 H Plt Count Lymphocytes # APTT Sodium 136 L BUN 46 H Creatinine 2.05 H POC Glucose (mg/dL) Plasma Lactic Acid Justin Calcium 8.0 L Magnesium 1.5 L Troponin I Total Protein Albumin Urine Protein Urine Blood Ur Leukocyte Esterase Urine RBC Urine WBC Urine WBC Clumps Urine Bacteria Crossmatch - Diagnostic Findings CT scan - chest: image reviewed Assessment and Plan Plan: Assessment 1 profound anemia with a hemoglobin of 4.9, transfused with 3 units of packed RBC and hemoglobin is up to 10.3. The patient is hemodynamic is stable. Consider recurrent upper GI bleeding 2 upper GI bleeding secondary to an AV malformation involving the duodenum and the patient has been treated recently with argon plasma coagulation treatment 3 COPD 4 generalized weakness secondary to profound anemia 5 chronic renal failure, creatinine is stable 6 suspected UTI based on an abnormal urinalysis and the patient is currently on IV Rocephin 7 abnormal troponin, rule out an acute non-ST segment elevation myocardial infarction. ProBNP is also elevated probably related to his underlying chronic renal failure. Echocardiogram is to follow. EKG on admission showing sinus tachycardia without any ST segment elevation or depression Plan Monitor the hemoglobin. Monitor hemodynamics. Reconsult gastroenterology regarding possibility of a recurrent GI bleed. Put the patient IV Protonix. Put the patient IV Rocephin regarding a possible urine checked infection. Cardiac consultation and consider an echocardiogram. No need for any antiplatelet agents. No anticoagulants for now. Overall hemodynamics is stable and the patient has been resuscitated adequately and he has received packed RBCs transfusion if hemoglobin is up to 10.3. No signs of any acute GI bleeding. Resume outpatient medications. We'll continue to follow.
[2018-05-26] MEDS: CLOTRIMAZOLE TROCHE 10 MG TROCHE MUCOUS MEM SCH ×2 (17:01→21:23)
[2018-05-26] MEDS ORDERED: ONDANSETRON 4 MG/2 ML VIAL IVP PRN (17:18)
[2018-05-26] MEDS ORDERED: PEG 3350-NA SULF,BICARB,CL/KCL 4,000 ML BOTTLE PO ONE ×2 (17:19→20:22)
--- NOTE | 2018-05-26 19:37 | PN ---
PROGRESS NOTE DATE OF SERVICE: 05/26/2018 This 67-year-old gentleman who was admitted with significant anemia with acute blood loss anemia. Also, had a recent AV malformation. A chest CT was also done today which showed some pleural effusions. No suspicious mass lesions are noted. A limited echo showed overall ejection fraction was normal at 50 to 60%. The patient being monitored by multiple consultants including Gastroenterology and as well as Pulmonary and the hemoglobin is 10.3 after 3 units of transfusions. Creatinine is at 2.05. The patient also had hypomagnesemia. Troponin is also noted. The patient also had features of UTI. PAST MEDICAL HISTORY: Reviewed. REVIEW OF SYSTEMS: Review of systems could not be taken. The patient is mildly confused. CURRENT MEDICATIONS: Reviewed and include: 1. Tylenol 650 q.6h p.r.n. 2. DuoNeb q.i.d. and p.r.n. 3. Symbicort 4.5 two puffs b.i.d. 4. Rocephin 1 g daily. 5. Catapres TTS 0.2 q.7 days. 6. Mycelex. 7. Benadryl. 8. Folic acid. 9. Alprazolam. 10.Lopressor. 11.Magnesium and potassium replacement protocol. 12.Multivitamins. 13.Narcan. 14.Habitrol 21. 15.Zofran. 16.K-Dur. 17.Risperdal. 18.Flomax. 19.Vitamin B1. PHYSICAL EXAM: Patient is alert, oriented x2. Pulse is 109. Blood pressure 160/92, respiration 20, temperature normal, pulse ox 98% on room air. HEENT: Conjunctivae pale. Oral mucosa moist. Neck is no jugular venous distention. No carotid bruit. No lymph node enlargement. CARDIOVASCULAR: S1, S2. RESPIRATORY: Breath sounds diminished in the bases. A few scattered rhonchi and crackles. ABDOMEN: Soft, nontender. No mass palpable. LEGS: No edema. NERVOUS SYSTEM: Higher functions as mentioned earlier. Moves all four limbs. No focal deficits. LYMPHATICS: No lymphadenopathy in the neck, axillae, groin. SKIN: No ulcer, rash or bleeding. LABS: WBC 7.7, hemoglobin is 10.3. Creatinine is 2.05. Magnesium 1.05. ASSESSMENT: 1. Anemia, possibly anemia acute on chronic blood-loss anemia possibly from GI blood loss. 2. History of recent upper GI endoscopy and GI blood loss secondary to AV malformation. 3. History of pneumonia. 4. History of dysphagia. 5. Indeterminate troponins. 6. Chronic kidney disease stage III. 7. 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 steroids. 8. Change in mental status, metabolic encephalopathy, acute on chronic. 9. Hyponatremia. 10.Urinary tract infection, present on admission. 11.Chronic obstructive pulmonary disease. 12.Hernia repair. 13.Appendectomy. 14.Remote history of nicotine dependence. 15.Severe protein calorie malnutrition with body mass of 17.4. RECOMMENDATIONS AND DISCUSSION: I recommend to continue current management and symptomatic treatment. Otherwise at this time I recommend follow closely follow with Dr. 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 Repeat hemoglobin. As mentioned earlier patient also had multiple transfusions. I would also recommend evaluation regarding the chronic kidney disease with Dr. Church regarding the continuation of prednisone, which is stopped currently. The prognosis is guarded because of multiple complex medical issues. Further recommendations to follow. Continue the proton pump inhibitors. Repeat labs. Prognosis guarded. MMODL / IJN: [id number] /
--- NOTE | 2018-05-26 20:21 | P.CONS ---
History of Present Illness - Reason for Consult Consult date: 05/26/18 Anemia Requesting physician: Ruperto Salmeron - Chief Complaint Weakness - History of Present Illness 67-year-old male with a medical history significant for COPD, anemia of acute blood loss due to a duodenal AVM treated with APC ablation on last hospitalization and had extra presents to the hospital with complaints of weakness. On presentation to the hospital the patient was found to be anemic with a hemoglobin of 4.9. The patient is status post transfusion with hemoglobin improving to 9.8 and found to be 10.3 on repeat blood draw. No signs or symptoms of GI bleeding reported from the patient and nursing staff who deny any hematochezia, melena, nausea, vomiting or hematemesis. The patient is well-known to the gastroenterology service and was seen on the last admission at which time EGD was performed and significant for a nonbleeding duodenal AVM which was treated with argon plasma coagulation therapy. At that time the patient had initially been found to be anemic with no signs or symptoms of GI bleeding. Subsequently he had developed episodes of melena and was taken for upper endoscopy. No history of prior colonoscopy reported. The patient is denying any abdominal pain. Review of Systems REVIEW OF SYSTEMS: CONSTITUTIONAL: Denies any fevers, chills, weight change or but the patient had reported fatigue and weakness. CARDIOVASCULAR: Denies any chest pain, palpitations high or low blood pressures RESPIRATORY: Denies any shortness of breath, hemoptysis or cough, but the patient has a known history of COPD. GENITOURINARY: No dysuria or hematuria. MUSCULOSKELETAL: No weakness reported. SKIN: Denies any new rashes or lesions, jaundice or pallor. PSYCHIATRIC: Denies any depression or anxiety. NEUROLOGY: Denies headache, denies any new focal deficits. EARS/NOSE/THROAT: No recent hearing change, congestion, nasal discharge or sore throat. EYES: No pain in eyes, discharge or change in vision. GASTROINTESTINAL: As per HPI. Past Medical History Past Medical History: COPD Additional Past Medical History / Comment(s): Recent admission for an upper GI bleed and the patient was found to have an AV malformation of the duodenum, blood loss anemia, COPD, chronic renal failure, headaches History of Any Multi-Drug Resistant Organisms: None Reported Past Surgical History: Appendectomy, Hernia Repair Additional Past Surgical History / Comment(s): cataracts -latest one on left side done 04-24-18, inguinal hernia repair Past Anesthesia/Blood Transfusion Reactions: No Reported Reaction Past Psychological History: No Psychological Hx Reported Smoking Status: Former smoker Past Alcohol Use History: None Reported Additional Past Alcohol Use History / Comment(s): started smoking age 17 smokes 1ppd Past Drug Use History: None Reported - Past Family History Mother Family Medical History: Myocardial Infarction ([place]) Father Family Medical History: Myocardial Infarction ([place]) Brother(s) Family Medical History: Myocardial Infarction ([place]) Medications and Allergies Home Medications Medication Instructions Recorded Confirmed Type Acetaminophen Tab [Tylenol] 650 mg PO Q6HR PRN tab 05/07/18 05/25/18 Rx Pantoprazole Sodium [Protonix] 40 mg PO BID #60 tablet.dr 05/19/18 05/25/18 Rx Potassium Chloride [K-Tab ER] 10 meq PO DAILY #30 tablet.er 05/19/18 05/25/18 Rx Tamsulosin [Flomax] 0.4 mg PO DAILY #30 cap 05/19/18 05/25/18 Rx Thiamine [Vitamin B-1] 100 mg PO DAILY@1200 #30 tab 05/19/18 05/25/18 Rx diphenhydrAMINE [Benadryl] 25 mg PO Q6HR PRN cap 05/19/18 05/25/18 Rx hydrALAZINE HCL [Apresoline] 100 mg PO TID #180 tab 05/19/18 05/25/18 Rx predniSONE 20 mg PO DAILY #15 tab 05/19/18 05/25/18 Rx risperiDONE 1 mg PO BID #60 tablet 05/19/18 05/25/18 Rx Budesonide-Formot 160-4.5 Mcg 2 puff INHALATION RT-BID 05/25/18 05/25/18 History [Symbicort 160-4.5 Mcg Inhaler] Folic Acid 1 mg PO DAILY 05/25/18 05/25/18 History Ipratropium-Albuterol Nebulize 3 ml INHALATION RT-QID PRN 05/25/18 05/25/18 History [Duoneb 0.5 mg-3 mg/3 ml Soln] Metoprolol Tartrate 25 mg PO BID 05/25/18 05/25/18 History Multivitamins, Thera [Multivitamin 1 tab PO DAILY 05/25/18 05/25/18 History (formulary)] cloNIDine 0.2 MG/24HR PATCH 1 patch TRANSDERM Q7D 05/25/18 05/25/18 History [Catapres-TTS] Allergies Allergy/AdvReac Type Severity Reaction Status Date / Time No Known Allergies Allergy Verified 04/30/18 12:42 Physical Exam Vitals: Vital Signs Temp Pulse Resp BP Pulse Ox 05/26/18 19:40 97 05/26/18 19:00 113 H 27 H 156/84 97 05/26/18 18:00 109 H 26 H 166/92 96 05/26/18 17:00 102 H 22 173/100 97 05/26/18 16:00 102 H 18 172/100 97 05/26/18 15:00 167/96 05/26/18 14:30 99 20 161/91 96 05/26/18 14:00 93 22 158/86 97 05/26/18 13:30 93 21 139/83 98 05/26/18 13:00 89 20 157/87 96 05/26/18 12:30 89 12 141/88 96 05/26/18 12:00 98.5 F 86 20 160/85 98 05/26/18 11:30 96 21 156/84 97 05/26/18 11:00 109 H 22 154/87 97 05/26/18 10:30 106 H 22 153/84 97 05/26/18 10:00 101 H 10 L 152/88 96 05/26/18 09:30 107 H 19 157/86 96 05/26/18 09:00 104 H 20 147/83 95 05/26/18 08:30 102 H 23 148/82 05/26/18 08:03 95 05/26/18 08:00 98.5 F 106 H 23 158/90 95 05/26/18 07:30 107 H 22 164/93 05/26/18 07:00 110 H 24 153/93 96 05/26/18 06:30 104 H 27 H 170/98 97 05/26/18 06:00 120 H 11 L 152/78 97 05/26/18 05:30 107 H 9 L 150/81 97 05/26/18 05:00 101 H 9 L 143/77 96 05/26/18 04:30 105 H 16 150/79 97 05/26/18 04:00 98.6 F 102 H 10 L 152/79 97 05/26/18 03:30 101 H 23 148/80 97 05/26/18 03:06 98.2 F 104 H 16 148/80 05/26/18 03:00 103 H 30 H 150/81 94 L 05/26/18 02:30 99 17 136/81 97 05/26/18 02:00 98 20 124/67 97 05/26/18 01:30 90 18 128/69 94 L 05/26/18 01:00 87 20 149/80 05/26/18 00:51 98.6 F 92 21 124/67 05/26/18 00:30 90 13 147/91 97 05/26/18 00:21 98.3 F 94 19 149/80 05/26/18 00:11 98.4 F 93 21 147/91 05/26/18 00:07 97.9 F 98 14 151/79 97 05/26/18 00:00 97.9 F 95 17 156/92 96 05/25/18 23:30 98 15 146/80 98 05/25/18 23:19 96 19 146/80 98 05/25/18 23:00 98 21 148/93 97 05/25/18 22:30 103 H 16 156/89 98 05/25/18 22:00 105 H 14 127/68 97 05/25/18 21:50 98.5 F 93 10 L 142/84 05/25/18 21:40 98.5 F 97 18 127/68 97 05/25/18 21:30 92 16 150/84 98 05/25/18 21:20 98.9 F 93 19 150/84 97 05/25/18 21:10 98.3 F 92 21 147/90 05/25/18 21:00 98.4 F 91 23 152/91 99 05/25/18 20:49 98.3 F 92 18 152/91 99 05/25/18 20:30 101 H 19 160/87 99 Intake and Output 05/26/18 05/26/18 05/26/18 06:59 14:59 22:59 Intake Total 1350 260 700 Output Total 1600 750 400 Balance -250 -490 300 Intake: IV 170 260 100 0.9 kvo 20 160 100 Magnesium Sulfate-D5w Pmx 100 100 1 gm In Dextrose/Water 1 100ml.bag @ 100 mls/hr IVPB Q1H [facility] Rx#: [id number] cefTRIAXone 1 gm In 50 Sodium Chloride 0.9% 50 ml @ 100 mls/hr IVPB Q24H [facility] Rx#:[id number] Oral 600 Blood Product 930 Rc As-1 Unit 310 [id number] Rc As-1 Unit 310 [id number] Other 250 Rc As-1 Unit 250 [id number] Output: Urine 1600 750 400 Other: Voiding Method Indwelling Catheter Indwelling Catheter Indwelling Catheter Weight 52.1 kg On physical examination, patient appears comfortable in no apparent distress. HEAD: Normocephalic, atraumatic. EYES: No scleral icterus. No conjunctival injection. MOUTH: No lesions, tongue midline. NECK: Trachea midline, no gross abnormalities. CHEST: Decreased air entry in all lung rodriguez. HEART: Regular rate and rhythm. ABDOMEN: Soft, nontender to palpation. Bowel sounds are positive. No organomegaly. No guarding or rigidity. EXTREMITIES: No pedal edema. SKIN: No rashes, no jaundice. NEUROLOGIC: Alert and oriented. No focal deficits. Results CBC & Chem 7: 05/26/18 12:14 05/26/18 12:14 Labs: Abnormal Lab Results - Last 24 Hours (Table) 05/25/18 05/26/18 05/26/18 Range/Units 15:52 04:09 04:09 RBC 3.27 L (4.30-5.90) m/uL Hgb 9.8 L D (13.0-17.5) gm/dL Hct 30.4 L (39.0-53.0) % RDW 18.0 H (11.5-15.5) % Lymphocytes # 0.6 L (1.0-4.8) k/uL Sodium 136 L (137-145) mmol/L BUN 46 H (9-20) mg/dL Creatinine 2.05 H (0.66-1.25) mg/dL Calcium 8.0 L (8.4-10.2) mg/dL Magnesium 1.5 L (1.6-2.3) mg/dL Crossmatch See Detail 05/26/18 Range/Units 12:14 RBC 3.44 L (4.30-5.90) m/uL Hgb 10.3 L (13.0-17.5) gm/dL Hct 32.4 L (39.0-53.0) % RDW 17.9 H (11.5-15.5) % Lymphocytes # (1.0-4.8) k/uL Sodium (137-145) mmol/L BUN (9-20) mg/dL Creatinine (0.66-1.25) mg/dL Calcium (8.4-10.2) mg/dL Magnesium (1.6-2.3) mg/dL Crossmatch Microbiology - Last 24 Hours (Table) 05/25/18 19:03 Urine Culture - Preliminary Urine,Catheterized Gram Neg Bacilli CT scan - chest: report reviewed (CT chest showing small left greater than right pleural effusions with associated compressive atelectasis) Assessment and Plan (1) Symptomatic anemia Narrative/Plan: Patient presenting with complaints of weakness and found to be anemic, consistent with symptomatic anemia. Likely secondary to GI blood loss in a patient with prior hospitalization at which time EGD was performed and significant for a duodenal AVM treated with ablation therapy, however at this time the patient is denying any signs or symptoms of GI bleeding. Current Visit: No Status: Acute Code(s): D64.9 - ANEMIA, UNSPECIFIED SNOMED Code(s): 282600055 (2) Duodenal arteriovenous malformation Narrative/Plan: Duodenal AVM found on EGD treated with argon plasma coagulation therapy on last admission. Current Visit: Yes Status: Acute Code(s): K31.819 - ANGIODYSPLASIA OF STOMACH AND DUODENUM WITHOUT BLEEDING SNOMED Code(s): 340770026 Plan: Supportive care Nothing by mouth GoLYTELY and Dulcolax ordered for bowel prep Plan for colonoscopy tomorrow with consideration for video capsule endoscopy pending findings of colonoscopy Hematology service has been consulted to see the patient Continue supportive care Thank you for allowing us to participate in the care of the patient we will continue to follow
[2018-05-26] MEDS ORDERED: BISACODYL 5 MG TABLET.DR PO STA (20:24)
--- NOTE | 2018-05-26 21:52 | CONS ---
CONSULTATION Mr. Fonseca is a 67-year-old gentleman who is seen for cardiac evaluation and abnormal troponin. Patient's old medical records were reviewed. This patient came with a complaint of feeling not well and generalized weakness. The patient was found to have a low hemoglobin of 4.9. Patient received 3 units of packed cells and his hemoglobin is now up to 10.3. The patient denies any history of black stool. This patient recently was in the hospital with similar history. He underwent EGD and there was nonbleeding AV malformation in the 2nd portion of the duodenum for which patient underwent therapy. The patient has a history of chronic renal failure. The patient has macrocytic anemia, exact etiology of the patient's anemia is unclear. Patient did not complain of any chest pain or shortness of breath. PAST MEDICAL HISTORY: Includes appendicectomy, hernia repair. History of a recent admission for anemia, history of a chronic kidney disease, and history of COPD. HOME MEDICATIONS: Include Tylenol, Protonix, Apresoline 100 mg t.i.d. and clonidine 0.2 mg b.i.d. PHYSICAL EXAMINATION: At present, reveals a 67-year-old gentleman who does not appear to be in any acute distress. Blood pressure is 167/96 mmHg. Head/ENT examination is negative. Neck is supple. There is no increase in jugular venous pressure. Both the carotid pulses are felt. There is no bruit. Chest is symmetrical. Heart the PMI is not felt. First and second heart sounds are heard. There is no evidence of any murmur. Lungs are clinically clear to auscultation and percussion. Abdomen is soft. Liver and spleen are not enlarged. Bowel sounds are heard. Extremities: Peripheral pulses are 2+. The patient's initial hemoglobin was 4.9, repeat hemoglobin is 10.3. The patient's proBNP level is 0.5290. Initial troponin is 0.039. Only 1 troponin is available at present. During a recent admission, this patient's troponin was 0.211 and 0.190. FINAL IMPRESSION: This patient is primarily admitted with severe anemia. The patient has a mild elevation in the troponin. We have only 1 troponin available. However, patient does not have any associated symptoms of angina and 1st EKG is abnormal. We will obtain another 2 troponins and repeat the EKG. Most likely, this patient's abnormal troponin is due to supply and demand mismatch and chronic kidney disease. It is not suggestive of acute coronary syndrome. Thank you for the consultation. MMODL / IJN: [id number] /
[2018-05-27] MEDS: CLOTRIMAZOLE TROCHE 10 MG TROCHE MUCOUS MEM SCH ×5 (01:15→21:02)
[2018-05-27 05:43] LABS: Anisocytosis Slight; Basophils % (A) 0 %; Eosinophils # (A) 0.1 k/uL (0-0.7); Eosinophils % (A) 1 %; HCT 35.5 % (39.0-53.0); HGB 11.6 gm/dL (13.0-17.5); Lymphocytes # (A) 0.5 k/uL (1.0-4.8); Lymphocytes % (A) 5 %; MCH 30.6 pg (25.0-35.0); MCHC 32.7 g/dL (31.0-37.0); MCV 93.7 fL (80.0-100.0); Monocytes # (A) 0.4 k/uL (0-1.0); Monocytes % (A) 4 %; Neutrophils % (A) 88 %; Platelet Count 505 k/uL (150-450); RBC 3.79 m/uL (4.30-5.90); RDW 17.8 % (11.5-15.5); WBC 9.1 k/uL (3.8-10.6)
[2018-05-27 05:57] LABS: Calcium 8.1 mg/dL (8.4-10.2); Magnesium 2.2 mg/dL (1.6-2.3); Phosphorus 4.7 mg/dL (2.5-4.5); Potassium 4.5 mmol/L (3.5-5.1)
[2018-05-27] MEDS: SYMBICORT 160-4.5 MCG INHALER INHALATION SCH ×2 (07:48→21:08)
[2018-05-27] MEDS: POTASSIUM CHLORIDE ER 10 MEQ TAB.ER.PRT PO SCH (08:37)
[2018-05-27] MEDS: METOPROLOL TARTRATE 25 MG TAB PO SCH ×2 (08:42→20:56)
[2018-05-27] MEDS: NICOTINE 21MG/24HR PATCH TRANSDERM SCH (08:42)
[2018-05-27] MEDS: hydrALAZINE HCL 50 MG TAB PO SCH ×3 (08:42→21:02)
[2018-05-27] MEDS: PANTOPRAZOLE 40 MG/10 ML VIAL IVP SCH ×2 (08:42→21:03)
[2018-05-27] MEDS: FOLIC ACID 1 MG TAB PO SCH (08:42)
[2018-05-27] MEDS: risperiDONE 1 MG TAB PO SCH ×2 (08:43→21:02)
[2018-05-27] MEDS: TAMSULOSIN 0.4 MG CAP.ER.24H PO SCH (08:43)
[2018-05-27 10:32] VITALS: BMI 17.9
--- NOTE | 2018-05-27 10:43 | P.NPCON ---
History of Present Illness - Reason for Consult acute renal failure - History of Present Illness Reason for consultation: Acute kidney injury History of present illness: Patient is a 67-year-old male seen in renal consultation for acute kidney injury. Patient presented to the hospital due to not feeling well. He was noted to have a hemoglobin of 4.9 and has received 3 units of blood transfusion. Hemoglobin is now stable. He is scheduled to undergo colonoscopy later this afternoon. He denies any melena or hematochezia. No hematuria or dysuria. Patient was evaluated last month for acute kidney injury as well and was noted to have proteinuria and a low C4 level. However the patient had refused a kidney biopsy. Renal function has actually improved since last admission with creatinine down to 1.74 today. Denies use of NSAIDs. No vomiting or diarrhea. No chest pain or shortness of breath. He is nonoliguric. Hemodynamically stable. Vital signs are stable. General: The patient appeared well nourished and normally developed. HEENT: Head exam is unremarkable. Neck is without jugular venous distension. LUNGS: Lungs are clear to auscultation and percussion. Breath sounds decreased. HEART: Rate and Rhythm are regular. First and second heart sounds normal. No murmurs, rubs or gallops. ABDOMEN: Abdominal exam reveals normal bowel sounds. Non-tender and non- distended. No evidence of peritonitis. EXTREMITITES: No clubbing, cyanosis, or edema. Past Medical History Past Medical History: COPD Additional Past Medical History / Comment(s): Recent admission for an upper GI bleed and the patient was found to have an AV malformation of the duodenum, blood loss anemia, COPD, chronic renal failure, headaches History of Any Multi-Drug Resistant Organisms: None Reported Past Surgical History: Appendectomy, Hernia Repair Additional Past Surgical History / Comment(s): cataracts -latest one on left side done 04-24-18, inguinal hernia repair Past Anesthesia/Blood Transfusion Reactions: No Reported Reaction Past Psychological History: No Psychological Hx Reported Smoking Status: Former smoker Past Alcohol Use History: None Reported Additional Past Alcohol Use History / Comment(s): started smoking age 17 smokes 1ppd Past Drug Use History: None Reported - Past Family History Mother Family Medical History: Myocardial Infarction ([place]) Father Family Medical History: Myocardial Infarction ([place]) Brother(s) Family Medical History: Myocardial Infarction ([place]) Medications and Allergies Home Medications Medication Instructions Recorded Confirmed Type Acetaminophen Tab [Tylenol] 650 mg PO Q6HR PRN tab 05/07/18 05/25/18 Rx Pantoprazole Sodium [Protonix] 40 mg PO BID #60 tablet.dr 05/19/18 05/25/18 Rx Potassium Chloride [K-Tab ER] 10 meq PO DAILY #30 tablet.er 05/19/18 05/25/18 Rx Tamsulosin [Flomax] 0.4 mg PO DAILY #30 cap 05/19/18 05/25/18 Rx Thiamine [Vitamin B-1] 100 mg PO DAILY@1200 #30 tab 05/19/18 05/25/18 Rx diphenhydrAMINE [Benadryl] 25 mg PO Q6HR PRN cap 05/19/18 05/25/18 Rx hydrALAZINE HCL [Apresoline] 100 mg PO TID #180 tab 05/19/18 05/25/18 Rx predniSONE 20 mg PO DAILY #15 tab 05/19/18 05/25/18 Rx risperiDONE 1 mg PO BID #60 tablet 05/19/18 05/25/18 Rx Budesonide-Formot 160-4.5 Mcg 2 puff INHALATION RT-BID 05/25/18 05/25/18 History [Symbicort 160-4.5 Mcg Inhaler] Folic Acid 1 mg PO DAILY 05/25/18 05/25/18 History Ipratropium-Albuterol Nebulize 3 ml INHALATION RT-QID PRN 05/25/18 05/25/18 History [Duoneb 0.5 mg-3 mg/3 ml Soln] Metoprolol Tartrate 25 mg PO BID 05/25/18 05/25/18 History Multivitamins, Thera [Multivitamin 1 tab PO DAILY 05/25/18 05/25/18 History (formulary)] cloNIDine 0.2 MG/24HR PATCH 1 patch TRANSDERM Q7D 05/25/18 05/25/18 History [Catapres-TTS] Allergies Allergy/AdvReac Type Severity Reaction Status Date / Time No Known Allergies Allergy Verified 04/30/18 12:42 Physical Exam Vitals: Vital Signs Temp Pulse Resp BP Pulse Ox 05/27/18 10:00 147/92 05/27/18 09:00 101 H 22 157/84 98 02/26/19 08:00 102 H 16 157/91 98 05/27/18 07:50 99 05/27/18 07:00 101 H 22 152/79 97 05/27/18 06:00 108 H 22 128/80 98 05/27/18 05:00 98 14 148/85 100 05/27/18 04:00 98.1 F 97 13 150/89 96 05/27/18 03:00 101 H 13 157/95 97 05/27/18 02:00 102 H 21 146/93 97 05/27/18 01:00 101 H 10 L 152/90 98 05/27/18 00:00 98.2 F 99 21 152/95 97 05/26/18 23:00 101 H 16 153/87 96 05/26/18 22:00 114 H 16 170/91 94 L 05/26/18 21:00 122 H 14 154/88 96 05/26/18 20:00 98.1 F 115 H 21 153/85 96 05/26/18 19:40 97 05/26/18 19:00 113 H 27 H 156/84 97 05/26/18 18:00 109 H 26 H 166/92 96 05/26/18 17:00 102 H 22 173/100 97 05/26/18 16:00 102 H 18 172/100 97 05/26/18 15:00 167/96 05/26/18 14:30 99 20 161/91 96 05/26/18 14:00 93 22 158/86 97 05/26/18 13:30 93 21 139/83 98 05/26/18 13:00 89 20 157/87 96 05/26/18 12:30 89 12 141/88 96 05/26/18 12:00 98.5 F 86 20 160/85 98 05/26/18 11:30 96 21 156/84 97 05/26/18 11:00 109 H 22 154/87 97 Intake and Output 05/26/18 05/27/18 05/27/18 22:59 06:59 14:59 Intake Total 1360 3830 20 Output Total 545 490 120 Balance 815 3340 -100 Intake: IV 160 230 20 0.9 kvo 160 180 20 cefTRIAXone 1 gm In 50 Sodium Chloride 0.9% 50 ml @ 100 mls/hr IVPB Q24H [facility] Rx#:[id number] Oral 1200 3600 Output: Urine 545 490 120 Other: Voiding Method Indwelling Catheter Indwelling Catheter Indwelling Catheter # Bowel Movements 2 Weight 50.3 kg 50.3 kg Results - Lab Results Most recent lab results Calcium 8.1 mg/dL (8.4-10.2) L 05/27/18 05:31 Phosphorus 4.7 mg/dL (2.5-4.5) H 05/27/18 05:31 Magnesium 2.2 mg/dL (1.6-2.3) 05/27/18 05:31 05/27/18 05:31 05/27/18 05:31 Assessment and Plan Plan: Assessment: 1. Acute kidney injury mostly prerenal secondary to acute blood loss anemia. Creatinine around 1.74 today. 2. Acute blood loss anemia status post 2 units of blood transfusion. Hemoglobin stable. 3. Proteinuria with low C4 level. Patient had refused kidney biopsy. Rest of the serologies were negative. 4. UTI with urine culture positive for gram-negative bacilli maintained on IV antibiotics. 5. Mild hyperphosphatemia secondary to acute kidney injury. 6. Benign hypertension. Plan: Start normal saline at 50 mL an hour. Avoid nephrotoxins. Add ACEi. Repeat electrolytes in the morning. Thank you for the consultation. I will continue to follow the patient with you during his hospital stay.
[2018-05-27] MEDS: LISINOPRIL 5 MG TAB PO SCH (11:09)
[2018-05-27] MEDS: MULTIVITAMINS, THERA 1 EACH TAB PO SCH (11:09)
[2018-05-27] MEDS: THIAMINE 100 MG TAB PO SCH (11:09)
[2018-05-27] MEDS: SODIUM CHLORIDE 0.9% 1,000 ML IV SCH (11:10)
--- NOTE | 2018-05-27 12:17 | P.PN ---
Subjective Progress Note Date: 05/27/18 79-year-old male patient who came in to the burst department not feeling good and generalized weakness. Similar to an earlier admission, the patient was found to have a low hemoglobin and for that reason he was admitted to the intensive care unit. The patient's hemoglobin was as low as 4.9. The patient was given a total of 3 units of packed RBC. His morning hemoglobin is up to 10.3. Note that he does not have any melanotic stool per history. No bright red blood per rectum. No hematemesis. The patient was in the hospital back in early May with a hemoglobin of 4.8. 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 The patient was treated with IV Protonix. The patient was discharged home in a stable condition. No abdominal pain. The patient has chronic renal failure in the creatinine is stable for now 2.1. During his previous admission, the patient a CAT scan of the abdomen that showed no evidence of any retroperitoneal bleed. No abdominal distention. GI was again consulted. Coagulation profile is within normal limits. The patient has not been taking any form of antiplatelet agents or anticoagulants on outpatient basis. On today's evaluation, the patient is being seen in follow-up on 05/27/2018. His doing well. Hemoglobin stable at 11.6. No signs of any GI bleeding. No nausea. No vomiting. No abdominal pain. Creatinine is stable and is down to 1.74. Rest of the electrodes are all within normal limits and the patient be transferred to medical floor. The patient was seen by gastroenterology. No plans for EGD. The patient is going to have a colonoscopy and for that reason the patient will be receiving a bowel prep. Patient was also seen by hematology and nephrology. Objective - Vital Signs Vital signs: Vital Signs Temp 97.3 F L 05/27/18 10:28 Pulse 88 05/27/18 10:28 Resp 16 05/27/18 10:28 BP 142/85 05/27/18 10:28 Pulse Ox 98 05/27/18 10:28 Intake & Output 05/26/18 05/27/18 05/27/18 18:59 06:59 18:59 Intake Total 340 5110 20 Output Total 1100 685 120 Balance -760 4425 -100 Weight 50.3 kg 50.3 kg Intake: IV 340 310 20 0.9 kvo 240 260 20 Magnesium Sulfate-D5w Pmx 100 1 gm In Dextrose/Water 1 100ml.bag @ 100 mls/hr IVPB Q1H [facility] Rx#: [id number] cefTRIAXone 1 gm In 50 Sodium Chloride 0.9% 50 ml @ 100 mls/hr IVPB Q24H [facility] Rx#:[id number] Oral 4800 Output: Urine 1100 685 120 Other: Voiding Method Indwelling Catheter Indwelling Catheter Indwelling Catheter # Bowel Movements 2 - Exam GENERAL EXAM: Lethargic, 67-year-old frail looking white male, appears much older than stated age HEAD: Normocephalic/atraumatic. EYES: Normal reaction of pupils, equal size. Conjunctiva pink, sclera white. NOSE: Clear with pink turbinates. THROAT: No erythema or exudates. NECK: No masses, no JVD, no thyroid enlargement, no adenopathy. CHEST: No chest wall deformity. Symmetrical expansion. LUNGS: Equal air entry with bibasilar crackles, currently on room air oxygen, patient is sedated, does not appear to be in distress. CVS: Regular rate and rhythm, normal S1 and S2, no gallops, no murmurs, no rubs ABDOMEN: Soft, nontender. No hepatosplenomegaly, normal bowel sounds, no guarding or rigidity. EXTREMITIES: No clubbing, no edema, no cyanosis, 2+ pulses and upper and lower extremities. MUSCULOSKELETAL: Muscle strength and tone normal. SPINE: No scoliosis or deformity Examination of the skin revealed no evidence of significant rashes, suspicious appearing nevi or other concerning lesions. CENTRAL NERVOUS SYSTEM: Sedated, No focal deficits, tone is normal in all 4 extremities. - Labs CBC & Chem 7: 05/27/18 05:31 05/27/18 05:31 Labs: Abnormal Lab Results - Last 24 Hours (Table) 05/26/18 05/27/18 05/27/18 Range/Units 12:14 05:31 05:31 RBC 3.44 L 3.79 L (4.30-5.90) m/uL Hgb 10.3 L 11.6 L (13.0-17.5) gm/dL Hct 32.4 L 35.5 L (39.0-53.0) % RDW 17.9 H 17.8 H (11.5-15.5) % Plt Count 505 H (150-450) k/uL Neutrophils # 8.0 H (1.3-7.7) k/uL Lymphocytes # 0.5 L (1.0-4.8) k/uL Sodium 135 L (137-145) mmol/L BUN 42 H (9-20) mg/dL Creatinine 1.74 H (0.66-1.25) mg/dL Glucose 101 H (74-99) mg/dL Calcium 8.1 L (8.4-10.2) mg/dL Phosphorus 4.7 H (2.5-4.5) mg/dL Microbiology - Last 24 Hours (Table) 05/25/18 15:52 Blood Culture - Preliminary Blood No Growth after 24 hours 05/25/18 19:03 Urine Culture - Preliminary Urine,Catheterized Gram Neg Bacilli Assessment and Plan Plan: Assessment 1 profound anemia with a hemoglobin of 4.9, transfused with 3 units of packed RBC and hemoglobin is stable for now 2 upper GI bleeding secondary to an AV malformation involving the duodenum and the patient has been treated recently with argon plasma coagulation treatment 3 COPD 4 generalized weakness secondary to profound anemia 5 chronic renal failure, creatinine is stable 6 suspected UTI based on an abnormal urinalysis and the patient is currently on IV Rocephin 7 abnormal troponin, rule out an acute non-ST segment elevation myocardial infarction. ProBNP is also elevated probably related to his underlying chronic renal failure. Echocardiogram is to follow. EKG on admission showing sinus tachycardia without any ST segment elevation or depression Plan Monitor the hemoglobin. Monitor hemodynamics. The patient is receiving supportive care. Nothing by mouth for now. The patient is being prepped for a colonoscopy and repeat endoscopy at the later stage. Hematology has been consulted. Patient can be transferred out of the intensive care unit for now. Hemoglobin stable. No ongoing signs of GI bleeds.
[2018-05-27] MEDS ORDERED: PROPOFOL 10 MG/ML 20 ML VIAL IV ONE (14:04)
[2018-05-27] MEDS ORDERED: ePHEDrine SULFATE/0.9% NACL/PF 50 MG/5 ML SYRINGE IV ONE (14:04)
[2018-05-27] MEDS ORDERED: PHENYLEPHRINE-0.9% NACL SYG 1 MG/10 ML SYRINGE ONE (14:04)
[2018-05-27] MEDS ORDERED: IV FLUID CONTINUATION 200 ML IV ONE (14:08)
--- NOTE | 2018-05-27 14:40 | P.PCN ---
Date of Procedure: 05/27/18 Description of Procedure: BRIEF HISTORY: 67-year-old male with a medical history significant for COPD, anemia of acute blood loss due to a duodenal AVM treated with APC ablation on last hospitalization and had extra presents to the hospital with complaints of weakness. On presentation to the hospital the patient was found to be anemic with a hemoglobin of 4.9. The patient is status post transfusion with hemoglobin improving to 9.8 and found to be 10.3 on repeat blood draw. No signs or symptoms of GI bleeding reported from the patient and nursing staff who deny any hematochezia, melena, nausea, vomiting or hematemesis. The patient is well-known to the gastroenterology service and was seen on the last admission at which time EGD was performed and significant for a nonbleeding duodenal AVM which was treated with argon plasma coagulation therapy. At that time the patient had initially been found to be anemic with no signs or symptoms of GI bleeding. Subsequently he had developed episodes of melena and was taken for upper endoscopy. No history of prior colonoscopy reported. The patient is denying any abdominal pain. PROCEDURE PERFORMED: Colonoscopy with cold snare polypectomy. PREOPERATIVE DIAGNOSIS: Anemia of acute blood loss. ESTIMATED BLOOD LOSS: Minimal. IV sedation per Anesthesia. PROCEDURE: After informed consent was obtained, the patient, was brought into the endoscopy unit. IV sedation was administered by Anesthesia under continuous monitoring. Digital rectal examination was normal. Initially the Olympus CF- 190 flexible video colonoscope was then inserted in the rectum, gradually advanced into the cecum without any difficulty. Careful examination was performed as the scope was gradually being withdrawn. Ileocecal valve and the appendiceal orifice were visualized and appeared normal. Prep was excellent. Mucosa of the cecum, ascending colon, transverse colon, descending colon, sigmoid colon, and rectum appeared normal. A 5 mm sessile transverse colon polyp removed with cold snare polypectomy. Mild scattered diverticulosis in the sigmoid colon. Retroflexion was performed in the rectum and no lesions were seen, mild internal hemorrhoids noted. The patient tolerated the procedure well. IMPRESSION: Normal-appearing colon from rectum to cecum. Cold snare polypectomy of transverse colon polyp. Mild diverticulosis. Internal hemorrhoids. RECOMMENDATIONS: Findings of this examination were discussed with the patient and his . Nothing by mouth for now as plan is for video capsule endoscopy for further evaluation of GI bleeding. Await pathology from biopsies. Further recommendations to follow.
[2018-05-27] MEDS ORDERED: SIMETHICONE 40 MG/0.6 ML DROPS 2,000 MG/30 ML BOTTLE PO ONE (16:23)
--- NOTE | 2018-05-27 17:37 | P.PN ---
Subjective 67-year-old admitted for a lower GI bleed secondary to internal hemorrhoids and diverticulosis. Patient underwent coloscopy today. No further GI bleed at this time.creatinine improved to 1.74crit patient is bit tachycardic. Constitutional: Denied any fatigue denied any fever. Cardio vascular: denied any chest pain, palpitations Gastrointestinal denied any nausea vomiting Pulmonary: Denied any shortness of breath cough Neurologic denied any new focal deficits All inpatient medications were reviewed and appropriate changes in these medications as dictated in the interval history and assessment and plan. Objective - Vital Signs Vital signs: Vital Signs Temp 97.6 F 05/27/18 14:50 Pulse 96 05/27/18 16:05 Resp 18 05/27/18 14:50 BP 117/62 05/27/18 16:05 Pulse Ox 98 05/27/18 16:05 Intake & Output 05/26/18 05/27/18 05/27/18 18:59 06:59 18:59 Intake Total 340 5110 120 Output Total 1100 685 620 Balance -760 4425 -500 Weight 50.3 kg 50.3 kg Intake: IV 340 310 120 0.9 kvo 240 260 20 Magnesium Sulfate-D5w Pmx 100 1 gm In Dextrose/Water 1 100ml.bag @ 100 mls/hr IVPB Q1H [facility] Rx#: [id number] cefTRIAXone 1 gm In 50 Sodium Chloride 0.9% 50 ml @ 100 mls/hr IVPB Q24H [facility] Rx#:[id number] Oral 4800 Output: Urine 1100 685 620 Other: Voiding Method Indwelling Catheter Indwelling Catheter Indwelling Catheter # Bowel Movements 2 - Exam PHYSICAL EXAMINATION: GENERAL: The patient is alert and oriented x3, not in any acute distress. Well developed, well nourished. HEENT: Pupils are round and equally reacting to light. EOMI. No scleral icterus. No conjunctival pallor. Normocephalic, atraumatic. No pharyngeal erythema. No thyromegaly. CARDIOVASCULAR: S1 and S2 present. No murmurs, rubs, or gallops. he was bit tachycardic regular rhythm PULMONARY: Chest is clear to auscultation, no wheezing or crackles. ABDOMEN: Soft, nontender, nondistended, normoactive bowel sounds. No palpable organomegaly. MUSCULOSKELETAL: No joint swelling or deformity. EXTREMITIES: No cyanosis, clubbing, or pedal edema. NEUROLOGICAL: Gross neurological examination did not reveal any focal deficits. SKIN: No rashes. - Labs CBC & Chem 7: 05/27/18 05:31 05/27/18 05:31 Labs: Abnormal Lab Results - Last 24 Hours (Table) 05/27/18 05/27/18 Range/Units 05:31 05:31 RBC 3.79 L (4.30-5.90) m/uL Hgb 11.6 L (13.0-17.5) gm/dL Hct 35.5 L (39.0-53.0) % RDW 17.8 H (11.5-15.5) % Plt Count 505 H (150-450) k/uL Neutrophils # 8.0 H (1.3-7.7) k/uL Lymphocytes # 0.5 L (1.0-4.8) k/uL Sodium 135 L (137-145) mmol/L BUN 42 H (9-20) mg/dL Creatinine 1.74 H (0.66-1.25) mg/dL Glucose 101 H (74-99) mg/dL Calcium 8.1 L (8.4-10.2) mg/dL Phosphorus 4.7 H (2.5-4.5) mg/dL Microbiology - Last 24 Hours (Table) 05/25/18 15:52 Blood Culture - Preliminary Blood No Growth after 24 hours 05/25/18 19:03 Urine Culture - Preliminary Urine,Catheterized Gram Neg Bacilli Assessment and Plan Plan: acute blood loss anemia from a lower GI bleed secondary tointernal hemorrhoids and diverticulosis presently improved and hemoglobin fairly stable -Recent upper GI bleed -COPD without any acute exacerbation and extend-chronic kidney disease stage III with acute renal failure secondary to prerenal azotemia from a GI bleed which improved now -possibly of urinary tract infection for which patient is on Rocephin -Mildly elevated troponin without any evidence of acute non- ST elevation microinfarction, cardiology evaluated the patient echocardiogram pending
--- NOTE | 2018-05-28 00:27 | P.CONS ---
History of Present Illness - Reason for Consult Consult date: 05/28/18 recurrent severe anemia - History of Present Illness the patient is a 67-year-old white male, with multiple Medical problems. The patient was recently admitted for about 2 weeks, starting the end up 04/19, for acute kidney injury and severe anemia. During that admission, his hemoglobin was as low as 5.9. He received blood transfusion and had an EGD, which revealed an AVM, that was treated with adjuvant plasma coagulation. The patient's anemia workup was positive for iron deficiency. The patient was then discharged, but readmitted with progressive weakness. He was found to have recurrent severe anemia with hemoglobin 4.9. It appears that he was on oral iron. He was therefore admitted, and has received a transfusion with appropriate increase in hemoglobin. During his prior admission some melenic stools had been noted but not this time. Consult was placed for further evaluation and recommendations Review of Systems only partially obtained from the patient, as he was quite lethargic and appeared somewhat confused. Additional information is obtained from the patient 's chart Constitutional: Reports fatigue, Reports poor appetite, Reports weakness, Reports weight loss Eyes: denies blurred vision, denies pain Ears: deny: decreased hearing Ears, nose, mouth and throat: Denies headache, Denies sore throat Cardiovascular: Reports dyspnea on exertion, Reports lightheadedness, Reports palpitations Respiratory: Reports dyspnea Gastrointestinal: Reports as per HPI, Reports melena Genitourinary: Reports as per HPI Musculoskeletal: Reports muscle weakness Integumentary: Denies pruritus, Denies rash Neurological: Reports change in mentation, Reports weakness Psychiatric: Reports confusion Endocrine: Reports fatigue, Reports weight change Hematologic/Lymphatic: Reports as per HPI Past Medical History Past Medical History: COPD Additional Past Medical History / Comment(s): Recent admission for an upper GI bleed and the patient was found to have an AV malformation of the duodenum, blood loss anemia, COPD, chronic renal failure, headaches History of Any Multi-Drug Resistant Organisms: None Reported Past Surgical History: Appendectomy, Hernia Repair Additional Past Surgical History / Comment(s): cataracts -latest one on left side done 04-24-18, inguinal hernia repair Past Anesthesia/Blood Transfusion Reactions: No Reported Reaction Past Psychological History: No Psychological Hx Reported Smoking Status: Former smoker Past Alcohol Use History: None Reported Additional Past Alcohol Use History / Comment(s): started smoking age 17 smokes 1ppd Past Drug Use History: None Reported - Past Family History Mother Family Medical History: Myocardial Infarction (SD) Father Family Medical History: Myocardial Infarction (SD) Brother(s) Family Medical History: Myocardial Infarction (SD) Medications and Allergies Home Medications Medication Instructions Recorded Confirmed Type Acetaminophen Tab [Tylenol] 650 mg PO Q6HR PRN tab 05/07/18 05/25/18 Rx Pantoprazole Sodium [Protonix] 40 mg PO BID #60 tablet.dr 05/19/18 05/25/18 Rx Potassium Chloride [K-Tab ER] 10 meq PO DAILY #30 tablet.er 05/19/18 05/25/18 Rx Tamsulosin [Flomax] 0.4 mg PO DAILY #30 cap 05/19/18 05/25/18 Rx Thiamine [Vitamin B-1] 100 mg PO DAILY@1200 #30 tab 05/19/18 05/25/18 Rx diphenhydrAMINE [Benadryl] 25 mg PO Q6HR PRN cap 05/19/18 05/25/18 Rx hydrALAZINE HCL [Apresoline] 100 mg PO TID #180 tab 05/19/18 05/25/18 Rx predniSONE 20 mg PO DAILY #15 tab 05/19/18 05/25/18 Rx risperiDONE 1 mg PO BID #60 tablet 05/19/18 05/25/18 Rx Budesonide-Formot 160-4.5 Mcg 2 puff INHALATION RT-BID 05/25/18 05/25/18 History [Symbicort 160-4.5 Mcg Inhaler] Folic Acid 1 mg PO DAILY 05/25/18 05/25/18 History Ipratropium-Albuterol Nebulize 3 ml INHALATION RT-QID PRN 05/25/18 05/25/18 History [Duoneb 0.5 mg-3 mg/3 ml Soln] Metoprolol Tartrate 25 mg PO BID 05/25/18 05/25/18 History Multivitamins, Thera [Multivitamin 1 tab PO DAILY 05/25/18 05/25/18 History (formulary)] cloNIDine 0.2 MG/24HR PATCH 1 patch TRANSDERM Q7D 05/25/18 05/25/18 History [Catapres-TTS] Allergies Allergy/AdvReac Type Severity Reaction Status Date / Time No Known Allergies Allergy Verified 04/30/18 12:42 Physical Exam Vitals: Vital Signs Temp Pulse Pulse Pulse Resp BP BP 05/27/18 22:52 98.2 F 91 17 94/50 05/27/18 16:05 96 117/62 05/27/18 15:50 94 106/52 05/27/18 15:35 93 124/62 05/27/18 15:20 94 134/65 05/27/18 15:05 93 129/66 05/27/18 14:50 97.6 F 89 18 131/64 05/27/18 10:28 97.3 F L 88 16 142/85 05/27/18 10:00 147/92 05/27/18 09:00 101 H 22 157/84 05/27/18 08:00 102 H 16 157/91 05/27/18 07:50 05/27/18 07:00 101 H 22 152/79 05/27/18 06:00 108 H 22 128/80 05/27/18 05:00 98 14 148/85 05/27/18 04:00 98.1 F 97 13 150/89 05/27/18 03:00 101 H 13 157/95 05/27/18 02:00 102 H 21 146/93 05/27/18 01:00 101 H 10 L 152/90 Pulse Ox 05/27/18 22:52 97 05/27/18 16:05 98 05/27/18 15:50 98 05/27/18 15:35 97 05/27/18 15:20 98 05/27/18 15:05 98 05/27/18 14:50 95 05/27/18 10:28 98 05/27/18 10:00 05/27/18 09:00 98 05/27/18 08:00 98 05/27/18 07:50 99 05/27/18 07:00 97 05/27/18 06:00 98 05/27/18 05:00 100 05/27/18 04:00 96 05/27/18 03:00 97 05/27/18 02:00 97 05/27/18 01:00 98 Intake and Output 05/27/18 05/27/18 05/28/18 14:59 22:59 06:59 Intake Total 120 Output Total 620 Balance -500 Intake: IV 120 0.9 kvo 20 Output: Urine 620 Other: Voiding Method Indwelling Catheter Indwelling Catheter Weight 50.3 kg - Constitutional General appearance: no acute distress - EENT Eyes: EOMI, PERRLA ENT: hearing grossly normal, normal oropharynx - Neck Neck: no lymphadenopathy Thyroid: bilateral: normal size - Respiratory Respiratory: bilateral: CTA - Cardiovascular Rhythm: regular Heart sounds: normal: S1, S2 - Gastrointestinal General gastrointestinal: normal bowel sounds, soft - Integumentary Integumentary: normal - Neurologic Neurologic: CNII-XII intact - Musculoskeletal Musculoskeletal: generalized weakness - Psychiatric quite lethargic. Affect is slow. At least partially confused Results CBC & Chem 7: 05/27/18 05:31 05/27/18 05:31 Labs: Abnormal Lab Results - Last 24 Hours (Table) 05/27/18 05/27/18 Range/Units 05:31 05:31 RBC 3.79 L (4.30-5.90) m/uL Hgb 11.6 L (13.0-17.5) gm/dL Hct 35.5 L (39.0-53.0) % RDW 17.8 H (11.5-15.5) % Plt Count 505 H (150-450) k/uL Neutrophils # 8.0 H (1.3-7.7) k/uL Lymphocytes # 0.5 L (1.0-4.8) k/uL Sodium 135 L (137-145) mmol/L BUN 42 H (9-20) mg/dL Creatinine 1.74 H (0.66-1.25) mg/dL Glucose 101 H (74-99) mg/dL Calcium 8.1 L (8.4-10.2) mg/dL Phosphorus 4.7 H (2.5-4.5) mg/dL Microbiology - Last 24 Hours (Table) 05/25/18 19:03 Urine Culture - Final Urine,Catheterized Enterobacter aerogenes 05/25/18 15:52 Blood Culture - Preliminary Blood No Growth after 24 hours Comments: echocardiogram report reviewed EGD procedure note, and multiple physicians notes reviewed Chest x-ray: report reviewed CT scan - abdomen: report reviewed CT scan - chest: report reviewed CT scan - pelvis: report reviewed Assessment and Plan (1) Anemia Narrative/Plan: The patient is presenting with recurrent severe anemia. Prior to his admission in 04/19, labs were done in 2013 showing normal hemoglobin. He had partial lab workup during his prior admission, confirming iron deficiency. Ferritin was normal, but less than 100 in a patient with acute renal insufficiency, and saturation was markedly low. EGD confirmed a source of blood loss with duodenal AVM that was treated with APC. The patient has developed recurrent severe anemia. clinically the most likely etiology is a combination of recurrent GI blood loss, as well as decreased hematopoiesis from his renal insufficiency. Await additional GI workup. Colonoscopy is planned. Order labs to complete anemia workup. Supplement with IV iron. It was discussed with the patient that he will need regular outpatient follow-up with aggressive iron supplementation, as well as potentially ESAs, if hemoglobin remains suboptimal after iron stores are replete. Current Visit: Yes Status: Acute Code(s): D64.9 - ANEMIA, UNSPECIFIED SNOMED Code(s): 909790849 Plan: deferred to the admitting service and other consultants for management of his multiple other medical problems
[2018-05-28] MEDS: CLOTRIMAZOLE TROCHE 10 MG TROCHE MUCOUS MEM SCH ×4 (01:36→17:10)
[2018-05-28] MEDS: SODIUM CHLORIDE 0.9% 1,000 ML IV SCH (06:43)
[2018-05-28] MEDS: SYMBICORT 160-4.5 MCG INHALER INHALATION SCH ×2 (08:43→21:29)
[2018-05-28] MEDS ORDERED: SODIUM FERRIC GLUCONAT-SUCROSE 125 MG in SODIUM CHLORIDE 0.9% 100 ML IVPB SCH (09:00)
[2018-05-28] MEDS: LISINOPRIL 5 MG TAB PO SCH (09:33)
[2018-05-28] MEDS: hydrALAZINE HCL 50 MG TAB PO SCH ×2 (09:33→17:10)
[2018-05-28] MEDS: POTASSIUM CHLORIDE ER 10 MEQ TAB.ER.PRT PO SCH (09:33)
[2018-05-28] MEDS: FOLIC ACID 1 MG TAB PO SCH (09:33)
[2018-05-28] MEDS: risperiDONE 1 MG TAB PO SCH (09:33)
[2018-05-28] MEDS: METOPROLOL TARTRATE 25 MG TAB PO SCH (09:33)
[2018-05-28] MEDS: TAMSULOSIN 0.4 MG CAP.ER.24H PO SCH (09:34)
[2018-05-28] MEDS: NICOTINE 21MG/24HR PATCH TRANSDERM SCH (09:36)
[2018-05-28] MEDS: THIAMINE 100 MG TAB PO SCH (09:37)
[2018-05-28] MEDS: MULTIVITAMINS, THERA 1 EACH TAB PO SCH (09:37)
[2018-05-28] MEDS: PANTOPRAZOLE 40 MG/10 ML VIAL IVP SCH (09:37)
[2018-05-28 09:56] LABS: Anisocytosis Slight; Basophils % (A) 0 %; Eosinophils # (A) 0.1 k/uL (0-0.7); Eosinophils % (A) 0 %; HCT 32.9 % (39.0-53.0); HGB 10.6 gm/dL (13.0-17.5); Lymphocytes # (A) 0.6 k/uL (1.0-4.8); Lymphocytes % (A) 5 %; MCH 29.9 pg (25.0-35.0); MCHC 32.2 g/dL (31.0-37.0); Mean Platelet Volume 6.7; Monocytes # (A) 0.3 k/uL (0-1.0); Monocytes % (A) 3 %; Neutrophils # (A) 10.5 k/uL (1.3-7.7); Neutrophils % (A) 91 %; Platelet Count 483 k/uL (150-450); RBC 3.54 m/uL (4.30-5.90); RDW 17.2 % (11.5-15.5); WBC 11.5 k/uL (3.8-10.6)
[2018-05-28 09:59] LABS: Reticulocyte % 4.6 % (0.5-2.0)
[2018-05-28 10:06] LABS: Calcium 7.9 mg/dL (8.4-10.2); Potassium 3.7 mmol/L (3.5-5.1)
--- NOTE | 2018-05-28 11:00 | P.PN ---
Subjective Progress Note Date: 05/28/18 Principal diagnosis: History of recent EGD small bowel bleeding AVM hospitalization. No bleeding per nursing. Status post colonoscopy yesterday no evidence of active bleeding normal-appearing colon transverse colon polypectomy mild diverticulosis and internal hemorrhoids. Capsule endoscopy completed results are pending. Hemoglobin 10.6. Objective - Vital Signs Vital signs: Vital Signs Temp 99.4 F 05/28/18 06:55 Pulse 105 H 05/28/18 06:55 Resp 16 05/28/18 06:55 BP 162/77 05/28/18 06:55 Pulse Ox 99 05/28/18 06:55 Intake & Output 05/27/18 05/28/18 05/28/18 18:59 06:59 18:59 Intake Total 120 Output Total 620 450 Balance -500 -450 Weight 50.3 kg Intake: IV 120 0.9 kvo 20 Output: Urine 620 450 Other: Voiding Method Indwelling Catheter Indwelling Catheter - Exam General appearance: The patient is awake but drowsy no acute distress. HET: Head is normocephalic and atraumatic. Pupils are equal and reactive. Oropharynx is clear without lesions. Neck: Supple without lymphadenopathy. Trachea midline. Heart: S1 S2. Regular rate and rhythm. Lungs: No crackles or wheezes are heard. Abdomen: Soft, nontender, nondistended with bowel sounds. No peritoneal signs. No palpable organomegaly or masses. Extremities: Normal skin color and turgor. No cyanosis, rash, ulceration, clubbing, or edema. Radial and pedal pulses are 2/4 bilaterally. Neurological: No focal deficits. Strength and sensation are grossly intact. - Labs CBC & Chem 7: 05/28/18 09:18 05/28/18 09:18 Labs: Abnormal Lab Results - Last 24 Hours (Table) 05/28/18 05/28/18 05/28/18 Range/Units 09:18 09:18 09:18 WBC 11.5 H (3.8-10.6) k/uL RBC 3.54 L (4.30-5.90) m/uL Hgb 10.6 L (13.0-17.5) gm/dL Hct 32.9 L (39.0-53.0) % RDW 17.2 H (11.5-15.5) % Plt Count 483 H (150-450) k/uL Neutrophils # 10.5 H (1.3-7.7) k/uL Lymphocytes # 0.6 L (1.0-4.8) k/uL Retic Count 4.6 H (0.5-2.0) % Carbon Dioxide 20 L (22-30) mmol/L BUN 32 H (9-20) mg/dL Creatinine 1.92 H (0.66-1.25) mg/dL Calcium 7.9 L (8.4-10.2) mg/dL Microbiology - Last 24 Hours (Table) 05/25/18 15:52 Blood Culture - Preliminary Blood No Growth after 48 hours 05/25/18 19:03 Urine Culture - Final Urine,Catheterized Enterobacter aerogenes Assessment and Plan Assessment: Impression 1. Symptomatic anemia status post recent EGD with findings of bleeding duodenal AVM status post colonoscopy no evidence of active bleeding colonic diverticulosis internal hemorrhoids polypectomy. Presently no active bleeding. Status post capsule endoscopy results pending. 2. Acute blood loss anemia. Plan: 1. Continue GI prophylaxis. CBC management. We'll review capsule. Assessment and plan a care discussed with Dr. Naranjo
--- NOTE | 2018-05-28 11:22 | P.DS ---
Providers Date of admission: 05/25/18 16:27 Expected date of discharge: 05/28/18 Attending physician: Ruperto Cleary Consults: 05/25/18 16:26 Consult Physician Routine Consulting Provider: Rudy Santoyo Consult Reason/Comments: known Do you want consulting provider notified?: Yes 05/25/18 17:48 Consult Physician Routine Consulting Provider: Ramesh Van Consult Reason/Comments: high trop Do you want consulting provider notified?: Yes 05/25/18 23:31 Consult Physician Routine Consulting Provider: Leland Naranjo Consult Reason/Comments: gi bleeding Do you want consulting provider notified?: Yes 05/26/18 10:25 Consult Physician Routine Consulting Provider: Keon Morris Consult Reason/Comments: recurrent anemia Do you want consulting provider notified?: Yes 05/26/18 18:53 Consult Physician Routine Consulting Provider: Leti Church Consult Reason/Comments: crf-stop steroids?? Do you want consulting provider notified?: Yes Primary care physician: Rudy Santoyo Hospital Course: Final Diagnoses: acute blood loss anemia from a lower GI bleed secondary to internal hemorrhoids and diverticulosis ,improved ,hemoglobin stable -Recent upper GI bleed, EGD reported AVM treated with adjunct plasma coagulation -Acute UTI with enterococcus aeregenes -COPD without any acute exacerbation -chronic kidney disease stage III with acute renal failure secondary to prerenal azotemia from a GI bleed -possibly of urinary tract infection for which patient is on Rocephin -Mildly elevated troponin without any evidence of acute non- ST elevation microinfarction, EF 55-60, not suggestive of acute coronary syndrome as per cardiology Hospital course: THis is a 67-year-old admitted for a recurrent lower GI bleed, hemoglobin 4.9, received transfusions PRBCs secondary to internal hemorrhoids and diverticulosis. Hemoglobin stable, currently 10.6. Patient underwent colonoscopy, reporting mild diverticulosis, internal hemorrhoids, no active bleeding. No further GI bleed. Capsule endoscopy completed, results pending. Biopsy results pending. Creatinine near baseline, 1.9. 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 Significant clinical improvement. Patient is being discharged to subacute rehab in a stable condition with guarded prognosis, pending clearance from GI, nephrology.. EXAM: GEN: Alert and oriented 3, no acute distress. Pupils are round and equally reacting to light. EOMI. No scleral icterus. No conjunctival pallor. Normocephalic, atraumatic. CARDIOVASCULAR: S1 and S2 present. Regular, No murmurs, rubs, or gallops. CV: Regular S1 and S2, no edema LUNGS: Bilateral bases diminished, no rhonchi crackles or wheezing ABD: Soft, nontender, nondistended, positive bowel sounds. No palpable organomegaly. EXTREMITIES: No cyanosis, clubbing, or pedal edema. NEURO: No focal deficits The impression and plan of care has been dictated as directed. : I performed a history and examination of this patient, discussed the same with the dictator. I agree with the dictator's note ,documented as a scribe. Any additional findings or plans will be noted. Time taken: 35 minutes Patient Condition at Discharge: Stable Plan - Discharge Summary New Discharge Prescriptions: New Cefuroxime Axetil [Ceftin] 500 mg PO BID #10 tab Lisinopril [Zestril] 5 mg PO DAILY tab Nicotine 21Mg/24Hr Patch [Habitrol] 1 patch TRANSDERM DAILY patch Continue Acetaminophen Tab [Tylenol] 650 mg PO Q6HR PRN tab PRN Reason: Fever And/ Or Pain diphenhydrAMINE [Benadryl] 25 mg PO Q6HR PRN cap PRN Reason: Mild Itching Pantoprazole Sodium [Protonix] 40 mg PO BID #60 tablet. Thiamine [Vitamin B-1] 100 mg PO DAILY@1200 #30 tab Tamsulosin [Flomax] 0.4 mg PO DAILY #30 cap Potassium Chloride [K-Tab ER] 10 meq PO DAILY #30 tablet.er hydrALAZINE HCL [Apresoline] 100 mg PO TID #180 tab risperiDONE 1 mg PO BID #60 tablet cloNIDine 0.2 MG/24HR PATCH [Catapres-TTS] 1 patch TRANSDERM Q7D Metoprolol Tartrate 25 mg PO BID Folic Acid 1 mg PO DAILY Multivitamins, Thera [Multivitamin (formulary)] 1 tab PO DAILY Budesonide-Formot 160-4.5 Mcg [Symbicort 160-4.5 Mcg Inhaler] 2 puff INHALATION RT-BID Changed Ipratropium-Albuterol Nebulize [Duoneb 0.5 mg-3 mg/3 ml Soln] 3 ml INHALATION RT-QID #0 Discontinued predniSONE 20 mg PO DAILY #15 tab Discharge Medication List Acetaminophen Tab [Tylenol] 650 mg PO Q6HR PRN tab 05/07/18 [Rx] Pantoprazole Sodium [Protonix] 40 mg PO BID #60 tablet.dr 05/19/18 [Rx] Potassium Chloride [K-Tab ER] 10 meq PO DAILY #30 tablet.er 05/19/18 [Rx] Tamsulosin [Flomax] 0.4 mg PO DAILY #30 cap 05/19/18 [Rx] Thiamine [Vitamin B-1] 100 mg PO DAILY@1200 #30 tab 05/19/18 [Rx] diphenhydrAMINE [Benadryl] 25 mg PO Q6HR PRN cap 05/19/18 [Rx] hydrALAZINE HCL [Apresoline] 100 mg PO TID #180 tab 05/19/18 [Rx] risperiDONE 1 mg PO BID #60 tablet 05/19/18 [Rx] Budesonide-Formot 160-4.5 Mcg [Symbicort 160-4.5 Mcg Inhaler] 2 puff INHALATION RT-BID 05/25/18 [History] Folic Acid 1 mg PO DAILY 05/25/18 [History] Metoprolol Tartrate 25 mg PO BID 05/25/18 [History] Multivitamins, Thera [Multivitamin (formulary)] 1 tab PO DAILY 05/25/18 [History ] cloNIDine 0.2 MG/24HR PATCH [Catapres-TTS] 1 patch TRANSDERM Q7D 05/25/18 [ History] Cefuroxime Axetil [Ceftin] 500 mg PO BID #10 tab 05/28/18 [Rx] Ipratropium-Albuterol Nebulize [Duoneb 0.5 mg-3 mg/3 ml Soln] 3 ml INHALATION RT -QID #0 05/28/18 [Rx] Lisinopril [Zestril] 5 mg PO DAILY tab 05/28/18 [Rx] Nicotine 21Mg/24Hr Patch [Habitrol] 1 patch TRANSDERM DAILY patch 05/28/18 [Rx] Follow up Appointment(s)/Referral(s): Keon Morris MD [STAFF PHYSICIAN] - 4 Weeks Rudy Santoyo DO [Primary Care Provider] - 2 Weeks Erwin Escobedo DO [STAFF PHYSICIAN] - 1 Week Activity/Diet/Wound Care/Special Instructions: ECF:
--- NOTE | 2018-05-28 11:27 | P.PN ---
Subjective Patient is seen in follow-up for acute kidney injury. Renal function is slightly worse with creatinine at 1.92 today. Patient underwent colonoscopy on May 27 which revealed diverticulosis and internal hemorrhoids. There is plan to do capsule endoscopy this admission. Hemoglobin stable at 10.6 today. He is currently sleeping. Vital signs are stable. General: The patient appeared well nourished and normally developed. HEENT: Head exam is unremarkable. Neck is without jugular venous distension. LUNGS: Lungs are clear to auscultation and percussion. Breath sounds decreased. HEART: Rate and Rhythm are regular. First and second heart sounds normal. No murmurs, rubs or gallops. ABDOMEN: Abdominal exam reveals normal bowel sounds. Non-tender and non- distended. No evidence of peritonitis. EXTREMITITES: No clubbing, cyanosis, or edema. Objective - Vital Signs Vital signs: Vital Signs Temp 99.4 F 05/28/18 06:55 Pulse 105 H 05/28/18 06:55 Resp 16 05/28/18 06:55 BP 162/77 05/28/18 06:55 Pulse Ox 99 05/28/18 06:55 Intake & Output 05/27/18 05/28/18 05/28/18 18:59 06:59 18:59 Intake Total 120 Output Total 620 450 Balance -500 -450 Weight 50.3 kg Intake: IV 120 0.9 kvo 20 Output: Urine 620 450 Other: Voiding Method Indwelling Catheter Indwelling Catheter - Labs CBC & Chem 7: 05/28/18 09:18 05/28/18 09:18 Labs: Abnormal Lab Results - Last 24 Hours (Table) 05/28/18 05/28/18 05/28/18 Range/Units 09:18 09:18 09:18 WBC 11.5 H (3.8-10.6) k/uL RBC 3.54 L (4.30-5.90) m/uL Hgb 10.6 L (13.0-17.5) gm/dL Hct 32.9 L (39.0-53.0) % RDW 17.2 H (11.5-15.5) % Plt Count 483 H (150-450) k/uL Neutrophils # 10.5 H (1.3-7.7) k/uL Lymphocytes # 0.6 L (1.0-4.8) k/uL Retic Count 4.6 H (0.5-2.0) % Carbon Dioxide 20 L (22-30) mmol/L BUN 32 H (9-20) mg/dL Creatinine 1.92 H (0.66-1.25) mg/dL Calcium 7.9 L (8.4-10.2) mg/dL Microbiology - Last 24 Hours (Table) 05/25/18 15:52 Blood Culture - Preliminary Blood No Growth after 48 hours 05/25/18 19:03 Urine Culture - Final Urine,Catheterized Enterobacter aerogenes Assessment and Plan Plan: Assessment: 1. Acute kidney injury mostly prerenal secondary to acute blood loss anemia, UTI and addition of DWAYNE inhibitor. Renal function slightly worse. Creatinine 1.92 today. 2. Acute blood loss anemia status post 2 units of blood transfusion. Hemoglobin stable. Status post colonoscopy which revealed no acute bleeding. Plan for capsule endoscopy this admission. 3. Proteinuria with low C4 level. Patient had refused kidney biopsy. Rest of the serologies were negative. 4. UTI with urine culture positive for Enterobacter maintained on IV antibiotics. 5. Mild hyperphosphatemia secondary to acute kidney injury. 6. Benign hypertension. 7. Metabolic acidosis secondary to acute kidney injury. Plan: Maintain normal saline at 50 mL an hour. Avoid nephrotoxins. Repeat electrolytes in the morning.
[2018-05-28] MEDS ORDERED: ACETAMINOPHEN IV (For NPO) 1,000 MG in EMPTY BAG 1 BAG IVPB STA (14:53)
[2018-05-28] MEDS ORDERED: SODIUM CHLORIDE 0.9% 1,000 ML IV ONE (17:15)
[2018-05-28] MEDS ORDERED: VANCOMYCIN IV PER PHARMACY 1 EACH MISC MISCELLANE PRN (17:15)
[2018-05-28] MEDS ORDERED: PIPERACILLIN-TAZOBACTAM 3.375 GM in SODIUM CHLORIDE 0.9% 100 ML IVPB SCH (18:00)
[2018-05-28] MEDS ORDERED: VANCOMYCIN 1,000 MG in SODIUM CHLORIDE 0.9% 250 ML IVPB ONE (18:00)
--- NOTE | 2018-05-28 18:22 | CT ---
EXAMINATION TYPE: CT brain wo con DATE OF EXAM: 05/28/2018 COMPARISON: 05/07/2018 HISTORY: Fever, weakness CT DLP: 976.8 mGycm Automated exposure control for dose reduction was used. FINDINGS: There is poorly marginated 5 cm area of monroe and white matter hypodensity in the right frontal lobe c onsistent with subacute infarct. There is no mass effect. There is no midline shift. There is no sign of intracranial hemorrhage. There is patchy hypodensity in the periventricular white matter. There i s 2 cm area of hypodensity right posterior parietal lobe cortex. There is 2 cm area of hypodensity ri ght posterior frontal lobe cortex. There is cerebral cortical atrophy. Calvarium is intact. IMPRESSION: MULTIPLE SUBACUTE INFARCTS IN THE RIGHT FRONTAL LOBE AND RIGHT PARIETAL LOBE THAT ARE A CHANGE COMPAR ED TO LAST EXAM. CEREBRAL ATROPHY. WHITE MATTER CHANGES CONSISTENT WITH CHRONIC SMALL VESSEL ISCHEMIA .
--- NOTE | 2018-05-28 18:37 | XR ---
EXAMINATION TYPE: XR chest 2V DATE OF EXAM: 05/28/2018 COMPARISON: 05/26/2018 HISTORY: Fever TECHNIQUE: Frontal and lateral views of the chest are obtained. FINDINGS: There is blunting of left costophrenic angle. There is mild infiltrate left lower lobe. Th ere is no heart failure. Heart size is normal. Bony thorax is intact. IMPRESSION: There is new left pleural effusion and left lower lobe pneumonia compared to old exam.
[2018-05-28] MEDS ORDERED: LABETALOL SYRINGE 5 MG/ML IVP STA (18:53)
[2018-05-28] MEDS ORDERED: ASPIRIN 300 MG SUPP RECTAL STA ×2 (18:54→19:02)
[2018-05-28 19:11] LABS: Anisocytosis Slight; Basophils % (A) 0 %; Eosinophils % (A) 0 %; HCT 32.8 % (39.0-53.0); HGB 10.7 gm/dL (13.0-17.5); Lymphocytes # (A) 0.8 k/uL (1.0-4.8); Lymphocytes % (A) 8 %; MCH 30.3 pg (25.0-35.0); MCHC 32.5 g/dL (31.0-37.0); MCV 93.2 fL (80.0-100.0); Monocytes # (A) 0.5 k/uL (0-1.0); Monocytes % (A) 5 %; Neutrophils # (A) 9.1 k/uL (1.3-7.7); Neutrophils % (A) 85 %; Platelet Count 475 k/uL (150-450); RBC 3.52 m/uL (4.30-5.90); RDW 17.1 % (11.5-15.5); WBC 10.7 k/uL (3.8-10.6)
[2018-05-28 19:57] LABS: Glucose,Whole Blood 81 mg/dL (75-99)
[2018-05-28] MEDS ORDERED: risperiDONE 1 MG TAB PO SCH (21:00)
[2018-05-28 21:03] VITALS: BP 175/87; PULSE 121; RESP 19; TEMP 100.1
--- NOTE | 2018-05-29 15:12 | P.DS ---
Providers Date of admission: 05/25/18 16:27 Attending physician: Ruperto Salmeron Consults: 05/25/18 16:26 Consult Physician Routine Consulting Provider: Rudy Santoyo Consult Reason/Comments: known Do you want consulting provider notified?: Yes 05/25/18 17:48 Consult Physician Routine Consulting Provider: Ramesh Van Consult Reason/Comments: high trop Do you want consulting provider notified?: Yes 05/25/18 23:31 Consult Physician Routine Consulting Provider: Leland Naranjo Consult Reason/Comments: gi bleeding Do you want consulting provider notified?: Yes 05/26/18 10:25 Consult Physician Routine Consulting Provider: Keon Morris Consult Reason/Comments: recurrent anemia Do you want consulting provider notified?: Yes 05/26/18 18:53 Consult Physician Routine Consulting Provider: Leti Church Consult Reason/Comments: crf-stop steroids?? Do you want consulting provider notified?: Yes Primary care physician: [facility] Course: 67-year-old gentleman was admitted secondary to lower GI bleed secondary gentleman GERD and diverticulosis the GI bleed improved patient later became septic secondary to left lower lobe pneumonia patient was started on broad- spectrum antibiotics. Pancultures were obtained.patient was increasingly confused because of which we obtain a CAT scan of the head which showed multiple areas of possible subacute infarcts. Patient was subsequently transferred to [facility] but night covering physician last night as we do not have neurology coverage here. Patient Condition at Discharge: Stable Plan - Discharge Summary New Discharge Prescriptions: New Cefuroxime Axetil [Ceftin] 500 mg PO BID #10 tab Lisinopril [Zestril] 5 mg PO DAILY tab Nicotine 21Mg/24Hr Patch [Habitrol] 1 patch TRANSDERM DAILY patch Continue Acetaminophen Tab [Tylenol] 650 mg PO Q6HR PRN tab PRN Reason: Fever And/ Or Pain diphenhydrAMINE [Benadryl] 25 mg PO Q6HR PRN cap PRN Reason: Mild Itching Pantoprazole Sodium [Protonix] 40 mg PO BID #60 tablet.dr Thiamine [Vitamin B-1] 100 mg PO DAILY@1200 #30 tab Tamsulosin [Flomax] 0.4 mg PO DAILY #30 cap Potassium Chloride [K-Tab ER] 10 meq PO DAILY #30 tablet.er hydrALAZINE HCL [Apresoline] 100 mg PO TID #180 tab risperiDONE 1 mg PO BID #60 tablet cloNIDine 0.2 MG/24HR PATCH [Catapres-TTS] 1 patch TRANSDERM Q7D Metoprolol Tartrate 25 mg PO BID Folic Acid 1 mg PO DAILY Multivitamins, Thera [Multivitamin (formulary)] 1 tab PO DAILY Budesonide-Formot 160-4.5 Mcg [Symbicort 160-4.5 Mcg Inhaler] 2 puff INHALATION RT-BID Changed Ipratropium-Albuterol Nebulize [Duoneb 0.5 mg-3 mg/3 ml Soln] 3 ml INHALATION RT-QID #0 Discontinued predniSONE 20 mg PO DAILY #15 tab Discharge Medication List Acetaminophen Tab [Tylenol] 650 mg PO Q6HR PRN tab 05/07/18 [Rx] Pantoprazole Sodium [Protonix] 40 mg PO BID #60 tablet. 05/19/18 [Rx] Potassium Chloride [K-Tab ER] 10 meq PO DAILY #30 tablet.er 05/19/18 [Rx] Tamsulosin [Flomax] 0.4 mg PO DAILY #30 cap 05/19/18 [Rx] Thiamine [Vitamin B-1] 100 mg PO DAILY@1200 #30 tab 05/19/18 [Rx] diphenhydrAMINE [Benadryl] 25 mg PO Q6HR PRN cap 05/19/18 [Rx] hydrALAZINE HCL [Apresoline] 100 mg PO TID #180 tab 05/19/18 [Rx] risperiDONE 1 mg PO BID #60 tablet 05/19/18 [Rx] Budesonide-Formot 160-4.5 Mcg [Symbicort 160-4.5 Mcg Inhaler] 2 puff INHALATION RT-BID 05/25/18 [History] Folic Acid 1 mg PO DAILY 05/25/18 [History] Metoprolol Tartrate 25 mg PO BID 05/25/18 [History] Multivitamins, Thera [Multivitamin (formulary)] 1 tab PO DAILY 05/25/18 [History ] cloNIDine 0.2 MG/24HR PATCH [Catapres-TTS] 1 patch TRANSDERM Q7D 05/25/18 [ History] Cefuroxime Axetil [Ceftin] 500 mg PO BID #10 tab 05/28/18 [Rx] Ipratropium-Albuterol Nebulize [Duoneb 0.5 mg-3 mg/3 ml Soln] 3 ml INHALATION RT -QID #0 05/28/18 [Rx] Lisinopril [Zestril] 5 mg PO DAILY tab 05/28/18 [Rx] Nicotine 21Mg/24Hr Patch [Habitrol] 1 patch TRANSDERM DAILY patch 05/28/18 [Rx] Follow up Appointment(s)/Referral(s): Keon Morris MD [STAFF PHYSICIAN] - 4 Weeks Rudy Santoyo DO [Primary Care Provider] - 2 Weeks Erwin Escobedo DO [STAFF PHYSICIAN] - 1 Week Activity/Diet/Wound Care/Special Instructions: Pending final DC recommendations and clearance from GI, nephrology, hematology. ECF: CBC, BMP in 3 days Diet: Soft, bland Activity: As tolerated Discharge Disposition: TRANSFER TO SHORT TERM HOSP
[2018-05-30] MEDS ORDERED: VANCOMYCIN 1,000 MG in SODIUM CHLORIDE 0.9% 250 ML IVPB SCH (06:00)
== END 2018-05-28 21:50 | disposition short-term general hospital (02) | DRG 377 ==
LOC: EC 15:05 → 2SICU 16:27 → 4MS4W 05-27 10:53 → 3SCARD 05-28 17:59 → 2SICU 05-28 19:55
PROVIDERS: ADMIT Hospitalist; ATTEND Hospitalist
PROC: 30230N1 Transfusion of Nonautologous Red Blood Cells into Peripheral Vein, Open Approach (ICD-10-PCS; principal; 2018-05-25)
PROC: 0DBL8ZX Excision of Transverse Colon, Via Natural or Artificial Opening Endoscopic, Diagnostic (ICD-10-PCS; 2018-05-27)
PROC: 0DJ07ZZ Inspection of Upper Intestinal Tract, Via Natural or Artificial Opening (ICD-10-PCS; 2018-05-27)
DX: K31.811 Angiodysplasia of stomach and duodenum with bleeding (principal); G93.41 Metabolic encephalopathy; E43 Unspecified severe protein-calorie malnutrition; A41.9 Sepsis, unspecified organism; J18.1 Lobar pneumonia, unspecified organism; I63.9 Cerebral infarction, unspecified; D62 Acute posthemorrhagic anemia; E87.1 Hypo-osmolality and hyponatremia; N39.0 Urinary tract infection, site not specified; Z68.1 Body mass index [BMI] 19.9 or less, adult; N17.9 Acute kidney failure, unspecified; E87.2 Acidosis; F05 Delirium due to known physiological condition; J44.0 Chronic obstructive pulmonary disease with (acute) lower respiratory infection; G81.04 Flaccid hemiplegia affecting left nondominant side; E83.42 Hypomagnesemia; E83.39 Other disorders of phosphorus metabolism; E86.0 Dehydration; N18.3 Chronic kidney disease, stage 3 (moderate); I12.9 Hypertensive chronic kidney disease with stage 1 through stage 4 chronic kidney disease, or unspecified chronic kidney disease; T39.395A Adverse effect of other nonsteroidal anti-inflammatory drugs [NSAID], initial encounter; K21.9 Gastro-esophageal reflux disease without esophagitis; D12.3 Benign neoplasm of transverse colon; D50.0 Iron deficiency anemia secondary to blood loss (chronic); K57.30 Diverticulosis of large intestine without perforation or abscess without bleeding; K64.8 Other hemorrhoids; B96.89 Other specified bacterial agents as the cause of diseases classified elsewhere; R77.8 Other specified abnormalities of plasma proteins; Z71.6 Tobacco abuse counseling; Z79.51 Long term (current) use of inhaled steroids; Z79.52 Long term (current) use of systemic steroids; Z79.899 Other long term (current) drug therapy; Z71.3 Dietary counseling and surveillance; Z87.891 Personal history of nicotine dependence; Z90.49 Acquired absence of other specified parts of digestive tract; Z87.19 Personal history of other diseases of the digestive system; Z87.01 Personal history of pneumonia (recurrent); Z98.42 Cataract extraction status, left eye; Z98.41 Cataract extraction status, right eye; Z82.49 Family history of ischemic heart disease and other diseases of the circulatory system
CPT/HCPCS: 36415; 45385; 70450; 71045; 71046; 71250; 80048; 80053; 81001; 83605; 83735; 83880; 83883; 83921; 84100; 84132; 84443; 84484; 85025; 85027; 85045; 85610; 85730; 86850; 86900; 86901; 86920; 87040; 87077; 87086; 87186; 88305; 91110; 93005; 93308; 94640; 99291